=== PATIENT | female | born 1935 | race Caucasian/White ===

== ENCOUNTER → 2016-10-23 | Outpatient (CLI) | payer BC ==
[~2016-10-23] MED LIST: AMLO-110 PO; ASPI81TA28 PO; ATEN50TA8 PO; CYAN1SUB12 PO; EZET10TA41 PO; HYDR500C3 PO; HYZ/10015 PO; LSX20 PO; LSX40 PO; LUTE20CA PO; MECL1TAB40 PO; MULT-506 PO; NRV/5 PO; OMEG10007 PO; RALO1TAB2 PO; TNR25 PO; ULT50X PO; VYT/1040 PO
[2016-10-23 18:19] LABS: BASO % 1.5 %; BASO ABS # 0.12 K/uL (0-0.2); COMPLETE YES; EOS % 2.7 %; IG% 0.2 %; LYMPH % 23.4 %; LYMPH ABS # 1.88 K/uL (1.2-3.4); MEAN CELL VOLUME 93.9 fL (80-100); MEAN CORPUSCULAR HEMOGLOBIN 29.7 pg (25-34); MEAN CORPUSCULAR HGB CONC 31.6 g/dl (32-36); MEAN PLATELET VOLUME 10.2 fL (7.4-10.4); MONO % 8.2 %; PLATELET COUNT 435 K/uL (130-400); RED BLOOD COUNT 5.22 M/uL (4.2-5.4); WHITE BLOOD COUNT 8.02 K/uL (4.8-10.8)
[2016-10-23 18:31] LABS: BLOOD UREA NITROGEN 19 mg/dl (7-18); BUN/CREATININE RATIO 16.9 (10-20); CALCIUM 8.8 mg/dl (8.5-10.1); CARBON DIOXIDE 30 mmol/L (21-32); CHLORIDE 106 mmol/L (98-107); GLUCOSE 95 mg/dl (70-99); INR 1.1 (0.9-1.1); POTASSIUM 3.8 mmol/L (3.5-5.1); PROTHROMBIN TIME (PATIENT) 11.6 SECONDS (9.0-12.0); SODIUM 142 mmol/L (136-145)
== END | disposition home or self-care (01) ==
LOC: C.LABSPEC 17:59
PROVIDERS: ATTEND Internal Medicine
DX: Z01.812 Encounter for preprocedural laboratory examination (principal)

== ENCOUNTER → 2016-11-07 | Day surgery (SDC) | payer BC ==
[2016-11-03 08:29] VITALS: Ht 165.1 cm; Wt 78.2 kg
[~2016-11-07] VITALS: Ht 165.1 cm; Wt 78.2 kg
[~2016-11-07] MED LIST changes: +ACETAMINOPHEN 325 MG TAB PO PRN; +ACETAMINOPHEN IV 1,000 MG in EMPTY BAG 0 ML IV PRN; -ASPI81TA28 PO; +ATROPINE SULFATE 0.1 MG/ML 5ML SYR IV PRN; +BACITRACIN OP OINT 3.5 GM TUBE ONE; +BUPIVACAINE 0.5 % 5 MG/1 ML MPF 30ML VIAL ONE; +CEFAZOLIN 2000 MG/60 ML D5W IV SCH; +EpHEDrine SULFATE INJ 50 MG/ML AMP IV PRN; +FENTANYL CITRATE INJ 50 MCG/1 ML 2 ML VIAL IV PRN; +FENTANYL CITRATE INJ 50 MCG/1 ML 2 ML VIAL ONE; +GENTIAN VIOLET TOP SOLN DROP CHARGE ONE; -HYZ/10015 PO; +LACTATED RINGER'S 1000ML 1,000 ML IV SCH; +LIDOCAINE/EPINEPHRINE 1% INJ 50 ML VIAL ONE; -LSX40 PO; +METOCLOPRAMIDE HCL INJ 5 MG/ML 2 ML VIAL IV PRN; +MIDAZOLAM HCL 1 MG/ML 2ML VIAL ONE; -NRV/5 PO; +ONDANSETRON INJ 2 MG/ML 2 ML VIAL IV PRN; +OXYCODONE/ACETAMINOPHEN 5-325 TAB PO PRN; +POVIDONE-IODINE OP SOLN 30 ML BTL ONE; +PROPOFOL IV EMULSION 10 MG/ML 20 ML VIAL IV ONE; +SODIUM CHLORIDE 0.9% 1000ML 1,000 ML IV SCH; -TNR25 PO; -ULT50X PO; -VYT/1040 PO
--- NOTE | 2016-11-07 06:55 | History & Physical Bridge - [place] ---
H&P Re-Evaluation Bridge Note: I have examined the patient, reviewed the History & Physical and in the interval since the performance of the History & Physical I have noted the following changes of clinical significance: Feels stressed about procedure. Reassurance offered.
--- NOTE | 2016-11-07 09:16 | [facility] Post Operative Brief Note ---
Immediate Operative Summary Operative Date Nov 07, 2016. Pre-Operative Diagnosis Squamous Cell Carcinoma of Skin of Face, Left Arm and Right Chest Lesions Post-Operative Diagnosis same Procedure(s) Performed Right Nose And Right Cheek Squamous Cell Carcinomas Excision With Frozen Section, layered Closure right cheek, flap closure right nose Left Arm And Right Chest Lesions Excision with layered closure Surgeon Dr Marlen Nam Inside Sales Professional Surgeon(s) Karlene Ambrocio PA-C Estimated Blood Loss 5 Findings small amount residual SCC right cheek, completely excised no residual SCC right nose, but scar abutted deep margin, second deep margin specimen obtained and sent for permanent Specimens A) Right Cheek Squamous Cell Suture at 1200, Frozen section sent B)Right Nose [place] Cell Suture at 1200, Frozen section sent C)Right Chest Lesion D)Left Arm Lesion Suspect Squamous Cell In-Situ E)Right Nose ink surface=old deep margin, clean surface=new deep margin Anesthesia local with sedation Complication(s) None Disposition Recovery Room / PACU
[2016-11-07 09:22] VITALS: TEMP 36.6
--- NOTE | 2016-11-07 09:24 | Discharge Instructions ---
Discharge Instructions Date of Service Nov 07, 2016. Admission Reason for Admission: Squamous Cell Carcinoma Of Skin Of Face Discharge Discharge Diagnosis / Problem: squamous cell carcinoma of face Discharge Goals Goal(s): Decrease discomfort Activity Recommendations Activity Limitations: per Instructions/Follow-up section ACTIVITY RECOMMENDATIONS: __Normal activities _x_No bending, lifting or straining __No driving __Driving allowed when you are off pain medications _x_Walking permitted __You should have help at home for ___ days DRESSINGS: __No dressings required __Keep dressings dry/in place until first office visit _x_Remove dressings __from left arm on thursday_ and leave dressings off __Apply ice ___ days __Remove dressings and reapply garment _x_Apply antibiotic ointment (sent to your pharmacy) to NOSE ONLY 3-4 times/day for 10 days BATHING: __Keep dressings dry __Sponge bathing permitted _x_Showering permitted on Thursday after your remove dressings _x_No swimming, hot tubs or soaking in a tub MEDICATIONS: Resume previous medications unless instructed otherwise by your surgeon. _x_Do not use aspirin, Motrin, Advil or Ibuprofen as these may promote bleeding. Please use Tylenol. _x_Prescription(s) provided:pain medication was provided at your last office visit. antibiotic ointment was sent to your pharmacy today OTHER INSTRUCTIONS: __Record drain output 2-3 times per day SPECIAL CARE INSTRUCTIONS: * It is normal to have a mild fever after surgery. If your temperature is higher than 101.5 degrees F, please call the office at [phone]. * Constipation is a typical side effect of pain medication. An over-the- counter stool softener will help relieve this. * Leaking around surgical drains may occur and should not cause concern. Sometimes these drains become clogged. If this happens, remove the bulb and milk the clot out of the tube, then replace the bulb. * Drainage from wounds after liposuction is normal and should be expected. Garments will become soiled. You should protect furniture and bedding. This drainage should mostly subside within 2-3 days. Leave garments in place unless instructed to remove them. * If you have unusual drainage from a wound or are concerned you have an infection or have any questions or concerns, please call the office at [phone]. FOLLOW UP VISIT: If not already scheduled, please call the office, , when you return home after surgery to schedule an appointment to be seen in __3_ days. (Thursday) . Current Hospital Diet Patient's current hospital diet: Discharge Diet Recommended Diet: Regular Diet Procedures Procedures Performed: Right Nose And Right Cheek Squamous Cell Carcinomas Excision With Frozen Section, layered Closure right cheek, flap closure right nose Left Arm And Right Chest Lesions Excision with layered closure Pending Studies Studies pending at discharge: yes List of pending studies: pathology Medical Emergencies . Who to Call and When: Medical Emergencies: If at any time you feel your situation is an emergency, please call 911 immediately. . Non-Emergent Contact Non-Emergency issues call your: Primary Care Provider, Surgeon . "Provider Documentation" section prepared by Karlene Ambrocio. VTE Core Measure Inpt VTE Proph given/why not?: SCD's [place] Drug Monitoring Program Search Results: no issues identified
--- NOTE | 2016-11-07 09:50 | Anesthesia Progress Nt - [facility] ---
Anesthesia Post Op Note Date & Time Nov 07, 2016 at 09:49 Vital Signs Pain Intensity: 0 Vital Signs Past 12 Hours Date Time Temp Pulse Resp B/P Pulse Ox O2 Delivery O2 Flow Rate FiO2 11/07/16 09:22 36.6 79 12 148/76 93 Room Air 11/07/16 06:33 36.4 75 18 161/83 95 Room Air Notes Mental Status: alert / awake / arousable, participated in evaluation Pt Amnestic to Procedure: Yes Nausea / Vomiting: adequately controlled Pain: adequately controlled Airway Patency, RR, SpO2: stable & adequate BP & HR: stable & adequate Hydration State: stable & adequate Anesthetic Complications: no major complications apparent
[2016-11-07 09:57] VITALS: BP 161/89; PULSE 80; O2SAT 94
--- NOTE | 2016-11-10 11:00 | OPERATIVE REPORT ---
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 POSTOPERATIVE DIAGNOSES: Same. PROCEDURES: Excision of right nose squamous cell carcinoma with frozen section and bilobed flap closure, excision squamous cell carcinoma right cheek with frozen section and layered closure, excisional biopsy of lesions left arm and right chest with layered closure. SURGEON: Marlen Nam MD [employer]ARK PARALEGAL: Karlene Ambrocio PA-C ANESTHESIA: Local with sedation. COMPLICATIONS: None. FINDINGS: Small amount of residual squamous cell carcinoma right cheek, completely excised. Per frozen section report, no residual squamous cell carcinoma right nose, but with scar abutting deep margin. INDICATION FOR THE PROCEDURE: The patient is an 81-year-old female who was referred to me with a nonhealing skin ulceration of her right nose and right yazdanism. Biopsy of these lesions were performed and found to be squamous cell carcinoma. Given the locations, we discussed options of Mohs versus excision with frozen section. After discussion, she elected to proceed with excision with frozen section. At the time of her preoperative visit, she pointed out lesions on her left arm and right chest that she desired to have biopsied as well. Clinically, it did appear consistent with squamous cell carcinoma in situ. BRIEF DESCRIPTION OF THE PROCEDURE: Risks, benefits, and alternatives of the procedure were explained to the patient who agreed and signed consent. She was identified and marked in the preoperative holding area. She was brought to the operating room where she was placed on the table and positioned supine and placed under sedation without incident. Surgical sites were prepped and draped sterilely. A time-out procedure was performed. I began by excising the 2 lesions for frozen section. Each lesion was marked including prior biopsy scar and a margin of normal tissue surrounding the lesion. Maximal excision diameter on the right nose was 1.2 x 1.2 cm. The right cheek lesion was marked for maximal excision diameter of 1.5 x 1.5 cm. Each area was anesthetized using 1% lidocaine with epinephrine. A 15 blade scalpel was used to make the circular incisions around each lesion. Fresh needle and blade were used for each excision. Each lesion was marked with a suture at 12 o'clock and sent for frozen section. While awaiting the frozen section reports, I excised the lesions of the right cheek and left forearm. Maximal excision of the left forearm lesion was 2.5 x 2.5 cm and right chest lesion was 2 x 1.5 cm. Each of these lesions was also anesthetized with 1% lidocaine with epinephrine mixed with 0.25% Marcaine plain. They were marked in an elliptical fashion. A 15 blade scalpel made the elliptical incision and the lesion was removed with some underlying subcutaneous fat. These lesions were sent for permanent. Hemostasis was achieved with electrocautery. Wounds were reapproximated using 3-0 Vicryl interrupted dermal sutures and 3-0 Monocryl running subcuticular suture. Total wound closure length for the left forearm was 6 cm and total wound closure length for the right chest was 5 cm. Frozen section report showed there was some residual squamous cell carcinoma on the right cheek which was completely excised. Hemostasis was achieved with electrocautery. Wound edges were undermined to facilitate closure. A 5-0 Vicryl interrupted sutures were used to reapproximate the dermis and a running 5-0 Monocryl subcuticular suture was placed. Dermabond was applied. Total wound closure length was 3 cm. The right nose showed that there was no residual squamous cell carcinoma; however, the biopsy scar abutted the deep margin. Therefore, I elected to take a deep margin specimen which was then sent for permanent section. The base of the wound was extensively cauterized as well. Due to the location on the right nose along the nasal side wall near the right medial canthus, I elected to perform bilobed flap closure. Flap was designed and additional local anesthetic was injected. A 15 blade scalpel made the incisions. The flap was raised with the underlying subcutaneous fat at the level of the nasalis muscle. Hemostasis was achieved at the wound base using electrocautery. The flap as well as the wound edges along the nose was elevated and undermined. The flap was rotated into position and was inset using 5-0 Monocryl interrupted dermal sutures. Donor site was closed using 5-0 Monocryl sutures. Skin was closed using 6-0 Prolene interrupted skin sutures. Total flap area was less than 10 square cm. The procedure was tolerated well. Antibiotic ointment was applied to the nasal site. The patient was awakened and transferred to recovery in satisfactory condition. I attest to the content of the Intraoperative Record and any orders documented therein. Any exceptio ns are noted below.
== END | disposition home or self-care (01) ==
LOC: X.SURG 06:07
PROVIDERS: ATTEND Plastic Surgery
DX: C44.320 Squamous cell carcinoma of skin of unspecified parts of face (principal); C44.321 Squamous cell carcinoma of skin of nose; C44.519 Basal cell carcinoma of skin of other part of trunk; L57.0 Actinic keratosis; M19.90 Unspecified osteoarthritis, unspecified site; D75.9 Disease of blood and blood-forming organs, unspecified; E78.5 Hyperlipidemia, unspecified; I10 Essential (primary) hypertension; Z98.890 Other specified postprocedural states; Z82.49 Family history of ischemic heart disease and other diseases of the circulatory system

== ENCOUNTER → 2017-05-05 | Outpatient (CLI) | payer BC ==
[~2017-05-05] MED LIST changes: -ACETAMINOPHEN 325 MG TAB PO PRN; -ACETAMINOPHEN IV 1,000 MG in EMPTY BAG 0 ML IV PRN; -ATROPINE SULFATE 0.1 MG/ML 5ML SYR IV PRN; -BACITRACIN OP OINT 3.5 GM TUBE ONE; -BUPIVACAINE 0.5 % 5 MG/1 ML MPF 30ML VIAL ONE; -CEFAZOLIN 2000 MG/60 ML D5W IV SCH; -EpHEDrine SULFATE INJ 50 MG/ML AMP IV PRN; -FENTANYL CITRATE INJ 50 MCG/1 ML 2 ML VIAL IV PRN; -FENTANYL CITRATE INJ 50 MCG/1 ML 2 ML VIAL ONE; -GENTIAN VIOLET TOP SOLN DROP CHARGE ONE; -LACTATED RINGER'S 1000ML 1,000 ML IV SCH; -LIDOCAINE/EPINEPHRINE 1% INJ 50 ML VIAL ONE; -METOCLOPRAMIDE HCL INJ 5 MG/ML 2 ML VIAL IV PRN; -MIDAZOLAM HCL 1 MG/ML 2ML VIAL ONE; -OMEG10007 PO; -ONDANSETRON INJ 2 MG/ML 2 ML VIAL IV PRN; -OXYCODONE/ACETAMINOPHEN 5-325 TAB PO PRN; -POVIDONE-IODINE OP SOLN 30 ML BTL ONE; -PROPOFOL IV EMULSION 10 MG/ML 20 ML VIAL IV ONE; -SODIUM CHLORIDE 0.9% 1000ML 1,000 ML IV SCH
[2017-05-05 18:03] LABS: BASO % 2.1 %; BASO ABS # 0.15 K/uL (0-0.2); COMPLETE YES; EOS % 2.5 %; HEMATOCRIT 42.4 % (37-47); IG% 0.1 %; LYMPH % 23.2 %; LYMPH ABS # 1.66 K/uL (1.2-3.4); MEAN CELL VOLUME 91.8 fL (80-100); MEAN CORPUSCULAR HEMOGLOBIN 27.9 pg (25-34); MEAN CORPUSCULAR HGB CONC 30.4 g/dl (32-36); MEAN PLATELET VOLUME 9.5 fL (7.4-10.4); MONO % 7.8 %; NEUT % 64.3 %; PLATELET COUNT 468 K/uL (130-400); RED BLOOD COUNT 4.62 M/uL (4.2-5.4); WHITE BLOOD COUNT 7.16 K/uL (4.8-10.8)
[2017-05-05 18:48] LABS: ALT/SGPT 18 U/L (12-78); AST/SGOT 19 U/L (15-37); BLOOD UREA NITROGEN 14 mg/dl (7-18); BUN/CREATININE RATIO 17.7 (10-20); CALCIUM 8.2 mg/dl (8.5-10.1); CARBON DIOXIDE 26 mmol/L (21-32); CHLORIDE 108 mmol/L (98-107); CHOLESTEROL 160 mg/dl (0-200); CREATININE 0.81 mg/dl (0.60-1.20); GLUCOSE 83 mg/dl (70-99); POTASSIUM 4.2 mmol/L (3.5-5.1); SODIUM 141 mmol/L (136-145)
[2017-05-05 18:58] LABS: ALKALINE PHOSPHATASE 72 U/L (45-117); HDL CHOLESTEROL 40 mg/dl; TRIGLYCERIDES 133 mg/dl (0-150); VERY LOW DENSITY LIPOPROT CALC 27 mg/dl
== END | disposition home or self-care (01) ==
LOC: C.LABSPEC 17:29
PROVIDERS: ATTEND Internal Medicine
DX: I10 Essential (primary) hypertension (principal); E78.5 Hyperlipidemia, unspecified; D45 Polycythemia vera; E04.1 Nontoxic single thyroid nodule

== ENCOUNTER → 2017-05-11 | Outpatient (CLI) | payer BC | END | disposition home or self-care (01) | LOC: C.PATHSPEC 10:15 | PROVIDERS: ATTEND Plastic Surgery | DX: L57.0 Actinic keratosis (principal) ==

== ENCOUNTER → 2017-05-28 | Outpatient (CLI) | payer BC ==
[2017-05-28 18:01] LABS: BASO % 1.6 %; BASO ABS # 0.12 K/uL (0-0.2); COMPLETE YES; EOS % 2.7 %; HEMATOCRIT 43.9 % (37-47); IG% 0.3 %; LYMPH % 21.9 %; LYMPH ABS # 1.63 K/uL (1.2-3.4); MEAN CELL VOLUME 90.1 fL (80-100); MEAN CORPUSCULAR HEMOGLOBIN 28.1 pg (25-34); MEAN CORPUSCULAR HGB CONC 31.2 g/dl (32-36); MEAN PLATELET VOLUME 9.9 fL (7.4-10.4); MONO % 7.7 %; NEUT % 65.8 %; PLATELET COUNT 384 K/uL (130-400); RED BLOOD COUNT 4.87 M/uL (4.2-5.4); WHITE BLOOD COUNT 7.43 K/uL (4.8-10.8)
[2017-05-28 18:15] LABS: BLOOD UREA NITROGEN 23 mg/dl (7-18); BUN/CREATININE RATIO 21.5 (10-20); CALCIUM 8.6 mg/dl (8.5-10.1); CARBON DIOXIDE 30 mmol/L (21-32); CHLORIDE 104 mmol/L (98-107); CREATININE 1.05 mg/dl (0.60-1.20); GLUCOSE 101 mg/dl (70-99); POTASSIUM 4.7 mmol/L (3.5-5.1); SODIUM 139 mmol/L (136-145)
== END | disposition home or self-care (01) ==
LOC: C.LABSPEC 17:26
PROVIDERS: ATTEND Internal Medicine
DX: E78.5 Hyperlipidemia, unspecified (principal); D45 Polycythemia vera

== ENCOUNTER 2017-08-15 06:47 | Inpatient (IN) | payer BC, OTHER ==
[~2017-08-15] VITALS: Ht 170.2 cm; Wt 76.2 kg
[2017-08-15] MEDS ORDERED: OMEGCAP2 PO (07:12)
[2017-08-15] MEDS ORDERED: FURO-85 PO (07:20)
[2017-08-15 07:27] LABS: BASO % 1.8 %; BASO ABS # 0.12 K/uL (0-0.2); EOS % 2.4 %; EOS ABS # 0.16 K/uL (0-0.5); HEMATOCRIT 43.6 % (37-47); HEMOGLOBIN 13.4 g/dL (12.0-16.0); IG# 0.01 K/uL (0.00-0.02); LYMPH % 15.1 %; MEAN CELL VOLUME 90.8 fL (80-100); MEAN CORPUSCULAR HEMOGLOBIN 27.9 pg (25-34); MEAN CORPUSCULAR HGB CONC 30.7 g/dl (32-36); MEAN PLATELET VOLUME 10.4 fL (7.4-10.4); MONO % 7.1 %; MONO ABS # 0.47 K/uL (0.11-0.59); NEUT % 73.4 %; NEUT ABS # 4.86 K/uL (1.4-6.5); PLATELET COUNT 395 K/uL (130-400); RED CELL DISTRIBUTION WIDTH CV 17.2 % (11.5-14.5); RED CELL DISTRIBUTION WIDTH SD 56.4 fL (36.4-46.3); WHITE BLOOD COUNT 6.62 K/uL (4.8-10.8)
[2017-08-15] MEDS ORDERED: ASPIRIN 81 MG CHEW PO STA (07:30)
[2017-08-15 07:33] LABS: ALBUMIN 3.1 gm/dl (3.4-5.0); BLOOD UREA NITROGEN 20 mg/dl (7-18); CALCIUM 8.4 mg/dl (8.5-10.1); CARBON DIOXIDE 29 mmol/L (21-32); CREATININE 1.01 mg/dl (0.60-1.20); GLUCOSE 109 mg/dl (70-99); LIPASE 68 U/L (73-393); SODIUM 141 mmol/L (136-145)
[2017-08-15 07:39] LABS: ALKALINE PHOSPHATASE 77 U/L (45-117); ALT/SGPT 14 U/L (12-78); AST/SGOT 16 U/L (15-37); CKMB 0.8 ng/ml (0.5-3.6); TOTAL PROTEIN 6.9 gm/dl (6.4-8.2)
--- NOTE | 2017-08-15 07:48 | DIAGNOSTIC IMAGING REPORT ---
CHEST ONE VIEW PORTABLE CLINICAL HISTORY: CHEST PAIN dyspnea COMPARISON STUDY: 05/15/2016 FINDINGS: Small parenchymal infiltrate left base. Lungs otherwise appear clear. Mild stable cardiomegaly. IMPRESSION: Small parenchymal infiltrate left base. Mild stable cardiomegaly. The above report was generated using voice recognition software. It may contain grammatical, syntax or spelling errors. Electronically signed by: Fredi Dudley M.D. 08/15/2017 7:46 AM Dictated Date/Time: 08/15/2017 7:46 AM
[2017-08-15] MEDS ORDERED: OPTIRAY 320 IV PRN (09:00)
--- NOTE | 2017-08-15 09:34 | DIAGNOSTIC IMAGING REPORT ---
(CHEST FOR PE) ANGIO WITH CT DOSE: 245.65 mGy.cm HISTORY: Dyspnea chest pain TECHNIQUE: Multiaxial CT images of the chest were performed following the intravenous administration of contrast to evaluate the pulmonary arteries. Maximal intensity projection images were also obtained. A dose lowering technique was utilized adhering to the principles of ALARA. COMPARISON STUDY: 07/26/2014 FINDINGS: There is a normal caliber thoracic aorta with no evidence for dissection. There is no evidence for pulmonary embolus. No pleural effusions. No pneumothorax. The liver and spleen are unremarkable. No mediastinal or hilar lymphadenopathy. The central airways are patent. There is moderate peribronchial thickening. There is small left and to lesser extent right basilar parenchymal infiltrative changes. IMPRESSION: 1. No evidence for pulmonary embolus. 2. Left and to a lesser extent small right basilar parenchymal infiltrates. 3. Moderate peribronchial thickening. The above report was generated using voice recognition software. It may contain grammatical, syntax or spelling errors. Electronically signed by: Fredi Dudley M.D. 08/15/2017 9:32 AM Dictated Date/Time: 08/15/2017 9:30 AM
[2017-08-15] MEDS ORDERED: LEVAQUIN 750MG / 150ML D5W IV STA (10:58)
[2017-08-15] MEDS ORDERED: NITROGLYCERIN 0.4 MG SL PER TAB CHARGE SL PRN (11:45)
[2017-08-15] MEDS ORDERED: MECLIZINE HCL 12.5 MG TAB PO PRN (11:45)
[2017-08-15] MEDS ORDERED: ONDANSETRON INJ 2 MG/ML 2 ML VIAL IV PRN (11:45)
[2017-08-15] MEDS ORDERED: ACETAMINOPHEN 325 MG TAB PO PRN (11:45)
[2017-08-15] MEDS ORDERED: MAGNESIUM HYDROXIDE SUSP 30 ML UDC PO PRN (11:45)
--- NOTE | 2017-08-15 11:55 | History and Physical ---
History & Physical Date & Time of Service: Aug 15, 2017 at 11:47 Chief Complaint: Chest Pain Primary Care Physician: John Friedman M.D. History of Present Illness Source: patient 82 y/o F c/o chest pain. Pt states she was in her usual state of health yesterday, however she woke up this AM and had sudden onset of L sided chest pain with SOB. This pain stays mostly on the L side and occurs only when she is bending over. She does not have pain at rest or with stairs. She has had similar chest pain many years ago when she was dx with pleurisy. She has been eating well, although she has not eaten today due to coming to the ED. Pt denies fever, abd pain, n/v/c/d, LE pain. Pt always has mild LE swelling and it is at her usual today. Past Medical/Surgical History Medical Problems: (1) CELLILITIS RLL, LEG EDEMA Status: Resolved (2) CHF (congestive heart failure) Status: Chronic (3) GI BLEED, POLYCYTHEMIA VERA Status: Resolved (4) Hyperlipidemia Nec/Nos Status: Chronic (5) Hypertension Nos Status: Chronic (6) Peripheral vertigo Status: Resolved (7) Polycythemia vera Status: Chronic Family History Diabetes mellitus FH: CVA (cerebrovascular accident) FH: heart attack FH: heart disease FHx: cancer Hypertension CVA, PR Social History Smoking Status: Never Smoker (although her smoked in the home) Alcohol Use: none Drug Use: none Marital Status: Housing status: lives with family Occupational Status: retired Immunizations History of Influenza Vaccine: Yes Influenza Vaccine Date: Apr 18, 2016 History of Tetanus Vaccine?: Yes History of Pneumococcal: Yes History of Hepatitis B Vaccine: No Multi-Drug Resistant Organisms History of MDRO: No Allergies Coded Allergies: No Known Allergies (Verified , 08/15/17) Home Medications Scheduled Amlodipine (Norvasc), 5 MG PO DAILY Atenolol (Tenormin), 1.5 TABS PO DAILY Cyanocobalamin (Vitamin B-12), 2,500 MCG PO DAILY Ezetimibe/Simvastatin (Vytorin 10MG/40MG), 1 TAB PO DAILY Furosemide (Lasix), 1 TAB PO DAILY Hydroxyurea (Hydrea Cap), 500 MG PO DAILY Lutein (Lutein), 20 MG PO DAILY Multivitamin (Multivitamin), 1 TAB PO DAILY [place]-3 Fatty Acids (Fish Oil), 1 CAP PO DAILY Raloxifene HCl (Raloxifene Hydrochloride), 60 MG PO DAILY Scheduled PRN Meclizine HCl (Meclizine HCl), 12.5 MG PO TID PRN for Dizziness or Vertigo Review of Systems Pertinent positives and negatives reviewed in HPI--all others negative Physical Exam Vital Signs Date Time Temp Pulse Resp B/P (MAP) Pulse Ox O2 Delivery O2 Flow Rate FiO2 08/15/17 11:42 60 17 152/66 95 Room Air 08/15/17 09:59 64 18 158/72 95 Room Air 08/15/17 08:49 65 18 139/63 95 Room Air 08/15/17 07:42 75 18 147/75 95 Room Air 08/15/17 06:58 94 Room Air 08/15/17 06:58 36.8 71 20 169/82 94 Room Air 08/15/17 06:58 93 Room Air 08/15/17 06:58 94 Room Air 08/15/17 06:56 75 General Appearance: WD/WN, no apparent distress Head: normocephalic, atraumatic Eyes: normal inspection, EOMI, sclerae normal Respiratory/Chest: no respiratory distress, + crackles (L>R) Cardiovascular: regular rate, rhythm, normal peripheral pulses Abdomen/GI: non tender, soft Extremities/Musculoskelatal: no calf tenderness, + pedal edema (1+, nonpitting) Neurologic/Psych: alert, normal mood/affect, oriented x 3 Skin: normal color, warm/dry Diagnostics Laboratory Results Results Past 24 Hours Test 08/15/17 06:55 08/15/17 09:00 Range/Units White Blood Count 6.62 4.8-10.8 K/uL Red Blood Count 4.80 4.2-5.4 M/uL Hemoglobin 13.4 12.0-16.0 g/dL Hematocrit 43.6 37-47 % Mean Corpuscular Volume 90.8 80-100 fL Mean Corpuscular Hemoglobin 27.9 25-34 pg Mean Corpuscular Hemoglobin Concent 30.7 32-36 g/dl Platelet Count 395 130-400 K/uL Mean Platelet Volume 10.4 7.4-10.4 fL Neutrophils (%) (Auto) 73.4 % Lymphocytes (%) (Auto) 15.1 % Monocytes (%) (Auto) 7.1 % Eosinophils (%) (Auto) 2.4 % Basophils (%) (Auto) 1.8 % Neutrophils # (Auto) 4.86 1.4-6.5 K/uL Lymphocytes # (Auto) 1.00 1.2-3.4 K/uL Monocytes # (Auto) 0.47 0.11-0.59 K/uL Eosinophils # (Auto) 0.16 0-0.5 K/uL Basophils # (Auto) 0.12 0-0.2 K/uL RDW Standard Deviation 56.4 36.4-46.3 fL RDW Coefficient of Variation 17.2 11.5-14.5 % Immature Granulocyte % (Auto) 0.2 % Immature Granulocyte # (Auto) 0.01 0.00-0.02 K/uL Sodium Level 141 136-145 mmol/L Potassium Level 4.0 3.5-5.1 mmol/L Chloride Level 106 98-107 mmol/L Carbon Dioxide Level 29 21-32 mmol/L Anion Gap 6.0 3-11 mmol/L Blood Urea Nitrogen 20 7-18 mg/dl Creatinine 1.01 0.60-1.20 mg/dl Est Creatinine Clear Calc Drug Dose 45.2 ml/min Estimated GFR () 59.2 Estimated GFR (Non- 51.1 BUN/Creatinine Ratio 19.6 10-20 Random Glucose 109 70-99 mg/dl Calcium Level 8.4 8.5-10.1 mg/dl Total Bilirubin 0.6 0.2-1 mg/dl Direct Bilirubin 0.2 0-0.2 mg/dl Aspartate Amino Transf (AST/SGOT) 16 15-37 U/L Alanine Aminotransferase (ALT/SGPT) 14 12-78 U/L Alkaline Phosphatase 77 45-117 U/L Total Creatine Kinase 44 26-192 U/L Creatine Kinase MB 0.8 0.5-3.6 ng/ml Creatine Kinase MB Ratio 1.8 0-3.0 Troponin I < 0.015 < 0.015 0-0.045 ng/ml Total Protein 6.9 6.4-8.2 gm/dl Albumin 3.1 3.4-5.0 gm/dl Lipase 68 73-393 U/L Microbiology Results 08/15/17 Blood Culture, Received Pending 08/15/17 Blood Culture, Received Pending Diagnostic Radiology CXR: ? L sided PNA CTA: L sided PNA, small R sided PNA, neg for PE EKG LBBB, seen prior Impression Assessment and Plan 82 y/o F who was admitted on 08/15 with chest pain and SOB. Chest pain/SOB: Seems more likely related to PNA given hx of onset with bending over and not with exertion CXR, CTA noted for PNA EKG with LBBB which has been seen prior, trop neg with serials pending Levaquin started in the ED, will continue Afebrile, WBC WNL CHF: continue home meds HTN: continue home meds Hyperlipidemia: continue home meds Vertigo: no sx presently, continue PRN med Other: Full code Low sodium diet SCDs for DVT proph Level of Care Telemetry VTE Prophylaxis VTE Risk Assessment Done? Y/N: Yes Risk Level: Low
[2017-08-15 12:58] VITALS: O2SAT 95
[2017-08-15 13:16] VITALS: BP 171/82; PULSE 62; TEMP 36.9; Ht 170.2 cm; Wt 76.2 kg
[2017-08-15 14:54] VITALS: BP 162/85; PULSE 69; TEMP 37.1; O2SAT 95
[2017-08-15] MEDS: FUROSEMIDE 20 MG TAB PO SCH (16:09)
--- NOTE | 2017-08-15 16:22 | EMERGENCY ROOM VISIT NOTE ---
History Report prepared by Marc: Jennifer Bonilla Under the Supervision of: Dr. Nathan Luna M.D. First contact with patient: 07:12 Chief Complaint: CHEST PAIN Stated Complaint: CHEST PAIN Nursing Triage Summary: pt presents to room b09 via als from home. pt reports at approx 0500 she had an episode of chest pain that lasted approx 10 min and then resolved. pt denies any pain at this time. History of Present Illness The patient is a 82 year old female who presents to the Emergency Room with complaints of chest pain beginning at 0500 this morning. The patient reports that the pain lasted for 10 minutes and that during this time, she was unable to take a deep breath. She reports that the pain did not radiate to her arm or jaw. She also denies having abdominal pain, nausea, fevers, chills, cough, headaches, numbness, melena, hematochezia, and diaphoresis. The patient states that she does get short of breath with walking recently. Her family states that she sometimes has weakness in her legs. She reports having a runny nose, but states that this is chronic. The patient denies having any pain like this in the last week, or any time recently. The patient denies recent travel. She denies a history of cardiac problems, but states that there is a family history of strokes and heart attacks. She reports a history of hypertension, but denies a history of diabetes. Source of History: patient, family Onset: 0500 this morning Position: chest Timing: other (lasted 10 minutes) Associated Symptoms: + SOB (unable to take deep breath ), + weakness, No abdominal pain Review of Systems See HPI for pertinent positives and negatives. A total of ten systems were reviewed and were otherwise negative. Past Medical & Surgical Medical Problems: (1) CELLILITIS RLL, LEG EDEMA (2) CHF (congestive heart failure) (3) Dizziness (4) GI BLEED, POLYCYTHEMIA VERA (5) Hyperlipidemia Nec/Nos (6) Hypertension Nos (7) Peripheral vertigo (8) PNA (pneumonia) (9) Polycythemia vera (10) Vertigo Family History Diabetes mellitus FH: CVA (cerebrovascular accident) FH: heart attack FH: heart disease FHx: cancer Hypertension Social History Smoking Status: Never Smoker Alcohol Use: none Drug Use: none Marital Status: Housing Status: lives with family Occupation Status: retired Current/Historical Medications Scheduled Amlodipine (Norvasc), 5 MG PO DAILY Atenolol (Tenormin), 1.5 TABS PO DAILY Cyanocobalamin (Vitamin B-12), 2,500 MCG PO DAILY Ezetimibe/Simvastatin (Vytorin 10MG/40MG), 1 TAB PO DAILY Furosemide (Lasix), 1 TAB PO DAILY Hydroxyurea (Hydrea Cap), 500 MG PO DAILY Lutein (Lutein), 20 MG PO DAILY Multivitamin (Multivitamin), 1 TAB PO DAILY Scobey-3 Fatty Acids (Fish Oil), 1 CAP PO DAILY Raloxifene HCl (Raloxifene Hydrochloride), 60 MG PO DAILY Scheduled PRN Meclizine HCl (Meclizine HCl), 12.5 MG PO TID PRN for Dizziness or Vertigo Allergies Coded Allergies: No Known Allergies (Verified , 08/15/17) Physical Exam Vital Signs Date Time Temp Pulse Resp B/P (MAP) Pulse Ox O2 Delivery O2 Flow Rate FiO2 08/15/17 11:42 60 17 152/66 95 Room Air 08/15/17 09:59 64 18 158/72 95 Room Air 08/15/17 08:49 65 18 139/63 95 Room Air 08/15/17 07:42 75 18 147/75 95 Room Air 08/15/17 06:58 94 Room Air 08/15/17 06:58 36.8 71 20 169/82 94 Room Air 08/15/17 06:58 93 Room Air 08/15/17 06:58 94 Room Air 08/15/17 06:56 75 Physical Exam GENERAL: Awake, alert, tired-appearing, in no distress HENT: Normocephalic, atraumatic. Oropharynx unremarkable. EYES: Normal conjunctiva. Sclera non-icteric. NECK: Supple. No nuchal rigidity. FROM. No JVD. RESPIRATORY: Clear to auscultation. CARDIAC: Regular rate, normal rhythm. Extremities warm and well perfused. Pulses equal. ABDOMEN: Soft, non-distended. No tenderness to palpation. No rebound or guarding. No masses. RECTAL: Deferred. MUSCULOSKELETAL: Chest examination reveals no tenderness. The back is symmetrical on inspection without obvious abnormality. There is no CVA tenderness to palpation. No joint edema. LOWER EXTREMITIES: Calves are equal size bilaterally and non-tender. Trace lower extremity edema. No discoloration. NEURO: Normal sensorium. No sensory or motor deficits noted. SKIN: No rash or jaundice noted. Medical Decision & Procedures ER Provider Diagnostic Interpretation: Radiology results as stated below per my review and radiologist interpretation: CHEST ONE VIEW PORTABLE CLINICAL HISTORY: CHEST PAIN dyspnea COMPARISON STUDY: 05/15/2016 FINDINGS: Small parenchymal infiltrate left base. Lungs otherwise appear clear. Mild stable cardiomegaly. IMPRESSION: Small parenchymal infiltrate left base. Mild stable cardiomegaly. The above report was generated using voice recognition software. It may contain grammatical, syntax or spelling errors. Electronically signed by: Fredi Dudley M.D. 08/15/2017 7:46 AM Dictated Date/Time: 08/15/2017 7:46 AM (CHEST FOR PE) ANGIO WITH CT DOSE: 245.65 mGy.cm HISTORY: Dyspnea chest pain TECHNIQUE: Multiaxial CT images of the chest were performed following the intravenous administration of contrast to evaluate the pulmonary arteries. Maximal intensity projection images were also obtained. A dose lowering technique was utilized adhering to the principles of ALARA. COMPARISON STUDY: 07/26/2014 FINDINGS: There is a normal caliber thoracic aorta with no evidence for dissection. There is no evidence for pulmonary embolus. No pleural effusions. No pneumothorax. The liver and spleen are unremarkable. No mediastinal or hilar lymphadenopathy. The central airways are patent. There is moderate peribronchial thickening. There is small left and to lesser extent right basilar parenchymal infiltrative changes. IMPRESSION: 1. No evidence for pulmonary embolus. 2. Left and to a lesser extent small right basilar parenchymal infiltrates. 3. Moderate peribronchial thickening. The above report was generated using voice recognition software. It may contain grammatical, syntax or spelling errors. Electronically signed by: Fredi Dudley M.D. 08/15/2017 9:32 AM Dictated Date/Time: 08/15/2017 9:30 AM Laboratory Results 08/15/17 06:55 Red Blood Count 4.80, Mean Corpuscular Volume 90.8, Mean Corpuscular Hemoglobin 27.9, Mean Corpuscular Hemoglobin Concent 30.7, Mean Platelet Volume 10.4, Neutrophils (%) (Auto) 73.4, Lymphocytes (%) (Auto) 15.1, Monocytes (%) (Auto) 7.1, Eosinophils (%) (Auto) 2.4, Basophils (%) (Auto) 1.8, Neutrophils # (Auto) 4.86, Lymphocytes # (Auto) 1.00, Monocytes # (Auto) 0.47, Eosinophils # (Auto) 0.16, Basophils # (Auto) 0.12 08/15/17 06:55 Test 08/15/17 06:55 White Blood Count 6.62 K/uL (4.8-10.8) Red Blood Count 4.80 M/uL (4.2-5.4) Hemoglobin 13.4 g/dL (12.0-16.0) Hematocrit 43.6 % (37-47) Mean Corpuscular Volume 90.8 fL (80-100) Mean Corpuscular Hemoglobin 27.9 pg (25-34) Mean Corpuscular Hemoglobin Concent 30.7 g/dl (32-36) Platelet Count 395 K/uL (130-400) Mean Platelet Volume 10.4 fL (7.4-10.4) Neutrophils (%) (Auto) 73.4 % Lymphocytes (%) (Auto) 15.1 % Monocytes (%) (Auto) 7.1 % Eosinophils (%) (Auto) 2.4 % Basophils (%) (Auto) 1.8 % Neutrophils # (Auto) 4.86 K/uL (1.4-6.5) Lymphocytes # (Auto) 1.00 K/uL (1.2-3.4) Monocytes # (Auto) 0.47 K/uL (0.11-0.59) Eosinophils # (Auto) 0.16 K/uL (0-0.5) Basophils # (Auto) 0.12 K/uL (0-0.2) RDW Standard Deviation 56.4 fL (36.4-46.3) RDW Coefficient of Variation 17.2 % (11.5-14.5) Immature Granulocyte % (Auto) 0.2 % Immature Granulocyte # (Auto) 0.01 K/uL (0.00-0.02) Anion Gap 6.0 mmol/L (3-11) Est Creatinine Clear Calc Drug Dose 45.2 ml/min Estimated GFR () 59.2 Estimated GFR (Non- 51.1 BUN/Creatinine Ratio 19.6 (10-20) Calcium Level 8.4 mg/dl (8.5-10.1) Total Bilirubin 0.6 mg/dl (0.2-1) Direct Bilirubin 0.2 mg/dl (0-0.2) Aspartate Amino Transf (AST/SGOT) 16 U/L (15-37) Alanine Aminotransferase (ALT/SGPT) 14 U/L (12-78) Alkaline Phosphatase 77 U/L (45-117) Total Creatine Kinase 44 U/L (26-192) Creatine Kinase MB 0.8 ng/ml (0.5-3.6) Creatine Kinase MB Ratio 1.8 (0-3.0) Total Protein 6.9 gm/dl (6.4-8.2) Albumin 3.1 gm/dl (3.4-5.0) Lipase 68 U/L (73-393) Laboratory results reviewed by me Medications Administered Medications (Trade) Dose Ordered Sig/Loulou Route Start Time Stop Time Status Last Admin Dose Admin Aspirin (Aspirin Chew) 324 mg NOW STAT PO 08/15/17 07:30 08/15/17 07:31 DC 08/15/17 07:41 324 MG Levofloxacin (Levaquin / D5W) 750 mg NOW STAT IV 08/15/17 10:58 08/15/17 10:59 DC 08/15/17 11:43 750 MG ECG Indication: chest pain Rate (beats per minute): 71 Rhythm: normal sinus Findings: LBBB, no acute ischemic change, no ectopy Comparison ECG Date: when compared to July 26, 2014, the rate has increased by 12 ED Course 0725: The patient was evaluated in room B9. A complete history and physical exam was performed. 0730: Ordered Aspirin 324 mg PO. 1058: Ordered Levofloxacin 750 mg IV. 1100: I checked on the patient and updated her on her results. 1103: Discussed the patient's case with Dr. Raman. The patient will be evaluated for further treatment and disposition. 1115: Upon reexamination, the patient was resting comfortably. I discussed the test results and treatment plan with her. The patient will be evaluated for further management. Medical Decision Triage Nursing notes reviewed. The patient's presentation and history were concerning for chest pain. Etiologies such as cardiac ischemia, aortic dissection, pulmonary embolism, pneumonia, pneumothorax, musculoskeletal, infections, gastrointestinal, as well as others were entertained. The patient was evaluated. She was pain-free. ECG did not reveal any acute findings. Chest imaging was somewhat concerning for an infiltrate. With the type of pain that she experienced CT imaging was felt to be appropriate for pulmonary embolism or other pathology. The patient's blood work was unremarkable. Troponin was 0. The patient underwent CT imaging and this revealed an infiltrate in the left base as well as a small one in the right base. Cold-like symptoms recently. She was given a dose of IV Levaquin. She was given aspirin as well. A consult was placed to internal medicine for further evaluation and management. Medication Reconcilliation Current Medication List: was personally reviewed by me Blood Pressure Screening Patient's blood pressure: Elevated blood pressure will be monitored by hospitalist Consults Time Called: 1058 Consulting Physician: Dr. Felix Bear Returned Call: 1103 Discussed the patient's case. The patient will be evaluated for further treatment and disposition. Impression Primary Impression: Left sided chest pain Additional Impression: PNA (pneumonia) Scribe Attestation The scribe's documentation has been prepared under my direction and personally reviewed by me in its entirety. I confirm that the note above accurately reflects all work, treatment, procedures, and medical decision making performed by me. Departure Information Dispostion Being Evaluated By Hospitalist Referrals John Friedman M.D. (PCP) Patient Instructions [facility] Problem Qualifiers
[2017-08-15 19:24] VITALS: BP 154/71; PULSE 67; TEMP 36.8; O2SAT 92
[2017-08-15 23:36] VITALS: BP 156/76; PULSE 66; TEMP 36.7; O2SAT 92
[2017-08-16 04:10] VITALS: BP 166/70; PULSE 64; TEMP 36.9; O2SAT 92
[2017-08-16 05:55] LABS: HEMATOCRIT 41.9 % (37-47); MEAN CELL VOLUME 90.5 fL (80-100); MEAN CORPUSCULAR HEMOGLOBIN 28.1 pg (25-34); MEAN PLATELET VOLUME 9.3 fL (7.4-10.4); PLATELET COUNT 308 K/uL (130-400); RED CELL DISTRIBUTION WIDTH CV 17.5 % (11.5-14.5); RED CELL DISTRIBUTION WIDTH SD 57.3 fL (36.4-46.3); WHITE BLOOD COUNT 6.44 K/uL (4.8-10.8)
[2017-08-16 08:00] VITALS: BP 160/69; PULSE 64; TEMP 36.6; O2SAT 93
[2017-08-16] MEDS: FUROSEMIDE 20 MG TAB PO SCH (08:48)
[2017-08-16] MEDS ORDERED: FUROSEMIDE 20 MG TAB PO SCH (09:00)
[2017-08-16] MEDS ORDERED: OMEGA-3 (PURIFIED FISH OIL) 1 GM CAP PO SCH (09:00)
[2017-08-16] MEDS ORDERED: NON-FORMULARY MEDICATION (Lutein 20 MG) PO SCH (09:00)
[2017-08-16] MEDS ORDERED: RALOXIFENE 60 MG TAB PO SCH (09:00)
[2017-08-16] MEDS ORDERED: MULTIVITAMIN TAB PO SCH (09:00)
[2017-08-16] MEDS ORDERED: HYDROXYUREA 500 MG CAP PO SCH (09:00)
[2017-08-16] MEDS ORDERED: CYANOCOBALAMIN 2,500 MCG SUBL TAB PO SCH (09:00)
[2017-08-16] MEDS ORDERED: AMLODIPINE BESYLATE 5 MG TAB PO SCH (09:00)
[2017-08-16] MEDS ORDERED: EZETIMIBE/SIMVASTATIN 10/40 TAB PO SCH (09:00)
[2017-08-16] MEDS ORDERED: LEVO1TAB35 PO (11:11)
[2017-08-16] MEDS ORDERED: LEVOFLOXACIN 750 MG TAB PO ONE (11:15)
--- NOTE | 2017-08-16 11:21 | Discharge Instructions ---
Discharge Instructions Date of Service Aug 16, 2017. Admission Reason for Admission: PNA Discharge Discharge Diagnosis / Problem: pneumonia Discharge Goals Goal(s): Diagnostic testing, Therapeutic intervention Activity Recommendations Activity Limitations: resume your previous activity (see below) . Instructions / Follow-Up Instructions / Follow-Up pneumonia -this appears to have been the cause of your symptoms -fortunately getting looked at so quickly allowed you to start to get treated right away, so things should get better fairly easily -often the cough will get worse before it gets better - as your immune system and the antibiotics start to kill the bacteria, then your lungs are able to move the junk out more - usually creating a bigger, wetter cough -it is not normal, however, to have a fever as you're getting better - so if you did, or if things feel really bad, then obviously we'd want you to get seen right away -frequently after the chest discomfort has passed, the cough is better, and everything else feels normal, people will just feel fatigued - that can often take a month or so to resolve; so if you're feeling better on all counts except for still feeling tired, watch and wait, and give it time -we'll finish out treatment with levaquin (levofloxacin) -- fortunately it's an antibiotic that works just as well by mouth as it does by IV, and it's a potent enough antibiotic that a total of five days of treatment should be more than enough to get rid of the rest of this pneumonia. if it causes an upset stomach , take it with food. as we discussed, the odd, rare side effect it can cause is making people more prone to tendonitis or even tendon rupture - so take it easy for the next month or so to protect yourself from that. that is rare enough that it's highly unlikely to occur, but it's always better to be safe than have a new issue to deal with chest discomfort -it appears exceedingly likely that this relates to the pneumonia, but as we discussed, it's not impossible to have had the pneumonia creating strain on your heart. we're not seeing anything worrisome with your cardiac related testing now, but if you were to have any of those chest symptoms persist after the pneumonia has cleared, we'd want Dr Montes to investigate things further Current Hospital Diet Patient's current hospital diet: Low Sodium Diet (2gm Na) Discharge Diet Recommended Diet: Low Sodium Diet (2gm Na) Pending Studies Studies pending at discharge: no Medical Emergencies . Who to Call and When: Medical Emergencies: If at any time you feel your situation is an emergency, please call 911 immediately. . Non-Emergent Contact Non-Emergency issues call your: Primary Care Provider . . "Provider Documentation" section prepared by Luciano Resendiz. . VTE Core Measure Inpt VTE Proph given/why not?: Treatment not indicated
[2017-08-16] MEDS ORDERED: LEVOFLOXACIN / D5W 750 MG in PREMIXED IN D5W 150 ML IV SCH (12:00)
[2017-08-16 12:05] VITALS: BP 124/75; PULSE 68; TEMP 37.2; O2SAT 91
--- NOTE | 2017-08-16 16:33 | Discharge Summary ---
Discharge Summary Date of Service Aug 16, 2017. Discharge Summary Admission Date: Aug 15, 2017 at 11:45 Discharge Date: Aug 16, 2017 Discharge Disposition: Home Principal Diagnosis: communit acquired pneumonia Immunizations: Have You Had Influenza Vaccine: Yes Influenza Vaccine Date: Apr 18, 2016 History of Tetanus Vaccine?: Yes History of Pneumococcal: Yes History of Hepatitis B Vaccine: No Procedures: CXR showing faint bibasilar infiltrate Last 24 Hours Test 08/15/17 19:13 08/16/17 05:32 Troponin I < 0.015 ng/ml White Blood Count 6.44 K/uL Red Blood Count 4.63 M/uL Hemoglobin 13.0 g/dL Hematocrit 41.9 % Mean Corpuscular Volume 90.5 fL Mean Corpuscular Hemoglobin 28.1 pg Mean Corpuscular Hemoglobin Concent 31.0 g/dl RDW Standard Deviation 57.3 fL RDW Coefficient of Variation 17.5 % Platelet Count 308 K/uL Mean Platelet Volume 9.3 fL Medication Reconciliation New Medications: Levofloxacin (Levaquin) 750 Mg Tab 750 MG PO DAILY, #3 TAB take 08/17, 08/18, 08/19 Continued Medications: Amlodipine (Norvasc) 5 Mg Tab 5 MG PO DAILY Atenolol (Tenormin) 50 Mg Tab 1.5 TABS PO DAILY Cyanocobalamin (Vitamin B-12) 2,500 Mcg Sub 2500 MCG PO DAILY Ezetimibe/Simvastatin (Vytorin 10MG/40MG) Tab 1 TAB PO DAILY Furosemide (Lasix) 20 Mg Tab 1 TAB PO DAILY for 90 Days, #90 TAB 1 Refill Hydroxyurea (Hydrea Cap) 500 Mg Cap 500 MG PO DAILY Lutein (Lutein) 20 Mg Cap 20 MG PO DAILY Meclizine HCl (Meclizine HCl) 12.5 Mg Tab 12.5 MG PO TID PRN for Dizziness or Vertigo Multivitamin (Multivitamin) Tab 1 TAB PO DAILY, TAB Starlight-3 Fatty Acids (Fish Oil) 1 Cap Cap 1 CAP PO DAILY Raloxifene HCl (Raloxifene Hydrochloride) 60 Mg Tab 60 MG PO DAILY Discharge Exam Physical Exam: General Appearance: no apparent distress Eyes: EOMI ENT: hearing grossly normal Neck: trachea midline Respiratory/Chest: no respiratory distress, no accessory muscle use, + rales (faint bibasilar rales, no other adventitious sounds good effort) Cardiovascular: regular rate, rhythm 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 MO ruled out, and after discussion with pt and family, would defer on stress testing unless sx persist beyond pneumonia. improving - finish course of levaquin, f/u PCP this week chronic diastolic CHF: continue home meds, no evidence of decompensation HTN: continue home meds Hyperlipidemia: continue home meds Vertigo: no sx presently, continue PRN med Other: Full code Low sodium diet SCDs for DVT proph stable for home Total Time Spent: Greater than 30 minutes This includes examination of the patient, discharge planning, medication reconciliation, and communication with other providers. Discharge Instructions Please refer to the electronic Patient Visit Report (Discharge Instructions) for additional information. Additional Copies To John Friedman M.D.
== END 2017-08-16 12:30 | disposition home or self-care (01) | DRG 195 ==
LOC: EDBD 06:47 → C.EDB 06:48 → C.2T 11:45 → ENRESERV 12:20
PROVIDERS: ADMIT Family Medicine; ATTEND Family Medicine
DX: J18.9 Pneumonia, unspecified organism (principal); E78.5 Hyperlipidemia, unspecified; I10 Essential (primary) hypertension; Z79.899 Other long term (current) drug therapy

== ENCOUNTER → 2018-02-25 | Outpatient (CLI) | payer BC ==
[~2018-02-25] MED LIST changes: -AMLO-110 PO; +AMLO5TAB3 PO; +FURO-85 PO; -LSX20 PO; +OMEGCAP2 PO
[2018-02-25 14:27] LABS: BASO % 1.6 %; EOS % 2.2 %; EOS ABS # 0.14 K/uL (0-0.5); HEMATOCRIT 47.5 % (37-47); HEMOGLOBIN 14.7 g/dL (12.0-16.0); IG# 0.03 K/uL (0.00-0.02); LYMPH % 19.6 %; LYMPH ABS # 1.25 K/uL (1.2-3.4); MEAN CELL VOLUME 98.1 fL (80-100); MEAN CORPUSCULAR HEMOGLOBIN 30.4 pg (25-34); MEAN CORPUSCULAR HGB CONC 30.9 g/dl (32-36); MEAN PLATELET VOLUME 10.3 fL (7.4-10.4); MONO % 6.1 %; MONO ABS # 0.39 K/uL (0.11-0.59); NEUT ABS # 4.48 K/uL (1.4-6.5); PLATELET COUNT 409 K/uL (130-400); RED CELL DISTRIBUTION WIDTH CV 16.8 % (11.5-14.5); RED CELL DISTRIBUTION WIDTH SD 59.8 fL (36.4-46.3); WHITE BLOOD COUNT 6.39 K/uL (4.8-10.8)
[2018-02-25 14:39] LABS: ALBUMIN 3.6 gm/dl (3.4-5.0); ALKALINE PHOSPHATASE 79 U/L (45-117); ALT/SGPT 22 U/L (12-78); AST/SGOT 22 U/L (15-37); BLOOD UREA NITROGEN 22 mg/dl (7-18); CALCIUM 8.6 mg/dl (8.5-10.1); CARBON DIOXIDE 28 mmol/L (21-32); CHOLESTEROL 159 mg/dl (0-200); CREATININE 1.18 mg/dl (0.60-1.20); GLUCOSE 122 mg/dl (70-99); LDL CHOLESTEROL (DIRECT) 106 mg/dl; POTASSIUM 4.2 mmol/L (3.5-5.1); SODIUM 138 mmol/L (136-145); TOTAL PROTEIN 7.3 gm/dl (6.4-8.2)
== END | disposition home or self-care (01) ==
LOC: C.LABSPEC 13:24
PROVIDERS: ATTEND Internal Medicine
DX: I48.91 Unspecified atrial fibrillation (principal); I10 Essential (primary) hypertension; E78.5 Hyperlipidemia, unspecified

== ENCOUNTER 2019-07-25 05:38 | Observation (INO) ==
[2019-07-25] MEDS ORDERED: ASPIRIN CHEW 324 MG PO STA (05:49)
[2019-07-25 06:01] LABS: Basophils # (auto) 0.03 K/uL (0-0.2); Basophils % (auto) 0.6 %; Eosinophils # (auto) 0.09 K/uL (0-0.5); Eosinophils % (auto) 1.7 %; Hematocrit (blood only) 47.3 % (37-47); Immature Granulocytes # (auto) 0.02 K/uL (0.00-0.02); Immature Granulocytes % (auto) 0.4 %; Lymphocytes # (auto) 0.81 K/uL (1.2-3.4); Lymphocytes % (auto) 15.5 %; Mean Corpuscular Hemoglobin 32.9 pg (25-34); Mean Corpuscular Hgb Conc 31.7 g/dL (32-36); Mean Corpuscular Volume 103.7 fL (80-100); Mean Platelet Volume 9.8 fL (7.4-10.4); Monocytes # (auto) 0.28 K/uL (0.11-0.59); Monocytes % (auto) 5.4 %; Neutrophils # (auto) 3.99 K/uL (1.4-6.5); Neutrophils % (auto) 76.4 %; Platelet Count 273 K/uL (130-400); RDW Coefficient of Variation 19.4 % (11.5-14.5); RDW Standard Deviation 74.1 fL (36.4-46.3); Red Blood Count 4.56 M/uL (4.2-5.4); White Blood Count 5.22 K/uL (4.8-10.8)
[2019-07-25 06:16] LABS: Alanine Aminotransferase 13 U/L (12-78); Albumin Level 3.3 gm/dl (3.4-5.0); Aspartate Aminotransferase 13 U/L (15-37); BUN Creatinine Ratio 20.5 (10-20); Blood Urea Nitrogen 22 mg/dl (7-18); Calcium 8.7 mg/dl (8.5-10.1); Carbon Dioxide 29 mmol/L (21-32); Chloride 105 mmol/L (98-107); Est GFR (African American) 55.1; Est GFR (Non-African American) 47.5; Glucose 118 mg/dl (70-99); Lipase 52 U/L (73-393); Potassium 4.1 mmol/L (3.5-5.1); Sodium 140 mmol/L (136-145)
[2019-07-25 06:21] LABS: Albumin Globulin Ratio 0.9 (0.9-2); Alkaline Phosphatase 101 U/L (45-117); Bilirubin,Total 0.8 mg/dl (0.2-1); Globulin 3.8 gm/dl (2.5-4.0); Total Protein 7.1 gm/dl (6.4-8.2); Troponin I < 0.015 ng/ml (0-0.045)
--- NOTE | 2019-07-25 06:35 | Emergency Department Note ---
History of Present Illness General Chief complaint: Cardiac Assessment Stated complaint: HEAVY CHEST,DIZZINESS,BEATING FAST/ALMOST STOPPING Source: patient and family Mode of arrival: ambulatory Limitations: no limitations History of Present Illness Provider complaint: Chest pain, palpitations Onset (ago): hour(s) 2 Location: chest Radiation: non-radiation Severity: moderate Pain Consistency: + now resolved Quality: + aching Relieved By: + none Exacerbated By: + none Associated symptoms: + other (Palpitations) Treatments prior to arrival: aspirin This patient is an 84-year-old female who presents emergency department with complaints of chest pain that began approximately 2 and half hours prior to arrival. Patient states she had a sudden onset of a heavy sensation across the upper chest with palpitations and a "pounding." Patient states she was somewhat dizzy and had difficulty ambulating down the [place]. She denies any shortness of breath or syncopal episodes. Patient denies any edema in the bilateral lower extremities. She denies any recent illnesses. Patient did have 2 baby aspirin prior to arrival. Patient denies any discomfort at this time. Home Medications Home Medications Medication Instructions Recorded Confirmed Type amlodipine 5 mg tablet 5 mg PO QAM #90 tab 02/25/19 07/25/19 History apixaban 2.5 mg tablet 2.5 mg PO AMPM #60 tab 02/25/19 07/25/19 History atenolol 50 mg tablet 50 mg PO AMPM tab 02/25/19 07/25/19 History cyanocobalamin (vitamin B-12) 2,500 mcg SL QAM tab 02/25/19 07/25/19 History 2,500 mcg sublingual tablet lutein 20 mg capsule 20 mg PO DAILY cap 02/25/19 07/25/19 History omega-3 acid ethyl esters 1 gram 1 cap PO DAILY cap 02/25/19 07/25/19 History capsule raloxifene 60 mg tablet 60 mg PO QPM tab 02/25/19 07/25/19 History furosemide 20 mg tablet 10 mg PO AMPM tab 05/10/19 07/25/19 History meclizine 25 mg tablet 12.5 mg PO UD PRN tab 05/10/19 07/25/19 History Garlique 1 tab PO DAILY 07/25/19 07/25/19 History aspirin 81 mg PO QAM 07/25/19 07/25/19 History hydroxyurea 500 mg PO .MON & THURS NIGHT 07/25/19 07/25/19 History hydroxyurea 500 mg PO QAM 07/25/19 07/25/19 History multivitamin 1 tab PO DAILY 07/25/19 07/25/19 History Allergies Allergy/AdvReac Type Severity Reaction Status Date / Time No Known Drug Allergies Allergy Unknown Verified 07/25/19 06:57 Past Med/Surg History Medical History (Updated 07/25/19 @ 06:55 by Mariela Bautista MD) A-fib (Chronic) Hyperlipidemia (Chronic) Hypertension (Chronic) Osteopenia (Chronic) Polycythemia vera (Chronic) Sensorineural hearing loss (SNHL) Surgical History H/O eye surgery History of cholecystectomy Social History Preferred Language: Swedish Communication Ability: Effective Visual Impairment: Limited Hearing Ability: Hard of Hearing Beliefs That Will Affect Care: None marital status: Current Living Situation: Family Current Living Situation Comment: lives with dgtr who works during the day current occupational status: retired Feels Safe at Home: Yes Smoking Status: Never smoker Hx Alcohol Use: No Hx Substance Use: No Review of Systems See HPI for pertinent positives & negatives. and A total of 10 systems reviewed and were otherwise negative Physical Exam Vital Signs Vital Signs - 24 hr 07/25/19 05:43 07/25/19 05:46 07/25/19 05:53 Temperature 36.5 C Temperature Source Oral Pulse Rate 62 82 Pulse Rate from SpO2 Sensor Respiratory Rate 20 14 Respiratory Effort / Characteristics Non-Labored Spontaneous Respiratory Depth Normal Blood Pressure 188/76 H 168/72 H Blood Pressure Mean 113 96 Pulse Oximetry 97 98 Oxygen Delivery Method Room Air Room Air Sepsis Action Taken by Nursing No Action Required 07/25/19 06:00 07/25/19 06:30 Temperature Temperature Source Pulse Rate 59 L 59 L Pulse Rate from SpO2 Sensor 61 62 Respiratory Rate 15 16 Respiratory Effort / Characteristics Respiratory Depth Blood Pressure 147/63 H 132/71 Blood Pressure Mean 105 103 Pulse Oximetry 96 95 Oxygen Delivery Method Room Air Room Air Sepsis Action Taken by Nursing Vital signs reviewed. General: Well-appearing 84-year-old female, in no significant distress. HEENT: No scleral icterus, PERRLA, neck supple. Atraumatic. Cardiovascular: Regular rate and rhythm, no extra sounds. Pulmonary: Clear to auscultation bilaterally, normal work of breathing. Abdomen: Soft, nontender, nondistended, positive bowel sounds. Musculoskeletal: Atraumatic, no peripheral edema. Neurologic: Patient awake alert and oriented x 3 Skin: Warm, dry, no rash Course Course 0650: Patient was reevaluated and remained stable. Had no complaints of pain at this time. Observation was recommended for further cardiac evaluation. Patient agreed. Administered Medications Discontinued Medications Aspirin (Aspirin) 81 mg PO NOW STA Stop: 07/25/19 05:50 Last Admin: 07/25/19 06:06 Dose: 81 mg Documented by: [id number] Medical Decision Making Differential Diagnosis Differential diagnosis: Etiologies such as shingles, musculoskeletal pain, pericarditis, myocarditis, cardiac ischemia, pericardial tamponade, pneumonia, pneumothorax, pleural effusion, hemothorax, pleurisy, aortic pathology, pulmonary embolism, intra- abdominal process, as well as others were considered. Medical Records Attestation: I reviewed the patient's medical records. Home Medications Current Medication List: was personally reviewed by me Laboratory Data Attestation: I reviewed the patient's lab results. Result diagrams: 07/25/19 05:53 07/25/19 05:53 Lab Results 07/25/19 07/25/19 Range/Units 05:53 05:53 WBC 5.22 (4.8-10.8) K/uL RBC 4.56 (4.2-5.4) M/uL Hgb 15.0 (12.0-16.0) g/dL Hct 47.3 H (37-47) % MCV 103.7 H (80-100) fL MCH 32.9 (25-34) pg MCHC 31.7 L (32-36) g/dL RDW Std Deviation 74.1 H (36.4-46.3) fL RDW Coeff of Roberto 19.4 H (11.5-14.5) % Plt Count 273 (130-400) K/uL MPV 9.8 (7.4-10.4) fL Immature Gran % (Auto) 0.4 % Neut % (Auto) 76.4 % Lymph % (Auto) 15.5 % [place] % (Auto) 5.4 % Eos % (Auto) 1.7 % Baso % (Auto) 0.6 % Immature Gran # (Auto) 0.02 (0.00-0.02) K/uL Neut # (Auto) 3.99 (1.4-6.5) K/uL Lymph # (Auto) 0.81 L (1.2-3.4) K/uL [place] # (Auto) 0.28 (0.11-0.59) K/uL Eos # (Auto) 0.09 (0-0.5) K/uL Baso # (Auto) 0.03 (0-0.2) K/uL Sodium 140 (136-145) mmol/L Potassium 4.1 (3.5-5.1) mmol/L Chloride 105 (98-107) mmol/L Carbon Dioxide 29 (21-32) mmol/L Anion Gap 5.0 (3-11) BUN 22 H (7-18) mg/dl Creatinine 1.06 (0.6-1.2) mg/dl Est Cr Clr Drug Dosing 37.0 ml/min Est GFR ( Amer) 55.1 Est GFR (Non-Af Amer) 47.5 BUN/Creatinine Ratio 20.5 H (10-20) Glucose 118 H (70-99) mg/dl Calcium 8.7 (8.5-10.1) mg/dl Total Bilirubin 0.8 (0.2-1) mg/dl AST 13 L (15-37) U/L ALT 13 (12-78) U/L Alkaline Phosphatase 101 (45-117) U/L Troponin I < 0.015 (0-0.045) ng/ml Total Protein 7.1 (6.4-8.2) gm/dl Albumin 3.3 L (3.4-5.0) gm/dl Globulin 3.8 (2.5-4.0) gm/dl Albumin/Globulin Ratio 0.9 (0.9-2) Lipase 52 L (73-393) U/L Imaging Data Radiologist's Impression: XR chest 1V portable HISTORY: 84 years-old Female Chest Pain acute atypical chest pain COMPARISON: Chest radiograph and CTA chest 08/15/2017 TECHNIQUE: Portable AP view of the chest FINDINGS: The cardiac silhouette appears within normal limits. Opacity of the right paratracheal tissues redemonstrated correlating with thyroid goiter. Calcified plaque of the thoracic aortic arch. No pneumothorax, pleural effusion, focal airspace consolidation or overt pulmonary edema. Unchanged minimal left hemidiaphragmatic elevation with left basilar atelectasis/scarring. Degenerative changes of the shoulders and spine. IMPRESSION: 1. No acute process. 2. Thyroid goiter. ACT 112: Negative or not required by law. The above report was generated using voice recognition software. It may contain grammatical, syntax or spelling errors. Electronically signed by: Kelby Uribe M.D. 07/25/2019 6:36 AM Dictated: 07/25/19633 Transcribed: 07/25/19633 ECG Data Attestation: I personally reviewed and interpreted this ECG as follows: Indication: + chest pain and + palpitations Rate (beats per minute): 59 Rhythm: + sinus bradycardia ECG Intervals/blocks: + Left bundle branch block ECG Peck: + Left axis deviation ECG ST segments: + Normal ST segments ECG Findings: + PVCs Comparison ECG Date: from (08/15/17) Change: no significant change Blood Pressure Blood Pressure Findings: Elevated blood pressure Blood Pressure Disposition: further management by hospitalist MDM Narrative This patient was evaluated and appeared to be in no significant distress. IV access was obtained and laboratory work was drawn. The patient was placed on the teachers' assistant. She is found to be in normal sinus rhythm with a left bundle branch block which is unchanged from previous. She did receive 2 baby aspirin prior to arrival. Patient states her pain is improved/resolved at this time. Patient's laboratory work reveals negative troponin. Chest x-ray is negative for acute process. Case was discussed with the hospitalist, Dr. Sparks, for further cardiac evaluation. He will evaluate the patient for further management. Impression & Plan Chest pain, Heart palpitations, Dizziness Discharge Plan Visit Data Chief Complaint: Cardiac Assessment Stated Complaint: HEAVY CHEST,DIZZINESS,BEATING FAST/ALMOST STOPPING ED Provider: Mariela Bautista Discharge Problem: Chest pain, Heart palpitations, Dizziness Forms Stand Alone Forms: [facility] Prescriptions Prescriptions: No Action furosemide [Lasix] 20 mg tablet 10 mg PO AMPM RF: 0 Eliquis 2.5 mg tablet 2.5 mg PO AMPM Qty: 60 RF: 0 lutein 20 mg capsule 20 mg PO DAILY RF: 0 omega-3 acid ethyl esters 1 gram capsule 1 cap PO DAILY RF: 0 atenolol 50 mg tablet 50 mg PO AMPM RF: 0 raloxifene 60 mg tablet 60 mg PO QPM RF: 0 cyanocobalamin (vitamin B-12) 2,500 mcg tablet, sublingual 2,500 mcg SL QAM RF: 0 amlodipine 5 mg tablet 5 mg PO QAM Qty: 90 RF: 0 meclizine 25 mg tablet 12.5 mg PO UD PRN (Reason: dizziness) RF: 0 aspirin 81 mg Tablet,Delayed Release (Dr/Ec) 81 mg PO QAM RF: 0 hydroxyurea 500 mg capsule 500 mg PO QAM RF: 0 hydroxyurea 500 mg capsule 500 mg PO .MON & THURS NIGHT RF: 0 multivitamin Tablet 1 tab PO DAILY RF: 0 Garlique 1 tab PO DAILY RF: 0 Discharge Problem: Chest pain Qualifiers: Chest pain type: precordial pain Qualified Code(s): R07.2 - Precordial pain
--- NOTE | 2019-07-25 06:38 | XRay Report ---
XR chest 1V portable HISTORY: 84 years-old Female Chest Pain acute atypical chest pain COMPARISON: Chest radiograph and CTA chest 08/15/2017 TECHNIQUE: Portable AP view of the chest FINDINGS: The cardiac silhouette appears within normal limits. Opacity of the right paratracheal tissues redemo nstrated correlating with thyroid goiter. Calcified plaque of the thoracic aortic arch. No pneumothor ax, pleural effusion, focal airspace consolidation or overt pulmonary edema. Unchanged minimal left h emidiaphragmatic elevation with left basilar atelectasis/scarring. Degenerative changes of the should ers and spine. IMPRESSION: 1. No acute process. 2. Thyroid goiter. ACT 112: Negative or not required by law. The above report was generated using voice recognition software. It may contain grammatical, syntax o r spelling errors. Electronically signed by: Kelby Uribe M.D. 07/25/2019 6:36 AM
--- NOTE | 2019-07-25 08:23 | History & Physical Report ---
Date of Service July 25, 2019 Assessment & Plan (1) Chest pain: Rather convincing story for cardiac cause. Heart score of 5 (age, story, risk factors). Discussed with the patient and family, and they would prefer inpatient stress testing. - Second troponin/EKG to r/o NSTEMI - Stress test this afternoon (2) A-fib: This diagnosis is carried in the chart, but patient and daughters do not report history of afib. - Monitor on tele - Discuss with Dr. Alba if able today (3) CHF (congestive heart failure): Per daughters, she has been told she has CHF. Last echo I find is from 05/2016 which shows EF 50-55% with Grade I diastolic dysfunction and borderline LVH. Appears euvolemic on exam & no symptoms of CHF at present. - Continue Lasix at home dosing - Follow echo results (4) Polycythemia vera: Has monthly hemoglobin checks and phlebotomy PRN. - Continue home hydroxyurea - Continue apixaban which daughters report is to prevent clots (5) Hypertension: BP high-normal in the ED at 150/80. - Administer home meds which she has not taken this morning - Monitor (6) DVT prophylaxis: Apixaban as above History of Present Illness Primary Care Provider: John Alba MD 84yo F w/ hx of HTN, polycythemia vera, and CHF who presents with chest pressure. Chest pressure began about 2:30am - 3:00am when she woke up. She explicitly notes that it did not wake her up, and that she normally wakes up that early in the morning. She felt the chest pressure pretty much right away however. She reports the pressure as being across the chest without radiation to the shoulder or jaw. She reports dizziness and lightheadedness, along with some palpitations. She denies any shortness of breath, nausea or vomiting, headache, or focal weakness. She did not pass out. She attempted to go get her daughter, but had to sit back down on her bed. Eventually, she was able to get up and pound on the wall to wake up her daughter upstairs. Her daughter gave her an ASA 81mg tablet and then another around 5:30am. The patient reports that she took a nap later in the morning, and the chest pressure gradually faded away after that. She denies ever having a pain/pressure like t his in the past. She had a stress test about 5-6 years ago that was normal, but nothing since then. No history of IL or stents in the past. Allergies Allergy/AdvReac Type Severity Reaction Status Date / Time No Known Drug Allergies Allergy Unknown Verified 07/25/19 06:57 Home Medications Home Medications Medication Instructions Recorded Confirmed Type amlodipine 5 mg tablet 5 mg PO QAM #90 tab 02/25/19 07/25/19 History apixaban 2.5 mg tablet 2.5 mg PO AMPM #60 tab 02/25/19 07/25/19 History atenolol 50 mg tablet 50 mg PO AMPM tab 02/25/19 07/25/19 History cyanocobalamin (vitamin B-12) 2,500 mcg SL QAM tab 02/25/19 07/25/19 History 2,500 mcg sublingual tablet lutein 20 mg capsule 20 mg PO DAILY cap 02/25/19 07/25/19 History omega-3 acid ethyl esters 1 gram 1 cap PO DAILY cap 02/25/19 07/25/19 History capsule raloxifene 60 mg tablet 60 mg PO QPM tab 02/25/19 07/25/19 History furosemide 20 mg tablet 10 mg PO AMPM tab 05/10/19 07/25/19 History meclizine 25 mg tablet 12.5 mg PO UD PRN tab 05/10/19 07/25/19 History Garlique 1 tab PO DAILY 07/25/19 07/25/19 History aspirin 81 mg PO QAM 07/25/19 07/25/19 History hydroxyurea 500 mg PO .MON & THURS NIGHT 07/25/19 07/25/19 History hydroxyurea 500 mg PO QAM 07/25/19 07/25/19 History multivitamin 1 tab PO DAILY 07/25/19 07/25/19 History Past Med/Surg History Medical History (Updated 07/25/19 @ 08:26 by George Sparks MD) A-fib (Chronic) Hyperlipidemia (Chronic) Hypertension (Chronic) Osteopenia (Chronic) Polycythemia vera (Chronic) Sensorineural hearing loss (SNHL) Surgical History H/O eye surgery History of cholecystectomy Family History Mother Hypertension Father Myocardial infarction Social History Preferred Language: [place] Communication Ability: Effective Visual Impairment: Limited Hearing Ability: Hard of Hearing Beliefs That Will Affect Care: None marital status: Current Living Situation: Family Current Living Situation Comment: lives with dgtr who works during the day current occupational status: retired Feels Safe at Home: Yes Smoking Status: Never smoker Hx Alcohol Use: No Hx Substance Use: No Review of Systems Review of Systems: All systems reviewed & are unremarkable except as noted in HPI & below Physical Exam Constitutional: WD/WN, vitals as above Eyes: EOM intact bilaterally; no conjunctival abnormality ENMT: external ear and nose normal, oropharynx normal Neck: trachea midline, no thyromegaly normal visual inspection Respiratory: normal respiratory effort, lungs clear to auscultation no res piratory distress Cardiovascular: RRR, no murmur, no edema Heart Sounds: normal S1 and normal S2 Gastrointestinal (Abdomen): Inspection/Auscultation: abdomen normal to inspection; abdomen not distended Musculoskeletal: no cyanosis or clubbing, extremities motor strength 5/5 Skin: no rashes, warm and dry Neurologic: moves all extremities and awake Psychiatric: Orientation: alert, oriented to person and cooperative Results & Data Vital Signs (Past 12 Hours) Vital Signs Temp Pulse Pulse Resp BP BP Pulse Ox 07/25/19 07:29 59 L 19 147/79 H 95 07/25/19 06:30 59 L 16 132/71 95 07/25/19 06:00 59 L 15 147/63 H 96 07/25/19 05:53 98 07/25/19 05:46 82 14 168/72 H 07/25/19 05:43 36.5 C 62 20 188/76 H 97 Code Status & VTE Plan VTE Prophylaxis Plan VTE Prophylaxis will be ordered: Yes PG Care Time/CCT Total # of Minutes Spent Total Time Spent with Patient: Total time spent is greater than 50% in coordination of care (as documented) at patient's floor/unit and/or counseling patient: (1) Chest pain Chest pain type: precordial pain Qualified Code(s): R07.2 - Precordial pain
[2019-07-25] MEDS ORDERED: ACETAMINOPHEN 325 MG TAB PO PRN (09:31)
[2019-07-25] MEDS ORDERED: ATENOLOL 50 MG TABLET PO SCH (10:00)
[2019-07-25] MEDS ORDERED: HYDROXYUREA 500 MG CAP PO SCH ×2 (10:00→21:00)
[2019-07-25] MEDS ORDERED: CYANOCOBALAMIN (VITAMIN B-12) 2,500 MCG TAB.SUBL SL SCH (10:00)
[2019-07-25] MEDS ORDERED: AMLODIPINE BESYLATE 5 MG TAB PO SCH (10:00)
[2019-07-25] MEDS ORDERED: APIXABAN 2.5 MG TAB PO SCH (10:00)
[2019-07-25] MEDS ORDERED: DOBUTamine HCL 12.5 MG/ML 20 ML VIAL IV ONE (11:20)
[2019-07-25] MEDS ORDERED: ATROPINE SULFATE 0.1 MG/ML 10ML SYR IV ONE (11:20)
[2019-07-25] MEDS ORDERED: METOPROLOL TARTRATE 1 MG/ML VIAL IV ONE (11:20)
[2019-07-25] MEDS ORDERED: PERFLUTREN LIPID MICROSPHERE (DEFINITY) IV ONE (12:08)
[2019-07-25] MEDS: FUROSEMIDE 20 MG TAB PO SCH ×2 (12:16→16:56)
--- NOTE | 2019-07-25 17:34 | Discharge Summary ---
Date of Service July 25, 2019 Admission HPI Per Admitting Provider 84yo F w/ hx of HTN, polycythemia vera, and CHF who presents with chest pressure. Chest pressure began about 2:30am - 3:00am when she woke up. She explicitly notes that it did not wake her up, and that she normally wakes up that early in the morning. She felt the chest pressure pretty much right away however. She reports the pressure as being across the chest without radiation to the shoulder or jaw. She reports dizziness and lightheadedness, along with some palpitations. She denies any shortness of breath, nausea or vomiting, headache, or focal weakness. She did not pass out. She attempted to go get her daughter, but had to sit back down on her bed. Eventually, she was able to get up and pound on the wall to wake up her daughter upstairs. Her daughter gave her an ASA 81mg tablet and then another around 5:30am. The patient reports that she took a nap later in the morning, and the chest pressure gradually faded away after that. She denies ever having a pain/pressure like this in the past. She had a stress test about 5-6 years ago that was normal, but nothing since then. No history of [place] or stents in the past. Principal Diagnosis Non-cardiac chest pain -> Possibly atrial fibrillation Discharge Exam Constitutional WD/WN, vitals as above Eyes EOM intact bilaterally; no conjunctival abnormality ENMT external ear and nose normal, oropharynx normal Neck trachea midline, no thyromegaly normal visual inspection Respiratory normal respiratory effort, lungs clear to auscultation no respiratory distress Cardiovascular RRR, no murmur, no edema Heart Sounds: normal S1 and normal S2 Gastrointestinal (Abdomen) Inspection/Auscultation: abdomen normal to inspection; abdomen not distended Musculoskeletal no cyanosis or clubbing, extremities motor strength 5/5 Skin no rashes, warm and dry Neurologic moves all extremities and awake Psychiatric Orientation: alert, oriented to person and cooperative Discharge Data Allergies Allergy/AdvReac Type Severity Reaction Status Date / Time No Known Drug Allergies Allergy Unknown Verified 07/25/19 06:57 Hospital Course (1) Chest pain: Rather convincing story for cardiac cause. Heart score of 5 (age, story, risk factors). Discussed with the patient and family, and they would prefer inpatient stress testing. - Second troponin/EKG ruled out NSTEMI - Dobutamine stress echo on 07/25 reached target heart rate and showed no signs of ischemia. Told to follow up with her PCP regarding a possible security monitor or GI testing for her chest pain. (2) A-fib: Patient and daughters were unaware of her diagnosis; however, I did confirm paroxsymal afib with her PCP's office. - No signs of afib on tele - youth nutritional monitor with Dr. Alba if he feels this is needed. She already is being treated for it regardless with anticoagulation and a beta-rogerio. (3) CHF (congestive heart failure): Per daughters, she has been told she has CHF. Last echo I find is from 05/2016 which shows EF 50-55% with Grade I diastolic dysfunction and borderline LVH. Appears euvolemic on exam & no symptoms of CHF at present. - Continue Lasix at home dosing - Echo showed EF 60-65%, mild pulmonary hypertension. (4) Polycythemia vera: Has monthly hemoglobin checks and phlebotomy PRN. - Continue home hydroxyurea (5) Hypertension: BP high-normal in the ED at 150/80. - Administered home meds (6) DVT prophylaxis: Apixaban as above Total Time Total Time Spent Total Time Spent (In Minutes): 45 Discharge Plan Discharge Items Patient Disposition: Home - Self-Care Reason For Visit: CHEST PRESSURE Discharge Diagnosis: Chest pressure - Possible atrial fibrillation. Thought to be not related to heart ischemia. Activity: Resume your previous activity Non-emergency contact: Primary Care Provider Call non-emergency contact if: your symptoms worsen Follow-up/Referrals: John Alba MD [Primary Care Provider] - 08/01/19 1:30 pm (Please, follow up with Dr. Noemi Ramirez on ThursdayAugust 01 at 1:30 pm. *If you need to change this appointment, call the office at [phone].) Diet: Heart Healthy Addtl Attending Provider Instructions: Ms. Justice, You were admitted to the hospital for chest pressure. You had normal EKGs and lab testing called a troponin (a measure of heart damage). This means you DID NOT have a heart attack. We did a stress test that was normal as well which indicates you have a low likelihood of having a heart attack in the coming months and years. This episode could have been related to an episode of atrial fibrillation. Sometimes people's hearts can go in and out of atrial fibrillation on their own. You have a history of having been in atrial fibrillation at least once per Dr. Alba's office. Please see Dr. Alba next week to discuss whether or not to you need a security monitor. If the pain recurs, please check your heart rate and blood pressure with an automated blood pressure cuff at home. If you see any abnormal numbers (blood pressure over 180/100 or below 90/50 or a heart rate > 100 or < 60, please call your PCP's office or come to the Emergency Department). Take an extra baby aspirin and/or a Tums (to see if it is heart burn). If these do not quickly resolve the pain, please call your PCP's office or . Pending Studies at Discharge: No Stand-Alone Forms: [facility], Smoking Cessation Medications and DC Order Prescriptions: Continued furosemide [Lasix] 20 mg tablet 10 mg PO AMPM RF: 0 Eliquis 2.5 mg tablet 2.5 mg PO AMPM Qty: 60 RF: 0 lutein 20 mg capsule 20 mg PO DAILY RF: 0 omega-3 acid ethyl esters 1 gram capsule 1 cap PO DAILY RF: 0 atenolol 50 mg tablet 50 mg PO AMPM RF: 0 raloxifene 60 mg tablet 60 mg PO QPM RF: 0 cyanocobalamin (vitamin B-12) 2,500 mcg tablet, sublingual 2,500 mcg SL QAM RF: 0 amlodipine 5 mg tablet 5 mg PO QAM Qty: 90 RF: 0 meclizine 25 mg tablet 12.5 mg PO UD PRN (Reason: dizziness) RF: 0 aspirin 81 mg Tablet,Delayed Release (Dr/Ec) 81 mg PO QAM RF: 0 hydroxyurea 500 mg capsule 500 mg PO QAM RF: 0 hydroxyurea 500 mg capsule 500 mg PO .MON & THURS NIGHT RF: 0 multivitamin Tablet 1 tab PO DAILY RF: 0 Garlique 1 tab PO DAILY RF: 0 Discharge Orders: Discharge Order (Routine); Ordered 07/25/19 Ordered By: George Sparks Admission Data Admit Date/Time: 07/25/19 08:14 Attending Provider: George Sparks Admit Provider: George Sparks Primary Care Provider: John Alba
[2019-07-25] MEDS ORDERED: RALOXIFENE HCL 60 MG TAB PO SCH (21:00)
[2019-07-26] MEDS ORDERED: ASPIRIN 81 MG ECTAB PO SCH (09:00)
== END 2019-07-25 18:10 | disposition home or self-care (01) ==
LOC: ED 05:38 → 2N 05:38

== ENCOUNTER 2020-12-31 18:40 | Inpatient (IN) ==
--- NOTE | 2020-12-31 19:16 | Emergency Department Note ---
Impression & Plan Weakness, Acute hypotension, Acute UTI (urinary tract infection) ED Provider Note NAME: DARRELL THIBODEAUX AGE: 85 SEX: F : 1935 ARRIVES VIA: Walk-In INFORMANT: Patient, the patient's daughter ED PROVIDER(S): Armand Campos DO CHIEF COMPLAINT: Weakness HPI: The patient is an 85-year-old female who presented to the emergency department for an evaluation of generalized weakness. The patient's daughter does give most of the history. She states that her mother has been having problems with swelling in her legs right greater than left. She is also been noted to have other volume overload and her primary doctor started her on Zaroxolyn recently. The patient's been having problems with generalized weakness and decreased p.o. intake. The patient has had the symptoms starting yesterday. Apparently she was been compliant with all of her outpatient medication regimen. She has had no fever or cough. She denies having any difficulty breathing. She denies having any headache but does complain of some nausea. She denies having any abdominal pain. She does complain of frequency of urination but no dysuria. The patient denies having any hematuria. ROS: See above HPI for pertinent positives & negatives. A total of 10 systems reviewed and were otherwise negative. PAST MEDICAL HISTORY: See Below PAST SURGICAL HISTORY: See Below FAMILY HISTORY: See Below SOCIAL HISTORY: See Below HOME MEDICATIONS: See Below ALLERGIES: See Below VITALS: See Below PHYSICAL EXAMINATION: GENERAL: The patient is awake and alert. She is nonanxious appearing. EYES: The conjunctivae are clear. The pupils are unequal with the left being constricted and minimally reactive to light in the right being postsurgical and dilated. EARS, NOSE, MOUTH AND THROAT: The nose is without any evidence of any deformity. NECK: The neck is nontender and supple. RESPIRATORY: Diminished breath sounds are noted throughout. There were rales in the left lung field. CARDIOVASCULAR: Ectopy was noted to auscultation. No definite murmur was noted. GASTROINTESTINAL: The abdomen is soft. Abdomen is nontender. MUSCULOSKELETAL/EXTREMITIES: There is no evidence of gross deformity full range of motion is noted in the hips and shoulders. SKIN: Skin is warm and dry. There is pedal edema bilaterally right greater than left. There is some skin ulceration of the right lower extremity but no signs of cellulitis. NEUROLOGIC: Patient is awake alert and oriented x3. Strength is diminished but symmetric. Patient is able to keep each leg off the bed for greater than 5 seconds. MEDICAL DECISION MAKING: The patient is an 85-year-old female who presented to the emergency department for an evaluation of generalized weakness. The patient recently was started on Zaroxolyn by her primary care physician. The patient did notice urinary frequency but thought it was because she was placed on a water pill. She has been noticing increasing generalized weakness over the last couple days. She was found to have hypotension as well as signs of urinary tract infection. Given her cardiac history she was only treated with a small fluid bolus as well as IV antibiotics. She was given IV antibiotics in conjunction with the most recent urine culture. She was reevaluated multiple times. I discussed the patient's laboratory and radiographic studies with her. Ultimately given her hypotension I did discuss her case with the on-call [facility] hospitalist. They have agreed to evaluate the patient in the emergency department for further management and disposition. Triage Nursing notes reviewed. Prior medical records reviewed Vital Signs: reviewed and remarkable for hypotension. Differential diagnosis: Infection, dehydration, metabolic abnormality, hypo/hyperglycemia, electrolyte disturbance, anemia, hypoxia, cardiac sources, intracerebral event, toxicologic, neurologic, as well as other pathologies. ER treatment provided: See below Diagnostics interpreted by me: ECG: EKG was obtained in the emergency department. My interpretation is sinus rhythm at 72 bpm. PVCs were noted. Left bundle branch block pattern was noted. This was compared to a tracing from October 11, 2020. The ectopy is new otherwise no significant changes were noted. Cardiac Monitoring: An order was placed for continuous cardiac monitoring. The monitor shows a rate of 80 bpm with sinus rhythm. Laboratory studies: As stated above and show below. Imaging studies: See below Consultation(s): I discussed her case with the on-call [facility] hospitalist, Dr. Subramanian. He is agreed to evaluate the patient in the emergency department. Past Med/Surg History Medical History A-fib Actinic keratosis Arthritis Blood disease Cellulitis Chest pain Chest pain Chronic diastolic CHF (congestive heart failure) CKD (chronic kidney disease) stage 3, GFR 30-59 ml/min Dizziness Dyslipidemia GI bleed Heart palpitations History of basal cell carcinoma History of squamous cell carcinoma History of squamous cell carcinoma in situ of skin Hyperlipidemia Hypertension Hypertension Neoplasm of uncertain behavior of skin Osteopenia Peripheral vertigo Polycythemia vera (~08/2011) Polycythemia vera Sensorineural hearing loss (SNHL) of both ears Venous stasis ulcer Surgical History H/O eye surgery History of cholecystectomy Family History Mother Hypertension Father Myocardial infarction Social History Smoking Status: Never smoker Tobacco Type: Cigarettes Second Hand Exposure: No; Hx Alcohol Use: No Hx Substance Use: No Preferred Language: Turkmen Communication Ability: Effective Visual Impairment: Limited Hearing Ability: Hard of Hearing 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 Room Required: No Beliefs That Will Affect Care: None marital status: / Current Living Situation: Personal Care Facility Current Living Situation Comment: lives with dgtr who works during the day current occupational status: retired Feels Safe at Home: Yes Assistive Devices: Cane and Walker Allergies Allergies Allergy/AdvReac Type Severity Reaction Status Date / Time prednisone Allergy Mild Rash Verified 12/31/20 19:42 Home Meds Home Medications Medication Instructions Recorded Confirmed amlodipine 5 mg tablet 5 mg PO QAM #90 tab 02/25/19 12/31/20 atenolol 50 mg tablet 50 mg PO AMPM tab 02/25/19 12/31/20 lutein 20 mg capsule 20 mg PO DAILY cap 02/25/19 12/31/20 raloxifene 60 mg tablet 60 mg PO QPM tab 02/25/19 12/31/20 acetaminophen [Tylenol Arthritis 650 - 1,300 mg PO Q8H PRN 01/15/20 12/31/20 Pain] garlic 1,000 mg PO DAILY 01/15/20 12/31/20 Myrbetriq 25 mg PO DAILY 10/11/20 12/31/20 cyanocobalamin (vitamin B-12) 1,000 mcg PO DAILY 10/11/20 12/31/20 [Vitamin B-12] donepezil 5 mg PO DAILY 10/11/20 12/31/20 escitalopram oxalate 10 mg PO DAILY 10/11/20 12/31/20 furosemide 80 mg PO BID 10/11/20 12/31/20 hydroxyurea See Rx Instructions .ROUTE .COMPLEX 10/11/20 12/31/20 meclizine 12.5 mg PO TID PRN 10/11/20 12/31/20 metolazone [Zaroxolyn] 0 mg PO Q OTHER DAY 12/31/20 12/31/20 ondansetron HCl [Zofran] 4 mg PO Q6H PRN 12/31/20 12/31/20 Results & Data (ED) Vital Signs Vital Signs - 24 hr 12/31/20 18:42 12/31/20 19:05 12/31/20 19:10 Temperature 37.2 C Temperature Source Oral Pulse Rate 57 L 70 73 Pulse Rhythm Regular Pulse Strength Normal Respiratory Rate 20 18 17 Respiratory Effort / Characteristics Non-Labored Spontaneous Respiratory Depth Normal Respiratory Pattern Regular Blood Pressure 103/62 97/48 L 116/43 L Blood Pressure Mean 75 64 67 Blood Pressure Position Sitting Pulse Oximetry 92 94 94 Oxygen Delivery Method Room Air Room Air Room Air Fraction of Inspired Oxygen 94 Sepsis Recent Fever Within 48 Hours No Sepsis New/Unexplained Change in Mental Status No Sepsis Action Taken by Nursing No Action Required 12/31/20 19:33 12/31/20 20:51 12/31/20 21:00 Temperature Temperature Source Pulse Rate 77 68 Pulse Rhythm Pulse Strength Respiratory Rate 16 16 15 Respiratory Effort / Characteristics Non-Labored Spontaneous Respiratory Depth Respiratory Pattern Blood Pressure 90/55 L 101/60 Blood Pressure Mean 66 73 Blood Pressure Position Pulse Oximetry 94 91 94 Oxygen Delivery Method Room Air Fraction of Inspired Oxygen Sepsis Recent Fever Within 48 Hours Sepsis New/Unexplained Change in Mental Status Sepsis Action Taken by Retirement Medications Current Medication List: was personally reviewed by me Laboratory Data Attestation: I reviewed the patient's lab results. Result diagrams: 01/01/21 06:27 01/01/21 06:27 Lab Results 12/31/20 12/31/20 12/31/20 Range/Units 19:18 19:18 19:18 WBC 8.94 (4.8-10.8) K/uL RBC 3.67 L (4.2-5.4) M/uL Hgb 13.3 (12.0-16.0) g/dL Hct 40.3 (37-47) % MCV 109.8 H (80-100) fL MCH 36.2 H (25-34) pg MCHC 33.0 (32-36) g/dL RDW Std Deviation 68.7 H (36.4-46.3) fL RDW Coeff of Roberto 17.0 H (11.5-14.5) % Plt Count 262 (130-400) K/uL MPV 9.3 (7.4-10.4) fL Immature Gran % (Auto) 0.2 % Neut % (Auto) 92.4 % Lymph % (Auto) 2.1 % [place] % (Auto) 4.9 % Eos % (Auto) 0.2 % Baso % (Auto) 0.2 % Neut # (Auto) 8.25 H (1.4-6.5) K/uL Lymph # (Auto) 0.19 L (1.2-3.4) K/uL [place] # (Auto) 0.44 (0.11-0.59) K/uL Eos # (Auto) 0.02 (0-0.5) K/uL Baso # (Auto) 0.02 (0-0.2) K/uL Immature Gran # (Auto) 0.02 (0.00-0.02) K/uL PT (9.0-12.0) Seconds INR (0.9-1.1) APTT (21.0-31.0) Seconds PTT Ratio Sodium 132 L (136-145) mmol/L Potassium 3.3 L (3.5-5.1) mmol/L Chloride 94 L (98-107) mmol/L Carbon Dioxide 27 (21-32) mmol/L Anion Gap 11.0 (3-11) BUN 94 H (7-18) mg/dl Creatinine 1.71 H (0.6-1.2) mg/dl Est Cr Clr Drug Dosing 22.6 ml/min Est GFR ( Amer) 30.7 ml/min Est GFR (Non-Af Amer) 26.5 ml/min BUN/Creatinine Ratio 54.7 H (10-20) Glucose 152 H (70-99) mg/dl Lactate (0.4-2.0) mmol/L Calcium 7.5 L (8.5-10.1) mg/dl Magnesium 2.1 (1.8-2.4) mg/dl Total Bilirubin 1.3 H (0.2-1) mg/dl AST 13 L (15-37) U/L ALT 10 L (12-78) U/L Alkaline Phosphatase 92 (45-117) U/L Troponin I < 0.015 (0-0.045) ng/ml NT-Pro-B Natriuret Pep 2131 H (0-1800) pg/ml Total Protein 7.7 (6.4-8.2) gm/dl Albumin 3.5 (3.4-5.0) gm/dl Globulin 4.2 H (2.5-4.0) gm/dl Albumin/Globulin Ratio 0.8 L (0.9-2) Procalcitonin 0.18 (0-0.5) ng/ml Urine Color Urine Appearance (Clear) Urine pH (4.5-7.5) Ur Specific Penrose (1.000-1.030) Urine Protein (Negative) Urine Glucose (UA) (Negative) Urine Ketones (Negative) Urine Blood (Negative) Urine Nitrite (Negative) Urine Bilirubin (Negative) Urine Urobilinogen (Negative) Ur Leukocyte Esterase (Negative) Urine WBC (Auto) (0-5) /hpf Urine RBC (Auto) (0-4) /hpf U Hyaline Cast (Auto) (0-5) /lpf U Epithel Cells (Auto) (0-5) /lpf Urine Bacteria (Auto) (Negative) COVID-19 Eval Order SARS-CoV-2 (PCR) (Negative) 12/31/20 12/31/20 12/31/20 Range/Units 19:18 19:18 20:20 WBC (4.8-10.8) K/uL RBC (4.2-5.4) M/uL Hgb (12.0-16.0) g/dL Hct (37-47) % MCV (80-100) fL MCH (25-34) pg MCHC (32-36) g/dL RDW Std Deviation (36.4-46.3) fL RDW Coeff of Roberto (11.5-14.5) % Plt Count (130-400) K/uL MPV (7.4-10.4) fL Immature Gran % (Auto) % Neut % (Auto) % Lymph % (Auto) % [place] % (Auto) % Eos % (Auto) % Baso % (Auto) % Neut # (Auto) (1.4-6.5) K/uL Lymph # (Auto) (1.2-3.4) K/uL [place] # (Auto) (0.11-0.59) K/uL Eos # (Auto) (0-0.5) K/uL Baso # (Auto) (0-0.2) K/uL Immature Gran # (Auto) (0.00-0.02) K/uL PT 10.7 (9.0-12.0) Seconds INR 1.1 (0.9-1.1) APTT 25.2 (21.0-31.0) Seconds PTT Ratio 1.0 Sodium (136-145) mmol/L Potassium (3.5-5.1) mmol/L Chloride (98-107) mmol/L Carbon Dioxide (21-32) mmol/L Anion Gap (3-11) BUN (7-18) mg/dl Creatinine (0.6-1.2) mg/dl Est Cr Clr Drug Dosing ml/min Est GFR ( Amer) ml/min Est GFR (Non-Af Amer) ml/min BUN/Creatinine Ratio (10-20) Glucose (70-99) mg/dl Lactate 0.9 (0.4-2.0) mmol/L Calcium (8.5-10.1) mg/dl Magnesium (1.8-2.4) mg/dl Total Bilirubin (0.2-1) mg/dl AST (15-37) U/L ALT (12-78) U/L Alkaline Phosphatase (45-117) U/L Troponin I (0-0.045) ng/ml NT-Pro-B Natriuret Pep (0-1800) pg/ml Total Protein (6.4-8.2) gm/dl Albumin (3.4-5.0) gm/dl Globulin (2.5-4.0) gm/dl Albumin/Globulin Ratio (0.9-2) Procalcitonin (0-0.5) ng/ml Urine Color Yellow Urine Appearance Cloudy A (Clear) Urine pH 5.0 (4.5-7.5) Ur Specific Penrose 1.016 (1.000-1.030) Urine Protein Trace H (Negative) Urine Glucose (UA) Negative (Negative) Urine Ketones Negative (Negative) Urine Blood Trace H (Negative) Urine Nitrite Negative (Negative) Urine Bilirubin Negative (Negative) Urine Urobilinogen Negative (Negative) Ur Leukocyte Esterase 2+ H (Negative) Urine WBC (Auto) >30 H (0-5) /hpf Urine RBC (Auto) 0-4 (0-4) /hpf U Hyaline Cast (Auto) 1-5 (0-5) /lpf U Epithel Cells (Auto) >30 H (0-5) /lpf Urine Bacteria (Auto) 4+ H (Negative) COVID-19 Eval Order SARS-CoV-2 (PCR) (Negative) 12/31/20 12/31/20 Range/Units 21:15 21:15 WBC (4.8-10.8) K/uL RBC (4.2-5.4) M/uL Hgb (12.0-16.0) g/dL Hct (37-47) % MCV (80-100) fL MCH (25-34) pg MCHC (32-36) g/dL RDW Std Deviation (36.4-46.3) fL RDW Coeff of Roberto (11.5-14.5) % Plt Count (130-400) K/uL MPV (7.4-10.4) fL Immature Gran % (Auto) % Neut % (Auto) % Lymph % (Auto) % [place] % (Auto) % Eos % (Auto) % Baso % (Auto) % Neut # (Auto) (1.4-6.5) K/uL Lymph # (Auto) (1.2-3.4) K/uL [place] # (Auto) (0.11-0.59) K/uL Eos # (Auto) (0-0.5) K/uL Baso # (Auto) (0-0.2) K/uL Immature Gran # (Auto) (0.00-0.02) K/uL PT (9.0-12.0) Seconds INR (0.9-1.1) APTT (21.0-31.0) Seconds PTT Ratio Sodium (136-145) mmol/L Potassium (3.5-5.1) mmol/L Chloride (98-107) mmol/L Carbon Dioxide (21-32) mmol/L Anion Gap (3-11) BUN (7-18) mg/dl Creatinine (0.6-1.2) mg/dl Est Cr Clr Drug Dosing ml/min Est GFR ( Amer) ml/min Est GFR (Non-Af Amer) ml/min BUN/Creatinine Ratio (10-20) Glucose (70-99) mg/dl Lactate (0.4-2.0) mmol/L Calcium (8.5-10.1) mg/dl Magnesium (1.8-2.4) mg/dl Total Bilirubin (0.2-1) mg/dl AST (15-37) U/L ALT (12-78) U/L Alkaline Phosphatase (45-117) U/L Troponin I (0-0.045) ng/ml NT-Pro-B Natriuret Pep (0-1800) pg/ml Total Protein (6.4-8.2) gm/dl Albumin (3.4-5.0) gm/dl Globulin (2.5-4.0) gm/dl Albumin/Globulin Ratio (0.9-2) Procalcitonin (0-0.5) ng/ml Urine Color Urine Appearance (Clear) Urine pH (4.5-7.5) Ur Specific Penrose (1.000-1.030) Urine Protein (Negative) Urine Glucose (UA) (Negative) Urine Ketones (Negative) Urine Blood (Negative) Urine Nitrite (Negative) Urine Bilirubin (Negative) Urine Urobilinogen (Negative) Ur Leukocyte Esterase (Negative) Urine WBC (Auto) (0-5) /hpf Urine RBC (Auto) (0-4) /hpf U Hyaline Cast (Auto) (0-5) /lpf U Epithel Cells (Auto) (0-5) /lpf Urine Bacteria (Auto) (Negative) COVID-19 Eval Order Covid19 at [facility] SARS-CoV-2 (PCR) NEGATIVE (Negative) Administered Medications Amlodipine Besylate (Amlodipine Besylate 5 Mg Tab) 5 mg PO QAM [facility] Stop: 01/31/21 08:59 Last Admin: 01/01/21 07:52 Dose: 5 mg Documented by: [id number] Atenolol (Atenolol 50 Mg Tablet) 50 mg PO BID [facility] Stop: 01/30/21 23:44 Last Admin: 01/01/21 07:49 Dose: Not Given Documented by: [id number] Admin: 01/01/21 00:03 Dose: 50 mg Documented by: [id number] Cyanocobalamin (Cyanocobalamin 500 Mcg Tablet (Vitamin B-12)) 1,000 mcg PO DAILY [facility] Stop: 01/31/21 08:59 Last Admin: 01/01/21 07:53 Dose: 1,000 mcg Documented by: [id number] Donepezil HCl (Donepezil Hcl 5 Mg Tab) 5 mg PO DAILY [facility] Stop: 01/31/21 08:59 Last Admin: 01/01/21 07:52 Dose: 5 mg Documented by: [id number] Escitalopram Oxalate (Escitalopram Oxalate 10 Mg Tab) 10 mg PO DAILY [facility] Stop: 01/31/21 08:59 Last Admin: 01/01/21 07:52 Dose: 10 mg Documented by: [id number] Heparin Sodium (Porcine) (Heparin Sod 5,000 Unit/0.5 Ml Vial) 5,000 units SQ Q12 [facility] Stop: 01/31/21 08:59 Last Admin: 01/01/21 07:53 Dose: 5,000 units Documented by: [id number] Hydroxyurea (Hydroxyurea 500 Mg Cap) 1,000 mg PO MoTuWeTh [facility] Stop: 01/31/21 08:59 Last Admin: 01/01/21 07:53 Dose: 1,000 mg Documented by: [id number] Cosigned by: [id number] Piperacillin Sod/Tazobactam (Sod 3.375 gm/ Dextrose) 115 mls @ 28.75 mls/hr IV Q8H [facility]; Protocol Stop: 01/11/21 01:59 Last Infusion: 01/01/21 14:31 Dose: 0 mls/hr Documented by: [id number] Admin: 01/01/21 10:06 Dose: 28.8 mls/hr Documented by: [id number] Infusion: 01/01/21 05:30 Dose: 0 mls/hr Documented by: [id number] Admin: 01/01/21 01:27 Dose: 28.8 mls/hr Documented by: [id number] Sodium Chloride (Nss 1000ml) 1,000 mls @ 60 mls/hr IV .[id number] [facility] Stop: 01/30/21 23:17 Last Infusion: 01/01/21 08:24 Dose: 0 mls/hr Documented by: [id number] Admin: 12/31/20 23:41 Dose: 60 mls/hr Documented by: [id number] Mirabegron (Mirabegron Er 25 Mg Tab) 25 mg PO DAILY [facility] Stop: 01/31/21 08:59 Last Admin: 01/01/21 07:53 Dose: 25 mg Documented by: [id number] Discontinued Medications Ceftriaxone Sodium (Rocephin) 1,000 mg in 50 mls @ 100 mls/hr IV NOW STA Stop: 12/31/20 21:18 Last Infusion: 12/31/20 20:57 Dose: 0 mls/hr Documented by: [id number] Admin: 12/31/20 20:54 Dose: 100 mls/hr Documented by: [id number] Piperacillin Sod/Tazobactam Sod (Zosyn) 4.5 gm in 120 mls @ 240 mls/hr IV NOW ONE Stop: 12/31/20 21:25 Last Infusion: 12/31/20 21:51 Dose: 0 mls/hr Documented by: [id number] Admin: 12/31/20 20:59 Dose: 240 mls/hr Documented by: [id number] Sodium Chloride (Nss 1000ml) 500 mls @ 999 mls/hr IV .Q31M ONE Stop: 12/31/20 21:38 Last Infusion: 12/31/20 21:51 Dose: 0 mls/hr Documented by: [id number] Admin: 12/31/20 21:15 Dose: 999 mls/hr Documented by: [id number] Potassium Chloride (Potassium Chloride Crtab 20 Meq Tabcr) 20 meq PO NOW STA Stop: 12/31/20 23:42 Last Admin: 01/01/21 00:03 Dose: 20 meq Documented by: [id number] Imaging Data Attestation: I personally reviewed and interpreted this imaging study as follows: My Impression: 1 view chest x-ray was obtained in the emergency department. Prominent aortic knob was noted. Haziness on the right upper lobe was also noted. There is no free air no definite filtrate. This was compared to a chest x-ray from 07/25/2019. No significant changes were noted. Radiologist's Impression: Chest X-Ray 12/31/20 19:11 XR chest 1V portable CLINICAL HISTORY: SEPSIS COMPARISON STUDY: 07/25/2019 FINDINGS: No pneumothorax. No pleural effusion. Redemonstration of focal opacity or the mid aspect of the left base might represent scarring that was also seen during prior study. Diffuse reticular prominence of pulmonary interstitium is slightly improved since prior. Redemonstration of widening of the right pretracheal stripe which is stable si nce prior and might represent enlarged thyroid gland versus other etiology. Cardiomediastinal silhouette is within normal limits in size. No significant pulmonary vascular congestion.. Aorta is tortuous. Osseous structures: Diffusely demineralized. Degenerative changes of the spine. IMPRESSION: 1. No acute pulmonary process. 2. Stable opacities at the left base and widening of the right paratracheal stripe as detailed above. ACT 112: Negative or not required by law. The above report was generated using voice recognition software. It may contain grammatical, syntax or spelling errors. Electronically signed by: Inocencia Aly DO 01/01/2021 7:04 AM Discharge Plan Visit Data Chief Complaint: Weakness Stated Complaint: weakness, nausea, dizzy ED Provider: Armand Campos Discharge Problem: Weakness, Acute hypotension, Acute UTI (urinary tract infection) Patient Disposition: Admitted As Inpatient Condition: Good Discharge Instructions Interventions: ED Discharge Assessment Last Done: 12/31/20 22:56
[2020-12-31 19:30] LABS: Basophils # (auto) 0.02 K/uL (0-0.2); Basophils % (auto) 0.2 %; Eosinophils # (auto) 0.02 K/uL (0-0.5); Eosinophils % (auto) 0.2 %; Hematocrit (blood only) 40.3 % (37-47); Hemoglobin 13.3 g/dL (12.0-16.0); Immature Granulocytes # (auto) 0.02 K/uL (0.00-0.02); Immature Granulocytes % (auto) 0.2 %; Lymphocytes # (auto) 0.19 K/uL (1.2-3.4); Lymphocytes % (auto) 2.1 %; Mean Corpuscular Hemoglobin 36.2 pg (25-34); Mean Corpuscular Volume 109.8 fL (80-100); Mean Platelet Volume 9.3 fL (7.4-10.4); Monocytes # (auto) 0.44 K/uL (0.11-0.59); Monocytes % (auto) 4.9 %; Neutrophils # (auto) 8.25 K/uL (1.4-6.5); Neutrophils % (auto) 92.4 %; Platelet Count 262 K/uL (130-400); RDW Standard Deviation 68.7 fL (36.4-46.3); Red Blood Count 3.67 M/uL (4.2-5.4); White Blood Count 8.94 K/uL (4.8-10.8)
[2020-12-31 19:41] LABS: INR 1.1 (0.9-1.1); Partial Thromboplastin Time 25.2 Seconds (21.0-31.0); Prothrombin Time 10.7 Seconds (9.0-12.0)
[2020-12-31 19:48] LABS: Alanine Aminotransferase 10 U/L (12-78); Albumin Level 3.5 gm/dl (3.4-5.0); Aspartate Aminotransferase 13 U/L (15-37); BUN Creatinine Ratio 54.7 (10-20); Blood Urea Nitrogen 94 mg/dl (7-18); Calcium 7.5 mg/dl (8.5-10.1); Carbon Dioxide 27 mmol/L (21-32); Chloride 94 mmol/L (98-107); Creatinine Clr Calc Pharmacy 22.6 ml/min; Est GFR (African American) 30.7 ml/min; Est GFR (Non-African American) 26.5 ml/min; Glucose 152 mg/dl (70-99); Magnesium 2.1 mg/dl (1.8-2.4); Potassium 3.3 mmol/L (3.5-5.1); Sodium 132 mmol/L (136-145)
[2020-12-31 19:53] LABS: Albumin Globulin Ratio 0.8 (0.9-2); Alkaline Phosphatase 92 U/L (45-117); Bilirubin,Total 1.3 mg/dl (0.2-1); Globulin 4.2 gm/dl (2.5-4.0); NT Pro B Type Natriuretic Pept 2131 pg/ml (0-1800); Total Protein 7.7 gm/dl (6.4-8.2); Troponin I < 0.015 ng/ml (0-0.045)
--- NOTE | 2020-12-31 20:03 | CT Scan Report ---
CT head/brain wo con CLINICAL HISTORY: weakness COMPARISON STUDY: MRI study dated 01/20/2019, head CT dated 07/26/2014 TECHNIQUE: Axial CT of the brain is performed from the vertex to the skull base. IV contrast was not administered for this examination. A dose lowering technique was utilized adhering to the principles of ALARA. CT DOSE: 614.27 mGy.cm FINDINGS: No intra or extra-axial mass lesions are visualized. There is no CT evidence of acute cortical infarc tion. There is no evidence of midline shift. There is no acute hemorrhage. No calvarial fractures ar e visualized. There are patchy white matter hypodensities likely on a small vessel basis. There is no evidence of pathologic ventricular dilatation. A linear parafalcine hyperdensity is felt to represent calcification of the falx. There is no evidence of acute sinusitis IMPRESSION: No acute intracranial findings ACT 112: Negative or not required by law. Electronically signed by: Miguel Tarqi M.D. 12/31/2020 8:01 PM
[2020-12-31 20:36] LABS: Appearance Urine Cloudy (Clear); Bacteria Urine Automated 4+ (Negative); Bilirubin Urine Negative (Negative); Blood Urine Trace (Negative); Color Urine Yellow; Epithelial Cell Urine Auto >30 /lpf (0-5); Glucose Urine UA Negative (Negative); Ketones Urine Negative (Negative); Leukocyte Esterase Urine 2+ (Negative); Nitrite Urine Negative (Negative); Protein Urine Trace (Negative); RBC Urine Automated 0-4 /hpf (0-4); Specific Gravity Urine 1.016 (1.000-1.030); Urobilinogen Urine Negative (Negative); WBC Urine Automated >30 /hpf (0-5)
[2020-12-31] MEDS ORDERED: cefTRIAXone SODIUM 1,000 MG/50 ML BAG IV STA (20:49)
[2020-12-31] MEDS ORDERED: PIPERACILL/TAZOBAC CONSULT ACTIVE PRN ×2 (20:56→23:18)
[2020-12-31] MEDS ORDERED: PIPERACILLIN/TAZOBACTAM 4.5 GM/120 ML BAG IV ONE (20:56)
[2020-12-31] MEDS ORDERED: SODIUM CHLORIDE 0.9% 1000ML 500 ML IV ONE (21:08)
--- NOTE | 2020-12-31 22:01 | History & Physical Report ---
Date of Service December 31, 2020 Assessment & Plan (1) Weakness: Generalized weakness- Multifactorial: Secondary to decreased oral intake, dehydration and UTI Present on Admission?: Yes (2) Acute UTI (urinary tract infection): Acute urinary tract infection/hypotension/dehydration Follow urine culture and sensitivity Continue Zosyn IV begun by the ED Transiently low blood pressure responded to IV fluid bolus in ED Gentle rehydration with IV fluids Present on Admission?: Yes (3) Chronic diastolic CHF (congestive heart failure): A. fib/hypertension/chronic diastolic CHF- Hold amlodipine, furosemide, metolazone and atenolol for low blood pressure. Present on Admission?: Yes (4) CKD (chronic kidney disease) stage 3, GFR 30-59 ml/min: Creatinine 1.71 upon admission, with range 1.43-1.78 Repeat after IV fluid rehydration Present on Admission?: Yes (5) Polycythemia vera: Continue Hydrea Present on Admission?: Yes (6) A-fib: See above Present on Admission?: Yes (7) Hypertension: See above Present on Admission?: Yes (8) Acute hypotension: See above Present on Admission?: Yes History of Present Illness Chief Complaint: The patient presents to the emergency department from [facility] due to concerns of generalized weakness, decreased oral intake, and right worse than left leg swelling for which she had recently been started on Zaroxolyn by her outpatient PCP. Primary Care Provider: [facility] The patient is an 85-year-old female resident of [facility], with a past medical history including chronic diastolic CHF, CKD stage III, polycythemia vera, diverticulitis of intestine with perforation without abscess, SNHL, hypertension and atrial fibrillation. Present she presents with symptoms as noted above. Allergies Allergy/AdvReac Type Severity Reaction Status Date / Time prednisone Allergy Mild Rash Verified 12/31/20 19:42 Home Medications Medication Instructions Recorded Confirmed Type amlodipine 5 mg tablet 5 mg PO QAM #90 tab 02/25/19 12/31/20 History atenolol 50 mg tablet 50 mg PO AMPM tab 02/25/19 12/31/20 History lutein 20 mg capsule 20 mg PO DAILY cap 02/25/19 12/31/20 History raloxifene 60 mg tablet 60 mg PO QPM tab 02/25/19 12/31/20 History acetaminophen [Tylenol Arthritis 650 - 1,300 mg PO Q8H PRN 01/15/20 12/31/20 History Pain] garlic 1,000 mg PO DAILY 01/15/20 12/31/20 History Myrbetriq 25 mg PO DAILY 10/11/20 12/31/20 History cyanocobalamin (vitamin B-12) 1,000 mcg PO DAILY 10/11/20 12/31/20 History [Vitamin B-12] donepezil 5 mg PO DAILY 10/11/20 12/31/20 History escitalopram oxalate 10 mg PO DAILY 10/11/20 12/31/20 History furosemide 80 mg PO BID 10/11/20 12/31/20 History hydroxyurea See Rx Instructions .ROUTE .COMPLEX 10/11/20 12/31/20 History meclizine 12.5 mg PO TID PRN 10/11/20 12/31/20 History metolazone [Zaroxolyn] 0 mg PO Q OTHER DAY 12/31/20 12/31/20 History ondansetron HCl [Zofran] 4 mg PO Q6H PRN 12/31/20 12/31/20 History Past Med/Surg History Medical History A-fib Actinic keratosis Arthritis Blood disease Cellulitis Chest pain Chest pain Chronic diastolic CHF (congestive heart failure) CKD (chronic kidney disease) stage 3, GFR 30-59 ml/min Dizziness Dyslipidemia GI bleed Heart palpitations History of basal cell carcinoma History of squamous cell carcinoma History of squamous cell carcinoma in situ of skin Hyperlipidemia Hypertension Hypertension Neoplasm of uncertain behavior of skin Osteopenia Peripheral vertigo Polycythemia vera (~08/2011) Polycythemia vera Sensorineural hearing loss (SNHL) of both ears Venous stasis ulcer Surgical History H/O eye surgery History of cholecystectomy Family History Mother Hypertension Father Myocardial infarction Social History Smoking Status: Never smoker Tobacco Type: Cigarettes Second Hand Exposure: No; Hx Alcohol Use: No Hx Substance Use: No Preferred Language: Armenian Communication Ability: Effective Visual Impairment: Limited Hearing Ability: Hard of Hearing Is Project Manager Required: No Beliefs That Will Affect Care: None marital status: Current Living Situation: Personal Care Facility Current Living Situation Comment: lives with dgtr who works during the day current occupational status: retired Feels Safe at Home: Yes Assistive Devices: Cane and Walker Review of Systems Review of Systems: The patient denies chest pain, palpitations, shortness of breath, dyspnea on exertion, cough, sore throat, fevers, chills, sweats, nausea, vomiting, diarrhea , constipation, abdominal pain, pelvic pain, blood in urine or stool, dysuria, urinary frequency or urgency, lightheadedness, dizziness, headache, memory loss, loss of consciousness, rash, abnormal bruising or bleeding, imbalance, focal weakness, numbness or tingling in arms or legs, generalized arthralgias or myalgias, back or neck pain, or night sweats. The review of systems is otherwise negative other than for that already noted above, and at least 10 systems have been reviewed. Physical Exam Physical Exam: The patient is awake, alert and oriented 3, well developed and well nourished, normocephalic and atraumatic, lying in bed and in no acute distress. HEENT--PERRL, EOMI, mucous membranes and oropharynx dry. Neck--supple. No JVD. No bruits. Thyroid normal, trachea midline, no adenopathy. Heart--normal S1 and S2. No murmurs, rubs or gallops. Lungs--clear bilaterally, no respiratory distress, no accessory muscle use. Abdomen--normal bowel sounds and soft. Nontender. Nondistended Extremities--no cyanosis or clubbing. No edema. Dermatologic--normal skin turgor, normal color, no abnormal lymph nodes, no ra sh. Neurologic--cranial nerves II through XII grossly intact. Rheumatologic--normal range of motion. Psychiatric--normal affect. Results & Data Results & Data ([facility]) Vital Signs (Past 12 Hours) Vital Signs Temp Pulse Resp BP Pulse Ox 12/31/20 21:00 68 15 101/60 94 12/31/20 20:51 77 16 90/55 L 91 12/31/20 19:33 16 94 12/31/20 19:10 73 17 116/43 L 94 12/31/20 19:05 70 18 97/48 L 94 12/31/20 18:42 99.0 F 57 L 20 103/62 92 Laboratory Results Laboratory Results WBC 8.94 K/uL (4.8-10.8) 12/31/20 19:18 RBC 3.67 M/uL (4.2-5.4) L 12/31/20 19:18 Hgb 13.3 g/dL (12.0-16.0) 12/31/20 19:18 Hct 40.3 % (37-47) 12/31/20 19:18 MCV 109.8 fL (80-100) H 12/31/20 19:18 MCH 36.2 pg (25-34) H 12/31/20 19:18 MCHC 33.0 g/dL (32-36) 12/31/20 19:18 RDW Std Deviation 68.7 fL (36.4-46.3) H 12/31/20 19:18 RDW Coeff of Roberto 17.0 % (11.5-14.5) H 12/31/20 19:18 Plt Count 262 K/uL (130-400) 12/31/20 19:18 MPV 9.3 fL (7.4-10.4) 12/31/20 19:18 Immature Gran % (Auto) 0.2 % 12/31/20 19:18 Neut % (Auto) 92.4 % 12/31/20 19:18 Lymph % (Auto) 2.1 % 12/31/20 19:18 [place] % (Auto) 4.9 % 12/31/20 19:18 Eos % (Auto) 0.2 % 12/31/20 19:18 Baso % (Auto) 0.2 % 12/31/20 19:18 Neut # (Auto) 8.25 K/uL (1.4-6.5) H 12/31/20 19:18 Lymph # (Auto) 0.19 K/uL (1.2-3.4) L 12/31/20 19:18 [place] # (Auto) 0.44 K/uL (0.11-0.59) 12/31/20 19:18 Eos # (Auto) 0.02 K/uL (0-0.5) 12/31/20 19:18 Baso # (Auto) 0.02 K/uL (0-0.2) 12/31/20 19:18 Immature Gran # (Auto) 0.02 K/uL (0.00-0.02) 12/31/20 19:18 PT 10.7 Seconds (9.0-12.0) 12/31/20 19:18 INR 1.1 (0.9-1.1) 12/31/20 19:18 APTT 25.2 Seconds (21.0-31.0) 12/31/20 19:18 PTT Ratio 1.0 12/31/20 19:18 Sodium 132 mmol/L (136-145) L 12/31/20 19:18 Potassium 3.3 mmol/L (3.5-5.1) L 12/31/20 19:18 Chloride 94 mmol/L (98-107) L 12/31/20 19:18 Carbon Dioxide 27 mmol/L (21-32) 12/31/20 19:18 Anion Gap 11.0 (3-11) 12/31/20 19:18 BUN 94 mg/dl (7-18) H 12/31/20 19:18 Creatinine 1.71 mg/dl (0.6-1.2) H 12/31/20 19:18 Est Cr Clr Drug Dosing 22.6 ml/min 12/31/20 19:18 Est GFR ( Amer) 30.7 ml/min 12/31/20 19:18 Est GFR (Non-Af Amer) 26.5 ml/min 12/31/20 19:18 BUN/Creatinine Ratio 54.7 (10-20) H 12/31/20 19:18 Glucose 152 mg/dl (70-99) H 12/31/20 19:18 Lactate 0.9 mmol/L (0.4-2.0) 12/31/20 19:18 Calcium 7.5 mg/dl (8.5-10.1) L 12/31/20 19:18 Magnesium 2.1 mg/dl (1.8-2.4) 12/31/20 19:18 Total Bilirubin 1.3 mg/dl (0.2-1) H 12/31/20 19:18 AST 13 U/L (15-37) L 12/31/20 19:18 ALT 10 U/L (12-78) L 12/31/20 19:18 Alkaline Phosphatase 92 U/L (45-117) 12/31/20 19:18 Troponin I < 0.015 ng/ml (0-0.045) 12/31/20 19:18 NT-Pro-B Natriuret Pep 2131 pg/ml (0-1800) H 12/31/20 19:18 Total Protein 7.7 gm/dl (6.4-8.2) 12/31/20 19:18 Albumin 3.5 gm/dl (3.4-5.0) 12/31/20 19:18 Globulin 4.2 gm/dl (2.5-4.0) H 12/31/20 19:18 Albumin/Globulin Ratio 0.8 (0.9-2) L 12/31/20 19:18 Procalcitonin 0.18 ng/ml (0-0.5) 12/31/20 19:18 Urine Color Yellow 12/31/20 20:20 Urine Appearance Cloudy (Clear) A 12/31/20 20:20 Urine pH 5.0 (4.5-7.5) 12/31/20 20:20 Ur Specific [place] 1.016 (1.000-1.030) 12/31/20 20:20 Urine Protein Trace (Negative) H 12/31/20 20:20 Urine Glucose (UA) Negative (Negative) 12/31/20 20:20 Urine Ketones Negative (Negative) 12/31/20 20:20 Urine Blood Trace (Negative) H 12/31/20 20:20 Urine Nitrite Negative (Negative) 12/31/20 20:20 Urine Bilirubin Negative (Negative) 12/31/20 20:20 Urine Urobilinogen Negative (Negative) 12/31/20 20:20 Ur Leukocyte Esterase 2+ (Negative) H 12/31/20 20:20 Urine WBC (Auto) >30 /hpf (0-5) H 12/31/20 20:20 Urine RBC (Auto) 0-4 /hpf (0-4) 12/31/20 20:20 U Hyaline Cast (Auto) 1-5 /lpf (0-5) 12/31/20 20:20 U Epithel Cells (Auto) >30 /lpf (0-5) H 05/31/21 20:20 Urine Bacteria (Auto) 4+ (Negative) H 12/31/20 20:20 COVID-19 Eval Order Covid19 at [facility] 12/31/20 21:15 SARS-CoV-2 (PCR) NEGATIVE (Negative) 12/31/20 21:[address] 12/31/20 19:10 CT head/brain wo con CLINICAL HISTORY: weakness COMPARISON STUDY: MRI study dated 01/20/2019, head CT dated 07/26/2014 TECHNIQUE: Axial CT of the brain is performed from the vertex to the skull base. IV contrast was not administered for this examination. A dose lowering technique was utilized adhering to the principles of ALARA. CT DOSE: 614.27 mGy.cm FINDINGS: No intra or extra-axial mass lesions are visualized. There is no CT evidence of acute cortical infarction. There is no evidence of midline shift. There is no acute hemorrhage. No calvarial fractures are visualized. There are patchy white matter hypodensities likely on a small vessel basis. There is no evidence of pathologic ventricular dilatation. A linear parafalcine hyperdensity is felt to represent calcification of the falx. There is no evidence of acute sinusitis IMPRESSION: No acute intracranial findings ACT 112: Negative or not required by law. Electronically signed by: Miguel Tariq M.D. 12/31/2020 8:01 PM Code Status & VTE Plan Code Status Full code VTE Prophylaxis Plan VTE Prophylaxis will be ordered: Yes PG Care Time/CCT Total # of Minutes Spent Total Time Spent with Patient: Total time spent is greater than 50% in coordination of care (as documented) at patient's floor/unit and/or counseling patient: Coding Level of Care Code 56524 Initial Inpt Care Lvl 3 Diagnoses Weakness R53.1 Acute UTI (urinary tract infection) N39.0 Chronic diastolic CHF (congestive heart failure) I50.32 CKD (chronic kidney disease) stage 3, GFR 30-59 ml/min N18.30 Polycythemia vera D45 A-fib I48.91 Hypertension I10 Acute hypotension I95.9
[2020-12-31] MEDS ORDERED: ONDANSETRON INJ 2 MG/ML 2 ML VIAL IV PRN (23:18)
[2020-12-31] MEDS ORDERED: NON-FORMULARY MEDICATION (Acetaminophen [Tylenol Arthritis Pain] 650 mg Tablet Extended Re PO PRN (23:18)
[2020-12-31] MEDS ORDERED: MECLIZINE 12.5 MG TAB PO PRN (23:18)
[2020-12-31] MEDS ORDERED: SODIUM CHLORIDE 0.9% 1000ML 1,000 ML IV SCH (23:18)
[2020-12-31] MEDS ORDERED: POTASSIUM CHLORIDE CRTAB 20 MEQ TABCR PO STA (23:41)
[2021-01-01] MEDS: ATENOLOL 50 MG TABLET PO SCH ×3 (00:03→20:01)
[2021-01-01] MEDS: PIPERACILLIN/TAZOBACTAM 3.375 GM in DEXTROSE 5% 100 ML IV SCH ×3 (01:27→18:19)
[2021-01-01 06:47] LABS: Hematocrit (blood only) 37.9 % (37-47); Hemoglobin 12.4 g/dL (12.0-16.0); Mean Corpuscular Hemoglobin 35.4 pg (25-34); Mean Corpuscular Hgb Conc 32.7 g/dL (32-36); Mean Corpuscular Volume 108.3 fL (80-100); Mean Platelet Volume 9.6 fL (7.4-10.4); Platelet Count 204 K/uL (130-400); RDW Coefficient of Variation 17.4 % (11.5-14.5); White Blood Count 7.78 K/uL (4.8-10.8)
--- NOTE | 2021-01-01 07:05 | XRay Report ---
XR chest 1V portable CLINICAL HISTORY: SEPSIS COMPARISON STUDY: 07/25/2019 FINDINGS: No pneumothorax. No pleural effusion. Redemonstration of focal opacity or the mid aspect of the left base might represent scarring that was also seen during prior study. Diffuse reticular prominence of pulmonary interstitium is slightly imp roved since prior. Redemonstration of widening of the right pretracheal stripe which is stable since prior and might rep resent enlarged thyroid gland versus other etiology. Cardiomediastinal silhouette is within normal limits in size. No significant pulmonary vascular congestion.. Aorta is tortuous. Osseous structures: Diffusely demineralized. Degenerative changes of the spine. IMPRESSION: 1. No acute pulmonary process. 2. Stable opacities at the left base and widening of the right paratracheal stripe as detailed above . ACT 112: Negative or not required by law. The above report was generated using voice recognition software. It may contain grammatical, syntax o r spelling errors. Electronically signed by: Inocencia Aly DO 01/01/2021 7:04 AM
[2021-01-01 07:12] LABS: Basophils # (auto) 0.02 K/uL (0-0.2); Basophils % (auto) 0.3 %; Eosinophils # (auto) 0.02 K/uL (0-0.5); Eosinophils % (auto) 0.3 %; Immature Granulocytes # (auto) 0.03 K/uL (0.00-0.02); Immature Granulocytes % (auto) 0.4 %; Lymphocytes % (auto) 2.6 %; Monocytes # (auto) 0.41 K/uL (0.11-0.59); Monocytes % (auto) 5.3 %; Neutrophils % (auto) 91.1 %
[2021-01-01 07:22] LABS: BUN Creatinine Ratio 44.5 (10-20); Calcium 7.2 mg/dl (8.5-10.1); Creatinine Clr Calc Pharmacy 21.7 ml/min; Est GFR (African American) 29.2 ml/min; Est GFR (Non-African American) 25.2 ml/min; Magnesium 2.4 mg/dl (1.8-2.4); Potassium 3.5 mmol/L (3.5-5.1)
[2021-01-01 07:25] LABS: Albumin Globulin Ratio 0.8 (0.9-2); Bilirubin,Total 1.1 mg/dl (0.2-1); Globulin 3.7 gm/dl (2.5-4.0); Total Protein 6.7 gm/dl (6.4-8.2)
[2021-01-01] MEDS: ESCITALOPRAM OXALATE 10 MG TAB PO SCH (07:52)
[2021-01-01] MEDS: amLODIPine BESYLATE 5 MG TAB PO SCH (07:52)
[2021-01-01] MEDS: DONEPEZIL HCL 5 MG TAB PO SCH (07:52)
[2021-01-01] MEDS: HYDROXYUREA 500 MG CAP PO SCH (07:53)
[2021-01-01] MEDS: CYANOCOBALAMIN 500 MCG TABLET (VITAMIN B-12) PO SCH (07:53)
[2021-01-01] MEDS: HEPARIN SOD 5,000 UNIT/0.5 ML VIAL SQ SCH ×2 (07:53→20:01)
[2021-01-01] MEDS: MIRABEGRON ER 25 MG TAB PO SCH (07:53)
--- NOTE | 2021-01-01 11:09 | Electrocardiogram Report ---
Test Reason : Blood Pressure : / mmHG Vent. Rate : 072 BPM Atrial Rate : 072 BPM P-R Int : 214 ms QRS Dur : 148 ms QT Int : 486 ms P-R-T Axes : 052 -36 105 degrees QTc Int : 532 ms Sinus rhythm with sinus arrhythmia with 1st degree A-V block with occasional Premature ventricular co mplexes Left bundle branch block Abnormal ECG When compared with ECG of 11-OCT-2020 20:54, Premature ventricular complexes are now Present Confirmed by Marky Silva ([id number]) on 01/01/2021 11:09:15 AM Referred By: [facility] Confirmed By:Marky Silva
--- NOTE | 2021-01-01 13:37 | Medical Student Progress Note ---
Date of Service January 01, 2021 Assessment & Plan (1) Weakness: Ms. Justice is an 85-year-old female with a history of diastolic CHF, atrial fibrillation, hypertension, CKD III, and polycythemia vera who presented to the ED with generalized weakness and swelling of the right lower extremity. Generalized weakness likely secondary to dehydration in the setting of reduced PO intake and diuretic use as well as UTI. Present on Admission?: Yes (2) Acute UTI (urinary tract infection): - Continue Zosyn IV. - Follow urine culture and sensitivity and adjust antibiotics accordingly. - Encourage PO hydration. - PT/OT evaluation requested. Present on Admission?: Yes (3) Chronic diastolic CHF (congestive heart failure): - Atrial fibrillation, hypertension, chronic diastolic CHF with echo most recently in July 2019 showing normal EF. - Hold amlodipine, furosemide, metolazone, and atenolol in the setting of hypotension. Present on Admission?: Yes (4) CKD (chronic kidney disease) stage 3, GFR 30-59 ml/min: - Creatinine 1.71 upon admission, now 1.78. Baseline of 1.4, likely increased in the setting of dehydration. BUN/Cr ratio of 44.5 would indicate pre-renal azotemia as the etiology. - Continue to monitor for resolution. Present on Admission?: Yes (5) Acute hypotension: - Likely due to metolazone and decreased PO intake. - Received NS 60 mL/hour upon admission but discontinued as BP responded and to prevent fluid overload in the setting of CHF. - Encourage PO hydration. Present on Admission?: Yes (6) Polycythemia vera: - Continue hydroxyurea per home regimen. (7) A-fib: See above. Present on Admission?: Yes (8) Hypertension: See above. Dispo: Med/Surg - telemetry FEN: Heart Healthy VTE: Heparin Code: Full Code Present on Admission?: Yes Admission and Anticipated Discharge Date Admission Date: December 31, 2020 Supervising Attestation Medical Student Supervision Note: I was personally present during medical student patient encounter and in dependently interviewed and examined the patient and verified the hess history and physical, reviewed labs and image studies, discussed the case with Praveena Doty and agree with the findings and care plan. Weakness - secondary to hypovolemia with ?UTI - recent addition of metolazone. Holding diuretics gentle hydration continue IV Abx follow culture. To utilize MOJGAN morseing for venous stasis and limit increase in diuretics for it. PT/OT Subjective Ms. Justice is an 85-year-old female with a history of diastolic CHF, atrial fibrillation, hypertension, CKD III, and polycythemia vera who presented to the ED with generalized weakness and swelling of the right lower extremity. Speaking to the patient's daughter today it seems that she has been having these symptoms for over a week along with nausea, anorexia, lightheadedness on exertion, and bilateral shoulder pain (which has resolved). She had progressively worsening weakness and fatigue over the previous two days prior to admission which resulted in the patient sleeping for prolonged periods. Of note, the patient's daughter states that her PCP started her on metolazone recently for right lower extremity edema. She said she was supposed to take 10 doses over the course of 20 days but is unsure how many doses she had remaining. While conversation was somewhat limited by patient's mental status, she states that she is doing well today and does not have any pain. She is taking PO intake well and has been ambulating to the bathroom with assistance. She is voiding well but does not recall her last bowel movement. Review of Systems Review of Systems: All systems reviewed & are unremarkable except as noted in Subjective Physical Exam Physical Exam: Patient resting comfortably in bed on exam. No acute distress. Constitutional: WD/WN, vitals as above Respiratory: normal respiratory effort Auscultation: + crackles Cardiovascular: RRR, no murmur, no edema Musculoskeletal: Extremities: + lower leg abnormality Bilateral (2+ edema; tenderness to palpation) Skin: no rashes, warm and dry Psychiatric: Orientation: alert, oriented to person and oriented to place Motor Behavior: + tremor Results & Data ([facility]) Vital Signs (Past 12 Hours) Vital Signs Temp Pulse Pulse Resp BP Pulse Ox 01/01/21 11:39 36.6 C 59 L 14 105/54 L 94 01/01/21 07:48 98/58 L 01/01/21 07:47 36.6 C 82 18 100/62 90 01/01/21 07:19 67 01/01/21 04:13 80 105/61 01/01/21 02:28 72 Laboratory Results 01/01/21 01/01/21 12/31/20 06:27 06:27 21:15 WBC 7.78 RBC 3.50 L Hgb 12.4 Hct 37.9 MCV 108.3 H MCH 35.4 H MCHC 32.7 RDW Std Deviation 69.0 H RDW Coeff of Roberto 17.4 H Plt Count 204 MPV 9.6 Immature Gran % (Auto) 0.4 Neut % (Auto) 91.1 Lymph % (Auto) 2.6 [place] % (Auto) 5.3 Eos % (Auto) 0.3 Baso % (Auto) 0.3 Neut # (Auto) 7.10 H Lymph # (Auto) 0.20 L [place] # (Auto) 0.41 Eos # (Auto) 0.02 Baso # (Auto) 0.02 Immature Gran # (Auto) 0.03 H Hypersegmented Neuts 1+ PT INR APTT PTT Ratio Sodium 134 L Potassium 3.5 Chloride 100 Carbon Dioxide 27 Anion Gap 7.0 BUN 79 H Creatinine 1.78 H Est Cr Clr Drug Dosing 21.7 Est GFR ( Amer) 29.2 Est GFR (Non-Af Amer) 25.2 BUN/Creatinine Ratio 44.5 H Glucose 137 H Lactate Calcium 7.2 L Magnesium 2.4 Total Bilirubin 1.1 H AST 10 L ALT 9 L Alkaline Phosphatase 85 Troponin I NT-Pro-B Natriuret Pep Total Protein 6.7 Albumin 3.0 L Globulin 3.7 Albumin/Globulin Ratio 0.8 L Procalcitonin Urine Color Urine Appearance Urine pH Ur Specific [place] Urine Protein Urine Glucose (UA) Urine Ketones Urine Blood Urine Nitrite Urine Bilirubin Urine Urobilinogen Ur Leukocyte Esterase Urine WBC (Auto) Urine RBC (Auto) U Hyaline Cast (Auto) U Epithel Cells (Auto) Urine Bacteria (Auto) COVID-19 Eval Order SARS-CoV-2 (PCR) NEGATIVE 12/31/20 12/31/20 12/31/20 21:15 20:20 19:18 WBC RBC Hgb Hct MCV MCH MCHC RDW Std Deviation RDW Coeff of Roberto Plt Count MPV Immature Gran % (Auto) Neut % (Auto) Lymph % (Auto) [place] % (Auto) Eos % (Auto) Baso % (Auto) Neut # (Auto) Lymph # (Auto) [place] # (Auto) Eos # (Auto) Baso # (Auto) Immature Gran # (Auto) Hypersegmented Neuts PT INR APTT PTT Ratio Sodium Potassium Chloride Carbon Dioxide Anion Gap BUN Creatinine Est Cr Clr Drug Dosing Est GFR ( Amer) Est GFR (Non-Af Amer) BUN/Creatinine Ratio Glucose Lactate 0.9 Calcium Magnesium Total Bilirubin AST ALT Alkaline Phosphatase Troponin I NT-Pro-B Natriuret Pep Total Protein Albumin Globulin Albumin/Globulin Ratio Procalcitonin Urine Color Yellow Urine Appearance Cloudy A Urine pH 5.0 Ur Specific [place] 1.016 Urine Protein Trace H Urine Glucose (UA) Negative Urine Ketones Negative Urine Blood Trace H Urine Nitrite Negative Urine Bilirubin Negative Urine Urobilinogen Negative Ur Leukocyte Esterase 2+ H Urine WBC (Auto) >30 H Urine RBC (Auto) 0-4 U Hyaline Cast (Auto) 1-5 U Epithel Cells (Auto) >30 H Urine Bacteria (Auto) 4+ H COVID-19 Eval Order Covid19 at [facility] SARS-CoV-2 (PCR) 12/31/20 12/31/20 12/31/20 19:18 19:18 19:18 WBC 8.94 RBC 3.67 L Hgb 13.3 Hct 40.3 MCV 109.8 H MCH 36.2 H MCHC 33.0 RDW Std Deviation 68.7 H RDW Coeff of Roberto 17.0 H Plt Count 262 MPV 9.3 Immature Gran % (Auto) 0.2 Neut % (Auto) 92.4 Lymph % (Auto) 2.1 [place] % (Auto) 4.9 Eos % (Auto) 0.2 Baso % (Auto) 0.2 Neut # (Auto) 8.25 H Lymph # (Auto) 0.19 L [place] # (Auto) 0.44 Eos # (Auto) 0.02 Baso # (Auto) 0.02 Immature Gran # (Auto) 0.02 Hypersegmented Neuts PT 10.7 INR 1.1 APTT 25.2 PTT Ratio 1.0 Sodium Potassium Chloride Carbon Dioxide Anion Gap BUN Creatinine Est Cr Clr Drug Dosing Est GFR ( Amer) Est GFR (Non-Af Amer) BUN/Creatinine Ratio Glucose Lactate Calcium Magnesium Total Bilirubin AST ALT Alkaline Phosphatase Troponin I NT-Pro-B Natriuret Pep Total Protein Albumin Globulin Albumin/Globulin Ratio Procalcitonin 0.18 Urine Color Urine Appearance Urine pH Ur Specific [place] Urine Protein Urine Glucose (UA) Urine Ketones Urine Blood Urine Nitrite Urine Bilirubin Urine Urobilinogen Ur Leukocyte Esterase Urine WBC (Auto) Urine RBC (Auto) U Hyaline Cast (Auto) U Epithel Cells (Auto) Urine Bacteria (Auto) COVID-19 Eval Order SARS-CoV-2 (PCR) 12/31/20 19:18 WBC RBC Hgb Hct MCV MCH MCHC RDW Std Deviation RDW Coeff of Roberto Plt Count MPV Immature Gran % (Auto) Neut % (Auto) Lymph % (Auto) [place] % (Auto) Eos % (Auto) Baso % (Auto) Neut # (Auto) Lymph # (Auto) [place] # (Auto) Eos # (Auto) Baso # (Auto) Immature Gran # (Auto) Hypersegmented Neuts PT INR APTT PTT Ratio Sodium 132 L Potassium 3.3 L Chloride 94 L Carbon Dioxide 27 Anion Gap 11.0 BUN 94 H Creatinine 1.71 H Est Cr Clr Drug Dosing 22.6 Est GFR ( Amer) 30.7 Est GFR (Non-Af Amer) 26.5 BUN/Creatinine Ratio 54.7 H Glucose 152 H Lactate Calcium 7.5 L Magnesium 2.1 Total Bilirubin 1.3 H AST 13 L ALT 10 L Alkaline Phosphatase 92 Troponin I < 0.015 NT-Pro-B Natriuret Pep 2131 H Total Protein 7.7 Albumin 3.5 Globulin 4.2 H Albumin/Globulin Ratio 0.8 L Procalcitonin Urine Color Urine Appearance Urine pH Ur Specific [place] Urine Protein Urine Glucose (UA) Urine Ketones Urine Blood Urine Nitrite Urine Bilirubin Urine Urobilinogen Ur Leukocyte Esterase Urine WBC (Auto) Urine RBC (Auto) U Hyaline Cast (Auto) U Epithel Cells (Auto) Urine Bacteria (Auto) COVID-19 Eval Order SARS-CoV-2 (PCR) Diagnostic Findings CT Head: No acute intracranial findings. CXR: No acute pulmonary process. Stable opacities at the left base and widening of the right paratracheal stripe as detailed above. Medications Administered Current Inpatient Medications Acetaminophen (Acetaminophen 325 Mg Tab) 650 mg PO Q4H PRN PRN Reason: Pain or Fever Stop: 01/30/21 23:17 Amlodipine Besylate (Amlodipine Besylate 5 Mg Tab) 5 mg PO QAM [facility] Stop: 01/31/21 08:59 Last Admin: 01/01/21 07:52 Dose: 5 mg Documented by: Atenolol (Atenolol 50 Mg Tablet) 50 mg PO BID [facility] Stop: 01/30/21 23:44 Last Admin: 01/01/21 07:49 Dose: Not Given Documented by: Cyanocobalamin (Cyanocobalamin 500 Mcg Tablet (Vitamin B-12)) 1,000 mcg PO DAILY [facility] Stop: 01/31/21 08:59 Last Admin: 01/01/21 07:53 Dose: 1,000 mcg Documented by: Donepezil HCl (Donepezil Hcl 5 Mg Tab) 5 mg PO DAILY [facility] Stop: 01/31/21 08:59 Last Admin: 01/01/21 07:52 Dose: 5 mg Documented by: Escitalopram Oxalate (Escitalopram Oxalate 10 Mg Tab) 10 mg PO DAILY [facility] Stop: 01/31/21 08:59 Last Admin: 01/01/21 07:52 Dose: 10 mg Documented by: Heparin Sodium (Porcine) (Heparin Sod 5,000 Unit/0.5 Ml Vial) 5,000 units SQ Q12 [facility] Stop: 01/31/21 08:59 Last Admin: 01/01/21 07:53 Dose: 5,000 units Documented by: Hydroxyurea (Hydroxyurea 500 Mg Cap) 1,000 mg PO MoTuWeTh [facility] Stop: 01/31/21 08:59 Last Admin: 01/01/21 07:53 Dose: 1,000 mg Documented by: Hydroxyurea (Hydroxyurea 500 Mg Cap) 500 mg PO SuFrSa [facility] Stop: 02/03/21 08:59 Piperacillin Sod/Tazobactam (Sod 3.375 gm/ Dextrose) 115 mls @ 28.75 mls/hr IV Q8H [facility]; Protocol Stop: 01/11/21 01:59 Last Admin: 01/01/21 10:06 Dose: 28.8 mls/hr Documented by: Sodium Chloride (Nss 1000ml) 1,000 mls @ 60 mls/hr IV .[id number] [facility] Stop: 01/30/21 23:17 Last Infusion: 01/01/21 08:24 Dose: 0 mls/hr Documented by: Meclizine HCl (Meclizine 12.5 Mg Tab) 12.5 mg PO TID PRN PRN Reason: Dizziness Stop: 01/30/21 23:17 Mirabegron (Mirabegron Er 25 Mg Tab) 25 mg PO DAILY [facility] Stop: 01/31/21 08:59 Last Admin: 01/01/21 07:53 Dose: 25 mg Documented by: Miscellaneous Information (Piperacill/Tazobac Consult Active) 1 ea N/A UD PRN PRN Reason: Consult Stop: 01/30/21 23:17 Ondansetron HCl (Ondansetron Inj 2 Mg/Ml 2 Ml Vial) 4 mg IV Q6H PRN PRN Reason: Nausea Stop: 01/30/21 23:17 Raloxifene HCl (Raloxifene Hcl 60 Mg Tab) 60 mg PO QPM [facility] Stop: 01/31/21 20:59
[2021-01-01] MEDS: RALOXIFENE HCL 60 MG TAB PO SCH (20:01)
[2021-01-01] MEDS: ACETAMINOPHEN 325 MG TAB PO PRN (23:54)
[2021-01-02] MEDS: PIPERACILLIN/TAZOBACTAM 3.375 GM in DEXTROSE 5% 100 ML IV SCH ×2 (02:09→09:42)
[2021-01-02] MEDS: HEPARIN SOD 5,000 UNIT/0.5 ML VIAL SQ SCH ×2 (08:12→20:07)
[2021-01-02] MEDS: CYANOCOBALAMIN 500 MCG TABLET (VITAMIN B-12) PO SCH (08:12)
[2021-01-02] MEDS: HYDROXYUREA 500 MG CAP PO SCH (08:12)
[2021-01-02] MEDS: MIRABEGRON ER 25 MG TAB PO SCH (08:12)
[2021-01-02] MEDS: DONEPEZIL HCL 5 MG TAB PO SCH (08:13)
[2021-01-02] MEDS: ESCITALOPRAM OXALATE 10 MG TAB PO SCH (08:13)
[2021-01-02] MEDS: ATENOLOL 50 MG TABLET PO SCH ×2 (08:13→19:57)
[2021-01-02] MEDS: amLODIPine BESYLATE 5 MG TAB PO SCH (08:13)
[2021-01-02 08:45] LABS: Basophils # (auto) 0.02 K/uL (0-0.2); Basophils % (auto) 0.3 %; Eosinophils # (auto) 0.03 K/uL (0-0.5); Eosinophils % (auto) 0.5 %; Hematocrit (blood only) 39.5 % (37-47); Hemoglobin 12.9 g/dL (12.0-16.0); Immature Granulocytes # (auto) 0.01 K/uL (0.00-0.02); Immature Granulocytes % (auto) 0.2 %; Lymphocytes # (auto) 0.28 K/uL (1.2-3.4); Lymphocytes % (auto) 4.6 %; Mean Corpuscular Hemoglobin 36.5 pg (25-34); Mean Corpuscular Hgb Conc 32.7 g/dL (32-36); Mean Corpuscular Volume 111.9 fL (80-100); Mean Platelet Volume 10.1 fL (7.4-10.4); Monocytes # (auto) 0.18 K/uL (0.11-0.59); Monocytes % (auto) 2.9 %; Neutrophils % (auto) 91.5 %; Platelet Count 220 K/uL (130-400); RDW Coefficient of Variation 17.6 % (11.5-14.5); RDW Standard Deviation 71.7 fL (36.4-46.3); Red Blood Count 3.53 M/uL (4.2-5.4); White Blood Count 6.12 K/uL (4.8-10.8)
[2021-01-02 09:25] LABS: Macrocytosis Present
[2021-01-02 09:41] LABS: BUN Creatinine Ratio 44.8 (10-20); Est GFR (Non-African American) 28.5 ml/min; Magnesium 2.4 mg/dl (1.8-2.4); Potassium 3.2 mmol/L (3.5-5.1)
[2021-01-02 09:44] LABS: Albumin Globulin Ratio 0.8 (0.9-2); Bilirubin,Total 0.8 mg/dl (0.2-1); Globulin 3.9 gm/dl (2.5-4.0); Total Protein 6.9 gm/dl (6.4-8.2)
--- NOTE | 2021-01-02 09:57 | Medical Student Progress Note ---
Date of Service January 02, 2021 Assessment & Plan (1) Weakness: Ms. Justice is an 85-year-old female with a history of diastolic CHF, atrial fibrillation, hypertension, CKD III, and polycythemia vera who presented to the ED with generalized weakness and swelling of the right lower extremity. Generalized weakness likely secondary to dehydration in the setting of reduced PO intake and diuretic use as well as UTI. (2) Acute UTI (urinary tract infection): - Afebrile, no leukocytosis. - Urine culture revealed crain-sensitive Klebsiella. - Switch IV piperacillin-tazobactam to PO Keflex 500 mg BID. - Encourage PO hydration. (3) Chronic diastolic CHF (congestive heart failure): - Atrial fibrillation, hypertension, chronic diastolic CHF with echo most recently in July 2019 showing normal EF. - Hold amlodipine, furosemide, metolazone, and atenolol in the setting of hypotension. (4) CKD (chronic kidney disease) stage 3, GFR 30-59 ml/min: - Creatinine 1.71 upon admission, now 1.61. Baseline of 1.4, likely increased in the setting of dehydration. BUN/Cr ratio of 44.8 would indicate pre-renal azotemia as the etiology. - Continue to monitor for resolution. (5) Acute hypotension: - Likely due to addition of metolazone and decreased PO intake. - Received NS 60 mL/hour upon admission but discontinued as BP responded and to prevent fluid overload in the setting of CHF. - Encourage PO hydration. - continue to hold antihypertensives as above (6) Polycythemia vera: - Continue hydroxyurea per home regimen. (7) A-fib: See above. (8) Hypertension: See above. (9) Hypokalemia: - K+ 3.2 today. Will replete 40 mEq K+ PO. - Repeat BMP tomorrow AM Admission and Anticipated Discharge Date Admission Date: December 31, 2020 Dispo: Med/Surg - telemetry FEN: Heart Healthy VTE: Heparin Code: Full Code - To discuss with patient's son who is the POA about 'goals of care'. PT/OT consulted. Supervising Attestation I was present with the medical student throughout the service, interview, and the physical exam. I independently interviewed the patient and performed the physical exam. I reviewed the chart and verified the documentation and I agree with the assessment and plan of Praveena Doty MS4. Pepper Trimble DO [facility] Resident Medical Student Supervision Note: I independently interviewed and examined the patient and verified the hess history and physical, reviewed labs and image studies, discussed the case with the medical student Praveena Doty and the Resident physician Pepper Trimble and agree with the findings and care plan. Subjective Ms. Justice is an 85-year-old female with a history of diastolic CHF, atrial fibrillation, hypertension, CKD III, and polycythemia vera who presented to the ED with generalized weakness and swelling of the right lower extremity. Patient states that she is doing well today and does not have any pain. She is taking PO intake well and has been ambulating to the bathroom with assistance. She does not endorse any dysuria, increased urinary frequency, or suprapubic pain. She states she is voiding well and passing bowel movements. She does not endorse any lightheadedness or dizziness on standing. She does not have any headache, weakness, or fatigue. Review of Systems Review of Systems: All systems reviewed & are unremarkable except as noted in Subjective Physical Exam Physical Exam: Patient resting comfortably in bed on exam. No acute distress. Constitutional: WD/WN, vitals as above Respiratory: normal respiratory effort Auscultation: + crackles (R > L; mild bibasilar ) Cardiovascular: RRR, no murmur, no edema Musculoskeletal: Extremities: + lower leg abnormality Bilateral (tenderness to palpation) Skin: no rashes, warm and dry Psychiatric: Orientation: alert and cooperative Motor Behavior: + tremor Results & Data ([facility]) Vital Signs (Past 12 Hours) Vital Signs Temp Pulse Pulse Resp BP Pulse Ox 01/02/21 07:34 36.8 C 97 H 20 106/59 L 95 01/02/21 04:11 37.0 C 56 L 18 102/56 L 94 01/01/21 23:44 66 01/01/21 23:39 38.1 C H 72 18 100/58 L 94 Laboratory Results 01/02/21 01/02/21 08:09 08:09 WBC 6.12 RBC 3.53 L Hgb 12.9 Hct 39.5 MCV 111.9 H MCH 36.5 H MCHC 32.7 RDW Std Deviation 71.7 H RDW Coeff of Roberto 17.6 H Plt Count 220 MPV 10.1 Immature Gran % (Auto) 0.2 Neut % (Auto) 91.5 Lymph % (Auto) 4.6 [place] % (Auto) 2.9 Eos % (Auto) 0.5 Baso % (Auto) 0.3 Neut # (Auto) 5.60 Lymph # (Auto) 0.28 L [place] # (Auto) 0.18 Eos # (Auto) 0.03 Baso # (Auto) 0.02 Immature Gran # (Auto) 0.01 Hypersegmented Neuts 1+ Macrocytosis Present Sodium 135 L Potassium 3.2 L Chloride 98 Carbon Dioxide 29 Anion Gap 8.0 BUN 72 H Creatinine 1.61 H Est Cr Clr Drug Dosing 23.0 Est GFR ( Amer) 33.0 Est GFR (Non-Af Amer) 28.5 BUN/Creatinine Ratio 44.8 H Glucose 116 H Calcium 8.0 L Magnesium 2.4 Total Bilirubin 0.8 AST 13 L ALT 10 L Alkaline Phosphatase 82 Total Protein 6.9 Albumin 3.0 L Globulin 3.9 Albumin/Globulin Ratio 0.8 L Medications Administered Current Inpatient Medications Acetaminophen (Acetaminophen 325 Mg Tab) 650 mg PO Q4H PRN PRN Reason: Pain or Fever Stop: 01/30/21 23:17 Last Admin: 01/01/21 23:54 Dose: 650 mg Documented by: Amlodipine Besylate (Amlodipine Besylate 5 Mg Tab) 5 mg PO QAM [facility] Stop: 01/31/21 08:59 Last Admin: 01/02/21 08:13 Dose: 5 mg Documented by: Atenolol (Atenolol 50 Mg Tablet) 50 mg PO BID [facility] Stop: 01/30/21 23:44 Last Admin: 01/02/21 08:13 Dose: 50 mg Documented by: Cyanocobalamin (Cyanocobalamin 500 Mcg Tablet (Vitamin B-12)) 1,000 mcg PO DAILY [facility] Stop: 01/31/21 08:59 Last Admin: 01/02/21 08:12 Dose: 1,000 mcg Documented by: Donepezil HCl (Donepezil Hcl 5 Mg Tab) 5 mg PO DAILY [facility] Stop: 01/31/21 08:59 Last Admin: 01/02/21 08:13 Dose: 5 mg Documented by: Escitalopram Oxalate (Escitalopram Oxalate 10 Mg Tab) 10 mg PO DAILY [facility] Stop: 01/31/21 08:59 Last Admin: 01/02/21 08:13 Dose: 10 mg Documented by: Heparin Sodium (Porcine) (Heparin Sod 5,000 Unit/0.5 Ml Vial) 5,000 units SQ Q12 [facility] Stop: 01/31/21 08:59 Last Admin: 01/02/21 08:12 Dose: 5,000 units Documented by: Hydroxyurea (Hydroxyurea 500 Mg Cap) 1,000 mg PO MoTuWeTh [facility] Stop: 01/31/21 08:59 Last Admin: 01/02/21 08:12 Dose: 1,000 mg Documented by: Hydroxyurea (Hydroxyurea 500 Mg Cap) 500 mg PO SuFrSa [facility] Stop: 02/03/21 08:59 Piperacillin Sod/Tazobactam (Sod 3.375 gm/ Dextrose) 115 mls @ 28.75 mls/hr IV Q8H [facility]; Protocol Stop: 01/11/21 01:59 Last Admin: 01/02/21 09:42 Dose: 28.8 mls/hr Documented by: Sodium Chloride (Nss 1000ml) 1,000 mls @ 60 mls/hr IV .[id number] [facility] Stop: 01/30/21 23:17 Last Infusion: 01/01/21 08:24 Dose: 0 mls/hr Documented by: Meclizine HCl (Meclizine 12.5 Mg Tab) 12.5 mg PO TID PRN PRN Reason: Dizziness Stop: 01/30/21 23:17 Mirabegron (Mirabegron Er 25 Mg Tab) 25 mg PO DAILY [facility] Stop: 01/31/21 08:59 Last Admin: 01/02/21 08:12 Dose: 25 mg Documented by: Miscellaneous Information (Piperacill/Tazobac Consult Active) 1 ea N/A UD PRN PRN Reason: Consult Stop: 01/30/21 23:17 Ondansetron HCl (Ondansetron Inj 2 Mg/Ml 2 Ml Vial) 4 mg IV Q6H PRN PRN Reason: Nausea Stop: 01/30/21 23:17 Raloxifene HCl (Raloxifene Hcl 60 Mg Tab) 60 mg PO QPM [facility] Stop: 01/31/21 20:59 Last Admin: 01/01/21 20:01 Dose: 60 mg Documented by: Resident Activity Tracking Resident Involvement: Resident Care Provided Care Provided: Adult Hospital Medicine
[2021-01-02] MEDS ORDERED: POTASSIUM CHLORIDE CRTAB 20 MEQ TABCR PO STA (11:13)
[2021-01-02] MEDS: cephALEXin 500 MG CAP PO SCH (17:13)
[2021-01-02] MEDS: ACETAMINOPHEN 325 MG TAB PO PRN (20:06)
[2021-01-02] MEDS: RALOXIFENE HCL 60 MG TAB PO SCH (20:06)
[2021-01-03] MEDS: cephALEXin 500 MG CAP PO SCH (05:50)
[2021-01-03 06:10] LABS: Basophils # (auto) 0.02 K/uL (0-0.2); Basophils % (auto) 0.4 %; Eosinophils # (auto) 0.13 K/uL (0-0.5); Eosinophils % (auto) 2.7 %; Hematocrit (blood only) 35.4 % (37-47); Hemoglobin 11.7 g/dL (12.0-16.0); Immature Granulocytes # (auto) 0.03 K/uL (0.00-0.02); Immature Granulocytes % (auto) 0.6 %; Lymphocytes # (auto) 0.54 K/uL (1.2-3.4); Lymphocytes % (auto) 11.3 %; Mean Corpuscular Hemoglobin 36.1 pg (25-34); Mean Corpuscular Hgb Conc 33.1 g/dL (32-36); Mean Corpuscular Volume 109.3 fL (80-100); Mean Platelet Volume 9.6 fL (7.4-10.4); Monocytes # (auto) 0.32 K/uL (0.11-0.59); Monocytes % (auto) 6.7 %; Neutrophils # (auto) 3.73 K/uL (1.4-6.5); Neutrophils % (auto) 78.3 %; Platelet Count 183 K/uL (130-400); RDW Coefficient of Variation 17.3 % (11.5-14.5); RDW Standard Deviation 69.6 fL (36.4-46.3); Red Blood Count 3.24 M/uL (4.2-5.4); White Blood Count 4.77 K/uL (4.8-10.8)
[2021-01-03 06:40] LABS: Albumin Level 2.7 gm/dl (3.4-5.0); BUN Creatinine Ratio 49.1 (10-20); Calcium 7.9 mg/dl (8.5-10.1); Creatinine Clr Calc Pharmacy 28.8 ml/min; Est GFR (African American) 43.5 ml/min; Est GFR (Non-African American) 37.6 ml/min; Magnesium 2.3 mg/dl (1.8-2.4); Potassium 3.5 mmol/L (3.5-5.1)
[2021-01-03 06:43] LABS: Albumin Globulin Ratio 0.8 (0.9-2); Bilirubin,Total 0.6 mg/dl (0.2-1); Globulin 3.5 gm/dl (2.5-4.0); Total Protein 6.2 gm/dl (6.4-8.2)
[2021-01-03] MEDS: DONEPEZIL HCL 5 MG TAB PO SCH (08:03)
[2021-01-03] MEDS: ESCITALOPRAM OXALATE 10 MG TAB PO SCH (08:03)
[2021-01-03] MEDS: HYDROXYUREA 500 MG CAP PO SCH (08:03)
[2021-01-03] MEDS: MIRABEGRON ER 25 MG TAB PO SCH (08:03)
[2021-01-03] MEDS: CYANOCOBALAMIN 500 MCG TABLET (VITAMIN B-12) PO SCH (08:03)
[2021-01-03] MEDS: HEPARIN SOD 5,000 UNIT/0.5 ML VIAL SQ SCH (08:03)
--- NOTE | 2021-01-03 10:20 | Discharge Summary ---
Date of Service January 03, 2021 Admission HPI Per Admitting Provider The patient is an 85-year-old female resident of [facility], with a past medical history including chronic diastolic CHF, CKD stage III, polycythemia vera, diverticulitis of intestine with perforation without abscess, SNHL, hypertension and atrial fibrillation. Present she presents with symptoms as noted above. Admission Exam Per Admitting Provider The patient is awake, alert and oriented 3, well developed and well nourished, normocephalic and atraumatic, lying in bed and in no acute distress. HEENT--PERRL, EOMI, mucous membranes and oropharynx dry. Neck--supple. No JVD. No bruits. Thyroid normal, trachea midline, no adenopathy. Heart--normal S1 and S2. No murmurs, rubs or gallops. Lungs--clear bilaterally, no respiratory distress, no accessory muscle use. Abdomen--normal bowel sounds and soft. Nontender. Nondistended Extremities--no cyanosis or clubbing. No edema. Dermatologic--normal skin turgor, normal color, no abnormal lymph nodes, no rash. Neurologic--cranial nerves II through XII grossly intact. Rheumatologic--normal range of motion. Psychiatric--normal affect. Principal Diagnosis UTI Discharge Exam GENERAL: No acute distress. Well developed elderly female. Laying supine in bed. Vital signs reviewed as above. EYES: EOMI. Anicteric sclerae. HENT: Moist mucous membranes. RESPIRATORY: Clear to auscultation bilaterally. No wheezing, rales, or rhonchi. CARDIOVASCULAR: Regular rate and rhythm. No murmurs. ABDOMEN: Soft, non-tender and non-distended. Normal bowel sounds. EXTREMITIES: Trace edema to BLE. Mild tenderness to palpation to bilateral ankles. SKIN: Warm, dry. NEUROLOGIC: A/O x2 (person and place). No focal neurological deficits. PSYCHIATRIC: Cooperative. Appropriate mood and affect. Discharge Data Allergies Allergy/AdvReac Type Severity Reaction Status Date / Time prednisone Allergy Mild Rash Verified 12/31/20 19:42 Consultations 12/31/20 21:10 ED Decision to Admit Stat Ordered Studies 12/31/20 19:10 CT head/brain wo con Stat Hospital Course (1) Acute UTI (urinary tract infection): Ms. Justice is an 85-year-old female with a history of diastolic CHF, atrial fibrillation, hypertension, CKD III, and polycythemia vera who presented to the ED with generalized weakness and swelling of the right lower extremity. Generalized weakness likely secondary to dehydration in the setting of reduced PO intake and diuretic use as well as UTI. Generalized weakness - Sec to UTI and hypovolemia due to overdiuresis. Acute UTI (urinary tract infection): - Has remained afebrile without leukocytosis - Urine culture revealed crain-sensitive Klebsiella. - Switched IV piperacillin-tazobactam to PO Keflex 500 mg BID on 01/02 -- continue Keflex 50mg po BID for 2 more days (a total of 5 day abx treatment); last dose on 01/05. - Encourage PO hydration. Acute hypotension: - Likely due to addition of metolazone and decreased PO intake. - Received NS 60 mL/hour upon admission but discontinued as BP responded and to prevent fluid overload in the setting of HFpEF. - Continue to hold antihypertensives and diuretics on discharge since BP highest in 120s systolic; follow up with PCP as above Chronic diastolic CHF (congestive heart failure)/A fib/HTN - Atrial fibrillation, hypertension, chronic diastolic CHF with echo most recently in July 2019 showing normal EF 60-65%. - Hold amlodipine, furosemide, metolazone, and atenolol in the setting of hypotension. - Will follow up with PCP in outpatient setting as scheduled tomorrow, 01/04/21 at 4:00 pm. CKD (chronic kidney disease) stage 3, GFR 30-59 ml/min: - Creatinine 1.71 upon admission, now 1.61. Baseline of 1.4, likely increased in the setting of dehydration. BUN/Cr ratio of 44.8 would indicate pre-renal azotemia as the etiology. - Cr at baseline on day of discharge with Cr 1.28 Polycythemia vera: - Continue hydroxyurea per home regimen. Hypokalemia: resolved - K+ 3.2 on 01/02. Repleted with 40 mEq. Will replete 40 mEq K+ PO. - Repeat BMP on day of discharge wnl at 3.5 (2) Weakness: (3) Chronic diastolic CHF (congestive heart failure): (4) CKD (chronic kidney disease) stage 3, GFR 30-59 ml/min: (5) Acute hypotension: (6) Polycythemia vera: (7) A-fib: (8) Hypertension: (9) Hypokalemia: Total Time Total Time Spent Total Time Spent (In Minutes): See attending attestation Discharge Plan Discharge Items Patient Disposition: Personal Intermediate Reason For Visit: UTI, DEHYDRATION, HYPOTENSION Discharge Diagnosis: UTI Condition on Discharge: Good Activity: Resume your previous activity Non-emergency contact: Primary Care Provider Call non-emergency contact if: you have any medication questions Follow-up/Referrals: John Alba MD [Primary Care Provider] - [facility]04[facility]21 4[facility] - Diet: Heart Healthy Addtl Attending Provider Instructions: You were admitted to the hospital with weakness and dehydration. You were found to have an urinary tract infection. Please continue the antibiotic, Keflex 500mg by mouth twice a day for the next 2 days. Additionally, you had times of low blood pressure during hospitalization. We have stopped your blood pressure medications, amlodipine and atenolol, as well as your water pill, furosemide. You will need to follow up with your primary care doctor regarding these medications. IT IS VERY IMPORTANT THAT YOU FOLLOW UP WITH YOUR PRIMARY CARE DOCTOR SCHEDULED, TOMORROW, 01/04/21 at 4:00 pm. Pending Studies at Discharge: No Stand-Alone Forms: [employer] Smoking Cessation Skilled Items Patient informed of condition?: Yes DNR: No Discharge Level of Care: Other Communicable Disease: No Discharge Prognosis: Stable Lines: None Urinary Catheter: No Medications and DC Order Prescriptions: New cephalexin 500 mg Capsule 500 mg PO Q12H 2 Days Qty: 4 RF: 0 Continued lutein 20 mg capsule 20 mg PO DAILY RF: 0 raloxifene 60 mg tablet 60 mg PO QPM RF: 0 acetaminophen [Tylenol Arthritis Pain] 650 mg Tablet Extended Release 650 - 1,300 mg PO Q8H PRN (Reason: Pain) RF: 0 garlic 1,000 mg Capsule 1,000 mg PO DAILY RF: 0 ondansetron HCl [Zofran] 4 mg Tablet 4 mg PO Q6H PRN (Reason: Nausea) RF: 0 hydroxyurea 500 mg capsule See Rx Instructions .ROUTE .COMPLEX RF: 0 donepezil 5 mg tablet 5 mg PO DAILY RF: 0 cyanocobalamin (vitamin B-12) [Vitamin B-12] 1,000 mcg Tablet 1,000 mcg PO DAILY RF: 0 meclizine 12.5 mg tablet 12.5 mg PO TID PRN (Reason: Dizziness) RF: 0 escitalopram oxalate 10 mg tablet 10 mg PO DAILY RF: 0 Myrbetriq 25 mg tablet extended release 24 hr 25 mg PO DAILY RF: 0 Discontinued atenolol 50 mg tablet 50 mg PO AMPM RF: 0 amlodipine 5 mg tablet 5 mg PO QAM Qty: 90 RF: 0 metolazone [Zaroxolyn] 2.5 mg Tablet 0 mg PO Q OTHER DAY RF: 0 furosemide 80 mg tablet 80 mg PO BID RF: 0 Discharge Orders: Discharge Order (Routine); Ordered 01/03/21 Ordered By: Pepper Trimble Admission Data Admit Date/Time: 12/31/20 21:58 Attending Provider: Elodia Hurley Admit Provider: Emory Olivas Primary Care Provider: John Alba Other Providers: Emory Olivas Other Interventions: Discharge Summary Assessment (RN) Last Done: 01/03/21 14:12 Supervising Physician Co-Signing Physician Notes Resident Physician Supervision Note: I independently interviewed and examined the patient and verified the hess history and physical, reviewed labs and image studies and agree with resident Dr. Trimble findings and care plan. Resident Activity Tracking Resident Involvement: Resident Care Provided Care Provided: Adult Hospital Medicine
[2021-01-04] MEDS ORDERED: HYDROXYUREA 500 MG CAP PO SCH (09:00)
== END 2021-01-03 16:00 | disposition home or self-care (01) | DRG 690 ==
LOC: ED 18:40 → 2W 21:58 → SUATTDRO 21:58 → 2W 22:56

== ENCOUNTER 2021-01-26 18:08 | Inpatient (IN) ==
[2021-01-26] MEDS ORDERED: ACETAMINOPHEN 325 MG TAB PO STA (18:32)
[2021-01-26] MEDS ORDERED: IBUPROFEN 600 MG TAB PO STA (18:32)
[2021-01-26] MEDS ORDERED: CEFEPIME 2,000 MG/20 ML VIAL IV STA (18:34)
[2021-01-26] MEDS ORDERED: SODIUM CHLORIDE 0.9% 1000ML 1,000 ML IV SCH (18:45)
[2021-01-26 18:50] LABS: Basophils # (auto) 0.02 K/uL (0-0.2); Basophils % (auto) 0.3 %; Eosinophils # (auto) 0.01 K/uL (0-0.5); Eosinophils % (auto) 0.1 %; Hematocrit (blood only) 33.7 % (37-47); Immature Granulocytes # (auto) 0.03 K/uL (0.00-0.02); Immature Granulocytes % (auto) 0.4 %; Lymphocytes # (auto) 0.36 K/uL (1.2-3.4); Lymphocytes % (auto) 4.7 %; Mean Corpuscular Hemoglobin 37.4 pg (25-34); Mean Corpuscular Hgb Conc 32.6 g/dL (32-36); Mean Corpuscular Volume 114.6 fL (80-100); Mean Platelet Volume 9.5 fL (7.4-10.4); Monocytes # (auto) 0.51 K/uL (0.11-0.59); Monocytes % (auto) 6.7 %; Neutrophils % (auto) 87.8 %; Platelet Count 267 K/uL (130-400); RDW Coefficient of Variation 16.7 % (11.5-14.5); RDW Standard Deviation 68.9 fL (36.4-46.3); Red Blood Count 2.94 M/uL (4.2-5.4); White Blood Count 7.63 K/uL (4.8-10.8)
--- NOTE | 2021-01-26 18:50 | Emergency Department Note ---
Impression & Plan Confusion, Weakness, Acute UTI, Fever ED Provider Note NAME: DARRELL THIBODEAUX AGE: 86 SEX: F : 1935 ARRIVES VIA: Ambulance INFORMANT: [Patient][nursing, ems] ED PROVIDER(S): [Trevor Morelos MD] CHIEF COMPLAINT: Illness HISTORY OF PRESENT ILLNESS: The patient is an 86-year-old female presents to the ER with a fever and some confusion. Apparently, she was dizzy and not feeling well last night. Today she developed a temperature of 100.2 and then 103.2. She had some Tylenol at 1 point today. She has been slightly more confused. She is complained of ringing in her ears and some knee pain. The patient presents by EMS. The patient is a very poor historian. No further history obtainable. I am not sure if she is just demented at baseline or if the way she is mentating is a result of her higher temperature. REVIEW OF SYSTEMS: Unobtainable given her mentation. PMHx/PSHx: See Below SOCIAL HISTORY: See Below. PHYSICAL EXAM: GENERAL: Patient is in no acute distress. HEENT: No acute trauma, normocephalic atraumatic, mucous membranes moist, no nasal congestion, no scleral icterus. NECK: No stridor, no adenopathy, no meningismus, trachea is midline. LUNGS: Clear to auscultation bilaterally, no wheeze, no rhonchi, breath sounds equal. HEART: 2/6 systolic murmur, regular rate and rhythm. ABDOMEN: Soft, nontender, bowel sounds positive, no hernias, no peritonitis. EXTREMITIES: No cyanosis, mild bilateral pedal edema, full range of motion of all the joints without pain or difficulty, no signs for acute trauma. NEUROLOGIC: Awake and alert, poor historian, able to answer very direct questions, no acute motor or sensory deficits, no focal weakness. No speech slur. SKIN: No rash, no jaundice, no diaphoresis. DIFFERENTIAL DIAGNOSIS: Sepsis, UTI, pneumonia, metabolic abnormality, electrolyte abnormalities, cardiac sources, cellulitis, UTI, bacteremia, intracerebral event, toxicologic etiology, neurologic event, as well as other pathologies. EMERGENCY DEPARTMENT COURSE/PROCEDURES: ECG: Indication was possible sepsis. The ECG shows a normal sinus rhythm with a rate of 80. There is a left bundle branch block. There are some inverted T waves in the lateral leads. There is no ST elevation. No PVCs. The QTc is 502. Continuous Cardiac Monitoring: An order was placed for continuous cardiac monitoring. The monitor shows a rate of 82 with normal sinus rhythm. Critical Care Note: I have personally spent 54 minutes of critical care time in the direct management of this patient. This includes bedside care, inte rpretation of diagnostic studies, and testing, discussion with consultants, patient, and family members, and other required patient management activities. This 54 minutes is in excess of all separately billable procedures. MEDICAL DECISION MAKING: There is no leukocytosis. There is a mild anemia. There is a normal platelet count. No coagulopathy. There was some mild renal insufficiency with a creatinine of 1.39. No concerning electrolyte abnormality in need of emergent correction. Lactic acid level was not elevated making severe sepsis less likely. No concerning liver enzyme elevation. Urinalysis is consistent with infection. Lyme disease testing returned negative. Covid testing returned negative. Chest film did not show pneumonia or CHF. Brain CT showed no acute bleed or mass-effect. On exam, the patient seemed confused. She was febrile, she was not hypoxic. The patient received IV saline, 1 L. She was given IV cefepime as empiric antib iotic therapy. She received oral ibuprofen and oral Tylenol for her fever. The patient is currently resting comfortably. She appears to have a UTI as the cause for her fever and likely as the cause for her confusion/weakness. She does require a hospital stay. I did speak with the patient about her findings, I spoke with case management. The on-call hospitalist was consulted. Past Med/Surg History Medical History A-fib Actinic keratosis Arthritis Blood disease Cellulitis Chest pain Chest pain Chronic diastolic CHF (congestive heart failure) CKD (chronic kidney disease) stage 3, GFR 30-59 ml/min Dizziness Dyslipidemia GI bleed Heart palpitations History of basal cell carcinoma History of squamous cell carcinoma History of squamous cell carcinoma in situ of skin Hyperlipidemia Hypertension Hypertension Neoplasm of uncertain behavior of skin Osteopenia Peripheral vertigo Polycythemia vera (~08/2011) Polycythemia vera Sensorineural hearing loss (SNHL) of both ears Venous stasis ulcer Surgical History H/O eye surgery History of cholecystectomy Family History Mother Hypertension Father Myocardial infarction Social History Smoking Status: Never smoker Tobacco Type: Cigarettes Second Hand Exposure: No; Do You Dip or Chew Tobacco: No; Hx Alcohol Use: No Hx Substance Use: No Preferred Language: [place] Communication Ability: Effective Communication Ability Comment: IMPAIRED HEARING Visual Impairment: Limited Hearing Ability: Hard of Hearing Tight Rope Walker Required: No Beliefs That Will Affect Care: None marital status: / Current Living Situation: Personal Care Facility Current Living Situation Comment: [facility] current occupational status: retired Other Information That Helps Us Care for You: No Feels Safe at Home: Yes Safety Concerns: Feels Safe At This Time Assistive Devices: Denture - Upper, Glasses and Walker Allergies Allergies Allergy/AdvReac Type Severity Reaction Status Date / Time prednisone Allergy Mild Rash Verified 01/26/21 21:05 Home Meds Home Medications Medication Instructions Recorded Confirmed lutein 20 mg capsule 20 mg PO DAILY cap 02/25/19 01/26/21 raloxifene 60 mg tablet 60 mg PO QPM tab 02/25/19 01/26/21 acetaminophen [Tylenol Arthritis 650 - 1,300 mg PO Q8H PRN 01/15/20 01/26/21 Pain] garlic 1,000 mg PO DAILY 01/15/20 01/26/21 Myrbetriq 25 mg PO DAILY 10/11/20 01/26/21 cyanocobalamin (vitamin B-12) 1,000 mcg PO DAILY 10/11/20 01/26/21 [Vitamin B-12] donepezil 5 mg PO DAILY 10/11/20 01/26/21 escitalopram oxalate 10 mg PO DAILY 10/11/20 01/26/21 hydroxyurea See Rx Instructions .ROUTE .COMPLEX 10/11/20 01/26/21 meclizine 12.5 mg PO TID PRN 10/11/20 01/26/21 ondansetron HCl [Zofran] 4 mg PO Q6H PRN 12/31/20 01/26/21 atenolol 50 mg tablet 50 mg PO DAILY 01/17/21 01/26/21 furosemide 80 mg tablet 80 mg PO DAILY 01/17/21 01/26/21 ibuprofen 200 mg PO TID PRN 01/26/21 01/26/21 Results & Data (ED) Vital Signs Vital Signs - 24 hr 01/26/21 18:12 01/26/21 18:16 01/26/21 19:07 Temperature 39.6 C H Temperature Source Oral Pulse Rate 94 H 83 83 Pulse Rate [Left Finger] 83 Pulse Rate from SpO2 Sensor 80 Respiratory Rate 17 20 23 Respiratory Effort / Characteristics Blood Pressure 123/69 123/69 Blood Pressure [Right Arm] 123/69 Blood Pressure Mean 87 87 Blood Pressure Mean [Right Arm] 87 Blood Pressure Position Sitting Blood Pressure Position [Right Arm] Sitting Pulse Oximetry 94 93 Oxygen Delivery Method Room Air Sepsis Recent Fever Within 48 Hours Yes Sepsis New/Unexplained Change in Mental Status Yes Sepsis Action Taken by Nursing No Action Required 01/26/21 19:09 01/26/21 19:10 01/26/21 19:11 Temperature Temperature Source Pulse Rate 84 81 81 Pulse Rate [Left Finger] 84 Pulse Rate from SpO2 Sensor 76 81 Respiratory Rate 21 18 20 Respiratory Effort / Characteristics Non-Labored Blood Pressure 117/52 L Blood Pressure [Right Arm] Blood Pressure Mean 73 Blood Pressure Mean [Right Arm] Blood Pressure Position Blood Pressure Position [Right Arm] Pulse Oximetry 94 94 94 Oxygen Delivery Method Room Air Sepsis Recent Fever Within 48 Hours Sepsis New/Unexplained Change in Mental Status Sepsis Action Taken by Nursing 01/26/21 19:20 01/26/21 19:30 01/26/21 19:31 Temperature Temperature Source Pulse Rate 82 84 87 Pulse Rate [Left Finger] Pulse Rate from SpO2 Sensor 83 75 84 Respiratory Rate 25 H 24 22 Respiratory Effort / Characteristics Blood Pressure 118/46 L Blood Pressure [Right Arm] Blood Pressure Mean 70 Blood Pressure Mean [Right Arm] Blood Pressure Position Blood Pressure Position [Right Arm] Pulse Oximetry 93 93 94 Oxygen Delivery Method Sepsis Recent Fever Within 48 Hours Sepsis New/Unexplained Change in Mental Status Sepsis Action Taken by Nursing 01/26/21 19:38 01/26/21 19:40 01/26/21 19:54 Temperature Temperature Source Pulse Rate 81 86 Pulse Rate [Left Finger] 85 Pulse Rate from SpO2 Sensor 91 H 81 Respiratory Rate 21 15 17 Respiratory Effort / Characteristics Non-Labored Blood Pressure Blood Pressure [Right Arm] 118/46 L Blood Pressure Mean Blood Pressure Mean [Right Arm] 70 Blood Pressure Position Blood Pressure Position [Right Arm] Pulse Oximetry 94 93 93 Oxygen Delivery Method Room Air Sepsis Recent Fever Within 48 Hours Sepsis New/Unexplained Change in Mental Status Sepsis Action Taken by Nursing 01/26/21 20:00 01/26/21 20:01 01/26/21 20:10 Temperature Temperature Source Pulse Rate 83 82 79 Pulse Rate [Left Finger] Pulse Rate from SpO2 Sensor 81 82 80 Respiratory Rate 17 17 18 Respiratory Effort / Characteristics Blood Pressure 116/54 L Blood Pressure [Right Arm] Blood Pressure Mean 74 Blood Pressure Mean [Right Arm] Blood Pressure Position Blood Pressure Position [Right Arm] Pulse Oximetry 93 93 93 Oxygen Delivery Method Sepsis Recent Fever Within 48 Hours Sepsis New/Unexplained Change in Mental Status Sepsis Action Taken by Nursing 01/26/21 20:20 01/26/21 20:24 01/26/21 20:30 Temperature 37.9 C H Temperature Source Oral Pulse Rate 80 80 Pulse Rate [Left Finger] Pulse Rate from SpO2 Sensor 84 84 Respiratory Rate 17 22 Respiratory Effort / Characteristics Non-Labored Blood Pressure 107/60 Blood Pressure [Right Arm] Blood Pressure Mean 75 Blood Pressure Mean [Right Arm] Blood Pressure Position Blood Pressure Position [Right Arm] Pulse Oximetry 94 92 Oxygen Delivery Method Room Air Sepsis Recent Fever Within 48 Hours Sepsis New/Unexplained Change in Mental Status Sepsis Action Taken by Nursing 01/26/21 20:31 01/26/21 20:40 Temperature Temperature Source Pulse Rate 78 74 Pulse Rate [Left Finger] Pulse Rate from SpO2 Sensor 65 74 Respiratory Rate 17 16 Respiratory Effort / Characteristics Non-Labored Blood Pressure Blood Pressure [Right Arm] Blood Pressure Mean Blood Pressure Mean [Right Arm] Blood Pressure Position Blood Pressure Position [Right Arm] Pulse Oximetry 94 92 Oxygen Delivery Method Room Air Sepsis Recent Fever Within 48 Hours Sepsis New/Unexplained Change in Mental Status Sepsis Action Taken by Skilled Nursing Medications Current Medication List: was personally reviewed by me Laboratory Data Attestation: I reviewed the patient's lab results. Result diagrams: 01/26/21 18:22 01/26/21 18:22 Lab Results 01/26/21 01/26/21 01/26/21 Range/Units 18:22 18:22 18:22 WBC 7.63 (4.8-10.8) K/uL RBC 2.94 L (4.2-5.4) M/uL Hgb 11.0 L (12.0-16.0) g/dL Hct 33.7 L (37-47) % MCV 114.6 H (80-100) fL MCH 37.4 H (25-34) pg MCHC 32.6 (32-36) g/dL RDW Std Deviation 68.9 H (36.4-46.3) fL RDW Coeff of Roberto 16.7 H (11.5-14.5) % Plt Count 267 (130-400) K/uL MPV 9.5 (7.4-10.4) fL Immature Gran % (Auto) 0.4 % Neut % (Auto) 87.8 % Lymph % (Auto) 4.7 % [place] % (Auto) 6.7 % Eos % (Auto) 0.1 % Baso % (Auto) 0.3 % Neut # (Auto) 6.70 H (1.4-6.5) K/uL Lymph # (Auto) 0.36 L (1.2-3.4) K/uL [place] # (Auto) 0.51 (0.11-0.59) K/uL Eos # (Auto) 0.01 (0-0.5) K/uL Baso # (Auto) 0.02 (0-0.2) K/uL Immature Gran # (Auto) 0.03 H (0.00-0.02) K/uL Polychromasia 1+ Anisocytosis Present Macrocytosis Present PT 11.3 (9.0-12.0) Seconds INR 1.1 (0.9-1.1) APTT 23.8 (21.0-31.0) Seconds PTT Ratio 0.9 Sodium (136-145) mmol/L Potassium (3.5-5.1) mmol/L Chloride (98-107) mmol/L Carbon Dioxide (21-32) mmol/L Anion Gap (3-11) BUN (7-18) mg/dl Creatinine (0.6-1.2) mg/dl Est Cr Clr Drug Dosing ml/min Est GFR ( Amer) ml/min Est GFR (Non-Af Amer) ml/min BUN/Creatinine Ratio (10-20) Glucose (70-99) mg/dl Lactate (0.4-2.0) mmol/L Calcium (8.5-10.1) mg/dl Magnesium (1.8-2.4) mg/dl Total Bilirubin (0.2-1) mg/dl AST (15-37) U/L ALT (12-78) U/L Alkaline Phosphatase (45-117) U/L Total Protein (6.4-8.2) gm/dl Albumin (3.4-5.0) gm/dl Globulin (2.5-4.0) gm/dl Albumin/Globulin Ratio (0.9-2) Procalcitonin 0.24 (0-0.5) ng/ml Urine Color Urine Appearance (Clear) Urine pH (4.5-7.5) Ur Specific [place] (1.000-1.030) Urine Protein (Negative) Urine Glucose (UA) (Negative) Urine Ketones (Negative) Urine Blood (Negative) Urine Nitrite (Negative) Urine Bilirubin (Negative) Urine Urobilinogen (Negative) Ur Leukocyte Esterase (Negative) Urine WBC (Auto) (0-5) /hpf Urine RBC (Auto) (0-4) /hpf U Hyaline Cast (Auto) (0-5) /lpf U Epithel Cells (Auto) (0-5) /lpf Urine Bacteria (Auto) (Negative) Lyme Disease IgG Ab Negative (Negative) Lyme Disease IgM Ab Negative (Negative) COVID-19 Eval Order SARS-CoV-2 (PCR) (Negative) 01/26/21 01/26/21 01/26/21 Range/Units 18:22 18:22 18:53 WBC (4.8-10.8) K/uL RBC (4.2-5.4) M/uL Hgb (12.0-16.0) g/dL Hct (37-47) % MCV (80-100) fL MCH (25-34) pg MCHC (32-36) g/dL RDW Std Deviation (36.4-46.3) fL RDW Coeff of Roberto (11.5-14.5) % Plt Count (130-400) K/uL MPV (7.4-10.4) fL Immature Gran % (Auto) % Neut % (Auto) % Lymph % (Auto) % [place] % (Auto) % Eos % (Auto) % Baso % (Auto) % Neut # (Auto) (1.4-6.5) K/uL Lymph # (Auto) (1.2-3.4) K/uL [place] # (Auto) (0.11-0.59) K/uL Eos # (Auto) (0-0.5) K/uL Baso # (Auto) (0-0.2) K/uL Immature Gran # (Auto) (0.00-0.02) K/uL Polychromasia Anisocytosis Macrocytosis PT (9.0-12.0) Seconds INR (0.9-1.1) APTT (21.0-31.0) Seconds PTT Ratio Sodium 134 L (136-145) mmol/L Potassium 3.8 (3.5-5.1) mmol/L Chloride 102 (98-107) mmol/L Carbon Dioxide 24 (21-32) mmol/L Anion Gap 8.0 (3-11) BUN 39 H (7-18) mg/dl Creatinine 1.39 H (0.6-1.2) mg/dl Est Cr Clr Drug Dosing 27.9 ml/min Est GFR ( Amer) 39.1 ml/min Est GFR (Non-Af Amer) 33.8 ml/min BUN/Creatinine Ratio 27.8 H (10-20) Glucose 158 H (70-99) mg/dl Lactate 1.0 (0.4-2.0) mmol/L Calcium 7.8 L (8.5-10.1) mg/dl Magnesium 1.8 (1.8-2.4) mg/dl Total Bilirubin 1.2 H (0.2-1) mg/dl AST 10 L (15-37) U/L ALT 9 L (12-78) U/L Alkaline Phosphatase 92 (45-117) U/L Total Protein 6.7 (6.4-8.2) gm/dl Albumin 3.2 L (3.4-5.0) gm/dl Globulin 3.5 (2.5-4.0) gm/dl Albumin/Globulin Ratio 0.9 (0.9-2) Procalcitonin (0-0.5) ng/ml Urine Color Urine Appearance (Clear) Urine pH (4.5-7.5) Ur Specific [place] (1.000-1.030) Urine Protein (Negative) Urine Glucose (UA) (Negative) Urine Ketones (Negative) Urine Blood (Negative) Urine Nitrite (Negative) Urine Bilirubin (Negative) Urine Urobilinogen (Negative) Ur Leukocyte Esterase (Negative) Urine WBC (Auto) (0-5) /hpf Urine RBC (Auto) (0-4) /hpf U Hyaline Cast (Auto) (0-5) /lpf U Epithel Cells (Auto) (0-5) /lpf Urine Bacteria (Auto) (Negative) Lyme Disease IgG Ab (Negative) Lyme Disease IgM Ab (Negative) COVID-19 Eval Order Covid19 at [facility] SARS-CoV-2 (PCR) (Negative) 01/26/21 01/26/21 Range/Units 18:53 19:34 WBC (4.8-10.8) K/uL RBC (4.2-5.4) M/uL Hgb (12.0-16.0) g/dL Hct (37-47) % MCV (80-100) fL MCH (25-34) pg MCHC (32-36) g/dL RDW Std Deviation (36.4-46.3) fL RDW Coeff of Roberto (11.5-14.5) % Plt Count (130-400) K/uL MPV (7.4-10.4) fL Immature Gran % (Auto) % Neut % (Auto) % Lymph % (Auto) % [place] % (Auto) % Eos % (Auto) % Baso % (Auto) % Neut # (Auto) (1.4-6.5) K/uL Lymph # (Auto) (1.2-3.4) K/uL [place] # (Auto) (0.11-0.59) K/uL Eos # (Auto) (0-0.5) K/uL Baso # (Auto) (0-0.2) K/uL Immature Gran # (Auto) (0.00-0.02) K/uL Polychromasia Anisocytosis Macrocytosis PT (9.0-12.0) Seconds INR (0.9-1.1) APTT (21.0-31.0) Seconds PTT Ratio Sodium (136-145) mmol/L Potassium (3.5-5.1) mmol/L Chloride (98-107) mmol/L Carbon Dioxide (21-32) mmol/L Anion Gap (3-11) BUN (7-18) mg/dl Creatinine (0.6-1.2) mg/dl Est Cr Clr Drug Dosing ml/min Est GFR ( Amer) ml/min Est GFR (Non-Af Amer) ml/min BUN/Creatinine Ratio (10-20) Glucose (70-99) mg/dl Lactate (0.4-2.0) mmol/L Calcium (8.5-10.1) mg/dl Magnesium (1.8-2.4) mg/dl Total Bilirubin (0.2-1) mg/dl AST (15-37) U/L ALT (12-78) U/L Alkaline Phosphatase (45-117) U/L Total Protein (6.4-8.2) gm/dl Albumin (3.4-5.0) gm/dl Globulin (2.5-4.0) gm/dl Albumin/Globulin Ratio (0.9-2) Procalcitonin (0-0.5) ng/ml Urine Color Yellow Urine Appearance Cloudy A (Clear) Urine pH 5.0 (4.5-7.5) Ur Specific [place] 1.016 (1.000-1.030) Urine Protein 1+ H (Negative) Urine Glucose (UA) Negative (Negative) Urine Ketones Negative (Negative) Urine Blood Trace H (Negative) Urine Nitrite Negative (Negative) Urine Bilirubin Negative (Negative) Urine Urobilinogen Negative (Negative) Ur Leukocyte Esterase 2+ H (Negative) Urine WBC (Auto) >30 H (0-5) /hpf Urine RBC (Auto) 0-4 (0-4) /hpf U Hyaline Cast (Auto) 1-5 (0-5) /lpf U Epithel Cells (Auto) 0-5 (0-5) /lpf Urine Bacteria (Auto) 4+ H (Negative) Lyme Disease IgG Ab (Negative) Lyme Disease IgM Ab (Negative) COVID-19 Eval Order SARS-CoV-2 (PCR) NEGATIVE (Negative) Administered Medications Discontinued Medications Acetaminophen (Acetaminophen 325 Mg Tab) 650 mg PO NOW STA Stop: 01/26/21 18:33 Last Admin: 01/26/21 19:36 Dose: 650 mg Documented by: [id number] Sodium Chloride (Nss 1000ml) 1,000 mls @ 999 mls/hr IV .Q1H1M ZAC Stop: 01/26/21 19:45 Last Infusion: 01/26/21 20:39 Dose: 0 mls/hr Documented by: [id number] Admin: 01/26/21 19:36 Dose: 999 mls/hr Documented by: [id number] Cefepime HCl (Maxipime) 2,000 mg in 20 mls @ 5 mls/min IV NOW STA; Protocol Stop: 01/26/21 18:37 Last Admin: 01/26/21 19:36 Dose: 5 mls/min Documented by: [id number] Ibuprofen (Ibuprofen 600 Mg Tab) 600 mg PO NOW STA Stop: 01/26/21 18:33 Last Admin: 01/26/21 19:36 Dose: 600 mg Documented by: [id number] Imaging Data Radiologist's Impression: Head CT 01/26/21 18:32 CT head/brain wo con CLINICAL HISTORY: confusion COMPARISON STUDY: 12/31/2020 TECHNIQUE: Axial CT of the brain is performed from the vertex to the skull base. IV contrast was not administered for this examination. A dose lowering technique was utilized adhering to the principles of ALARA. CT DOSE: 537.48 mGy.cm FINDINGS: No intra or extra-axial mass lesions are visualized. There is no CT evidence of acute cortical infarction. There is no evidence of midline shift. There is no acute hemorrhage. No calvarial fractures are visualized. There are patchy white matter hypodensities likely on a small vessel basis. There is no evidence of pathologic ventricular dilatation. There is no evidence of acute sinusitis IMPRESSION: No acute intracranial findings ACT 112: Negative or not required by law. Electronically signed by: Miguel Tariq M.D. 01/26/2021 7:53 PM Chest X-Ray 01/26/21 18:33 XR chest 1V portable CLINICAL HISTORY: SEPSIS COMPARISON STUDY: 12/31/2020 FINDINGS: The heart is enlarged. There is aortic tortuosity/ectasia. There is mild prominence of central pulmonary arteries possibly secondary to pulmonary arterial hypertension. There is mild chronic reticular interstitial prominence.. There is no lobar consolidation. There are no pleural effusions. There is no pneumothorax.[Proximal right paratracheal stripe likely is secondary to a thyroid goiter with lateral displacement of the great vessels. IMPRESSION: No active disease in the chest. ACT 112: Negative or not required by law. Electronically signed by: Miguel Tariq M.D. 01/26/2021 6:50 PM Discharge Plan Visit Data Chief Complaint: Illness Stated Complaint: AMS, WEAKNESS, FEVER, EDEMA TO LOWER LEG & FOOT ED Provider: Trevor Morelos Discharge Problem: Confusion, Weakness, Acute UTI, Fever Patient Disposition: Admitted As Inpatient Condition: Fair Discharge Instructions Interventions: ED Discharge Assessment Last Done: 01/26/21 21:31 Discharge Problem: Fever Qualifiers: Fever type: unspecified Qualified Code(s): R50.9 - Fever, unspecified
--- NOTE | 2021-01-26 18:51 | XRay Report ---
XR chest 1V portable CLINICAL HISTORY: SEPSIS COMPARISON STUDY: 12/31/2020 FINDINGS: The heart is enlarged. There is aortic tortuosity/ectasia. There is mild prominence of cent ral pulmonary arteries possibly secondary to pulmonary arterial hypertension. There is mild chronic r eticular interstitial prominence.. There is no lobar consolidation. There are no pleural effusions. T here is no pneumothorax.[Proximal right paratracheal stripe likely is secondary to a thyroid goiter w ith lateral displacement of the great vessels. IMPRESSION: No active disease in the chest. ACT 112: Negative or not required by law. Electronically signed by: Miguel Tariq M.D. 01/26/2021 6:50 PM
[2021-01-26 18:58] LABS: Albumin Level 3.2 gm/dl (3.4-5.0); BUN Creatinine Ratio 27.8 (10-20); Calcium 7.8 mg/dl (8.5-10.1); Creatinine Clr Calc Pharmacy 27.9 ml/min; Est GFR (African American) 39.1 ml/min; Est GFR (Non-African American) 33.8 ml/min; Magnesium 1.8 mg/dl (1.8-2.4); Potassium 3.8 mmol/L (3.5-5.1)
[2021-01-26 18:59] LABS: INR 1.1 (0.9-1.1); Partial Thromboplastin Ratio 0.9; Partial Thromboplastin Time 23.8 Seconds (21.0-31.0); Prothrombin Time 11.3 Seconds (9.0-12.0)
[2021-01-26 19:00] LABS: Albumin Globulin Ratio 0.9 (0.9-2); Bilirubin,Total 1.2 mg/dl (0.2-1); Globulin 3.5 gm/dl (2.5-4.0); Total Protein 6.7 gm/dl (6.4-8.2)
[2021-01-26 19:14] LABS: Procalcitonin 0.24 ng/ml (0-0.5)
[2021-01-26 19:17] LABS: Anisocytosis Present; Macrocytosis Present; Polychromasia 1+
[2021-01-26 19:23] LABS: Lyme Ab IgG w/WB Rflx Negative (Negative); Lyme Ab IgM w/WB Rflx Negative (Negative)
[2021-01-26 19:49] LABS: Appearance Urine Cloudy (Clear); Bacteria Urine Automated 4+ (Negative); Bilirubin Urine Negative (Negative); Blood Urine Trace (Negative); Color Urine Yellow; Epithelial Cell Urine Auto 0-5 /lpf (0-5); Glucose Urine UA Negative (Negative); Ketones Urine Negative (Negative); Leukocyte Esterase Urine 2+ (Negative); Nitrite Urine Negative (Negative); Protein Urine 1+ (Negative); RBC Urine Automated 0-4 /hpf (0-4); Specific Gravity Urine 1.016 (1.000-1.030); Urobilinogen Urine Negative (Negative); WBC Urine Automated >30 /hpf (0-5)
--- NOTE | 2021-01-26 19:54 | CT Scan Report ---
CT head/brain wo con CLINICAL HISTORY: confusion COMPARISON STUDY: 12/31/2020 TECHNIQUE: Axial CT of the brain is performed from the vertex to the skull base. IV contrast was not administered for this examination. A dose lowering technique was utilized adhering to the principles of ALARA. CT DOSE: 537.48 mGy.cm FINDINGS: No intra or extra-axial mass lesions are visualized. There is no CT evidence of acute cortical infarc tion. There is no evidence of midline shift. There is no acute hemorrhage. No calvarial fractures ar e visualized. There are patchy white matter hypodensities likely on a small vessel basis. There is no evidence of pathologic ventricular dilatation. There is no evidence of acute sinusitis IMPRESSION: No acute intracranial findings ACT 112: Negative or not required by law. Electronically signed by: Miguel Tariq M.D. 01/26/2021 7:53 PM
[2021-01-26] MEDS ORDERED: POLYETHYLENE (MIRALAX) 17 GM PACK PO PRN (22:21)
[2021-01-26] MEDS ORDERED: ACETAMINOPHEN 325 MG TAB PO PRN (22:21)
[2021-01-26] MEDS ORDERED: ONDANSETRON INJ 2 MG/ML 2 ML VIAL IV PRN (22:21)
--- NOTE | 2021-01-26 22:34 | History & Physical Report ---
Date of Service January 26, 2021 Assessment & Plan (1) Fever: Mrs. Justice is an 86 yo woman who was brought to [facility] for evaluation of fever and change in mental status from her personal senior care. AMS - head CT normal - no anatomic cause of confusion. Electrolytes generally WNL. Glucose not widely deranged. Patient does not meet SIRS criteria, not septic. TSH and ammonia ordered. - of note, patient is on Aricept as outpatient, suggestive of some underlying cognitive issues. The 5mg dose is typically starting dose before ramping up to treatment dose of 10mg. Recommend the necessity of this medication and dose be addressed as outpatient. Fever - Tmax 37.9. etiology of fever: unknown, Infection vs. inflammatory. Although WBC is normal, UA was suspicious for infection; R LE concern for possible developing cellulitis - continue Levaquin (for coverage of gram negatives including Klebsiella, and MSSA + strep in the event of a developing cellulitis) - follow urine culture, blood cultures. Trend CBC - Recommend Tylenol prn for fever, avoid NSAIDs due to underlying CKD (2) CKD (chronic kidney disease) stage 3, GFR 30-59 ml/min: - Cr at 1.39, at baseline - renal dosing - avoid nephrotoxic meds - trend BMP (3) Anemia, macrocytic: - Hgb 11, MCV 114 - will check folate and B12 levels - B12 level was normal back in 01/2019 - patient is on a daily B12 supplement, but evidence of new deficiency could warrant high dose supplementation (4) Hypertension: - continue home dose atenolol + furosemide (5) A-fib: - paroxysmal - patient in NSR on arrival - rate control with atenolol - not on anticoagulation - CHADS2 VASC score of 5, placing her at high risk. HAS BLED score appears to be 1. Ratio favorable of initiating anticoagulation - consider upon discharge (6) Chronic diastolic CHF (congestive heart failure): - continue home dose furosemide (7) Osteopenia: - continue home dose roloxifene (8) Polycythemia vera: - continue home regimen of hydroxyurea DVT ppx: Heparin 5,000 units SQ q12 Dispo: Med/Surg Diet: Regular Code: Full - of note, review of paperwork from [facility] full code and no living will. Recommend patient meet with PCP as outpatient to address living will Admission and Anticipated Discharge Date Admission Date: January 26, 2021 History of Present Illness Primary Care Provider: John Alba MD Mrs. Justice is an 86 yo woman who was sent to the [facility] ED for evaluation of fever and confusion, which were noticed by her caregivers at [facility] earlier today. Of note, she was admitted to [facility] from 12/31/20 to 01/03/21 for generalized weakness, thought to be due to dehydration, direutic use and an acute UTI. Her urine culture from previous hospital stay grew crain-sensitive klebsiella. Review of urine culture from 09/2020 showing Citrobacter resistant to ceftriaxone. Patient denies any cough, dysuria, diarrhea, nausea/vomiting, abdominal pain. Sx: Lives in [facility]. Non-smoker. In the ED, she had a temperature of 37.9, her HR and BP were normal. Her WBC was normal at 7, procal not elevated. Her UA showed neg nitrates, 4+ bacteria, 2+ LE, > 30 WBCs. Urine culture and blood cultures were drawn. She was negative for lyme and COVID 19. Her hgb was low at 11.0; MCV elevated to 114. Platelets and coags were normal. Na mildly low at 134. Creatine 1.39, BUN at 39. EKG showed NSR with a LBBB (not new), no ST segment changes, QTc of 502ms. CXR showing no active disease. Head CT showing no acute changes. Venous doppler of R LE ordered to rule out PE. She was started on IV Cefepime and given 1 liter of NSS, Tylenol 650mg and Ibuprofen 600mg. Allergies Allergy/AdvReac Type Severity Reaction Status Date / Time prednisone Allergy Mild Rash Verified 01/26/21 21:05 Home Medications Medication Instructions Recorded Confirmed Type lutein 20 mg capsule 20 mg PO DAILY cap 02/25/19 01/26/21 History raloxifene 60 mg tablet 60 mg PO QPM tab 02/25/19 01/26/21 History acetaminophen [Tylenol Arthritis 650 - 1,300 mg PO Q8H PRN 01/15/20 01/26/21 History Pain] garlic 1,000 mg PO DAILY 01/15/20 01/26/21 History Myrbetriq 25 mg PO DAILY 10/11/20 01/26/21 History cyanocobalamin (vitamin B-12) 1,000 mcg PO DAILY 10/11/20 01/26/21 History [Vitamin B-12] donepezil 5 mg PO DAILY 10/11/20 01/26/21 History escitalopram oxalate 10 mg PO DAILY 10/11/20 01/26/21 History hydroxyurea See Rx Instructions .ROUTE .COMPLEX 10/11/20 01/26/21 History meclizine 12.5 mg PO TID PRN 10/11/20 01/26/21 History ondansetron HCl [Zofran] 4 mg PO Q6H PRN 12/31/20 01/26/21 History atenolol 50 mg tablet 50 mg PO DAILY 01/17/21 01/26/21 History furosemide 80 mg tablet 80 mg PO DAILY 01/17/21 01/26/21 History ibuprofen 200 mg PO TID PRN 01/26/21 01/26/21 History Past Med/Surg History Medical History A-fib Actinic keratosis Arthritis Blood disease Cellulitis Chest pain Chest pain Chronic diastolic CHF (congestive heart failure) CKD (chronic kidney disease) stage 3, GFR 30-59 ml/min Dizziness Dyslipidemia GI bleed Heart palpitations History of basal cell carcinoma History of squamous cell carcinoma History of squamous cell carcinoma in situ of skin Hyperlipidemia Hypertension Hypertension Neoplasm of uncertain behavior of skin Osteopenia Peripheral vertigo Polycythemia vera (~08/2011) Polycythemia vera Sensorineural hearing loss (SNHL) of both ears Venous stasis ulcer Surgical History H/O eye surgery History of cholecystectomy Family History Mother Hypertension Father Myocardial infarction Social History Smoking Status: Never smoker Tobacco Type: Cigarettes Second Hand Exposure: No; Do You Dip or Chew Tobacco: No; Hx Alcohol Use: No Hx Substance Use: No Preferred Language: British Communication Ability: Impaired Communication Ability Comment: IMPAIRED HEARING Visual Impairment: Limited Hearing Ability: Hard of Hearing Jaw Skinner Required: No Beliefs That Will Affect Care: None marital status: / Current Living Situation: Personal Care Facility Current Living Situation Comment: [facility] current occupational status: retired Other Information That Helps Us Care for You: No Feels Safe at Home: Yes Safety Concerns: Feels Safe At This Time Assistive Devices: Glasses Review of Systems Constitutional: + fever Genitourinary: no dysuria Physical Exam Constitutional: WD/WN, vitals as above + frail appearing and cooperative; no acute distress Eyes: + anicteric sclerae ENMT: external ear and nose normal, oropharynx normal Neck: normal visual inspection and trachea midline Respiratory: normal respiratory effort; no respiratory distress and no cough Auscultation: + crackles (fine, inspiratory at RLL); no wheezes Cardiovascular: Rate/Rhythm: regular rate and regular rhythm Heart Sounds: normal S1, normal S2 and + murmur (systolic ejection ) Extremities: + pedal edema (+1 on R, trace on left) Gastrointestinal (Abdomen): normal bowel sounds, soft, nontender, no hepatosplenomegaly Skin: Warm, dry. There is an area of developing erythema (not yet confluent) on R LE (by the ankle.) it is warm to the touch Neurologic: moves all extremities Psychiatric: A+Ox3, euthymic affect Results & Data Results & Data ([facility]) Vital Signs (Past 12 Hours) Vital Signs Temp Pulse Pulse Resp BP BP Pulse Ox 01/26/21 21:44 36.9 C 74 16 107/62 94 01/26/21 21:32 21 94 01/26/21 21:31 74 15 96 01/26/21 21:30 73 17 93/49 L 95 01/26/21 21:24 73 20 94 01/26/21 20:50 77 20 90 01/26/21 20:40 74 16 92 01/26/21 20:31 78 17 94 01/26/21 20:30 80 22 107/60 92 01/26/21 20:24 37.9 C H 01/26/21 20:20 80 17 94 01/26/21 20:10 79 18 93 01/26/21 20:01 82 17 93 01/26/21 20:00 83 17 116/54 L 93 01/26/21 19:54 86 17 93 01/26/21 19:40 81 15 93 01/26/21 19:38 85 21 118/46 L 94 01/26/21 19:31 87 22 94 01/26/21 19:30 84 24 118/46 L 93 01/26/21 19:20 82 25 H 93 01/26/21 19:11 81 20 94 01/26/21 19:10 81 18 117/52 L 94 01/26/21 19:09 84 84 21 94 01/26/21 19:07 83 23 93 01/26/21 18:16 39.6 C H 83 83 20 123/69 123/69 94 01/26/21 18:12 94 H 17 123/69 Supervising Physician Co-Signing Physician Notes Attending addendum: I have physically seen this patient, have supervised the medical residents activities, and agree with the H&P unless as otherwise noted. Assessment and Plan: Altered mental status/underlying dementia- Febrile illness likely secondary to UTI- Levaquin 500 mg IV daily Follow urine culture and sensitivities Follow blood cultures Follow serial CBC with differential CKD stage III- Creatinine at baseline, 1.39 upon admission Follow serial laboratories Hypertension/atrial fibrillation/HFpEF- Continue atenolol and furosemide Review record to see if anticoagulation has been discussed in the past. Suspect at risk due to falls Polycythemia vera- Continue hydroxyurea Remaining orders and notations as noted Resident Activity Tracking Resident Involvement: Resident Care Provided Care Provided: Adult Hospital Medicine
[2021-01-26] MEDS: SODIUM CHLORIDE 0.9% 1000ML 1,000 ML IV SCH (23:41)
[2021-01-26] MEDS: levoFLOXacin/D5W 250 MG/50 ML BAG IV SCH (23:41)
[2021-01-26] MEDS: APIXABAN 5 MG TABLET PO SCH (23:42)
[2021-01-26] MEDS: RALOXIFENE HCL 60 MG TAB PO SCH (23:56)
[2021-01-27 06:52] LABS: Hematocrit (blood only) 30.9 % (37-47); Hemoglobin 10.2 g/dL (12.0-16.0); Mean Corpuscular Hemoglobin 37.1 pg (25-34); Mean Corpuscular Volume 112.4 fL (80-100); Mean Platelet Volume 9.4 fL (7.4-10.4); Platelet Count 186 K/uL (130-400); RDW Coefficient of Variation 16.8 % (11.5-14.5); RDW Standard Deviation 68.9 fL (36.4-46.3); Red Blood Count 2.75 M/uL (4.2-5.4); White Blood Count 6.01 K/uL (4.8-10.8)
--- NOTE | 2021-01-27 07:07 | Ultrasound Report ---
US venous doppler LE RT CLINICAL HISTORY: Right leg redness and warmth. COMPARISON STUDY: 05/15/2016 FINDINGS: Grayscale, color-flow, Doppler spectral waveform analysis was performed. There is nonocclusive thrombus within the right common femoral vein and right profunda vein. There is nonocclusive thrombus within the superficial femoral vein. There is occlusive thrombus within the po pliteal vein. There is occlusive thrombus within one of 2 posterior tibial veins. There is occlusive thrombus within the peroneal veins. There is nonocclusive thrombus within one of 2 anterior tibial ve ins. IMPRESSION: 1. Extensive acute right lower extremity DVT. ACT 112: Negative or not required by law. Electronically signed by: Miguel Tariq M.D. 01/27/2021 7:05 AM
[2021-01-27 07:14] LABS: Basophils # (auto) 0.01 K/uL (0-0.2); Basophils % (auto) 0.2 %; Calcium 7.5 mg/dl (8.5-10.1); Creatinine Clr Calc Pharmacy 37.3 ml/min; Eosinophils # (auto) 0.01 K/uL (0-0.5); Eosinophils % (auto) 0.2 %; Est GFR (African American) 56.9 ml/min; Est GFR (Non-African American) 49.1 ml/min; Immature Granulocytes # (auto) 0.03 K/uL (0.00-0.02); Immature Granulocytes % (auto) 0.5 %; Lymphocytes % (auto) 6.7 %; Macrocytosis Present; Monocytes # (auto) 0.35 K/uL (0.11-0.59); Monocytes % (auto) 5.8 %; Neutrophils # (auto) 5.21 K/uL (1.4-6.5); Neutrophils % (auto) 86.6 %; Potassium 3.4 mmol/L (3.5-5.1)
[2021-01-27] MEDS: DONEPEZIL HCL 5 MG TAB PO SCH (08:41)
[2021-01-27] MEDS: APIXABAN 5 MG TABLET PO SCH ×2 (08:41→20:42)
[2021-01-27] MEDS: CYANOCOBALAMIN 500 MCG TABLET (VITAMIN B-12) PO SCH (08:42)
[2021-01-27] MEDS: FUROSEMIDE 80 MG TAB PO SCH (08:42)
[2021-01-27] MEDS: ESCITALOPRAM OXALATE 10 MG TAB PO SCH (08:42)
[2021-01-27] MEDS: ATENOLOL 50 MG TABLET PO SCH (08:43)
[2021-01-27] MEDS: MIRABEGRON ER 25 MG TAB PO SCH (08:43)
[2021-01-27] MEDS ORDERED: HEPARIN SOD 5,000 UNIT/0.5 ML VIAL SQ SCH (09:00)
[2021-01-27] MEDS ORDERED: HYDROXYUREA 500 MG CAP PO SCH (09:00)
--- NOTE | 2021-01-27 09:17 | Hospitalist Progress Note ---
Date of Service January 27, 2021 Assessment & Plan Admission and Anticipated Discharge Date Admission Date: January 26, 2021 86 yo F w/ pMHx. of HTN, A. fib, CHF, CKD, polycythemia vera who was brought to [facility] for evaluation of fever and change in mental status from her personal chcf, found to have DVT Fever, Tmax 37.9. Potentially secondary to DVT in the right lower extremity seen on Duplex US, although infection is alternative cause includes UTI Duplex with extensive right LE DVT - Eliquis started 10 mg BID for 7 days and 5 BID for 6 months although given given A-fib as below may consider continuing this - Recommend Tylenol prn for fever, avoid NSAIDs due to underlying CKD UTI UA with nitrates, 4+ bacteria, 2+ LE, > 30 WBC and no epithelial cells - continue Levaquin, narrow with sensitivities - follow blood cultures. Trend CBC - could consider abx. prophylaxis in the outpatient setting AMS - head CT normal - no anatomic cause of confusion. Electrolytes generally WNL. Glucose not widely deranged. Patient does not meet SIRS criteria, not septic. TSH and ammonia nl. - of note, patient is on Aricept as outpatient, suggestive of some underlying cognitive issues. The 5mg dose is typically starting dose before ramping up to treatment dose of 10mg. Recommend the necessity of this medication and dose be addressed as outpatient. CKD III: - Cr at 1.39 on admission; currently 1.02 - renal dosing - avoid nephrotoxic meds - trend BMP Anemia, macrocytic: - Hgb 11, MCV 114 - folate and B12 levels currently - pending - B12 level was normal back in 01/2019 - patient is on a daily B12 supplement, but evidence of new deficiency could warrant high dose supplementation Hypertension: - continue home dose atenolol + furosemide A-fib, paroxysmal - patient in NSR on arrival - rate control with atenolol - not on anticoagulation - CHADS2 VASC score of 5, placing her at high risk. HAS BLED score appears to be 1. Ratio favorable of initiating anticoagulation - consider upon discharge Discussed with family restarting Eliquis and they are on board Chronic diastolic CHF (congestive heart failure): - continue home dose furosemide Osteopenia: - continue home dose roloxifene Polycythemia vera: - continue home regimen of hydroxyurea DVT ppx: Eliquis Dispo: Med/Surg Diet: Regular Code: Full - of note, review of paperwork from [facility] states full code and no living will. Recommend patient meet with PCP as outpatient to address living will Supervising Physician Co-Signing Physician Notes I personally examined the patient and verified all hess points of history and exam, discussed case, and agree with decision making with Dr Wiseman. Feeling a bit of lower bladder pressure/pain. Otherwise no acute complaints. Vitals noted, in general she is awake and alert pleasant no distress. HEENT normocephalic atraumatic mucous membranes moist. Breathing unlabored no accessory muscle use good effort. Abdomen soft may be mild lower abdominal tenderness subjectively, no guarding rebound or rigidity. Extremities show mild asymmetric edema. FeverUTI versus from DVT versus from both. Treat both, follow. UTIfever, urinary symptoms, positive UAcontinue antibiotics pending final culture results. DVTanticoagulationapparently the family has expressed concerns about her being back on Eliquisto the best that I can recall/find on chart review her Eliquis was held at the time that she had an intra-abdominal perforation, but that was 3 months ago. Certainly with an acute DVT she warrants anticoagulation, Dr. Wiseman is trying to get in touch with the family to discern what the concern is, or if there are other confounding factors that we have not been made aware of. Otherwise as above, dispo with PT/OT, although I anticipate return to her personal chcf. Subjective Argelia Justice was doing well this morning. She was having some trouble remembering if she had had any falls in the past but was able to tell me that she was having pain in her right leg; she was unsure but thought that she had improvement in the leg pain since yesterday. She said that she had hit her leg on something one month ago. Daughter was her in the afternoon and brought up that she was concerned with her mother being on Eliquis as she felt that the medication was causing her to have worsening cognitive function. We talked about how this was difficult to quantify and determine the exact cause for her fluctuations in cognitive function and she was willing to try Eliquis again and if after her current delirium that started prior to Eliquis doesn't clear than we could consider other anticoagulants at that time. Review of Systems Review of Systems: Constitutional: admits fevers Cardiac: denies chest pain, palpitations GI: denies nausea, vomiting, constipation, diarrhea Pulm.: denies shortness of breath admits chronic cough with a small amount of sputum production : denies urinary frequency, urgency or dysuria Physical Exam Constitutional: well developed and well nourished; no acute distress Eyes: PERRL, conjunctivae normal, anicteric sclerae ENMT: external ear and nose normal, oropharynx normal Neck: normal visual inspection Respiratory: normal respiratory effort, lungs clear to auscultation Cardiovascular: regular rate and rhythm this morning Gastrointestinal (Abdomen): - bloating - soft, no guarding - bowel sounds present Skin: no rashes, warm and dry Neurologic: no focal motor deficits Psychiatric: Orientation: alert; + not oriented x 3 Results & Data Results & Data ([facility]) Vital Signs (Past 12 Hours) Vital Signs Temp Pulse Pulse Resp BP BP BP 01/27/21 07:24 37.2 C 67 16 120/66 01/26/21 22:29 36.9 C 74 16 107/62 01/26/21 22:00 01/26/21 21:44 36.9 C 74 16 107/62 01/26/21 21:32 21 01/26/21 21:31 74 15 01/26/21 21:30 73 17 93/49 L 01/26/21 21:24 73 20 Pulse Ox 01/27/21 07:24 92 01/26/21 22:29 94 01/26/21 22:00 95 01/26/21 21:44 94 01/26/21 21:32 94 01/26/21 21:31 96 01/26/21 21:30 95 01/26/21 21:24 94 CBC Results Results Complete Blood Count Results: RBC 2.75 M/uL (4.2-5.4) L 01/27/21 WBC 6.01 K/uL (4.8-10.8) 01/27/21 Hgb 10.2 g/dL (12.0-16.0) L 01/27/21 Hct 30.9 % (37-47) L 01/27/21 Plt Count 186 K/uL (130-400) 01/27/21 Chemistry (BMP) Results BMP Results: Sodium 136 mmol/L (136-145) 01/27/21 Potassium 3.4 mmol/L (3.5-5.1) L 01/27/21 Chloride 106 mmol/L (98-107) 01/27/21 BUN 35 mg/dl (7-18) H 01/27/21 Creatinine 1.02 mg/dl (0.6-1.2) 01/27/21 Glucose 132 mg/dl (70-99) H 01/27/21 Resident Activity Tracking Resident Involvement: Resident Care Provided Care Provided: Adult [facility] Medicine
[2021-01-27] MEDS: SODIUM CHLORIDE 0.9% 1000ML 1,000 ML IV SCH ×2 (09:45→20:41)
[2021-01-27 15:14] LABS: Folate (Folic Acid) 12.7 ng/ml (>5.38)
--- NOTE | 2021-01-27 15:57 | Billing Data ---
Date of Service January 27, 2021 Coding Level of Care Code 64871 Subseq Hosp Care Lvl 3
[2021-01-27] MEDS: RALOXIFENE HCL 60 MG TAB PO SCH (20:43)
--- NOTE | 2021-01-27 21:25 | Billing Data ---
Date of Service January 27, 2021 Coding Level of Care Code 13151 Initial Inpt Care Lvl 3
[2021-01-27] MEDS: levoFLOXacin/D5W 250 MG/50 ML BAG IV SCH (23:40)
[2021-01-28 07:51] LABS: Basophils # (auto) 0.03 K/uL (0-0.2); Basophils % (auto) 0.4 %; Eosinophils # (auto) 0.02 K/uL (0-0.5); Eosinophils % (auto) 0.3 %; Hematocrit (blood only) 32.2 % (37-47); Hemoglobin 10.3 g/dL (12.0-16.0); Immature Granulocytes # (auto) 0.03 K/uL (0.00-0.02); Immature Granulocytes % (auto) 0.4 %; Lymphocytes % (auto) 5.9 %; Mean Corpuscular Hemoglobin 36.7 pg (25-34); Mean Corpuscular Volume 114.6 fL (80-100); Monocytes # (auto) 0.59 K/uL (0.11-0.59); Monocytes % (auto) 8.8 %; Neutrophils # (auto) 5.67 K/uL (1.4-6.5); Neutrophils % (auto) 84.2 %; Platelet Count 272 K/uL (130-400); RDW Coefficient of Variation 16.5 % (11.5-14.5); Red Blood Count 2.81 M/uL (4.2-5.4); White Blood Count 6.74 K/uL (4.8-10.8)
[2021-01-28 08:17] LABS: Macrocytosis Present
[2021-01-28 08:22] LABS: Calcium 7.7 mg/dl (8.5-10.1); Creatinine Clr Calc Pharmacy 40.5 ml/min; Est GFR (African American) 62.8 ml/min; Est GFR (Non-African American) 54.2 ml/min; Potassium 3.1 mmol/L (3.5-5.1)
[2021-01-28] MEDS: ESCITALOPRAM OXALATE 10 MG TAB PO SCH (08:24)
[2021-01-28] MEDS: APIXABAN 5 MG TABLET PO SCH ×2 (08:24→20:49)
[2021-01-28] MEDS: ATENOLOL 50 MG TABLET PO SCH (08:24)
[2021-01-28] MEDS: CYANOCOBALAMIN 500 MCG TABLET (VITAMIN B-12) PO SCH (08:24)
[2021-01-28] MEDS: DONEPEZIL HCL 5 MG TAB PO SCH (08:24)
[2021-01-28] MEDS: AMOXICILLIN/CLAVULANATE 875 MG TAB PO SCH ×2 (08:24→19:07)
[2021-01-28] MEDS: HYDROXYUREA 500 MG CAP PO SCH (08:25)
[2021-01-28] MEDS: MIRABEGRON ER 25 MG TAB PO SCH (08:25)
[2021-01-28] MEDS: FUROSEMIDE 80 MG TAB PO SCH (08:25)
[2021-01-28] MEDS ORDERED: POTASSIUM CHLORIDE CRTAB 20 MEQ TABCR PO STA (08:41)
[2021-01-28] MEDS ORDERED: POLYETHYLENE (MIRALAX) 17 GM PACK PO STA (09:18)
--- NOTE | 2021-01-28 10:12 | Hospitalist Progress Note ---
Date of Service January 28, 2021 Assessment & Plan (1) Fever: Mrs. Justice is an 86 yo female w/ PMHx significant for HTN, atrial fibrilation, CHF, CKD and polycythemia vera who was brought to [facility] on 01/26 for evaluation of fever and change in mental status from her personal fdc. Was found to have DVT and UTI. Right lower extremity DVT LE duplex with extensive right LE DVT, in the context of a-fib not on anti- coagulation before hospitalization. - Eliquis started 10mg BID for 7 days, followed by 5mg BID for 6 months, although given given A-fib as below may consider continuing this indefinitely (decision per PCP) UTI UA with nitrates, 4+ bacteria, 2+ LE, > 30 WBC and no epithelial cells. Urine cx positive for crain-sensitive Klebsiella. - Levaquin started on 01/26 - will transition to Augmentin 875/125mg PO BID x7 days - trend CBC daily Fever, resolving Suspect 2/2 UTI vs DVT - afebrile for >24 hours on abx. - Tylenol PRN for fever, avoid NSAIDs due to underlying CKD AMS Head CT normal - no anatomic cause of confusion. Electrolytes generally WNL. Glucose not widely deranged. Patient does not meet SIRS criteria, not septic. TSH and ammonia normal. - of note, patient is on Aricept as outpatient, suggestive of some underlying cognitive issues. The 5mg dose is typically starting dose before increasing to treatment dose of 10mg. Recommend the necessity of this medication and dose be addressed as outpatient. Constipation No BM x4 days - started Miralax PRN. CKD III - Cr at 1.39 on admission; currently 1.02 - renal dosing - avoid nephrotoxic meds - trend BMP Macrocytic anemia Hgb 11, MCV 114. B12 and folate WNL. - patient is on a daily B12 supplement - continue Hypertension - continue home dose atenolol 50mg PO daily + furosemide 80mg PO daily A-fib, paroxysmal - patient in NSR on arrival - rate control with atenolol - CHADS2 VASC score of 5, placing her at high risk. HAS BLED score appears to be 1. Ratio favorable of initiating anticoagulation - Eliquis initiated as mentioned above Chronic diastolic CHF - continue home dose furosemide 80 mg PO daily Osteopenia - continue home dose roloxifene Polycythemia vera - continue home regimen of hydroxyurea DVT ppx: Eliquis Diet: Regular Code: Full - of note, review of paperwork from [facility] states full code and no living will. Recommend patient meet with PCP as outpatient to address living will Dispo: Med/Surg, pending PT/OT recs before planning discharge to [facility], but otherwise medically stable for discharge at this time (2) CKD (chronic kidney disease) stage 3, GFR 30-59 ml/min: (3) Anemia, macrocytic: (4) Hypertension: (5) A-fib: (6) Chronic diastolic CHF (congestive heart failure): (7) Osteopenia: (8) Polycythemia vera: Admission and Anticipated Discharge Date Admission Date: January 26, 2021 Supervising Physician Co-Signing Physician Notes Resident Physician Supervision Note: I independently interviewed and examined the patient and verified the hess history and physical, reviewed labs and image studies and agree with resident Dr. Luciano findings and care plan. Subjective Discontinued mIVFs overnight as patient was +2.4L during hospitalization and RICA had resolved. Patient denies right leg pain although it is still a little swollen. No BM over the last 3-4 days. Patient reports eating/drinking well. Review of Systems Review of Systems: Denies fever/chills, chest pain, palpitations, cough, SOB, N/V, abdominal pain, rash. Physical Exam Physical Exam: General: A&Ox3. NAD. Cooperative. HEENT: Atraumatic, normocephalic. Pulm: CTAB A&P. -wheezes, -rales, -rhonchi. Symmetrical chest rise. No increase work of breathing. No respiratory distress. Cardiac: RRR, -mrg. Radial pulses intact and symmetrical. Abdominal: soft, non-tender, non-distended, NA BS x 4 Extremities: right leg with trace non-pitting edema to steele although no erythema or discharge, mild calf tenderness to palpation on right and Callie's sign positive on right Results & Data Results & Data ([facility]) Vital Signs (Past 12 Hours) Vital Signs Temp Pulse Resp BP BP Pulse Ox 01/28/21 07:50 36.5 C 73 16 151/79 H 97 01/27/21 22:27 37.5 C 70 18 122/65 93 Resident Activity Tracking Resident Involvement: Resident Care Provided Care Provided: Adult [facility] Medicine
--- NOTE | 2021-01-28 13:55 | Electrocardiogram Report ---
Test Reason : Blood Pressure : / mmHG Vent. Rate : 080 BPM Atrial Rate : 080 BPM P-R Int : 220 ms QRS Dur : 140 ms QT Int : 436 ms P-R-T Axes : -22 -27 092 degrees QTc Int : 502 ms Normal sinus rhythm with 1st degree A-V block Left bundle branch block Abnormal ECG When compared with ECG of 31-DEC-2020 19:03, Premature ventricular complexes are no longer Present Confirmed by John Bazzi ([id number]) on 01/28/2021 1:54:53 PM Referred By: Kevin Purdy Confirmed By:John Bazzi
[2021-01-28] MEDS: cephALEXin 500 MG CAP PO SCH (20:49)
[2021-01-28] MEDS: RALOXIFENE HCL 60 MG TAB PO SCH (20:49)
[2021-01-29 07:17] LABS: Basophils # (auto) 0.04 K/uL (0-0.2); Basophils % (auto) 0.6 %; Eosinophils # (auto) 0.08 K/uL (0-0.5); Eosinophils % (auto) 1.1 %; Hematocrit (blood only) 34.6 % (37-47); Hemoglobin 11.1 g/dL (12.0-16.0); Immature Granulocytes # (auto) 0.03 K/uL (0.00-0.02); Immature Granulocytes % (auto) 0.4 %; Lymphocytes # (auto) 0.71 K/uL (1.2-3.4); Lymphocytes % (auto) 10.2 %; Mean Corpuscular Hemoglobin 36.9 pg (25-34); Mean Corpuscular Hgb Conc 32.1 g/dL (32-36); Mean Platelet Volume 10.1 fL (7.4-10.4); Monocytes # (auto) 0.41 K/uL (0.11-0.59); Monocytes % (auto) 5.9 %; Neutrophils # (auto) 5.69 K/uL (1.4-6.5); Neutrophils % (auto) 81.8 %; Platelet Count 358 K/uL (130-400); RDW Coefficient of Variation 16.3 % (11.5-14.5); Red Blood Count 3.01 M/uL (4.2-5.4); White Blood Count 6.96 K/uL (4.8-10.8)
[2021-01-29 07:50] LABS: BUN Creatinine Ratio 30.1 (10-20); Creatinine Clr Calc Pharmacy 36.8 ml/min; Est GFR (African American) 56.2 ml/min; Est GFR (Non-African American) 48.5 ml/min; Magnesium 1.9 mg/dl (1.8-2.4); Phosphorus 2.2 mg/dl (2.5-4.9); Potassium 3.9 mmol/L (3.5-5.1)
[2021-01-29 07:54] LABS: Macrocytosis Present
[2021-01-29] MEDS: CYANOCOBALAMIN 500 MCG TABLET (VITAMIN B-12) PO SCH (09:29)
[2021-01-29] MEDS: MIRABEGRON ER 25 MG TAB PO SCH (09:29)
[2021-01-29] MEDS: cephALEXin 500 MG CAP PO SCH (09:29)
[2021-01-29] MEDS: DONEPEZIL HCL 5 MG TAB PO SCH (09:29)
[2021-01-29] MEDS: APIXABAN 5 MG TABLET PO SCH (09:29)
[2021-01-29] MEDS: ATENOLOL 50 MG TABLET PO SCH (09:29)
[2021-01-29] MEDS: FUROSEMIDE 80 MG TAB PO SCH (09:30)
[2021-01-29] MEDS: ESCITALOPRAM OXALATE 10 MG TAB PO SCH (09:30)
[2021-01-29] MEDS: HYDROXYUREA 500 MG CAP PO SCH (09:30)
[2021-01-29 14:14] LABS: Appearance Urine Cloudy (Clear); Bacteria Urine Automated Negative (Negative); Bilirubin Urine Negative (Negative); Blood Urine Trace (Negative); Color Urine Yellow; Epithelial Cell Urine Auto 0-5 /lpf (0-5); Glucose Urine UA Negative (Negative); Ketones Urine Negative (Negative); Leukocyte Esterase Urine 3+ (Negative); Nitrite Urine Negative (Negative); Protein Urine Negative (Negative); RBC Urine Automated 0-4 /hpf (0-4); Specific Gravity Urine 1.012 (1.000-1.030); Urobilinogen Urine Negative (Negative); WBC Urine Automated >30 /hpf (0-5)
--- NOTE | 2021-01-29 14:40 | Discharge Summary ---
Date of Service January 29, 2021 Admission HPI Per Admitting Provider Mrs. Justice is an 86 yo woman who was sent to the [facility] ED for evaluation of fever and confusion, which were noticed by her caregivers at [facility] earlier today. Of note, she was admitted to [facility] from 12/31/20 to 01/03/21 for generalized weakness, thought to be due to dehydration, direutic use and an acute UTI. Her urine culture from previous hospital stay grew crain-sensitive klebsiella. Review of urine culture from 09/2020 showing Citrobacter resistant to ceftriaxone. Patient denies any cough, dysuria, diarrhea, nausea/vomiting, abdominal pain. Sx: Lives in [facility]. Non-smoker. In the ED, she had a temperature of 37.9, her HR and BP were normal. Her WBC was normal at 7, procal not elevated. Her UA showed neg nitrates, 4+ bacteria, 2+ L E, > 30 WBCs. Urine culture and blood cultures were drawn. She was negative for lyme and COVID 19. Her hgb was low at 11.0; MCV elevated to 114. Platelets and coags were normal. Na mildly low at 134. Creatine 1.39, BUN at 39. EKG showed NSR with a LBBB (not new), no ST segment changes, QTc of 502ms. CXR showing no active disease. Head CT showing no acute changes. Venous doppler of R LE ordered to rule out PE. She was started on IV Cefepime and given 1 liter of NSS, Tylenol 650mg and Ibuprofen 600mg. Admission Exam Per Admitting Provider Constitutional: WD/WN, vitals as above + frail appearing and cooperative; no acute distress Eyes: + anicteric sclerae ENMT: external ear and nose normal, oropharynx normal Neck: normal visual inspection and trachea midline Respiratory: normal respiratory effort; no respiratory distress and no cough Auscultation: + crackles (fine, inspiratory at RLL); no wheezes Cardiovascular: Rate/Rhythm: regular rate and regular rhythm Heart Sounds: normal S1, normal S2 and + murmur (systolic ejection ) Extremities: + pedal edema (+1 on R, trace on left) Gastrointestinal (Abdomen): normal bowel sounds, soft, nontender, no hepatosplenomegaly Skin: Warm, dry. There is an area of developing erythema (not yet confluent) on R LE (by the ankle.) it is warm to the touch Neurologic: moves all extremities Psychiatric: A+Ox3, euthymic affect Principal Diagnosis Right lower extremity DVT UTI Discharge Exam General: A&Ox3. NAD. Cooperative. HEENT: Atraumatic, normocephalic. Pulm: CTAB A&P. -wheezes, -rales, -rhonchi. Symmetrical chest rise. No increase work of breathing. No respiratory distress. Cardiac: RRR, -mrg. Radial pulses intact and symmetrical. Abdominal: soft, non-tender, non-distended, NA BS x 4 Extremities: right leg with trace non-pitting edema to steele although no erythema or discharge, mild calf tenderness to palpation on right Discharge Data Allergies Allergy/AdvReac Type Severity Reaction Status Date / Time prednisone Allergy Mild Rash Verified 01/26/21 21:05 Consultations 01/26/21 20:15 ED Decision to Admit Stat Ordered Studies 01/26/21 18:32 CT head/brain wo con Stat 01/26/21 20:41 US venous doppler LE RT Stat Hospital Course (1) Fever: Mrs. Justice is an 86 yo female w/ PMHx significant for HTN, atrial fibrilation, CHF, CKD and polycythemia vera who was admitted to [facility] from 01/26 - 01/29 for RLE DVT and UTI. Right lower extremity DVT LE duplex with extensive right LE DVT, in the context of a-fib not on anti-coagu lation before hospitalization. - Eliquis started 10mg BID for 7 days, followed by 5mg BID for 6 months, although given given A-fib as below may consider continuing this indefinitely (decision per PCP) - f/u with PCP in 1 week UTI UA with nitrates, 4+ bacteria, 2+ LE, > 30 WBC and no epithelial cells. Urine cx positive for crain-sensitive Klebsiella. - Levaquin started on 01/26; on 01/29 transitioned to Keflex 500mg PO BID x7 days (continue after discharge) A-fib, paroxysmal - patient in NSR on arrival - rate control with atenolol - CHADS2 VASC score of 5, placing her at high risk. HAS BLED score appears to be 1. Ratio favorable of initiating anticoagulation - Eliquis initiated as mentioned above Fever, resolved Suspect 2/2 UTI vs DVT - afebrile for >48 hours on abx. AMS, resolved Head CT normal - no anatomic cause of confusion. Electrolytes generally WNL. Glucose not widely deranged. Patient does not meet SIRS criteria, not septic. TSH and ammonia normal. - of note, patient is on Aricept as outpatient, suggestive of some underlying cognitive issues. The 5mg dose is typically starting dose before increasing to treatment dose of 10mg. Recommend the necessity of this medication and dose be addressed as outpatient. Constipation No BM x5 days - unresponsive to Miralax PRN. - recommend clean-out per PCP if continues to have no BM Macrocytic anemia Hgb 11, MCV 114. B12 and folate WNL. FOBT negative. - patient is on a daily B12 supplement - continue Hypertension - continue home dose atenolol 50mg PO daily + furosemide 80mg PO daily Chronic diastolic CHF - continue home dose furosemide 80 mg PO daily Osteopenia - continue home dose raloxifene Polycythemia vera - continue home regimen of hydroxyurea Total Time Total Time Spent Total Time Spent (In Minutes): 30 minutes Total Time Includes: Examination of the Patient, Discharge Planning and Medication Reconciliation Discharge Plan Discharge Items Patient Disposition: [facility] Reason For Visit: FEVER,CONFUSION Discharge Diagnosis: Right lower extremity DVT UTI Condition on Discharge: Fair Activity: Per Instructions section Non-emergency contact: Primary Care Provider Call non-emergency contact if: you have any medication questions, your pain is worsening and you have a fever Follow-up/Referrals: John Alba MD [Primary Care Provider] - 02/07/21 3:00 pm Diet: Regular Addtl Attending Provider Instructions: You were admitted to [facility] on 01/26/2021 for a blood clot in your right leg (DVT) as well as a urinary tract infection. You were started on a blood thinner called Eliquis for your blood clot. You were initially started on an IV antibiotic called Levaquin for your UTI, which was transitioned to an oral antibiotic called Keflex. You did well with these medications. You will be discharged in good, stable condition to your [facility] on 01/29/2021. 1. You should continue to take Apixaban. You will take 10mg (2 pills) twice per day for the next 4 days. Starting on 7/3 (Thursday), you will start taking 5mg (1 pill) twice per day. You should follow up with your PCP within 1 week - he will determine how long you need to be on the blood thinner for. 2. You should continue to take Keflex 500mg twice per day for the next 6 days, until 02/04 (Thursday). You should follow up with your PCP within 1 week, as stated above, to ensure that your urinary tract infection is resolved. You should take all of your other home medications as prescribed. You should start participating in physical therapy after discharge. We hope you continue to feel better. It was a pleasure to help provide your care while you were hospitalized. Pending Studies at Discharge: No Stand-Alone Forms: My [employer], Smoking Cessation Skilled Items Patient informed of condition?: Yes DNR: No Discharge Level of Care: Other Communicable Disease: No Discharge Prognosis: Stable Lines: None Urinary Catheter: No Medications and DC Order Prescriptions: New cephalexin 500 mg capsule 500 mg PO BID 6 Days Qty: 12 RF: 0 apixaban 5 mg tablet See Rx Instructions .ROUTE .COMPLEX Qty: 90 RF: 0 Continued atenolol 50 mg tablet 50 mg PO DAILY RF: 0 furosemide 80 mg tablet 80 mg PO DAILY RF: 0 lutein 20 mg capsule 20 mg PO DAILY RF: 0 raloxifene 60 mg tablet 60 mg PO QPM RF: 0 acetaminophen [Tylenol Arthritis Pain] 650 mg Tablet Extended Release 650 - 1,300 mg PO Q8H PRN (Reason: Pain) RF: 0 garlic 1,000 mg Capsule 1,000 mg PO DAILY RF: 0 ondansetron HCl [Zofran] 4 mg Tablet 4 mg PO Q6H PRN (Reason: Nausea) RF: 0 ibuprofen 100 mg Tablet 200 mg PO TID PRN (Reason: Pain) RF: 0 hydroxyurea 500 mg capsule See Rx Instructions .ROUTE .COMPLEX RF: 0 donepezil 5 mg tablet 5 mg PO DAILY RF: 0 cyanocobalamin (vitamin B-12) [Vitamin B-12] 1,000 mcg Tablet 1,000 mcg PO DAILY RF: 0 meclizine 12.5 mg tablet 12.5 mg PO TID PRN (Reason: Dizziness) RF: 0 escitalopram oxalate 10 mg tablet 10 mg PO DAILY RF: 0 Myrbetriq 25 mg tablet extended release 24 hr 25 mg PO DAILY RF: 0 Discharge Orders: Discharge Order (Routine); Ordered 01/29/21 Ordered By: Norm Riggins/Other Patient Handouts: DVT Dc Admission Data Admit Date/Time: 01/26/21 20:43 Attending Provider: Elodia Hurley Admit Provider: Melinda Cobb Primary Care Provider: John Alba Other Providers: Emory Olivas ; Luciano Resendiz Other Interventions: Discharge Summary Assessment (RN) Last Done: 01/29/21 15:36 Supervising Physician Co-Signing Physician Notes Resident Physician Supervision Note: I independently interviewed and examined the patient and verified the hess history and physical, reviewed labs and image studies and agree with resident Dr. Luciano findings and care plan. Resident Activity Tracking Resident Involvement: Resident Care Provided Care Provided: Adult Hospital Medicine
== END 2021-01-29 17:00 | disposition home or self-care (01) | DRG 300 ==
LOC: ED 18:08 → SUATTDRO 20:43 → 3W 20:43
DX: N18.30 Chronic kidney disease, stage 3 unspecified; M85.80 Other specified disorders of bone density and structure, unspecified site; R41.82 Altered mental status, unspecified; M19.90 Unspecified osteoarthritis, unspecified site; I82.441 Acute embolism and thrombosis of right tibial vein; I82.431 Acute embolism and thrombosis of right popliteal vein; I82.411 Acute embolism and thrombosis of right femoral vein; K59.00 Constipation, unspecified; Z88.8 Allergy status to other drugs, medicaments and biological substances; N39.0 Urinary tract infection, site not specified; B96.1 Klebsiella pneumoniae [K. pneumoniae] as the cause of diseases classified elsewhere; Z82.49 Family history of ischemic heart disease and other diseases of the circulatory system; I48.0 Paroxysmal atrial fibrillation; D45 Polycythemia vera; I87.2 Venous insufficiency (chronic) (peripheral); I13.0 Hypertensive heart and chronic kidney disease with heart failure and stage 1 through stage 4 chronic kidney disease, or unspecified chronic kidney disease; I44.7 Left bundle-branch block, unspecified; I82.451 Acute embolism and thrombosis of right peroneal vein; D53.9 Nutritional anemia, unspecified; Z79.899 Other long term (current) drug therapy; I50.32 Chronic diastolic (congestive) heart failure

== ENCOUNTER 2021-09-24 13:39 | Inpatient (IN) ==
[2021-09-24] MEDS ORDERED: HYDROmorphone INJ 0.5 MG/0.5 ML SYR IV PRN (14:17)
--- NOTE | 2021-09-24 14:22 | Emergency Department Note ---
Impression & Plan Acute pain of left hip, Accidental fall, SOB (shortness of breath), Hypoxia, Acute UTI (urinary tract infection) ED Provider Note INFORMANT: Patient ED PROVIDER(S): Nathan Luna MD CHIEF COMPLAINT: Fall and hip pain PLAN: Disposition: Admitted Condition: Good Outpatient prescription management: none Referral: None MEDICAL DECISION MAKING: Patient presented emergency room after a fall. She has a left hip fracture on x-ray. Chest x-ray also revealed she has a sizable right-sided pleural effusion. She has been having shortness of breath issues progressing over the last several weeks. This could explain why she was requiring supplemental oxygen. Chest CT was ordered. Patient was treated with IV Dilaudid and a Altman catheter was placed. Patient's blood work revealed no evidence of infection or significant anemia. Chemistry panel revealed some mild renal insufficiency and dehydration. LFTs and troponin were unremarkable. Urinalysis was concerning for infection. IV Rocephin was administered. Overall the patient is doing much better at this time. Further management in the hospital will be necessary. A consultation was made with Dr. Love of the hospitalist service. I also discussed the case with Dr. Antoine and his PA Mikey of the orthopedic service for consultation. Triage Nursing notes reviewed and agree them. Vital Signs: reviewed and remarkable for hypoxia Differential diagnosis: Fracture, dislocation, neurovascular compromise, compartment syndrome, soft tissue injury, Reactive airway disease, pneumonia, pneumothorax, COPD, CHF, infections, cardiac ischemia, pulmonary embolism, as well as other pathologies. Diagnostics interpreted by me: ECG: Twelve-lead ECG reveals a sinus rhythm with PACs at 68 bpm. There is a left bundle branch block. Lateral nonspecific T wave changes present. No ST elevation. Cardiac Monitoring: Cardiac monitoring ordered by me: The patient was placed on continuous cardiac monitoring and observed. It revealed a normal sinus rhythm at 72 beats per minute without ectopy or evidence of dysrhythmia. Imaging studies: X imaging of the left hip reveals a femoral neck fracture. Chest imaging reveals right-sided pleural effusion as above. No pneumothorax. I refer you to the EMR for further details. HPI: The patient is a 86 year old female who presents to the Emergency Room with complaints of left hip. This started this morning and is from an accidental fall. The patient was turning and fell to her left side. She did not strike her head. She had pain in the left hip and could not move. The patient also notes the following associated symptoms, shortness of breath and chest heaviness over the last 1 to 2 weeks. Patient has chronic lower extremity edema which is worse on the left per the daughter. The patient has been given no medication prehospital for relieving factors. Current pain is rated as 8 with movement/10. Pt denies LOC, headache, fevers, chills, diaphoresis, visual changes, neck pain, nausea, vomiting, abdominal pain, back pain, melena, hematochezia, urinary symptoms, numbness, weakness, lymphadenopathy, rash, or other complaints. ROS: See above HPI for pertinent positives & negatives. A total of 10 systems reviewed and were otherwise negative. PAST MEDICAL HISTORY:See Below , UTI, CHF, CKD PAST SURGICAL HISTORY:See Below, FAMILY HISTORY:See Below SOCIAL HISTORY:See Below, retired HOME MEDICATIONS:See Below ALLERGIES:See Below VITALS:See Below PHYSICAL EXAMINATION: GENERAL: Awake, alert, uncomfortable-appearing, in no distress HENT: Normocephalic, atraumatic. Oropharynx unremarkable. EYES: Normal conjunctiva. Sclera non-icteric. NECK: Inspection normal. Non-tender. Supple. No nuchal rigidity. FROM. No masses. RESPIRATORY: Scattered rales and diminished breath sounds in the right base. Mildly increased respiratory effort. CARDIAC: Normal rate. Normal rhythm. No murmurs. No rubs. Extremities warm and well perfused. Pulses equal. No JVD. GI: Soft, non-distended. No tenderness to palpation. No rebound or guarding. No masses. RECTAL: Deferred. MUSCULOSKELETAL: Both upper and right lower extremities are atraumatic. There is tenderness about the left hip with limited range of motion. Left lower extremity is shortened and externally rotated. No tenderness of the distal femur, knee, lower leg, foot or ankle. There is 3+ edema on the left and 2+ edema on the right. Patient's daughter states this is chronic. Chest examination reveals no tenderness. The back is symmetrical on inspection without obvious abnormality. There is no CVA tenderness to palpation. NEURO: Normal sensorium. No sensory or motor deficits noted. SKIN: No rash or jaundice noted. Nathan Luna MD Past Med/Surg History Medical History A-fib Actinic keratosis Arthritis Blood disease Cellulitis Chest pain Chest pain Chronic diastolic CHF (congestive heart failure) CKD (chronic kidney disease) stage 3, GFR 30-59 ml/min Confusion Dizziness Dyslipidemia Fever GI bleed Heart palpitations History of basal cell carcinoma History of squamous cell carcinoma History of squamous cell carcinoma in situ of skin Hyperlipidemia Hypertension Hypertension Neoplasm of uncertain behavior of skin Osteopenia Peripheral vertigo Polycythemia vera (~08/2011) Polycythemia vera Sensorineural hearing loss (SNHL) of both ears Venous stasis ulcer Surgical History H/O eye surgery History of cholecystectomy Family History Mother Hypertension Father Myocardial infarction Social History Smoking Status: Never smoker Tobacco Type: Cigarettes Second Hand Exposure: No; Hx Alcohol Use: No Hx Substance Use: No Preferred Language: Bermudian Communication Ability: Impaired Visual Impairment: Limited Hearing Ability: Hard of Hearing Wallpaper Remover Steam Required: No Beliefs That Will Affect Care: None marital status: / Current Living Situation: Personal Care Facility Current Living Situation Comment: [facility] current occupational status: retired Feels Safe at Home: Yes Assistive Devices: Walker Allergies Allergies Allergy/AdvReac Type Severity Reaction Status Date / Time prednisone Allergy Mild Rash Verified 09/24/21 16:09 Home Meds Home Medications Medication Instructions Recorded Confirmed lutein 20 mg capsule 20 mg PO DAILY cap 02/25/19 09/24/21 raloxifene 60 mg tablet 60 mg PO QPM tab 02/25/19 09/24/21 acetaminophen 650 mg 650 - 1,300 mg PO Q8H PRN 01/15/20 09/24/21 tablet,extended release (Tylenol Arthritis Pain) garlic 1,000 mg capsule 1,000 mg PO DAILY 01/15/20 09/24/21 cyanocobalamin (vitamin B-12) 1,000 mcg PO DAILY 10/11/20 09/24/21 1,000 mcg tablet (Vitamin B-12) donepezil 5 mg tablet 5 mg PO DAILY 10/11/20 09/24/21 escitalopram oxalate 10 mg tablet 10 mg PO DAILY 10/11/20 09/24/21 hydroxyurea 500 mg capsule See Rx Instructions .ROUTE .COMPLEX 10/11/20 09/24/21 meclizine 12.5 mg tablet 12.5 mg PO TID PRN 10/11/20 09/24/21 mirabegron 25 mg tablet,extended 25 mg PO DAILY 10/11/20 09/24/21 release 24 hr (Myrbetriq) atenolol 50 mg tablet 50 mg PO DAILY 01/17/21 09/24/21 furosemide 80 mg tablet 80 mg PO DAILY 01/17/21 09/24/21 apixaban 5 mg tablet 5 mg PO BID 02/10/21 09/24/21 Saccharomyces boulardii 1 cap PO DAILY 09/24/21 09/24/21 ibuprofen 200 mg tablet 200 mg PO Q8 PRN 09/24/21 09/24/21 methylcellulose (with sugar) oral 1 ea PO DAILY PRN 09/24/21 09/24/21 powder (Citrucel (sucrose)) nitrofurantoin macrocrystal 50 mg 50 mg PO DAILY 09/24/21 09/24/21 capsule ondansetron HCl 4 mg tablet 4 mg PO Q6 PRN 09/24/21 09/24/21 Results & Data (ED) Vital Signs Vital Signs - 24 hr 09/24/21 13:56 09/24/21 14:59 09/24/21 16:00 Temperature 36.5 C Temperature Source Oral Pulse Rate 80 Pulse Rate [Apical] 70 72 Pulse Rhythm Regular Pulse Rhythm [Apical] Regular Pulse Strength Normal Pulse Strength [Apical] Normal Respiratory Rate 16 16 21 Respiratory Effort / Characteristics Non-Labored Spontaneous Non-Labored Spontaneous Respiratory Depth Normal Normal Respiratory Pattern Regular Blood Pressure 171/74 H Blood Pressure [Left Arm] 148/75 H 129/72 Blood Pressure Mean 106 Blood Pressure Mean [Left Arm] 99 91 Blood Pressure Position Lying Blood Pressure Position [Left Arm] Sitting Pulse Oximetry 79 L 94 93 Oxygen Delivery Method Room Air Nasal Cannula Room Air Oxygen Flow Rate 0 4 Sepsis Recent Fever Within 48 Hours No Sepsis New/Unexplained Change in Mental Status N/A Sepsis Action Taken by Nursing No Action Required Laboratory Data Result diagrams: 09/24/21 14:24 09/24/21 14:24 Lab Results 09/24/21 09/24/21 09/24/21 Range/Units 14:24 14:24 14:24 WBC 7.66 (4.8-10.8) K/uL RBC 3.33 L (4.2-5.4) M/uL Hgb 12.4 (12.0-16.0) g/dL Hct 38.5 (37-47) % MCV 115.6 H (80-100) fL MCH 37.2 H (25-34) pg MCHC 32.2 (32-36) g/dL RDW Std Deviation 66.0 H (36.4-46.3) fL RDW Coeff of Roberto 15.6 H (11.5-14.5) % Plt Count 413 H (130-400) K/uL MPV 9.2 (7.4-10.4) fL Immature Gran % (Auto) 0.8 % Neut % (Auto) 89.3 % Lymph % (Auto) 3.5 % [place] % (Auto) 4.4 % Eos % (Auto) 1.6 % Baso % (Auto) 0.4 % Neut # (Auto) 6.84 H (1.4-6.5) K/uL Lymph # (Auto) 0.27 L (1.2-3.4) K/uL [place] # (Auto) 0.34 (0.11-0.59) K/uL Eos # (Auto) 0.12 (0-0.5) K/uL Baso # (Auto) 0.03 (0-0.2) K/uL Immature Gran # (Auto) 0.06 H (0.00-0.02) K/uL Macrocytosis Present PT 11.1 (9.0-12.0) Seconds INR 1.1 (0.9-1.1) APTT 29.4 (21.0-31.0) Seconds PTT Ratio 1.1 Sodium 134 L (136-145) mmol/L Potassium 4.0 (3.5-5.1) mmol/L Chloride 102 (98-107) mmol/L Carbon Dioxide 22 (21-32) mmol/L Anion Gap 10 (3-11) BUN 37 H (6-23) mg/dl Creatinine 1.53 H (0.6-1.2) mg/dl Est Cr Clr Drug Dosing 23.6 ml/min Est GFR ( Amer) 34.8 ml/min Est GFR (Non-Af Amer) 30.1 ml/min BUN/Creatinine Ratio 24.2 H (10-20) Glucose 141 H (70-99(Fasting)) mg/dl Calcium 6.1 L (8.5-10.1) mg/dl Ionized Calcium (1.12-1.32) mmol/L Total Bilirubin 0.7 (0.2-1.0) mg/dl AST 11 L (13-39) U/L ALT 6 L (7-52) U/L Alkaline Phosphatase 185 H (34-104) U/L Troponin I 0.03 (0-0.04) ng/ml B-Natriuretic Peptide (0-100) pg/ml Total Protein 6.3 (6.0-8.3) gm/dl Albumin 3.5 (3.4-5.0) gm/dl Globulin 2.8 (2.5-4.0) gm/dl Albumin/Globulin Ratio 1.3 (0.9-2) Urine Color Urine Appearance (Clear) Urine pH (4.5-7.5) Ur Specific [place] (1.000-1.030) Urine Protein (Negative) Urine Glucose (UA) (Negative) Urine Ketones (Negative) Urine Blood (Negative) Urine Nitrite (Negative) Urine Bilirubin (Negative) Urine Urobilinogen (Negative) Ur Leukocyte Esterase (Negative) Urine WBC (Auto) (0-5) /hpf Urine RBC (Auto) (0-4) /hpf U Hyaline Cast (Auto) (0-5) /lpf U Epithel Cells (Auto) (0-5) /lpf Urine Bacteria (Auto) (Negative) SARS-CoV-2, RNA, NAAT (NEGATIVE) 09/24/21 09/24/21 09/24/21 Range/Units 14:24 16:54 17:03 WBC (4.8-10.8) K/uL RBC (4.2-5.4) M/uL Hgb (12.0-16.0) g/dL Hct (37-47) % MCV (80-100) fL MCH (25-34) pg MCHC (32-36) g/dL RDW Std Deviation (36.4-46.3) fL RDW Coeff of Roberto (11.5-14.5) % Plt Count (130-400) K/uL MPV (7.4-10.4) fL Immature Gran % (Auto) % Neut % (Auto) % Lymph % (Auto) % [place] % (Auto) % Eos % (Auto) % Baso % (Auto) % Neut # (Auto) (1.4-6.5) K/uL Lymph # (Auto) (1.2-3.4) K/uL [place] # (Auto) (0.11-0.59) K/uL Eos # (Auto) (0-0.5) K/uL Baso # (Auto) (0-0.2) K/uL Immature Gran # (Auto) (0.00-0.02) K/uL Macrocytosis PT (9.0-12.0) Seconds INR (0.9-1.1) APTT (21.0-31.0) Seconds PTT Ratio Sodium (136-145) mmol/L Potassium (3.5-5.1) mmol/L Chloride (98-107) mmol/L Carbon Dioxide (21-32) mmol/L Anion Gap (3-11) BUN (6-23) mg/dl Creatinine (0.6-1.2) mg/dl Est Cr Clr Drug Dosing ml/min Est GFR ( Amer) ml/min Est GFR (Non-Af Amer) ml/min BUN/Creatinine Ratio (10-20) Glucose (70-99(Fasting)) mg/dl Calcium (8.5-10.1) mg/dl Ionized Calcium 0.84 L (1.12-1.32) mmol/L Total Bilirubin (0.2-1.0) mg/dl AST (13-39) U/L ALT (7-52) U/L Alkaline Phosphatase (34-104) U/L Troponin I (0-0.04) ng/ml B-Natriuretic Peptide 216 H (0-100) pg/ml Total Protein (6.0-8.3) gm/dl Albumin (3.4-5.0) gm/dl Globulin (2.5-4.0) gm/dl Albumin/Globulin Ratio (0.9-2) Urine Color Urine Appearance (Clear) Urine pH (4.5-7.5) Ur Specific [place] (1.000-1.030) Urine Protein (Negative) Urine Glucose (UA) (Negative) Urine Ketones (Negative) Urine Blood (Negative) Urine Nitrite (Negative) Urine Bilirubin (Negative) Urine Urobilinogen (Negative) Ur Leukocyte Esterase (Negative) Urine WBC (Auto) (0-5) /hpf Urine RBC (Auto) (0-4) /hpf U Hyaline Cast (Auto) (0-5) /lpf U Epithel Cells (Auto) (0-5) /lpf Urine Bacteria (Auto) (Negative) SARS-CoV-2, RNA, NAAT NEGATIVE (NEGATIVE) 09/24/21 Range/Units Unknown WBC (4.8-10.8) K/uL RBC (4.2-5.4) M/uL Hgb (12.0-16.0) g/dL Hct (37-47) % MCV (80-100) fL MCH (25-34) pg MCHC (32-36) g/dL RDW Std Deviation (36.4-46.3) fL RDW Coeff of Roberto (11.5-14.5) % Plt Count (130-400) K/uL MPV (7.4-10.4) fL Immature Gran % (Auto) % Neut % (Auto) % Lymph % (Auto) % [place] % (Auto) % Eos % (Auto) % Baso % (Auto) % Neut # (Auto) (1.4-6.5) K/uL Lymph # (Auto) (1.2-3.4) K/uL [place] # (Auto) (0.11-0.59) K/uL Eos # (Auto) (0-0.5) K/uL Baso # (Auto) (0-0.2) K/uL Immature Gran # (Auto) (0.00-0.02) K/uL Macrocytosis PT (9.0-12.0) Seconds INR (0.9-1.1) APTT (21.0-31.0) Seconds PTT Ratio Sodium (136-145) mmol/L Potassium (3.5-5.1) mmol/L Chloride (98-107) mmol/L Carbon Dioxide (21-32) mmol/L Anion Gap (3-11) BUN (6-23) mg/dl Creatinine (0.6-1.2) mg/dl Est Cr Clr Drug Dosing ml/min Est GFR ( Amer) ml/min Est GFR (Non-Af Amer) ml/min BUN/Creatinine Ratio (10-20) Glucose (70-99(Fasting)) mg/dl Calcium (8.5-10.1) mg/dl Ionized Calcium (1.12-1.32) mmol/L Total Bilirubin (0.2-1.0) mg/dl AST (13-39) U/L ALT (7-52) U/L Alkaline Phosphatase (34-104) U/L Troponin I (0-0.04) ng/ml B-Natriuretic Peptide (0-100) pg/ml Total Protein (6.0-8.3) gm/dl Albumin (3.4-5.0) gm/dl Globulin (2.5-4.0) gm/dl Albumin/Globulin Ratio (0.9-2) Urine Color Yellow Urine Appearance Cloudy A (Clear) Urine pH 5.0 (4.5-7.5) Ur Specific [place] 1.010 (1.000-1.030) Urine Protein Trace H (Negative) Urine Glucose (UA) Negative (Negative) Urine Ketones Negative (Negative) Urine Blood 2+ H (Negative) Urine Nitrite Positive A (Negative) Urine Bilirubin Negative (Negative) Urine Urobilinogen Negative (Negative) Ur Leukocyte Esterase 2+ H (Negative) Urine WBC (Auto) >30 H (0-5) /hpf Urine RBC (Auto) 0-4 (0-4) /hpf U Hyaline Cast (Auto) 1-5 (0-5) /lpf U Epithel Cells (Auto) 0-5 (0-5) /lpf Urine Bacteria (Auto) 3+ H (Negative) SARS-CoV-2, RNA, NAAT (NEGATIVE) Administered Medications Hydromorphone HCl (Hydromorphone Inj 0.5 Mg/0.5 Ml Syr) 0.25 mg IV Q20M PRN PRN Reason: Moderate Pain (Rating 3,4,5,6) Stop: 10/08/21 14:16 Last Admin: 09/24/21 15:56 Dose: 0.25 mg Documented by: [id number] Hydromorphone HCl (Hydromorphone Inj 0.5 Mg/0.5 Ml Syr) 0.5 mg IV Q20M PRN PRN Reason: Severe Pain (Rating 7,8,9,10) Stop: 10/08/21 14:16 Last Admin: 09/24/21 16:49 Dose: 0.5 mg Documented by: [id number] Admin: 09/24/21 14:37 Dose: 0.5 mg Documented by: [id number] Sodium Chloride (Nss 1000ml) 1,000 mls @ 50 mls/hr IV .Q20H ZAC Stop: 09/25/21 10:29 Last Admin: 09/24/21 14:58 Dose: 50 mls/hr Documented by: [id number] Discontinued Medications Ceftriaxone Sodium (Rocephin) 1,000 mg in 50 mls @ 100 mls/hr IV NOW STA Stop: 09/24/21 16:57 Last Admin: 09/24/21 16:50 Dose: 100 mls/hr Documented by: [id number] Imaging Data Radiologist's Impression: Chest X-Ray 09/24/21 14:17 XR chest 1V portable HISTORY: 86 years-old Female SOB, hip pain acute shortness of breath COMPARISON: Chest radiograph 02/10/2021 TECHNIQUE: Supine AP view of the chest FINDINGS: Cardiac silhouette is enlarged. Pulmonary vascular congestion with reticular interstitial coarsening. Large right pleural effusion with partial collapse of the right lung. No pneumothorax. Corticated ossification of the right axilla unchanged. Bones appear grossly intact. IMPRESSION: 1. Large right pleural effusion results in partial collapse of the right lung. 2. Cardiomegaly with vascular congestion and reticular interstitial opacities suggestive of pulmonary edema versus interstitial pneumonitis. ACT 112: Negative or not required by law. The above report was generated using voice recognition software. It may contain grammatical, syntax or spelling errors. Electronically signed by: Venancio Uribe M.D. 09/24/2021 3:26 PM Hip X-Ray 09/24/21 14:17 XR hip LT min 2V CLINICAL HISTORY: left hip pain, fall COMPARISON STUDY: None. FINDINGS: There is an acute subcapital left femoral neck fracture which demonstrates 1.3 cm of superior displacement. No dislocation. The patient has pelvic bones are intact. IMPRESSION: Mildly displaced acute subcapital left femoral neck fracture. ACT 112: Negative or not required by law. Electronically signed by: Nahum Barragan M.D. 09/24/2021 3:31 PM Discharge Plan Visit Data Chief Complaint: Hip Pain Stated Complaint: FALL HIP PAIN ED Provider: Nathan Luna Discharge Problem: Acute pain of left hip, Accidental fall, SOB (shortness of breath), Hypoxia, Acute UTI (urinary tract infection) Forms Stand Alone Forms: [facility] Prescriptions Prescriptions: No Action atenolol 50 mg tablet 50 mg PO DAILY RF: 0 furosemide 80 mg tablet 80 mg PO DAILY RF: 0 lutein 20 mg capsule 20 mg PO DAILY RF: 0 raloxifene 60 mg tablet 60 mg PO QPM RF: 0 acetaminophen [Tylenol Arthritis Pain] 650 mg Tablet Extended Release 650 - 1,300 mg PO Q8H PRN (Reason: pain/fever) RF: 0 garlic 1,000 mg Capsule 1,000 mg PO DAILY RF: 0 apixaban 5 mg tablet 5 mg PO BID RF: 0 nitrofurantoin macrocrystal 50 mg capsule 50 mg PO DAILY RF: 0 ondansetron HCl 4 mg tablet 4 mg PO Q6 PRN (Reason: Nausea) RF: 0 ibuprofen 200 mg Tablet 200 mg PO Q8 PRN (Reason: Pain) RF: 0 Citrucel (sucrose) Powder 1 ea PO DAILY PRN (Reason: Constipation) RF: 0 Saccharomyces boulardii 1 cap PO DAILY RF: 0 hydroxyurea 500 mg capsule See Rx Instructions .ROUTE .COMPLEX RF: 0 donepezil 5 mg tablet 5 mg PO DAILY RF: 0 cyanocobalamin (vitamin B-12) [Vitamin B-12] 1,000 mcg Tablet 1,000 mcg PO DAILY RF: 0 meclizine 12.5 mg tablet 12.5 mg PO TID PRN (Reason: Vertigo) RF: 0 escitalopram oxalate 10 mg tablet 10 mg PO DAILY RF: 0 Myrbetriq 25 mg tablet extended release 24 hr 25 mg PO DAILY RF: 0 Referrals Referrals: John Alba MD [Primary Care Provider] -
[2021-09-24] MEDS ORDERED: SODIUM CHLORIDE 0.9% 1000ML 1,000 ML IV SCH (14:30)
[2021-09-24] MEDS: HYDROmorphone INJ 0.5 MG/0.5 ML SYR IV PRN ×3 (14:37→18:49)
[2021-09-24 14:41] LABS: Basophils # (auto) 0.03 K/uL (0-0.2); Basophils % (auto) 0.4 %; Eosinophils # (auto) 0.12 K/uL (0-0.5); Eosinophils % (auto) 1.6 %; Hematocrit (blood only) 38.5 % (37-47); Hemoglobin 12.4 g/dL (12.0-16.0); Immature Granulocytes # (auto) 0.06 K/uL (0.00-0.02); Immature Granulocytes % (auto) 0.8 %; Lymphocytes # (auto) 0.27 K/uL (1.2-3.4); Lymphocytes % (auto) 3.5 %; Mean Corpuscular Hemoglobin 37.2 pg (25-34); Mean Corpuscular Hgb Conc 32.2 g/dL (32-36); Mean Corpuscular Volume 115.6 fL (80-100); Mean Platelet Volume 9.2 fL (7.4-10.4); Monocytes # (auto) 0.34 K/uL (0.11-0.59); Monocytes % (auto) 4.4 %; Neutrophils # (auto) 6.84 K/uL (1.4-6.5); Neutrophils % (auto) 89.3 %; Platelet Count 413 K/uL (130-400); RDW Coefficient of Variation 15.6 % (11.5-14.5); Red Blood Count 3.33 M/uL (4.2-5.4); White Blood Count 7.66 K/uL (4.8-10.8)
[2021-09-24 14:56] LABS: Macrocytosis Present
[2021-09-24 15:03] LABS: Troponin I 0.03 ng/ml (0-0.04)
[2021-09-24 15:04] LABS: INR 1.1 (0.9-1.1); Partial Thromboplastin Ratio 1.1; Partial Thromboplastin Time 29.4 Seconds (21.0-31.0); Prothrombin Time 11.1 Seconds (9.0-12.0)
[2021-09-24 15:05] LABS: Albumin Globulin Ratio 1.3 (0.9-2); Albumin Level 3.5 gm/dl (3.4-5.0); BUN Creatinine Ratio 24.2 (10-20); Bilirubin,Total 0.7 mg/dl (0.2-1.0); Calcium 6.1 mg/dl (8.5-10.1); Creatinine Clr Calc Pharmacy 23.6 ml/min; Est GFR (African American) 34.8 ml/min; Est GFR (Non-African American) 30.1 ml/min; Globulin 2.8 gm/dl (2.5-4.0); Total Protein 6.3 gm/dl (6.0-8.3)
--- NOTE | 2021-09-24 15:27 | XRay Report ---
XR chest 1V portable HISTORY: 86 years-old Female SOB, hip pain acute shortness of breath COMPARISON: Chest radiograph 02/10/2021 TECHNIQUE: Supine AP view of the chest FINDINGS: Cardiac silhouette is enlarged. Pulmonary vascular congestion with reticular interstitial coarsening. Large right pleural effusion with partial collapse of the right lung. No pneumothorax. Corticated os sification of the right axilla unchanged. Bones appear grossly intact. IMPRESSION: 1. Large right pleural effusion results in partial collapse of the right lung. 2. Cardiomegaly with vascular congestion and reticular interstitial opacities suggestive of pulmonary edema versus interstitial pneumonitis. ACT 112: Negative or not required by law. The above report was generated using voice recognition software. It may contain grammatical, syntax o r spelling errors. Electronically signed by: Venancio Uribe M.D. 09/24/2021 3:26 PM
--- NOTE | 2021-09-24 15:33 | XRay Report ---
XR hip LT min 2V CLINICAL HISTORY: left hip pain, fall COMPARISON STUDY: None. FINDINGS: There is an acute subcapital left femoral neck fracture which demonstrates 1.3 cm of superi or displacement. No dislocation. The patient has pelvic bones are intact. IMPRESSION: Mildly displaced acute subcapital left femoral neck fracture. ACT 112: Negative or not required by law. Electronically signed by: Nahum Barragan M.D. 09/24/2021 3:31 PM
[2021-09-24 16:08] LABS: Appearance Urine Cloudy (Clear); Bacteria Urine Automated 3+ (Negative); Bilirubin Urine Negative (Negative); Blood Urine 2+ (Negative); Color Urine Yellow; Epithelial Cell Urine Auto 0-5 /lpf (0-5); Glucose Urine UA Negative (Negative); Ketones Urine Negative (Negative); Leukocyte Esterase Urine 2+ (Negative); Nitrite Urine Positive (Negative); Protein Urine Trace (Negative); RBC Urine Automated 0-4 /hpf (0-4); Urobilinogen Urine Negative (Negative); WBC Urine Automated >30 /hpf (0-5)
[2021-09-24] MEDS ORDERED: cefTRIAXone SODIUM 1,000 MG/50 ML BAG IV STA (16:28)
--- NOTE | 2021-09-24 16:51 | History & Physical Report ---
Date of Service September 24, 2021 Assessment & Plan (1) Left displaced femoral neck fracture: Plan: Fall at [facility] -- unclear if she tripped vs legs gave out. Hx UTIs on nitrofurantoin for prophylaxis and was to be taken to PCP by daughter for concerns of UTI recently Imaging with L hip fracture Will check Vit D level -- Ca low at 6.1 on admission with normal albumin, low ionized Ca and will also give 1gm IV calcium gluconate Pain control IV/PO ANtiemetics PRN Orthopedics consulted Diet for now, NPO after midnight CXR with LARGE R sided effusion, no rib fx on imaging/chest tenderness --> Pulmonary consulted --> rec for CT WITH CONTRAST to eval hemothorax --> ordered. Also ordered ECHO given SOB /edema On eliquis so no need for venous dopplers for edema IVF NS @ 50cc/hr for RICA with Cr 1.5 with baseline closer to 1 recently Also with UTI on UA and given rocephin IV in ER --> continued. Monitor urine culture Hold lasix in AM/monitor Cr Possible OR tomorrow if medically optimized for such, may need thoracentesis Holding eliquis Trend H&H Q8H, CMP in AM (2) Acute UTI (urinary tract infection): Plan: UA indicative of such Rocephin in ER, continued Monitor urine cx Of note, on nitrofurantoin for chronic prophylaxis -- may have resistance (3) SOB (shortness of breath): Plan: supplemental o2 as needed LARGE R effusion CT w/ contrast per pulm, also on consult ?terria Eliquis held, trending H&H (4) Acute pain of left hip: Plan: improvement of pain control with dilaudid but will continue morphine 1mg IV for breakthrough, oxycodone for moderate. Continue tylenol (5) Accidental fall: Plan: suspect 2nd to UTI as above (6) Hypoxia: Plan: improved with supplemental O2 see #2 above (7) Weakness: Plan: 2nd to above tx as outlined (8) Chronic diastolic CHF (congestive heart failure): Plan: Most recent ECHO 07/25/19 NEGATIVE Dobutamine Stress ECHO -- with normal LV size and systolic function EF 60-65%. No wma, moderate asymmetric hypertrophy of basal anteroseptum. Mildly dilated RV and normal systolic function. Moderate LAD, Mild RAD, sclerotic aortic valve without significant stenosis. Mild pulmonary hypertension; estimated RVSP 40mmHg. On lasix 80mg daily, on hold for RICA IVF as above BMP in AM (9) CKD (chronic kidney disease) stage 3, GFR 30-59 ml/min: Plan: acute RICA in setting of CKD IVF as above Hold lasix in AM Tx of UTI as above Renally dose medications and avoid nephrotoxic agents when able (10) Polycythemia vera: Plan: Typically gets monthly labs to see if needs phlebotomy for such and is on hydroxyurea hgb not elevated -- see above Trend CBC (11) Anemia, macrocytic: Plan: hx polycythemia, no recent B12/folate levels and will check for completeness. (12) Sensorineural hearing loss (SNHL) of both ears: Plan: b/l hearing aides in place (13) Hypertension: Plan: continue home atenolol BP stable 129/72 holding lasix for above Monitor (14) A-fib: Plan: On eliquis, also with prior hx DVT RLE last summer. Rate controlled Holding eliquis for OR/possible hemothorax as above Monitor on telemetry Plan: DVT prophylaxis -- SCD/rosio hose for now, eliquis on hold for above PT/OT following surgical intervention CT as above, pulm on consult NPO after midnight History of Present Illness Chief Complaint: L Hip Pain, SOB, Hypoxia Primary Care Provider: John Alba MD 86yo female with PMHx significant for diastolic CHF, Afib, DVT (RLE January 2021), CKD, HTN, HLD, polycythemia vera, frequent UTIs, presented after accidental fall onto her LEFT hip and was unable to get up due to pain. Of note, patient also with increasing shortness of breath, chest heaviness and LE edema over the past 1-2 weeks and hypoxic on room air on admission, improved to 94% on 4L NC. Patient with daughter at bedside. Had been planning to take patient to Dr Noemi Ramirez today for concerns of UTI with some mild confusion over the past week. Was having lunch at [facility] and she notes she was pushing in her chair and note sure if she tripped or her legs gave out vs "stuck to the ground".Denies any LOC or hitting of her head. Frequent UTIs and on nitrofurantoin for prophylaxis. She also endorses some shortness of breath with ambulation, but no increased shortness of breath or chest heaviness laying flat in bed currently. Just medicated for pain with dilaudid. Pain currently ok but not moving very much. Chronic LE edema but states LLE always more swollen. Hx DVT to the RLE last January and has been on eliquis since that time. She does have some erythema to RLE, stemming from medial lesion removed in past month with reportedly clear margins for a "horn" by what PCP called it, likely AC. Gets monthly labs drawn for her polycythemia to see if she needs phlebotomy. Vaccinated against COVID-19, test for admission pending. No fever/chills reported recently/loss of taste/smell, no abdominal pain but occasional nausea, no vomiting. No changes to bowel habits/unexplained weight loss. Confirmed with patient and daughter she is a FULL CODE Will be admitted for hip fracture/pain control, consult with orthopedics and make NPO after midnight. Also discussed consultation for pulmonary medicine for effusion which may require thoracentesis but will obtain CTA of chest for further eval -- had not been taken down yet for CT ordered by ER provider. Review of labs on admission with normal WBC but noted L shift, UA appears infected and given dose of Rocephin. BMP with hyponatremia Na 134, elevated BUN 37 and Cr 1.53, calcium 6.1 (albumin normal 3.5) BNP 216 CXR with LARGE R pleural effusion with partial collapse of right lung. Cardiomegaly with vascular congestion and reticular interstitial opacities suggestive of pulmonary edema vs interstitial pneumonitis. HIP xray -- mildy displaced acute subcapital left femoral neck fracture. CT Chest pending for effusion noted on prior imaging Most recent ECHO 07/25/19 NEGATIVE Dobutamine Stress ECHO -- with normal LV size and systolic function EF 60-65%. No wma, moderate asymmetric hypertrophy of basal anteroseptum. Mildly dilated RV and normal systolic function. Moderate LAD, Mild RAD, sclerotic aortic valve without significant stenosis. Mild pulmonary hypertension; estimated RVSP 40mmHg. Allergies Allergy/AdvReac Type Severity Reaction Status Date / Time prednisone Allergy Mild Rash Verified 09/24/21 16:09 Home Medications Medication Instructions Recorded Confirmed Type lutein 20 mg capsule 20 mg PO DAILY cap 02/25/19 09/24/21 History raloxifene 60 mg tablet 60 mg PO QPM tab 02/25/19 09/24/21 History acetaminophen 650 mg 650 - 1,300 mg PO Q8H PRN 01/15/20 09/24/21 History tablet,extended release (Tylenol Arthritis Pain) garlic 1,000 mg capsule 1,000 mg PO DAILY 01/15/20 09/24/21 History cyanocobalamin (vitamin B-12) 1,000 mcg PO DAILY 10/11/20 09/24/21 History 1,000 mcg tablet (Vitamin B-12) donepezil 5 mg tablet 5 mg PO DAILY 10/11/20 09/24/21 History escitalopram oxalate 10 mg tablet 10 mg PO DAILY 10/11/20 09/24/21 History hydroxyurea 500 mg capsule See Rx Instructions .ROUTE .COMPLEX 10/11/20 09/24/21 History meclizine 12.5 mg tablet 12.5 mg PO TID PRN 10/11/20 09/24/21 History mirabegron 25 mg tablet,extended 25 mg PO DAILY 10/11/20 09/24/21 History release 24 hr (Myrbetriq) atenolol 50 mg tablet 50 mg PO DAILY 01/17/21 09/24/21 History furosemide 80 mg tablet 80 mg PO DAILY 01/17/21 09/24/21 History apixaban 5 mg tablet 5 mg PO BID 02/10/21 09/24/21 History Saccharomyces boulardii 1 cap PO DAILY 09/24/21 09/24/21 History ibuprofen 200 mg tablet 200 mg PO Q8 PRN 09/24/21 09/24/21 History methylcellulose (with sugar) oral 1 ea PO DAILY PRN 09/24/21 09/24/21 History powder (Citrucel (sucrose)) nitrofurantoin macrocrystal 50 mg 50 mg PO DAILY 09/24/21 09/24/21 History capsule ondansetron HCl 4 mg tablet 4 mg PO Q6 PRN 09/24/21 09/24/21 History Past Med/Surg History Medical History A-fib Actinic keratosis Arthritis Blood disease Cellulitis Chest pain Chest pain Chronic diastolic CHF (congestive heart failure) CKD (chronic kidney disease) stage 3, GFR 30-59 ml/min Confusion Dizziness Dyslipidemia Fever GI bleed Heart palpitations History of basal cell carcinoma History of squamous cell carcinoma History of squamous cell carcinoma in situ of skin Hyperlipidemia Hypertension Hypertension Neoplasm of uncertain behavior of skin Osteopenia Peripheral vertigo Polycythemia vera (~08/2011) Polycythemia vera Sensorineural hearing loss (SNHL) of both ears Venous stasis ulcer Surgical History H/O eye surgery History of cholecystectomy Family History Mother Hypertension Father Myocardial infarction Social History Smoking Status: Never smoker Tobacco Type: Cigarettes Second Hand Exposure: No; Hx Alcohol Use: No Hx Substance Use: No Preferred Language: Chinese Communication Ability: Effective Visual Impairment: Limited Hearing Ability: Hard of Hearing Steel 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 Required: No Beliefs That Will Affect Care: None marital status: / Current Living Situation: Personal Care Facility Current Living Situation Comment: [facility] current occupational status: retired Feels Safe at Home: Yes Assistive Devices: Walker Review of Systems Review of Systems: All systems reviewed & are unremarkable except as noted in HPI & below Physical Exam Physical Exam: General: WD/WN female laying in hospital bed, not moving much, no acute distress at rest Eyes: Anicteric, pupils equal and reactive, bilateral hearing aides in place ENT: slightly dry mm, trachea midline without deviation Chest: chest wall non-tender to palpation Resp: diminished R lung field posteriorly, associated crackles, no wheezing, not tachypneic, on 3L NC with SpO2 93% CV: irregularly irregular (rate 70bpm), no m/r/g, 1+ b/l LE edema, calves non- tender and pulses palpable, slight erythema to medial aspect of L ankle. L>R LE edema GI: +BS, soft , non-tender MSK: LLE shortened and externally rotated, pain with movement but NVI, slight hematoma to lateral aspect femur , tender Psych: alert to person/place, not time (per daughter ongoing for couple of days/weeks), pleasant and cooperative Neuro: no focal deficits, CN intact bilaterally grossly Results & Data Results & Data ([facility]) Vital Signs (Past 12 Hours) Vital Signs Temp Pulse Pulse Resp BP BP Pulse Ox 09/24/21 14:59 70 16 148/75 H 94 09/24/21 13:56 36.5 C 80 16 171/74 H 79 L Laboratory Results 09/24/21 09/24/21 09/24/21 Range/Units Unknown 17:03 17:03 WBC (4.8-10.8) K/uL RBC (4.2-5.4) M/uL Hgb (12.0-16.0) g/dL Hct (37-47) % MCV (80-100) fL MCH (25-34) pg MCHC (32-36) g/dL RDW Std Deviation (36.4-46.3) fL RDW Coeff of Roberto (11.5-14.5) % Plt Count (130-400) K/uL MPV (7.4-10.4) fL Immature Gran % (Auto) % Neut % (Auto) % Lymph % (Auto) % [place] % (Auto) % Eos % (Auto) % Baso % (Auto) % Neut # (Auto) (1.4-6.5) K/uL Lymph # (Auto) (1.2-3.4) K/uL [place] # (Auto) (0.11-0.59) K/uL Eos # (Auto) (0-0.5) K/uL Baso # (Auto) (0-0.2) K/uL Immature Gran # (Auto) (0.00-0.02) K/uL Macrocytosis PT (9.0-12.0) Seconds INR (0.9-1.1) APTT (21.0-31.0) Seconds PTT Ratio Sodium (136-145) mmol/L Potassium (3.5-5.1) mmol/L Chloride (98-107) mmol/L Carbon Dioxide (21-32) mmol/L Anion Gap (3-11) BUN (6-23) mg/dl Creatinine (0.6-1.2) mg/dl Est Cr Clr Drug Dosing ml/min Est GFR ( Amer) ml/min Est GFR (Non-Af Amer) ml/min BUN/Creatinine Ratio (10-20) Glucose (70-99(Fasting)) mg/dl Calcium (8.5-10.1) mg/dl Ionized Calcium 0.84 L (1.12-1.32) mmol/L Magnesium Total Bilirubin (0.2-1.0) mg/dl AST (13-39) U/L ALT (7-52) U/L Alkaline Phosphatase (34-104) U/L Troponin I (0-0.04) ng/ml B-Natriuretic Peptide (0-100) pg/ml Total Protein (6.0-8.3) gm/dl Albumin (3.4-5.0) gm/dl Globulin (2.5-4.0) gm/dl Albumin/Globulin Ratio (0.9-2) Vitamin B12 797 (211-911) pg/ml 25-OH Vitamin D Total Pending Folate 7.68 (>5.38) ng/ml Urine Color Yellow Urine Appearance Cloudy A (Clear) Urine pH 5.0 (4.5-7.5) Ur Specific Erie 1.010 (1.000-1.030) Urine Protein Trace H (Negative) Urine Glucose (UA) Negative (Negative) Urine Ketones Negative (Negative) Urine Blood 2+ H (Negative) Urine Nitrite Positive A (Negative) Urine Bilirubin Negative (Negative) Urine Urobilinogen Negative (Negative) Ur Leukocyte Esterase 2+ H (Negative) Urine WBC (Auto) >30 H (0-5) /hpf Urine RBC (Auto) 0-4 (0-4) /hpf U Hyaline Cast (Auto) 1-5 (0-5) /lpf U Epithel Cells (Auto) 0-5 (0-5) /lpf Urine Bacteria (Auto) 3+ H (Negative) SARS-CoV-2, RNA, NAAT (NEGATIVE) 09/24/21 09/24/21 09/24/21 Range/Units 16:54 14:24 14:24 WBC (4.8-10.8) K/uL RBC (4.2-5.4) M/uL Hgb (12.0-16.0) g/dL Hct (37-47) % MCV (80-100) fL MCH (25-34) pg MCHC (32-36) g/dL RDW Std Deviation (36.4-46.3) fL RDW Coeff of Roberto (11.5-14.5) % Plt Count (130-400) K/uL MPV (7.4-10.4) fL Immature Gran % (Auto) % Neut % (Auto) % Lymph % (Auto) % [place] % (Auto) % Eos % (Auto) % Baso % (Auto) % Neut # (Auto) (1.4-6.5) K/uL Lymph # (Auto) (1.2-3.4) K/uL [place] # (Auto) (0.11-0.59) K/uL Eos # (Auto) (0-0.5) K/uL Baso # (Auto) (0-0.2) K/uL Immature Gran # (Auto) (0.00-0.02) K/uL Macrocytosis PT (9.0-12.0) Seconds INR (0.9-1.1) APTT (21.0-31.0) Seconds PTT Ratio Sodium (136-145) mmol/L Potassium (3.5-5.1) mmol/L Chloride (98-107) mmol/L Carbon Dioxide (21-32) mmol/L Anion Gap (3-11) BUN (6-23) mg/dl Creatinine (0.6-1.2) mg/dl Est Cr Clr Drug Dosing ml/min Est GFR ( Amer) ml/min Est GFR (Non-Af Amer) ml/min BUN/Creatinine Ratio (10-20) Glucose (70-99(Fasting)) mg/dl Calcium (8.5-10.1) mg/dl Ionized Calcium (1.12-1.32) mmol/L Magnesium Pending Total Bilirubin (0.2-1.0) mg/dl AST (13-39) U/L ALT (7-52) U/L Alkaline Phosphatase (34-104) U/L Troponin I (0-0.04) ng/ml B-Natriuretic Peptide 216 H (0-100) pg/ml Total Protein (6.0-8.3) gm/dl Albumin (3.4-5.0) gm/dl Globulin (2.5-4.0) gm/dl Albumin/Globulin Ratio (0.9-2) Vitamin B12 (211-911) pg/ml 25-OH Vitamin D Total Folate (>5.38) ng/ml Urine Color Urine Appearance (Clear) Urine pH (4.5-7.5) Ur Specific [place] (1.000-1.030) Urine Protein (Negative) Urine Glucose (UA) (Negative) Urine Ketones (Negative) Urine Blood (Negative) Urine Nitrite (Negative) Urine Bilirubin (Negative) Urine Urobilinogen (Negative) Ur Leukocyte Esterase (Negative) Urine WBC (Auto) (0-5) /hpf Urine RBC (Auto) (0-4) /hpf U Hyaline Cast (Auto) (0-5) /lpf U Epithel Cells (Auto) (0-5) /lpf Urine Bacteria (Auto) (Negative) SARS-CoV-2, RNA, NAAT NEGATIVE (NEGATIVE) 09/24/21 09/24/21 09/24/21 Range/Units 14:24 14:24 14:24 WBC 7.66 (4.8-10.8) K/uL RBC 3.33 L (4.2-5.4) M/uL Hgb 12.4 (12.0-16.0) g/dL Hct 38.5 (37-47) % MCV 115.6 H (80-100) fL MCH 37.2 H (25-34) pg MCHC 32.2 (32-36) g/dL RDW Std Deviation 66.0 H (36.4-46.3) fL RDW Coeff of Roberto 15.6 H (11.5-14.5) % Plt Count 413 H (130-400) K/uL MPV 9.2 (7.4-10.4) fL Immature Gran % (Auto) 0.8 % Neut % (Auto) 89.3 % Lymph % (Auto) 3.5 % [place] % (Auto) 4.4 % Eos % (Auto) 1.6 % Baso % (Auto) 0.4 % Neut # (Auto) 6.84 H (1.4-6.5) K/uL Lymph # (Auto) 0.27 L (1.2-3.4) K/uL [place] # (Auto) 0.34 (0.11-0.59) K/uL Eos # (Auto) 0.12 (0-0.5) K/uL Baso # (Auto) 0.03 (0-0.2) K/uL Immature Gran # (Auto) 0.06 H (0.00-0.02) K/uL Macrocytosis Present PT 11.1 (9.0-12.0) Seconds INR 1.1 (0.9-1.1) APTT 29.4 (21.0-31.0) Seconds PTT Ratio 1.1 Sodium 134 L (136-145) mmol/L Potassium 4.0 (3.5-5.1) mmol/L Chloride 102 (98-107) mmol/L Carbon Dioxide 22 (21-32) mmol/L Anion Gap 10 (3-11) BUN 37 H (6-23) mg/dl Creatinine 1.53 H (0.6-1.2) mg/dl Est Cr Clr Drug Dosing 23.6 ml/min Est GFR ( Amer) 34.8 ml/min Est GFR (Non-Af Amer) 30.1 ml/min BUN/Creatinine Ratio 24.2 H (10-20) Glucose 141 H (70-99(Fasting)) mg/dl Calcium 6.1 L (8.5-10.1) mg/dl Ionized Calcium (1.12-1.32) mmol/L Magnesium Total Bilirubin 0.7 (0.2-1.0) mg/dl AST 11 L (13-39) U/L ALT 6 L (7-52) U/L Alkaline Phosphatase 185 H (34-104) U/L Troponin I 0.03 (0-0.04) ng/ml B-Natriuretic Peptide (0-100) pg/ml Total Protein 6.3 (6.0-8.3) gm/dl Albumin 3.5 (3.4-5.0) gm/dl Globulin 2.8 (2.5-4.0) gm/dl Albumin/Globulin Ratio 1.3 (0.9-2) Vitamin B12 (211-911) pg/ml 25-OH Vitamin D Total Folate (>5.38) ng/ml Urine Color Urine Appearance (Clear) Urine pH (4.5-7.5) Ur Specific [place] (1.000-1.030) Urine Protein (Negative) Urine Glucose (UA) (Negative) Urine Ketones (Negative) Urine Blood (Negative) Urine Nitrite (Negative) Urine Bilirubin (Negative) Urine Urobilinogen (Negative) Ur Leukocyte Esterase (Negative) Urine WBC (Auto) (0-5) /hpf Urine RBC (Auto) (0-4) /hpf U Hyaline Cast (Auto) (0-5) /lpf U Epithel Cells (Auto) (0-5) /lpf Urine Bacteria (Auto) (Negative) SARS-CoV-2, RNA, NAAT (NEGATIVE) Diagnostic Findings Chest X-Ray 09/24/21 14:17 XR chest 1V portable HISTORY: 86 years-old Female SOB, hip pain acute shortness of breath COMPARISON: Chest radiograph 02/10/2021 TECHNIQUE: Supine AP view of the chest FINDINGS: Cardiac silhouette is enlarged. Pulmonary vascular congestion with reticular interstitial coarsening. Large right pleural effusion with partial collapse of the right lung. No pneumothorax. Corticated ossification of the right axilla unchanged. Bones appear grossly intact. IMPRESSION: 1. Large right pleural effusion results in partial collapse of the right lung. 2. Cardiomegaly with vascular congestion and reticular interstitial opacities suggestive of pulmonary edema versus interstitial pneumonitis. ACT 112: Negative or not required by law. The above report was generated using voice recognition software. It may contain grammatical, syntax or spelling errors. Electronically signed by: Venancio Uribe M.D. 09/24/2021 3:26 PM Hip X-Ray 09/24/21 14:17 XR hip LT min 2V CLINICAL HISTORY: left hip pain, fall COMPARISON STUDY: None. FINDINGS: There is an acute subcapital left femoral neck fracture which demonstrates 1.3 cm of superior displacement. No dislocation. The patient has pelvic bones are intact. IMPRESSION: Mildly displaced acute subcapital left femoral neck fracture. ACT 112: Negative or not required by law. Electronically signed by: Nahum Barragan M.D. 09/24/2021 3:31 PM Supervising Physician Co-Signing Physician Notes Patient seen and examined at bedside. Obtained a history and physical examination. discussed pplan of care with APC Lai and patient, and daughter. CT scan of chest with contrast showed plueral effusions and osteoblastic skeletal lesions. Daughter was updated. Surgery will be postponed as goal is to improve airway function by doing a thoracocenthesis tomorrow with plan to do surgery on 09/26. PG Care Time/CCT Total # of Minutes Spent Total Time Spent with Patient: Total time spent is greater than 50% in coordination of care (as documented) at patient's floor/unit and/or counseling patient: Coding Level of Care Code 72730 Initial Inpt Care Lvl 3 Diagnoses Left displaced femoral neck fracture S72.002A Acute UTI (urinary tract infection) N39.0 Acute pain of left hip M25.552 Accidental fall W19.XXXA SOB (shortness of breath) R06.02 Hypoxia R09.02 Weakness R53.1 Anemia, macrocytic D53.9 Chronic diastolic CHF (congestive heart failure) I50.32 CKD (chronic kidney disease) stage 3, GFR 30-59 ml/min N18.30 Polycythemia vera D45 Sensorineural hearing loss (SNHL) of both ears H90.3 Hypertension I10 A-fib I48.91
--- NOTE | 2021-09-24 17:02 | Orthopedic Consultation ---
Date of Service September 24, 2021 Assessment & Plan (1) Left displaced femoral neck fracture: She is being admitted to the hospitalist service. She has multiple comorbidities including pleural effusions and UTI. Her daughter is with her now. They were educated on this type of fracture and treatment for it. Her daughter is going to discuss things with other family members. We would recommend left hip hemiarthroplasty once medically optimized. History of Present Illness Reason for Consultation: . Requesting Physician: . . 86 year old patient who we were consulted on regarding a left hip fracture. She lives at [facility] living [facility]. She was getting up from her lunch today and fell, injuring her left hip. She denies any hip pain prior to the fall. No other orthopedic complaints. Allergies Allergy/AdvReac Type Severity Reaction Status Date / Time prednisone Allergy Mild Rash Verified 09/24/21 16:09 Home Medications Medication Instructions Recorded Confirmed Type lutein 20 mg capsule 20 mg PO DAILY cap 02/25/19 09/24/21 History raloxifene 60 mg tablet 60 mg PO QPM tab 02/25/19 09/24/21 History acetaminophen 650 mg 650 - 1,300 mg PO Q8H PRN 01/15/20 09/24/21 History tablet,extended release (Tylenol Arthritis Pain) garlic 1,000 mg capsule 1,000 mg PO DAILY 01/15/20 09/24/21 History cyanocobalamin (vitamin B-12) 1,000 mcg PO DAILY 10/11/20 09/24/21 History 1,000 mcg tablet (Vitamin B-12) donepezil 5 mg tablet 5 mg PO DAILY 10/11/20 09/24/21 History escitalopram oxalate 10 mg tablet 10 mg PO DAILY 10/11/20 09/24/21 History hydroxyurea 500 mg capsule See Rx Instructions .ROUTE .COMPLEX 10/11/20 09/24/21 History meclizine 12.5 mg tablet 12.5 mg PO TID PRN 10/11/20 09/24/21 History mirabegron 25 mg tablet,extended 25 mg PO DAILY 10/11/20 09/24/21 History release 24 hr (Myrbetriq) atenolol 50 mg tablet 50 mg PO DAILY 01/17/21 09/24/21 History furosemide 80 mg tablet 80 mg PO DAILY 01/17/21 09/24/21 History apixaban 5 mg tablet 5 mg PO BID 02/10/21 09/24/21 History Saccharomyces boulardii 1 cap PO DAILY 09/24/21 09/24/21 History ibuprofen 200 mg tablet 200 mg PO Q8 PRN 09/24/21 09/24/21 History methylcellulose (with sugar) oral 1 ea PO DAILY PRN 09/24/21 09/24/21 History powder (Citrucel (sucrose)) nitrofurantoin macrocrystal 50 mg 50 mg PO DAILY 09/24/21 09/24/21 History capsule ondansetron HCl 4 mg tablet 4 mg PO Q6 PRN 09/24/21 09/24/21 History Past Med/Surg History Medical History A-fib Actinic keratosis Arthritis Blood disease Cellulitis Chest pain Chest pain Chronic diastolic CHF (congestive heart failure) CKD (chronic kidney disease) stage 3, GFR 30-59 ml/min Confusion Dizziness Dyslipidemia Fever GI bleed Heart palpitations History of basal cell carcinoma History of squamous cell carcinoma History of squamous cell carcinoma in situ of skin Hyperlipidemia Hypertension Hypertension Neoplasm of uncertain behavior of skin Osteopenia Peripheral vertigo Polycythemia vera (~08/2011) Polycythemia vera Sensorineural hearing loss (SNHL) of both ears Venous stasis ulcer Surgical History H/O eye surgery History of cholecystectomy Family History Mother Hypertension Father Myocardial infarction Social History Smoking Status: Never smoker Tobacco Type: Cigarettes Second Hand Exposure: No; Hx Alcohol Use: No Hx Substance Use: No Preferred Language: Uzbek Communication Ability: Impaired Visual Impairment: Limited Hearing Ability: Hard of Hearing Title I Teacher Required: No Beliefs That Will Affect Care: None marital status: / Current Living Situation: Personal Care Facility Current Living Situation Comment: [facility] current occupational status: retired Feels Safe at Home: Yes Assistive Devices: Walker Review of Systems All systems reviewed & are unremarkable except as noted in HPI & below. Physical Exam . alert, NAD. No pain with range of motion of her upper extremities. No pain with motion of the right leg. Left leg: shortened and externally rotated. Some edema of her lower extremities. Able to DF/PF appropriately. NVI. Results & Data Results & Data Laboratory Results . Diagnostic Findings .xrays of the hip show a displaced left femoral neck fracture PG Care Time/CCT Total # of Minutes Spent Total Time Spent with Patient: Total time spent is greater than 50% in coordination of care (as documented) at patient's floor/unit and/or counseling patient: Supervising Physician Co-Signing Physician Notes Went to see the patient in the ED, but she had ruled out for an additional CT scan. Her daughter, Janay, was in the ED for discussion. I reviewed the physician grants assistant note, and I agree with it in its entirety. I was able to discuss with Janay who is her primary caregiver. Her POA is her son Wallace who lives in [place]. I attempted to contact by phone tonight however I had to leave a message. Janay discussed that she was in agreement with surgery with the next best step in treating her hip fracture. I discussed the surgery would be a bipolar hemiarthroplasty to treat the femoral neck fracture that is displaced. Hospice is involved in her care. We did discuss that these are typically performed for pain relief even if patients do not expect to return to ambulation. Janay explained that she is fairly functional and uses a cane for short distances and a walker for more long unpredictable distances. She does leave [facility] every weekend to visit. We did discuss risks and benefits surgery in detail. The risks include but not limited to infection, neurovascular injury, implant loosening, leg length discrepancy, need for repeat or revision surgeries, hip instability requiring further treatment, wound healing complications, blood clots, pain syndromes, and complications related to anesthesia. The chart was reviewed. Appreciate the hospitalist input and optimization for surgery. She will be tentatively scheduled for tomorrow, pending clearance. Please make n.p.o. at midnight. Surgical consent will be confirmed with her power of patent prosecution attorney tomorrow. Coding Level of Care Code 75443 Inpt Consult Level 4 Diagnoses Left displaced femoral neck fracture S72.002A
--- NOTE | 2021-09-24 17:12 | Electrocardiogram Report ---
Test Reason : Blood Pressure : / mmHG Vent. Rate : 068 BPM Atrial Rate : 068 BPM P-R Int : 156 ms QRS Dur : 146 ms QT Int : 512 ms P-R-T Axes : 032 -11 101 degrees QTc Int : 544 ms Poor data quality, interpretation may be adversely affected Sinus rhythm with Premature atrial complexes Left bundle branch block Abnormal ECG When compared with ECG of 10-FEB-2021 19:23, Premature atrial complexes are now Present Nonspecific T wave abnormality, worse in Lateral leads Confirmed by Rahat Tran ([id number]) on 09/24/2021 5:11:58 PM Referred By: ED Confirmed By:Sav Tran
[2021-09-24] MEDS ORDERED: CALCIUM GLUCONATE 1,000 MG/60 ML BAG IV STA (17:40)
[2021-09-24 17:59] LABS: Folate (Folic Acid) 7.68 ng/ml (>5.38)
[2021-09-24] MEDS ORDERED: OPTIRAY 320 100ml IV ONE (18:02)
[2021-09-24 18:03] LABS: Vitamin D, 25 Hydrox 11.5 ng/ml (30-100)
--- NOTE | 2021-09-24 18:46 | CT Scan Report ---
CT SCAN OF THE CHEST WITH IV CONTRAST CLINICAL HISTORY: Pleural effusion. COMPARISON STUDY: Chest x-ray dated 09/24/2021. Chest CT dated 08/15/2017. TECHNIQUE: Following the IV administration of 94 cc of Optiray 320, CT scan of the thorax was perform ed from the thoracic inlet to the upper abdomen. Images are reviewed in the axial, sagittal, and soheila nal planes. IV contrast was administered without complication. A dose lowering technique was utilize d adhering to the principles of ALARA. The Examination is compromised by motion artifact, as well as by streak artifact from the right arm which could not be elevated above the chest. CT DOSE: 493.28 mGy.cm FINDINGS: Thyroid: The thyroid gland is enlarged and heterogeneous, and infiltrated by numerous nodules. The la rgest is in the right lobe and measures 4.5 cm. This is similar to previous. Thoracic aorta: There is atherosclerotic calcification of the thoracic aorta, which is normal in olamide moreno and demonstrates 4-vessel variant arch anatomy. No dissection is seen. Pulmonary vasculature: The main pulmonary arteries are dilated indicating pulmonary artery hypertensi on. There are no filling defects identified in the central pulmonary vessels to indicate pulmonary em bolus. Age indeterminant segmental pulmonary embolus is seen within a branch of the left lower lobe p ulmonary artery on image #181. Note that this examination was not protocoled to assess for pulmonary emboli Heart: The heart is enlarged and without pericardial effusion. Lungs and pleural spaces: Evaluation of the lung parenchyma is compromised by motion artifact. There is a large and at least partially loculated right pleural effusion with extensive consolidation throu ghout the right lung. There is a small pleural effusion on the left with left basilar atelectasis. In tralobular septal thickening is noted throughout the left lung. The trachea and central airways appea r clear. There is soft tissue thickening along the right hemidiaphragm seen on axial image #20 and 73 . This is suspicious for pleural-based metastatic disease. Mediastinum: There is no mediastinal lymphadenopathy. Lenore: Clear. Axillae: There is no axillary lymphadenopathy. Upper abdomen: The spleen is enlarged and heterogeneous. The liver is also markedly heterogeneous in attenuation. The kidneys are atrophic. A large left renal cyst is partially visualized and measures a t least 7 cm. Bilateral hydronephrosis is partially visualized. Skeletal structures: The skeletal structures are heterogeneously osteopenic. There is evidence of mul tifocal osteoblastic metastatic disease throughout the visualized bony structures. There are healed l eft-sided rib fractures. IMPRESSION: 1. Severely streak and motion compromised examination. 2. 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 Correlate with the patient's oncological history. 3. Cardiomegaly with evidence of pulmonary artery hypertension and congestive failure. 4. There is a moderate to large and partially loculated right pleural effusion with consolidation thr oughout the right lung. This could represent atelectasis and/or pneumonia and clinical correlation wi ll be required. 5. There is a small pleural effusion at the left lung base. 6. Abnormal soft tissue thickening along the right hemidiaphragm is suspicious for pleural-based meta static disease. 7. A segmental pulmonary embolus is seen within a branch of the left lower lobe pulmonary artery. Thi s is age indeterminant and may be chronic. 8. Bilateral hydronephrosis is partially visualized. 9. Thyroid goiter. 10. Splenomegaly. 11. Additional findings as above. ACT 112: Negative or not required by law. Electronically signed by: Trevor Babin M.D. 09/24/2021 6:44 PM
[2021-09-24] MEDS ORDERED: ONDANSETRON INJ 2 MG/ML 2 ML VIAL IV PRN (20:33)
[2021-09-24] MEDS ORDERED: MAGNESIUM HYDROXIDE SUSP 30 ML UDC PO PRN (20:33)
[2021-09-24] MEDS ORDERED: POLYETHYLENE (MIRALAX) 17 GM PACK PO PRN (20:33)
[2021-09-24] MEDS ORDERED: ALUMINUM/MAGNESIUM SUSP 30 ML UDC PO PRN (20:33)
[2021-09-24] MEDS ORDERED: ERGOCALCIFEROL 50,000 UNITS 1250 MCG CAP PO SCH (20:33)
[2021-09-24] MEDS ORDERED: MECLIZINE 12.5 MG TAB PO PRN (20:33)
[2021-09-24 21:17] LABS: Hematocrit (blood only) 38.8 % (37-47); Hemoglobin 12.3 g/dL (12.0-16.0); Mean Corpuscular Hemoglobin 36.9 pg (25-34); Mean Corpuscular Hgb Conc 31.7 g/dL (32-36); Mean Corpuscular Volume 116.5 fL (80-100); Mean Platelet Volume 9.2 fL (7.4-10.4); Platelet Count 423 K/uL (130-400); RDW Coefficient of Variation 15.8 % (11.5-14.5); RDW Standard Deviation 67.4 fL (36.4-46.3); Red Blood Count 3.33 M/uL (4.2-5.4); White Blood Count 10.95 K/uL (4.8-10.8)
[2021-09-24] MEDS: RALOXIFENE HCL 60 MG TAB PO SCH (22:54)
[2021-09-25] MEDS: ACETAMINOPHEN 325 MG TAB PO PRN (05:51)
[2021-09-25 06:58] LABS: Hematocrit (blood only) 39.3 % (37-47); Hemoglobin 12.4 g/dL (12.0-16.0); Mean Corpuscular Hemoglobin 36.4 pg (25-34); Mean Corpuscular Hgb Conc 31.6 g/dL (32-36); Mean Corpuscular Volume 115.2 fL (80-100); Mean Platelet Volume 9.4 fL (7.4-10.4); Platelet Count 402 K/uL (130-400); RDW Coefficient of Variation 15.7 % (11.5-14.5); RDW Standard Deviation 65.3 fL (36.4-46.3); Red Blood Count 3.41 M/uL (4.2-5.4); White Blood Count 9.14 K/uL (4.8-10.8)
--- NOTE | 2021-09-25 07:12 | Anesthesiology Consultation ---
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 Surgery Operation Date: 09/25/21 09:50 Proposed Procedures p Left Hip Hemiarthroplasty - Camron Antoine MD Height/Weight Height: 5 ft 4 in Weight: 70.3 kg Allergies Allergy/AdvReac Type Severity Reaction Status Date / Time prednisone Allergy Mild Rash Verified 09/24/21 16:09 Medications Home Medications Medication Instructions Recorded Confirmed Last Taken lutein 20 mg capsule 20 mg PO DAILY cap 02/25/19 09/24/21 02/10/21 raloxifene 60 mg tablet 60 mg PO QPM tab 02/25/19 09/24/21 02/10/21 acetaminophen 650 mg 650 - 1,300 mg PO Q8H PRN 01/15/20 09/24/21 Unknown tablet,extended release (Tylenol Arthritis Pain) garlic 1,000 mg capsule 1,000 mg PO DAILY 01/15/20 09/24/21 02/10/21 cyanocobalamin (vitamin B-12) 1,000 mcg PO DAILY 10/11/20 09/24/21 02/10/21 1,000 mcg tablet (Vitamin B-12) donepezil 5 mg tablet 5 mg PO DAILY 10/11/20 09/24/21 02/10/21 escitalopram oxalate 10 mg tablet 10 mg PO DAILY 10/11/20 09/24/21 02/10/21 hydroxyurea 500 mg capsule See Rx Instructions .ROUTE .COMPLEX 10/11/20 09/24/21 02/10/21 meclizine 12.5 mg tablet 12.5 mg PO TID PRN 10/11/20 09/24/21 Unknown mirabegron 25 mg tablet,extended 25 mg PO DAILY 10/11/20 09/24/21 02/10/21 release 24 hr (Myrbetriq) atenolol 50 mg tablet 50 mg PO DAILY 01/17/21 09/24/21 02/10/21 furosemide 80 mg tablet 80 mg PO DAILY 01/17/21 09/24/21 02/10/21 apixaban 5 mg tablet 5 mg PO BID 02/10/21 09/24/21 02/10/21 Saccharomyces boulardii 1 cap PO DAILY 09/24/21 09/24/21 Unknown ibuprofen 200 mg tablet 200 mg PO Q8 PRN 09/24/21 09/24/21 Unknown methylcellulose (with sugar) oral 1 ea PO DAILY PRN 09/24/21 09/24/21 Unknown powder (Citrucel (sucrose)) nitrofurantoin macrocrystal 50 mg 50 mg PO DAILY 09/24/21 09/24/21 Unknown capsule ondansetron HCl 4 mg tablet 4 mg PO Q6 PRN 09/24/21 09/24/21 Unknown Active Medications Generic Name Dose Route Start Last Admin Trade Name Elmerq PRN Reason Stop Dose Admin Acetaminophen 650 mg 09/24/21 20:33 09/25/21 05:51 Acetaminophen 325 Mg Tab PO 10/24/21 20:32 650 mg Q4H PRN Administration Pain or Fever Sodium Chloride 1,000 mls @ 50 mls/hr 09/24/21 14:30 09/24/21 14:58 Nss 1000ml IV 09/25/21 10:29 50 mls/hr .Q20H ZAC Administration Raloxifene HCl 60 mg 09/24/21 21:00 09/24/21 22:54 Raloxifene Hcl 60 Mg Tab PO 10/24/21 20:59 Not Given QPM ZAC Past Medical History Medical History A-fib Actinic keratosis Arthritis Blood disease Cellulitis Chest pain Chest pain Chronic diastolic CHF (congestive heart failure) CKD (chronic kidney disease) stage 3, GFR 30-59 ml/min Confusion Dizziness Dyslipidemia Fever GI bleed Heart palpitations History of basal cell carcinoma History of squamous cell carcinoma History of squamous cell carcinoma in situ of skin Hyperlipidemia Hypertension Hypertension Neoplasm of uncertain behavior of skin Osteopenia Peripheral vertigo Polycythemia vera (~08/2011) Polycythemia vera Sensorineural hearing loss (SNHL) of both ears Venous stasis ulcer Past Family History Family History Mother Hypertension Father Myocardial infarction Past Surgical History Surgical History H/O eye surgery History of cholecystectomy Social History Smoking Status: Never smoker Hx Alcohol Use: No Hx Substance Use: No Physical Exam Vital Signs Last Vital Signs Temp 98.2 F 09/25/21 04:05 Pulse 80 09/25/21 04:05 Resp 20 09/25/21 04:05 BP 158/80 H 09/25/21 04:05 Pulse Ox 91 09/25/21 04:05 Testing Laboratory Results 09/25/21 06:20 PT 11.1 Seconds (9.0-12.0) 09/24/21 14:24 INR 1.1 (0.9-1.1) 09/24/21 14:24 APTT 29.4 Seconds (21.0-31.0) 09/24/21 14:24 Urine Color Yellow 09/24/21 Unknown Urine Appearance Cloudy (Clear) A 09/24/21 Unknown Urine pH 5.0 (4.5-7.5) 09/24/21 Unknown Ur Specific Hubbell 1.010 (1.000-1.030) 09/24/21 Unknown Urine Protein Trace (Negative) H 09/24/21 Unknown Urine Glucose (UA) Negative (Negative) 09/24/21 Unknown Urine Ketones Negative (Negative) 09/24/21 Unknown Urine Nitrite Positive (Negative) A 09/24/21 Unknown Ur Leukocyte Esterase 2+ (Negative) H 09/24/21 Unknown Urine WBC (Auto) >30 /hpf (0-5) H 09/24/21 Unknown Urine RBC (Auto) 0-4 /hpf (0-4) 09/24/21 Unknown U Hyaline Cast (Auto) 1-5 /lpf (0-5) 09/24/21 Unknown U Epithel Cells (Auto) 0-5 /lpf (0-5) 09/24/21 Unknown Urine Bacteria (Auto) 3+ (Negative) H 09/24/21 Unknown Laboratory Tests 09/24/21 16:54 SARS-CoV-2, RNA, NAAT NEGATIVE Electrocardiogram Date: 09/24/21 Poor data quality, interpretation may be adversely affected Sinus rhythm with Premature atrial complexes, rate 68 bpm Left bundle branch block Abnormal ECG When compared with ECG of 10-FEB-2021 19:23, Premature atrial complexes are now Present Nonspecific T wave abnormality, worse in Lateral leads Confirmed by Rahat Tran ([id number]) on 09/24/2021 5:11:58 PM Chest X-Ray Date: 09/24/21 IMPRESSION: 1. Large right pleural effusion results in partial collapse of the right lung. 2. Cardiomegaly with vascular congestion and reticular interstitial opacities suggestive of pulmonary edema versus interstitial pneumonitis.
[2021-09-25 07:19] LABS: Basophils # (auto) 0.03 K/uL (0-0.2); Basophils % (auto) 0.3 %; Eosinophils # (auto) 0.11 K/uL (0-0.5); Eosinophils % (auto) 1.2 %; Immature Granulocytes # (auto) 0.04 K/uL (0.00-0.02); Immature Granulocytes % (auto) 0.4 %; Lymphocytes # (auto) 0.26 K/uL (1.2-3.4); Lymphocytes % (auto) 2.8 %; Macrocytosis Present; Monocytes # (auto) 0.46 K/uL (0.11-0.59); Neutrophils # (auto) 8.24 K/uL (1.4-6.5); Neutrophils % (auto) 90.3 %
[2021-09-25 07:33] LABS: Albumin Globulin Ratio 1.3 (0.9-2); Albumin Level 3.3 gm/dl (3.4-5.0); BUN Creatinine Ratio 28.6 (10-20); Bilirubin,Total 0.6 mg/dl (0.2-1.0); Calcium 6.4 mg/dl (8.5-10.1); Creatinine Clr Calc Pharmacy 33.4 ml/min; Est GFR (African American) 50.8 ml/min; Est GFR (Non-African American) 43.8 ml/min; Globulin 2.6 gm/dl (2.5-4.0); Magnesium 1.9 mg/dl (1.7-2.4); Potassium 4.4 mmol/L (3.5-5.1); Total Protein 5.9 gm/dl (6.0-8.3)
[2021-09-25] MEDS: ATENOLOL 50 MG TABLET PO SCH (08:04)
[2021-09-25] MEDS: CYANOCOBALAMIN (B-12) 500 MCG TABLET PO SCH (08:04)
[2021-09-25] MEDS: MIRABEGRON ER 25 MG TAB PO SCH (08:04)
--- NOTE | 2021-09-25 08:16 | Pulmonary Consultation ---
Date of Consultation September 25, 2021 Assessment & Plan (1) Pleural effusion: (2) Acute respiratory failure with hypoxia: CT chest 09/24/2021 personally reviewed: Large loculated right-sided pleural effusion Partial atelectasis of the upper lobe, atelectasis of the right middle and right lower lobe Interlobular thickening of the left upper lobe Significant mediastinal lymphadenopathy --Large right-sided pleural effusion In a patient s/p fall hemothorax is a possibility but low in differential given the evidence of metastatic disease picture Given the history of polycythemia vera, possibility of mesothelioma Plan for thoracentesis today --History of A. 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 Christian Please note the above document was generated using voice recognition software. It may contain grammatical, syntax or spelling errors.Any formal questions or concerns about the content, text or information contained within the body of this dictation should be directly addressed to the provider for clarification. History of Present Illness Attending Physician: Dejon Christian History of Present Illness 86-year-old female was admitted to the hospital s/p fall and found to have left hip fracture Past medical history: A. 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 [employer] Allergies Allergy/AdvReac Type Severity Reaction Status Date / Time prednisone Allergy Mild Rash Verified 09/24/21 16:09 Home Medications Medication Instructions Recorded Confirmed Type lutein 20 mg capsule 20 mg PO DAILY cap 02/25/19 09/24/21 History raloxifene 60 mg tablet 60 mg PO QPM tab 02/25/19 09/24/21 History acetaminophen 650 mg 650 - 1,300 mg PO Q8H PRN 01/15/20 09/24/21 History tablet,extended release (Tylenol Arthritis Pain) garlic 1,000 mg capsule 1,000 mg PO DAILY 01/15/20 09/24/21 History cyanocobalamin (vitamin B-12) 1,000 mcg PO DAILY 10/11/20 09/24/21 History 1,000 mcg tablet (Vitamin B-12) donepezil 5 mg tablet 5 mg PO DAILY 10/11/20 09/24/21 History escitalopram oxalate 10 mg tablet 10 mg PO DAILY 10/11/20 09/24/21 History hydroxyurea 500 mg capsule See Rx Instructions .ROUTE .COMPLEX 10/11/20 09/24/21 History meclizine 12.5 mg tablet 12.5 mg PO TID PRN 10/11/20 09/24/21 History mirabegron 25 mg tablet,extended 25 mg PO DAILY 10/11/20 09/24/21 History release 24 hr (Myrbetriq) atenolol 50 mg tablet 50 mg PO DAILY 01/17/21 09/24/21 History furosemide 80 mg tablet 80 mg PO DAILY 01/17/21 09/24/21 History apixaban 5 mg tablet 5 mg PO BID 02/10/21 09/24/21 History Saccharomyces boulardii 1 cap PO DAILY 09/24/21 09/24/21 History ibuprofen 200 mg tablet 200 mg PO Q8 PRN 09/24/21 09/24/21 History methylcellulose (with sugar) oral 1 ea PO DAILY PRN 09/24/21 09/24/21 History powder (Citrucel (sucrose)) nitrofurantoin macrocrystal 50 mg 50 mg PO DAILY 09/24/21 09/24/21 History capsule ondansetron HCl 4 mg tablet 4 mg PO Q6 PRN 09/24/21 09/24/21 History Patient History Medical History A-fib Actinic keratosis Arthritis Blood disease Cellulitis Chest pain Chest pain Chronic diastolic CHF (congestive heart failure) CKD (chronic kidney disease) stage 3, GFR 30-59 ml/min Confusion Dizziness Dyslipidemia Fever GI bleed Heart palpitations History of basal cell carcinoma History of squamous cell carcinoma History of squamous cell carcinoma in situ of skin Hyperlipidemia Hypertension Hypertension Neoplasm of uncertain behavior of skin Osteopenia Peripheral vertigo Polycythemia vera (~08/2011) Polycythemia vera Sensorineural hearing loss (SNHL) of both ears Venous stasis ulcer Surgical History H/O eye surgery History of cholecystectomy Family History Mother Hypertension Father Myocardial infarction Social History Smoking Status: Never smoker Tobacco Type: Cigarettes Second Hand Exposure: No; Hx Alcohol Use: No Hx Substance Use: No Preferred Language: Latvian Communication Ability: Effective Visual Impairment: Limited Hearing Ability: Hard of Hearing Label Stamper Required: No Beliefs That Will Affect Care: None marital status: / Current Living Situation: Personal Care Facility Current Living Situation Comment: [facility] current occupational status: retired Feels Safe at Home: Yes Assistive Devices: Walker Review of Systems Review of Systems: All systems reviewed & are unremarkable except as noted in HPI & below Physical Exam Physical Exam: Constitutional: No acute distress HEENT: EOMI, PERRLA Respiratory system: Decreased air entry on the right side, positive crackles, no wheeze, no rhonchi CVS: S1-S2 positive, no murmurs or gallops Abdomen: Soft, nontender, nondistended, positive bowel sounds x4 Extremities: +2 pulses bilaterally radialis/ dorsalis pedis, no cyanosis, +1 edema left lower extremity, shortened left lower extremity Neuro: Awake alert oriented to self Psych: Normal mood and affect G/U: Positive [place] Results & Data Results & Data ([facility]) Vital Signs (Past 12 Hours) Vital Signs Temp Pulse Pulse Resp BP BP Pulse Ox 09/25/21 08:03 36.4 C L 80 20 148/80 H 93 09/25/21 04:05 36.8 C 80 20 158/80 H 91 09/25/21 00:22 92 H 09/24/21 22:20 36.7 C 95 H 22 184/93 H 93 09/24/21 22:00 Pulse Ox 09/25/21 08:03 09/25/21 04:05 09/25/21 00:22 09/24/21 22:20 09/24/21 22:00 92 Laboratory Results 09/25/21 06:20 09/25/21 06:20 PG Care Time/CCT Total # of Minutes Spent Total Time Spent with Patient: Total time spent is greater than 50% in coordination of care (as documented) at patient's floor/unit and/or counseling patient: [place] [address] Initial Inpt Care Lvl 3 Patient Type New Diagnoses Pleural effusion J90 Acute respiratory failure with hypoxia J96.01
--- NOTE | 2021-09-25 10:16 | XCELERA ---
[id number]
--- NOTE | 2021-09-25 12:02 | Procedure Note ---
Procedure Note Date of Service September 25, 2021 Note INDICATION: Large right pleural effusion PROCEDURE: Right thoracentesis DATE: 09/25/2021 TIME: 11 AM PROVIDER: Trevor Greenwood PA-C CONSENT: Was obtained prior to the procedure by Trevor Greenwood PA-C as delegated by Dr. Merino and placed on the chart PROCEDURE SUMMARY: Bedside ultra sound was performed to identify an appropriate puncture site. Images were saved to the [employer] system. A time out was performed. The patient was prepped and draped in a sterile manner using chlorhexidine scrub after the appropriate level was confirmed by ultrasound. 1% lidocaine was used to numb the region. A finder needle was then used under negative pressure to locate fluid and instill lidocaine into the pleural space. A small incision was made with a #10 scalpel. A needle with overlying catheter was advanced using negative pressure on the syringe until a pleural flash was obtained. The thoracentesis catheter was then threaded without difficulty and without any bleeding. The patient had 1800mL of cloudy teagan fluid removed. The incision site was then covered with two Band-Aids with no evidence of bleeding. No immediate complications were noted during the procedure. Dr. Merino and Madeline Hoyt PA-C were contacted after the procedure with results. A post-procedure chest x-ray was completed and reviewed at bedside by this provider and no pneumothorax was identified. The patient tolerated the procedure well with no shortness of breath, no hypotension, no increase in heart rate, and no other acute symptoms. Coding CPT Codes Pulmonary/Thoracic - Pulmonary and Thoracic: 01422 Thoracentesis w imaging ([id number]) Pulmonary/Thoracic - Pulmonary and Thoracic: 93190 US, Chest, real time with imaging documentation ([id number]) [facility] [place] (Charges) Pulmonary/Thoracic Procedure 1: Pulmonary and Thoracic: 93183 Thoracentesis w imaging Procedure 2: Pulmonary and Thoracic: 83740 US, Chest, real time with imaging documentation
--- NOTE | 2021-09-25 12:11 | XRay Report ---
SINGLE VIEW CHEST CLINICAL HISTORY: Status post thoracentesis. FINDINGS: An AP, portable, upright chest radiograph is compared to chest x-ray and chest CT dated 09/04. A right paratracheal density corresponds to thyroid goiter. The heart is enlarged noting athe rosclerotic calcification of the thoracic aorta. There is pulmonary vascular congestion. There is a s mall residual right pleural effusion with foci of patchy consolidation throughout the right lung. A s mall pleural effusion is also seen on the left. No pneumothorax is identified. The skeletal structure s are heterogeneously osteopenic. The bony thorax is grossly intact. IMPRESSION: 1. Cardiomegaly with pulmonary vascular congestion. 2. There is a small residual right pleural effusion with patchy foci of consolidation throughout the right lung. The pleural effusion has significantly decreased in size from yesterday and no pneumothor ax is seen post procedure. 3. There is also a small pleural effusion on the left. ACT 112: Negative or not required by law. Electronically signed by: Trevor Babin M.D. 09/25/2021 12:10 PM
[2021-09-25 12:52] LABS: Total Protein Pleural Fluid 3.7 gm/dl
[2021-09-25 13:39] LABS: Appearance Pleural Fluid CLOUDY; Color Pleural Fluid YELLOW; RBC Pleural Fluid (A) < 3000 /uL; Source Pleural Fluid RIGHT LUNG; WBC Pleural Fluid (A) 4614 /uL
--- NOTE | 2021-09-25 13:57 | Orthopedic Progress Note ---
Date of Service September 25, 2021 Assessment & Plan (1) Left displaced femoral neck fracture: No changes to the orthopedic plan of care. Please contact us when she is cleared for surgery. We will continue to follow. She is tentatively scheduled for tomorrow for Dr. Manzano or Nhan, pending clearance. Subjective She reports noticeable pain to the hip but tolerable compared to the thoracocentesis site. No family at the bedside today. Review of Systems All systems reviewed & are unremarkable except as noted in HPI & below. Physical Exam General: She is sleepy but arousable. Answers questions logically. She is on high flow oxygen from the recent procedure. Left lower extremity: There is no overlying skin compromise about the hip. She is irritable with logroll. She can perform knee extension, active dorsiflexion/plantarflexion, and and wiggle her toes. She is neurovascular intact. There is mild edema in that extremity as described before. Constitutional WD/WN, vitals as above no acute distress and not intoxicated appearing Respiratory normal respiratory effort; no labored breathing Cardiovascular Extremities: normal capillary refill Results & Data Results & Data Laboratory Results . Diagnostic Findings . PG Care Time/CCT Total # of Minutes Spent Total Time Spent with Patient: Total time spent is greater than 50% in coordination of care (as documented) at patient's floor/unit and/or counseling patient: Coding Level of Care Code 24720 Subseq Hosp Care Lvl 2 Diagnoses Left displaced femoral neck fracture S72.002A
[2021-09-25] MEDS: cefTRIAXone SODIUM 1,000 MG in DEXTROSE 5% 50 ML IV SCH (15:40)
[2021-09-25] MEDS: oxyCODONE HCL IR 5 MG TAB (IMMEDIATE RELEASE) PO PRN (17:15)
[2021-09-25] MEDS: RALOXIFENE HCL 60 MG TAB PO SCH (19:47)
--- NOTE | 2021-09-25 20:36 | Hospitalist Progress Note ---
Date of Service September 25, 2021 Assessment & Plan (1) Left displaced femoral neck fracture: Plan: Fall at [facility] -- unclear if she tripped vs legs gave out. Hx UTIs on nitrofurantoin for prophylaxis and was to be taken to PCP by daughter for concerns of UTI recently Imaging with L hip fracture Will check Vit D level -- Ca low at 6.1 on admission with normal albumin, low ionized Ca and will also give 1gm IV calcium gluconate Pain control IV/PO ANtiemetics PRN Orthopedics consulted Diet for now, NPO after midnight CXR with LARGE R sided effusion, no rib fx on imaging/chest tenderness --> Pulmonary consulted --> rec for CT WITH CONTRAST to eval hemothorax --> ordered. Also ordered ECHO given SOB /edema On eliquis so no need for venous dopplers for edema S/P thoracocenthesis Plan is for surgery repair of left displaced femoral neck fracture Holding eliquis Trend H&H Q8H (2) Pleural effusion: Plan: Osteoblastic skeletal lesions noted on CT scan. Likely malignant effusion. Awaiting pathology report on effusion. (3) Acute UTI (urinary tract infection): Plan: UA indicative of such Rocephin in ER, continued Monitor urine cx Of note, on nitrofurantoin for chronic prophylaxis -- may have resistance (4) SOB (shortness of breath): Plan: supplemental o2 as needed LARGE R effusion CT w/ contrast per pulm, also on consult ?ronen Sanchez held, trending H&H (5) Acute pain of left hip: Plan: improvement of pain control with dilaudid but will continue morphine 1mg IV for breakthrough, oxycodone for moderate. Continue tylenol (6) Accidental fall: Plan: suspect 2nd to UTI as above (7) Hypoxia: Plan: improved with supplemental O2 see #2 above (8) Weakness: Plan: 2nd to above tx as outlined (9) Chronic diastolic CHF (congestive heart failure): Plan: Most recent ECHO 07/25/19 NEGATIVE Dobutamine Stress ECHO -- with normal LV size and systolic function EF 60-65%. No wma, moderate asymmetric hypertrophy of basal anteroseptum. Mildly dilated RV and normal systolic function. Moderate LAD, Mild RAD, sclerotic aortic valve without significant stenosis. Mild pulmonary hypertension; estimated RVSP 40mmHg. On lasix 80mg daily, on hold for RICA IVF as above BMP in AM (10) CKD (chronic kidney disease) stage 3, GFR 30-59 ml/min: Plan: acute RICA in setting of CKD IVF as above Hold lasix in AM Tx of UTI as above Renally dose medications and avoid nephrotoxic agents when able (11) Polycythemia vera: Plan: Typically gets monthly labs to see if needs phlebotomy for such and is on hydroxyurea hgb not elevated -- see above Trend CBC (12) Anemia, macrocytic: Plan: hx polycythemia, no recent B12/folate levels and will check for completeness. (13) Sensorineural hearing loss (SNHL) of both ears: Plan: b/l hearing aides in place (14) Hypertension: Plan: continue home atenolol BP stable holding lasix for above Monitor (15) A-fib: Plan: On eliquis, also with prior hx DVT RLE last summer. Rate controlled Holding eliquis for OR/possible hemothorax as above Monitor on telemetry Plan: DVT prophylaxis -- SCD/rosio hose for now, eliquis on hold for above PT/OT following surgical intervention CT as above, pulm on consult NPO after midnight Admission and Anticipated Discharge Date Admission Date: September 24, 2021 Subjective 86 yo female reports no new symptoms. Breathing better after thoracocenthesis. Has some mild pain after procedure. Patient also complaining of left hip pain. Daughter is updated at bedside. Review of Systems Review of Systems: All systems reviewed & are unremarkable except as noted in HPI & below Physical Exam Physical Exam: General: WD/WN female laying in hospital bed, not moving much, no acute distress at rest Eyes: Anicteric, pupils equal and reactive, bilateral hearing aides in place ENT: slightly dry mm, trachea midline without deviation Chest: chest wall non-tender to palpation Resp: diminished R lung field posteriorly, associated crackles, no wheezing, not tachypneic, on 3L NC with SpO2 93% CV: irregularly irregular (rate 70bpm), no m/r/g, 1+ b/l LE edema, calves non- tender and pulses palpable, slight erythema to medial aspect of L ankle. L>R LE edema GI: +BS, soft , non-tender MSK: LLE shortened and externally rotated, pain with movement but NVI, slight hematoma to lateral aspect femur , tender Psych: alert to person/place, not time (per daughter ongoing for couple of days/weeks), pleasant and cooperative Neuro: no focal deficits, CN intact bilaterally grossly Results & Data Results & Data ([facility]) Vital Signs (Past 12 Hours) Vital Signs Temp Pulse Pulse Resp BP Pulse Ox 09/25/21 19:16 36.8 C 65 18 117/61 95 09/25/21 16:12 36.4 C L 63 18 115/61 95 09/25/21 15:43 61 09/25/21 13:34 65 24 110/65 96 09/25/21 11:47 36.3 C L 65 20 114/68 97 PG Care Time/CCT Total # of Minutes Spent Total Time Spent with Patient: Total time spent is greater than 50% in coordination of care (as documented) at patient's floor/unit and/or counseling patient: Coding Level of Care Code 88261 Subseq Hosp Care Lvl 3 Diagnoses Left displaced femoral neck fracture S72.002A Acute UTI (urinary tract infection) N39.0 SOB (shortness of breath) R06.02 Acute pain of left hip M25.552 Accidental fall W19.XXXA Hypoxia R09.02 Weakness R53.1 Chronic diastolic CHF (congestive heart failure) I50.32 CKD (chronic kidney disease) stage 3, GFR 30-59 ml/min N18.30 Polycythemia vera D45 Anemia, macrocytic D53.9 Sensorineural hearing loss (SNHL) of both ears H90.3 Hypertension I10 A-fib I48.91 Pleural effusion J90 Time Spent (min) 35
[2021-09-26] MEDS ORDERED: MoRPHine SULFATE 2 MG/ML CARP IV STA (01:58)
[2021-09-26] MEDS: MoRPHine SULFATE 2 MG/ML CARP IV PRN (05:30)
[2021-09-26] MEDS ORDERED: BUPIVACAINE 0.5 % 5 MG/1 ML PF 10ML VIAL ONE (06:40)
[2021-09-26 08:50] LABS: Basophils # (auto) 0.06 K/uL (0-0.2); Basophils % (auto) 0.6 %; Eosinophils # (auto) 0.16 K/uL (0-0.5); Eosinophils % (auto) 1.6 %; Hematocrit (blood only) 38.5 % (37-47); Hemoglobin 12.4 g/dL (12.0-16.0); Immature Granulocytes # (auto) 0.04 K/uL (0.00-0.02); Immature Granulocytes % (auto) 0.4 %; Lymphocytes # (auto) 0.42 K/uL (1.2-3.4); Lymphocytes % (auto) 4.3 %; Mean Corpuscular Hemoglobin 37.3 pg (25-34); Mean Corpuscular Hgb Conc 32.2 g/dL (32-36); Mean Platelet Volume 9.3 fL (7.4-10.4); Monocytes # (auto) 0.54 K/uL (0.11-0.59); Monocytes % (auto) 5.5 %; Neutrophils # (auto) 8.53 K/uL (1.4-6.5); Neutrophils % (auto) 87.6 %; Platelet Count 424 K/uL (130-400); RDW Coefficient of Variation 15.6 % (11.5-14.5); RDW Standard Deviation 65.2 fL (36.4-46.3); Red Blood Count 3.32 M/uL (4.2-5.4); White Blood Count 9.75 K/uL (4.8-10.8)
[2021-09-26 09:13] LABS: RBC Morphology Unremarkable
[2021-09-26 09:14] LABS: BUN Creatinine Ratio 27.8 (10-20); Calcium 6.8 mg/dl (8.5-10.1); Creatinine Clr Calc Pharmacy 34.3 ml/min; Est GFR (African American) 53.1 ml/min; Est GFR (Non-African American) 45.8 ml/min; Potassium 4.2 mmol/L (3.5-5.1)
--- NOTE | 2021-09-26 09:22 | Pulmonology Progress Note ---
Date of Service September 26, 2021 Assessment & Plan (1) Pleural effusion: (2) Acute respiratory failure with hypoxia: Plan: CT chest 09/24/2021 personally reviewed: Large loculated right-sided pleural effusion Partial atelectasis of the upper lobe, atelectasis of the right middle and right lower lobe Interlobular thickening of the left upper lobe Significant mediastinal lymphadenopathy --Large right-sided pleural effusion In a patient s/p fall hemothorax is a possibility but low in differential given the evidence of metastatic disease picture Given the history of polycythemia vera, possibility of mesothelioma s/p thoracentesis 09/25/21, exudative as per lights criteria looking at LDH Pleural fluid: LDH 1726, total protein 3.7, pH 7.16, glucose 79 --History of A. 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 Recommend 6-8 ml/kg of tidal volume No further recommendation from pulmonary perspective. We will sign off, please call directly with any questions Please note the above document was generated using voice recognition software. It may contain grammatical, syntax or spelling errors.Any formal questions or concerns about the content, text or information contained within the body of this dictation should be directly addressed to the provider for clarification. Admission and Anticipated Discharge Date Admission Date: September 24, 2021 Subjective Seen and examined at bedside. No acute distress Patient was a bit restless. This is most likely an underlying dementia She did answer all the questions appropriately Denies any chest pain, she stated that shortness of breath is significantly improved after removal of the fluid from the right side of her chest Does complain of some chest tightness Denies any headache, no nausea or vomiting Nurse was at bedside at time of examination. Review of Systems Review of Systems: All systems reviewed & are unremarkable except as noted in Subjective Physical Exam Physical Exam: Constitutional: No acute distress HEENT: EOMI, PERRLA Respiratory system: Decreased air entry b/l, positive crackles bilaterally, no wheeze, no rhonchi CVS: S1-S2 positive, no murmurs or gallops Abdomen: Soft, nontender, nondistended, positive bowel sounds x4 Extremities: +2 pulses bilaterally radialis/ dorsalis pedis, no cyanosis, +1 edema left lower extremity, shortened left lower extremity Neuro: Awake alert oriented to self Psych: Normal mood and affect G/U: Positive [place] Results & Data Results & Data ([facility]) Vital Signs (Past 12 Hours) Vital Signs Temp Pulse Pulse Resp BP BP Pulse Ox 09/26/21 07:00 36.8 C 86 18 142/63 H 95 09/26/21 03:56 36.6 C 81 16 136/69 94 09/26/21 00:24 36.2 C L 75 16 113/69 92 09/26/21 00:06 84 09/25/21 22:00 Pulse Ox 09/26/21 07:00 09/26/21 03:56 09/26/21 00:24 09/26/21 00:06 09/25/21 22:00 95 Laboratory Results 09/26/21 08:31 09/26/21 08:31 PG Care Time/CCT Total # of Minutes Spent Total Time Spent with Patient: Total time spent is greater than 50% in coordination of care (as documented) at patient's floor/unit and/or counseling patient: [place] [address] Subseq Hosp Care Lvl 2 Patient Type Established Diagnoses Pleural effusion J90 Acute respiratory failure with hypoxia J96.01
[2021-09-26] MEDS: ATENOLOL 50 MG TABLET PO SCH (09:51)
[2021-09-26] MEDS: MIRABEGRON ER 25 MG TAB PO SCH (09:52)
[2021-09-26] MEDS: CYANOCOBALAMIN (B-12) 500 MCG TABLET PO SCH (09:52)
--- NOTE | 2021-09-26 11:00 | CT Scan Report ---
HEAD CT NONCONTRAST CT DOSE: 912.23 mGycm HISTORY: hx fall with fracture and head injury, pupil asymmetry TECHNIQUE: Multiaxial CT images of the head were performed without the use of intravenous contrast. A utomated exposure control was utilized for this study. A dose lowering technique was utilized adheri ng to the principles of ALARA. Comparison: Head CT 01/26/2021. Findings: The paranasal sinuses and mastoid air cells are clear. The calvarium and skull base are int act. There is no mass, hematoma, midline shift, acute infarct. White matter hypodensity is nonspecifi c but suggestive of microvascular ischemic change. The ventricles and sulci demonstrate mild age-rela rosio involutional changes. Impression: No acute intracranial abnormality. Atrophy and microvascular ischemic changes. ACT 112: Negative or not required by law. Electronically signed by: Nahum Barragan M.D. 09/26/2021 10:59 AM
--- NOTE | 2021-09-26 11:42 | Electrocardiogram Report ---
Test Reason : Blood Pressure : / mmHG Vent. Rate : 063 BPM Atrial Rate : 063 BPM P-R Int : 192 ms QRS Dur : 142 ms QT Int : 526 ms P-R-T Axes : 043 -32 095 degrees QTc Int : 538 ms Normal sinus rhythm Left axis deviation Left bundle branch block Abnormal ECG When compared with ECG of 25-SEP-2020 13:42, (unconfirmed) Premature atrial complexes are no longer Present Confirmed by Rahat Tran ([id number]) on 09/26/2021 11:42:26 AM Referred By: Kevin Zamarripa [place] Confirmed By:Sav Tran
[2021-09-26] MEDS ORDERED: fentaNYL citrate 100 MCG/2 ML VIAL ONE (11:44)
[2021-09-26] MEDS ORDERED: BUPIVACAINE 0.25% 30 ML VIAL ONE (11:49)
--- NOTE | 2021-09-26 12:35 | History & Physical Bridge Note ---
Date of Service September 26, 2021 History & Physical Bridge Note I have examined the patient, reviewed the History & Physical and in the interval since the performance of the History & Physical I have noted the following changes of clinical significance: no changes noted
[2021-09-26] MEDS ORDERED: EPINEPHrine INJ 1 MG/ML AMP ONE (12:37)
[2021-09-26] MEDS ORDERED: BUPIVACAINE 0.5 % 5 MG/1 ML MPF 30ML VIAL ONE (12:37)
[2021-09-26] MEDS ORDERED: ceFAZolin 330 MG/ML 1 GM VIAL ONE (13:10)
[2021-09-26] MEDS ORDERED: PROPOFOL IV EMULSION 10 MG/ML 20 ML VIAL IV ONE (13:15)
[2021-09-26] MEDS ORDERED: LIDOCAINE 2% 2 ML VIAL/AMP(20MG/ML) INFIL ONE (13:15)
[2021-09-26] MEDS ORDERED: ROCURONIUM BROMIDE 10 MG/ML 5 ML VIAL IV ONE (13:15)
[2021-09-26] MEDS ORDERED: ONDANSETRON INJ 2 MG/ML 2 ML VIAL ONE (13:16)
[2021-09-26] MEDS ORDERED: ePHEDrine sulfate 50 MG/ML SYR ONE (13:16)
[2021-09-26] MEDS ORDERED: PHENYLEPHRINE HCL 10 MG/ML VIAL ONE (13:16)
--- NOTE | 2021-09-26 13:16 | Procedure Note ---
Procedure Note Date of Service September 26, 2021 Note Radial arterial line placed in preop in preparation for left hip surgery with Dr. Justin. Right wrist prepped with chlorhexidine and draped with sterile towels. Site infiltrated with 2 cc of 1% lidocaine. 20 G angiocath placed unde r sterile technique utilizing sterile gloves, surgical hats and masks. Catheter threaded using seldinger technique with return of pulsatile, bright red blood. Site covered with occlusive dressing and taped in place. Waveform consistent with correct arterial placement. After placement, fingers of procedural hand had normal perfusion. Patient tolerated procedure well without complications. Cathleen Verdugo MD, PhD Anesthesiologist Coding
[2021-09-26] MEDS ORDERED: ONDANSETRON INJ 2 MG/ML 2 ML VIAL IV PRN (13:20)
[2021-09-26] MEDS ORDERED: ePHEDrine sulfate 50 MG/ML AMP IV PRN (13:20)
[2021-09-26] MEDS ORDERED: ATROPINE SULFATE 0.1 MG/ML 10ML SYR IV PRN (13:20)
[2021-09-26] MEDS ORDERED: fentaNYL citrate 100 MCG/2 ML VIAL IV PRN (13:20)
[2021-09-26] MEDS ORDERED: ceFAZolin 1000MG 1,000 MG/7.5 ML SYR IV ONE (13:56)
[2021-09-26] MEDS ORDERED: NEOSTIGMINE METHYLSULFATE 1 MG/ML 10ML VIAL ONE (14:08)
[2021-09-26] MEDS ORDERED: GLYCOPYRROLATE 0.2 MG/ML VIAL ONE (14:08)
[2021-09-26] MEDS ORDERED: ESMOLOL HCL INJ 10 MG/ML 10ML VIAL IV ONE (14:18)
--- NOTE | 2021-09-26 14:27 | Post Operative Brief Note ---
PG Immediate Post Op with CF Date of Surgery September 26, 2021 Pre & Post Diagnosis Operation Date: 09/25/21 09:50 <No data on this case meets the specified criteria> Operation Date: 09/26/21 12:30 Pre-Op Diagnosis: Left displaced femoral neck/hip Fracture Post-Op Diagnosis: Left displaced femoral neck/hip Fracture I identified the patient and participated in the time-out.: Yes Procedure Operation Date: 09/25/21 09:50 <No data on this case meets the specified criteria> Operation Date: 09/26/21 12:30 Actual Procedures p Left Hip Hemiarthroplasty(Left) - Francisco Justin MD Surgeon Francisco Justin MD Barkeeper Mikey Pacheco PA-C Estimated Blood Loss 100 Findings Consistent with Post-Op Diagnosis Specimens Specimen Description: A. Left Femoral Head Drains Lang Catheter (Patient came to OR with lang catheter already in place) Anesthesia Type General Complications none
--- NOTE | 2021-09-26 15:23 | Anesthesiology Progress Note ---
Date of Service September 26, 2021 Anesthesia Post Procedure Vital Signs Vital Signs: Temp Pulse Pulse Resp BP BP Pulse Ox 09/26/21 15:05 36.4 C L 85 16 153/83 H 93 09/26/21 14:55 85 20 136/78 93 09/26/21 14:45 84 18 139/72 94 09/26/21 14:35 85 15 126/67 94 09/26/21 14:26 36.5 C 111 H 17 147/83 H 93 09/26/21 11:58 36.6 C 71 16 132/67 93 09/26/21 08:00 74 09/26/21 07:00 36.8 C 86 18 142/63 H 95 09/26/21 03:56 36.6 C 81 16 136/69 94 09/26/21 00:24 36.2 C L 75 16 113/69 92 09/26/21 00:06 84 09/25/21 22:00 09/25/21 19:16 36.8 C 65 18 117/61 95 09/25/21 16:12 36.4 C L 63 18 115/61 95 09/25/21 15:43 61 Pulse Ox 09/26/21 15:05 09/26/21 14:55 09/26/21 14:45 09/26/21 14:35 09/26/21 14:26 09/26/21 11:58 09/26/21 08:00 09/26/21 07:00 09/26/21 03:56 09/26/21 00:24 09/26/21 00:06 09/25/21 22:00 95 09/25/21 19:16 09/25/21 16:12 09/25/21 15:43 Pain Intensity Left Hip: Pain Intensity: 10 Transfer of Care Handoff Completed per policy Notes Mental Status: alert / awake / arousable and participated in evaluation Patient Amnestic to Procedure: Yes Nausea / Vomiting: adequately controlled Pain: adequately controlled Airway Patency, RR, SpO2: stable & adequate BP & HR: stable & adequate Hydration State: stable & adequate Anesthetic Complications: no major complications apparent
--- NOTE | 2021-09-26 15:24 | XRay Report ---
LEFT ANKLE 3 VIEWS CLINICAL HISTORY: Fall with left ankle injury. FINDINGS: 3 views of the left ankle are obtained. No prior studies are available for comparison at th e time of dictation. The skeletal structures are osteopenic. No acute fracture is identified. The ank le mortise is intact. No joint effusion is identified. Soft tissue edema is present around the ankle. IMPRESSION: Soft tissue swelling with no fracture identified. Electronically signed by: Trevor Babin M.D. 09/26/2021 3:23 PM
[2021-09-26] MEDS: SODIUM CHLORIDE 0.9% 1000ML 1,000 ML IV SCH (16:05)
--- NOTE | 2021-09-26 16:06 | XRay Report ---
AP PELVIS, CROSSTABLE LATERAL LEFT HIP History: Left hip hemiarthroplasty. Degenerative arthritis. Postop. FINDINGS: The patient is status post a left hip hemiarthroplasty. The hardware is intact. No fracture or dislocation. Skin minda are in place. IMPRESSION: Left hip hemiarthroplasty. No evidence for hardware complication. ACT 112: Negative or not required by law. Electronically signed by: Nahum Barragan M.D. 09/26/2021 4:04 PM
[2021-09-26] MEDS: cefTRIAXone SODIUM 1,000 MG in DEXTROSE 5% 50 ML IV SCH (16:08)
--- NOTE | 2021-09-26 16:53 | Hospitalist Progress Note ---
Date of Service September 26, 2021 Assessment & Plan (1) Left displaced femoral neck fracture: Plan: Left displaced femoral neck fracture Patient with a fall [facility] Calcium low on admission, given IV calcium on admission Orthopedics consulted, surgical intervention delayed due to pleural effusion/oxygen requirements CXR: Large right-sided effusion, pulmonary consulted, CT obtained, status post thoracentesis Following thoracentesis patient's breathing was stable, okay to proceed with surgery Anticipate left hip hemiarthroplasty today Eliquis temporarily held Trend H&H (2) Pleural effusion: Plan: -Osteoblastic skeletal lesions noted on CT scan. 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 -Awaiting pathology report on effusion. (3) Acute UTI (urinary tract infection): Plan: -UA infected appearing On empiric Rocephin, continue UC pending Patient on chronic Macrobid for prophylaxis, may have resistance or this may be with reduced efficacy due to being GFR dependent (4) SOB (shortness of breath): Plan: Large right-sided pleural effusion on CXR and CT Pulm consulted, spost thoracentesis 09/25/2021. Exudative effusion, cytology pending Cytology pending (5) Acute pain of left hip: Plan: improvement of pain control with dilaudid but will continue morphine 1mg IV for breakthrough, oxycodone for moderate. Continue tylenol (6) Accidental fall: Plan: suspect 2nd to UTI as above (7) Hypoxia: Plan: improved with supplemental O2 see #2 above (8) Weakness: Plan: 2nd to above tx as outlined (9) Chronic diastolic CHF (congestive heart failure): Plan: Most recent ECHO 07/25/19 NEGATIVE Dobutamine Stress ECHO -- with normal LV size and systolic function EF 60-65%. No wma, moderate asymmetric hypertrophy of basal anteroseptum. Mildly dilated RV and normal systolic function. Moderate LAD, Mild RAD, sclerotic aortic valve without significant stenosis. Mild pulmonary hypertension; estimated RVSP 40mmHg. On lasix 80mg daily, on hold for RICA IVF as above BMP in AM (10) CKD (chronic kidney disease) stage 3, GFR 30-59 ml/min: Plan: Acute RICA on CKD on admission, creatinine normalized to 1.0824 Patient mildly hypotensive following surgical intervention of her hip, Lasix held today, resume tomorrow if doing well BMP daily Renally dose medications Continue UTI treatment (11) Polycythemia vera: Plan: Typically gets monthly labs to see if needs phlebotomy for such and is on hydroxyurea hgb not elevated -- see above Trend CBC (12) Anemia, macrocytic: Plan: hx polycythemia, no recent B12/folate levels and will check for completeness. (13) Sensorineural hearing loss (SNHL) of both ears: Plan: b/l hearing aides in place (14) Hypertension: Plan: continue home atenolol BP stable holding lasix for above Monitor (15) A-fib: Plan: On eliquis, also with prior hx DVT RLE last summer. Rate controlled Holding eliquis perioperatively Monitor on telemetry (16) Anisocoria: Plan: DVT prophylaxis -- SCD/rosio hose for now, eliquis on hold for above PT/OT following surgical intervention Resume diet postop Admission and Anticipated Discharge Date Admission Date: September 24, 2021 Subjective Seen at the bedside in the morning. Feels her breathing is greatly improved from previous, feels at her normal baseline to her today. Denies fever, chills, sweats, difficulty breathing, shortness of breath, chest pain, chest pressure, nausea at time of assessment. Endorses some chest tightness which improves with movement in bed and positionally. Does have some leftAnkle pain worsened with m oving. Prominently tender on medial malleolus, reportedly was crying out when touched on the ankle per nursing staff. Patient denies pain other than this and in her hip at this time. Review of Systems Review of Systems: All systems reviewed & are unremarkable except as noted in Subjective Physical Exam Physical Exam: General: A&Ox3. NAD. Cooperative. HEENT: Atraumatic, normocephalic. Right pupil dilated, slightly irregular, and poorly responsive to light. Acuity intact, but diminished compared to the left. Left pupil comparatively contracted, appropriately responsive to light with acuity intact. Pulm: Bibasilar crackles, otherwise CTAB A&P. -wheezes, -rales, -rhonchi. Symmetrical chest rise. No increase in work of breathing. No respiratory distress. Cardiac: RRR, -mrg. Radial pulses intact and symmetrical. Abdominal: Nontender, nondistended, soft. BS present. Extremities: Left medial malleolus very tender to palpation, pain worsened with ankle dorsiflexion and plantar flexion. PT pulse intact bilaterally. Skin warm and dry. Right lower extremity intact. Sensation to soft touch intact bilaterally. Results & Data Results & Data ([facility]) Vital Signs (Past 12 Hours) Vital Signs Temp Pulse Pulse Resp BP BP Pulse Ox 09/26/21 15:45 36.8 C 86 14 131/70 90 09/26/21 15:25 86 20 160/81 H 93 09/26/21 15:15 87 17 157/79 H 93 09/26/21 15:05 36.4 C L 85 16 153/83 H 93 09/26/21 14:55 85 20 136/78 93 09/26/21 14:45 84 18 139/72 94 09/26/21 14:35 85 15 126/67 94 09/26/21 14:26 36.5 C 111 H 17 147/83 H 93 09/26/21 11:58 36.6 C 71 16 132/67 93 09/26/21 08:00 74 09/26/21 07:00 36.8 C 86 18 142/63 H 95 PG Care Time/CCT Total # of Minutes Spent Total Time Spent with Patient: Total time spent is greater than 50% in coordination of care (as documented) at patient's floor/unit and/or counseling patient: Coding Level of Care Code 89370 Subseq Hosp Care Lvl 2 Diagnoses Left displaced femoral neck fracture S72.002A Pleural effusion J90 Acute UTI (urinary tract infection) N39.0 SOB (shortness of breath) R06.02 Acute pain of left hip M25.552 Accidental fall W19.XXXA Hypoxia R09.02 Weakness R53.1 Chronic diastolic CHF (congestive heart failure) I50.32 CKD (chronic kidney disease) stage 3, GFR 30-59 ml/min N18.30 Polycythemia vera D45 Anemia, macrocytic D53.9 Sensorineural hearing loss (SNHL) of both ears H90.3 Hypertension I10 A-fib I48.91 Anisocoria H57.02
--- NOTE | 2021-09-26 17:32 | Post Operative Brief Note ---
PG Immediate Post Op with CF Date of Surgery September 26, 2021 Pre & Post Diagnosis Operation Date: 09/25/21 09:50 <No data on this case meets the specified criteria> Operation Date: 09/26/21 12:30 Pre-Op Diagnosis: Left displaced femoral neck/hip Fracture Post-Op Diagnosis: Left displaced femoral neck/hip Fracture I identified the patient and participated in the time-out.: Yes Procedure Operation Date: 09/25/21 09:50 <No data on this case meets the specified criteria> Operation Date: 09/26/21 12:30 Actual Procedures p Left Hip cemented bipolar hemiarthroplasty(Left) - Francisco Justin MD Surgeon Francisco Justin MD Insurance Solicitor Mikey Pacheco PA-C Estimated Blood Loss 100 Findings Consistent with Post-Op Diagnosis Fluids 300 cc Specimens Specimen Description: A. Left Femoral Head Drains Lang Catheter (Patient came to OR with lang catheter already in place) Anesthesia Type General Complications none Disposition Accompanied Patient To Recovery: No
--- NOTE | 2021-09-26 17:36 | Operative Report ---
PG Post Operative Report Pre & Post Diagnosis Operation Date: 09/25/21 09:50 <No data on this case meets the specified criteria> Operation Date: 09/26/21 12:30 Pre-Op Diagnosis: Left displaced femoral neck/hip Fracture Post-Op Diagnosis: Left displaced femoral neck/hip Fracture I identified the patient and participated in the time-out.: Yes Procedure Operation Date: 09/25/21 09:50 <No data on this case meets the specified criteria> Operation Date: 09/26/21 12:30 Actual Procedures p Left Hip cemented bipolar hemiarthroplasty(Left) - Francisco Justin MD Surgeon Francisco Justin MD Military Personnel Specialist Mikey Pacheco PA-C Estimated Blood Loss 100 Findings Consistent with Post-Op Diagnosis Fluids 300 cc Specimens Left femoral head sent for pathology Drains none Anesthesia Type General Complications none Disposition Accompanied Patient To Recovery: No Indications Patient is an 86-year-old female sustained a fall 2 days ago. She lost her balance fell and injured her left hip. Acute onset of hip pain. She is back to emergency room x-rays were displaced femoral neck fracture. Patient was medically optimized and indicated for surgical management. She has multiple medical comorbidities and relatively high risk Description of Procedure Operative implants consist of: 1 Imani LD/fracture size 12 hip fracture femoral stem. 2. +3.5/20 mm metal articular ball with a 46 mm bipolar shell and liner. 3. Distal cement centralizer. 4. Small cement restrictor. The patient was taken the operating, identified, and placed on the operating table supine position protectors were properly padded. IV antibiotics were 5 by anesthesia team. Patient is also getting long-term cephalosporin antibiotics for urinary tract infection. A general anesthetic was implemented. Patient was then placed on the OR table in the right lateral decubitus position. A roll was placed. Stulberg hip positioner was used for positioning. Left hip and leg were then prepped and draped in usual sterile fashion. A posterior lateral approach left hip was then performed to a curvilinear incision centered over the greater trochanter. Sharp dissection got through subcutaneous tissue down to level the IT band gluteal fascia the IT band gluteal fascia incised longitudinally in line with skin incision. The underlying greater trochanter bursa was excised. The port piriformis and external rotators were tagged and taken off the posterior aspect hip joint capsule. Great care was taken throughout the procedure protect the sciatic nerve at all times. Posterior capsulotomy was then performed leaving a flap for later repair. It was internally rotated. Femoral neck osteotomy cut was made at the base of the fracture site. The proximal femur was retracted anteriorly. The femoral head was removed and sized. Sized to a size 46. We trialed this and that fit appropriately. Attention drawn the femur. The proximal femur was entered with a cookie-cutter followed by canal finder and lateralizing reamer. Then broached beginning with size 8 and progressing to 12. We got to the 13 but I was as high as I could get and therefore we elect to place a 12 stem. We trialed the hip and the +3.5 articular ball provided appropriate leg lengths, full stability and appropriate offset and soft tissue tension. We elect to place these implants. Nupathe all trial implants were removed. A distal cement restrictor was placed. A double batch Palacos G cement was mixed and injected in the canal. A size 12 femoral stem was then placed. Once the cement hardened a +3.5 metal articular ball with a a bipolar shell and liner were placed and the hip was located. Once again found to be stable. The posterior capsule was then repaired with #2 Tycron suture. The external rotators repaired to the posterior aspect hip abductors with #2 Tycron suture. The IT band gluteal fascia then closed in 1 PDS suture running fashion the subcutaneous tissue then closed 2 layers the deep layer #1 Vicryl suture and subcutaneous tissues with 2 Dexon suture in a buried interrupted fashion the skin was closed skin minda. Leg was then cleaned and dried a sterile dressing was Xeroform, 4 fours, sterile ABD pad, foam tape was applied. Patient then brought out of general anesthesia and transferred to the recovery in stable condition. Patient tolerated procedure well no complications. Mikey Pacheco, my physician nursing assistants teacher, was present for the entire procedure. His assistance was essential and required for appropriate patient positioning, prepping and draping, surgical exposure, performing the technical details of the operation, placement the implants, closure of the wound, and placement of the sterile bandage. I attest to the content of the Intraoperative Record and any orders documented therein. Any exceptions are noted below.
[2021-09-26] MEDS: RALOXIFENE HCL 60 MG TAB PO SCH (21:00)
[2021-09-27] MEDS: SODIUM CHLORIDE 0.9% 1000ML 1,000 ML IV SCH (04:23)
[2021-09-27 07:19] LABS: Basophils # (auto) 0.03 K/uL (0-0.2); Basophils % (auto) 0.4 %; Eosinophils # (auto) 0.16 K/uL (0-0.5); Eosinophils % (auto) 2.2 %; Hematocrit (blood only) 32.7 % (37-47); Hemoglobin 10.3 g/dL (12.0-16.0); Immature Granulocytes # (auto) 0.03 K/uL (0.00-0.02); Immature Granulocytes % (auto) 0.4 %; Lymphocytes # (auto) 0.39 K/uL (1.2-3.4); Lymphocytes % (auto) 5.4 %; Mean Corpuscular Hemoglobin 36.8 pg (25-34); Mean Corpuscular Hgb Conc 31.5 g/dL (32-36); Mean Corpuscular Volume 116.8 fL (80-100); Mean Platelet Volume 9.1 fL (7.4-10.4); Monocytes # (auto) 0.33 K/uL (0.11-0.59); Monocytes % (auto) 4.6 %; Neutrophils # (auto) 6.29 K/uL (1.4-6.5); Platelet Count 310 K/uL (130-400); RDW Coefficient of Variation 15.6 % (11.5-14.5); RDW Standard Deviation 65.7 fL (36.4-46.3); White Blood Count 7.23 K/uL (4.8-10.8)
[2021-09-27 07:41] LABS: BUN Creatinine Ratio 28.1 (10-20); Calcium 6.7 mg/dl (8.5-10.1); Creatinine Clr Calc Pharmacy 33.6 ml/min; Est GFR (African American) 49.7 ml/min; Est GFR (Non-African American) 42.9 ml/min; Potassium 4.6 mmol/L (3.5-5.1)
--- NOTE | 2021-09-27 07:46 | Progress Notes ---
DATE OF NOTE: 09/27/2021 SUBJECTIVE: An 86-year-old white female postoperative day 1 from a left cemented bipolar hip arthrop lasty. She is doing pretty well this morning. Denies any significant pain. No chest pain or shortn ess of breath. OBJECTIVE: VITAL SIGNS: Temperature is 36.3. Vital signs are stable. GENERAL: Shows a frail, elderly female. She is sitting up in bed and looks pretty comfortable this morning. EXTREMITIES: Examination of the left hip reveals the leg lengths to be equal. Dressing is clean, dr y and intact. Thigh is soft and supple. She can dorsiflex and plantarflex her foot appropriately. LABORATORY DATA: Labs are pending. ASSESSMENT: An 86-year-old white female with multiple medical comorbidities, now postoperative day 1 from a left cemented bipolar hip arthroplasty for fracture. Orthopedically, she is doing well. Molina n is controlled. Her hip is located. She is neurologically intact. PLAN: 1. DVT prophylaxis includes thigh-high TEDs, SCDs, and will put her back on a prophylactic dose of E liquis. 2. PT/OT. She can weight bear as tolerated. She needs to obey hip precautions. 3. Pain control, doing okay with current pain regimen. I would stick to Tylenol as much as possible . Avoid narcotics to avoid confusion issues. 4. Medical management as per the medicine service. 5. Disposition: She is orthopedically okay for discharge any time medically stable. I would recomm end she just stay on prophylactic dose of anticoagulation for 2 days and then a full dose after that. I need to see her back in 2-3 weeks out from surgery date. Any orthopedic questions can be directe d to me at [phone]. Job ID: [id number]
[2021-09-27 07:58] LABS: Macrocytosis Present
[2021-09-27] MEDS: CYANOCOBALAMIN (B-12) 500 MCG TABLET PO SCH (08:24)
[2021-09-27] MEDS: MIRABEGRON ER 25 MG TAB PO SCH (08:24)
[2021-09-27] MEDS: ATENOLOL 50 MG TABLET PO SCH (08:24)
[2021-09-27] MEDS: DONEPEZIL HCL 5 MG TAB PO SCH (10:29)
[2021-09-27] MEDS: ESCITALOPRAM OXALATE 10 MG TAB PO SCH (10:29)
[2021-09-27] MEDS: APIXABAN 2.5 MG TAB PO SCH ×2 (15:17→22:48)
[2021-09-27] MEDS: oxyCODONE HCL IR 5 MG TAB (IMMEDIATE RELEASE) PO PRN (15:35)
[2021-09-27] MEDS: cefTRIAXone SODIUM 1,000 MG in DEXTROSE 5% 50 ML IV SCH (16:32)
--- NOTE | 2021-09-27 16:35 | Hospitalist Progress Note ---
Date of Service September 27, 2021 Assessment & Plan (1) Left displaced femoral neck fracture: Plan: Left displaced femoral neck fracture Patient with a fall [facility] Calcium low on admission, given IV calcium on admission Orthopedics consulted, surgical intervention initially delayed due to pleural effusion/oxygen requirements CXR: Large right-sided effusion, pulmonary consulted, CT obtained, status post thoracentesis Following thoracentesis patient's breathing was stable, okay to proceed with surgery - s/p L Hip cemented bipolar hemoarthroplasty 09/26 Continue prophylactic Eliquis x2 days and resume full dose Eliquis. Continue teds, SCDs. PT/OT and weightbearing as tolerated. Patient deferred PT today due to aching Vitamin D extremely low, continue ergocalciferol 50,000 units p.o.Weekly - continue calcium supplementation (2) Pleural effusion: Plan: -Osteoblastic skeletal lesions noted on CT scan. 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 -Awaiting pathology report on effusion. (3) Acute UTI (urinary tract infection): Plan: -UA infected appearing On Rocephin, continue 5-day course until 09/30 UC positive for E. coli Rocephin sensitive Patient on chronic Macrobid for prophylaxis, E. coli is Macrobid resistant (4) SOB (shortness of breath): Plan: Large right-sided pleural effusion on CXR and CT Pulm consulted, s/post thoracentesis 09/25/2021. Exudative effusion Cytology pending Home Lasix resumed as noted (5) Acute pain of left hip: Plan: Tylenol 60 mg every 4 hours as needed Oxycodone 5 mg p.o. every 6 hours as needed for breakthrough pain (6) Accidental fall: Plan: suspect 2nd to UTI as above (7) Hypoxia: Plan: improved with supplemental O2 see #2 above (8) Weakness: Plan: 2nd to above tx as outlined (9) Chronic diastolic CHF (congestive heart failure): Plan: Most recent ECHO 07/25/19 NEGATIVE Dobutamine Stress ECHO -- with normal LV size and systolic function EF 60-65%. No wma, moderate asymmetric hypertrophy of basal anteroseptum. Mildly dilated RV and normal systolic function. Moderate LAD, Mild RAD, sclerotic aortic valve without significant stenosis. Mild pulmonary hypertension; estimated RVSP 40mmHg. On lasix 80mg daily, initially held for RICA Creatinine at baseline Resume home Lasix (10) CKD (chronic kidney disease) stage 3, GFR 30-59 ml/min: Plan: Acute RICA on CKD on admission, creatinine normalized to 1.0824 Patient mildly hypotensive following surgical intervention of her hip, Lasix held postop, resumed BMP daily Renally dose medications Continue UTI treatment (11) Polycythemia vera: Plan: Typically gets monthly labs to see if needs phlebotomy for such and is on hydroxyurea hgb not elevated -- see above Trend CBC (12) Anemia, macrocytic: Plan: hx polycythemia, no recent B12/folate levels and will check for completeness. (13) Sensorineural hearing loss (SNHL) of both ears: Plan: b/l hearing aides in place (14) Hypertension: Plan: continue home atenolol BP stable holding lasix for above Monitor (15) A-fib: Plan: On eliquis, also with prior hx DVT RLE last summer. Rate controlled Eliquis dose reduced x2 days then resume full dose Monitor on telemetry (16) Anisocoria: Plan: DVT prophylaxis -- SCD/rosio hose for now, eliquis on hold for above PT/OT following surgical intervention. Anticipate placement needs Admission and Anticipated Discharge Date Admission Date: September 24, 2021 Subjective Seen at the bedside. Intermittently confused per nursing staff, on morning assessment is oriented to name, place in no acute distress. Reports that she attempted to work with PT, but did not as her leg was very achy and did not feel that she could do it today. Denies chest pain, chest pressure, shortness of breath, difficulty breathing at bedside. Physical Exam Physical Exam: General: A&Ox3. NAD. Cooperative. HEENT: Atraumatic, normocephalic. Right pupil continues to be dilated compared to left with decreased acuity. Left pupil responsive to light. Pulm: Bibasilar crackles, otherwise CTAB A&P. -wheezes, -rales, -rhonchi. Sy mmetrical chest rise. No increase in work of breathing. No respiratory distress. Cardiac: RRR, -mrg. Radial pulses intact and symmetrical. Abdominal: Nontender, nondistended, soft. BS present. Extremities: Left ankle unchanged. Left hip surgical dressing intact, C/D/I. Sensation is soft touch intact in feet and ankles bilaterally. Patient continues to have some discomfort with plantar flexion and dorsiflexion of the left ankle, resisted hip flexion in bed pain limited on left, intact on right. DP pulse intact bilaterally. Skin warm and dry. Right lower extremity intact. Sensation to soft touch intact bilaterally. Results & Data Results & Data ([facility]) Vital Signs (Past 12 Hours) Vital Signs Temp Pulse Pulse Resp BP BP Pulse Ox 09/27/21 15:02 70 09/27/21 11:16 36.9 C 69 18 114/70 91 09/27/21 10:16 67 09/27/21 07:28 36.5 C 69 16 111/70 93 09/27/21 04:42 36.3 C L 67 18 108/53 L 95 PG Care Time/CCT Total # of Minutes Spent Total Time Spent with Patient: Total time spent is greater than 50% in coordination of care (as documented) at patient's floor/unit and/or counseling patient: Coding Level of Care Code 45142 Subseq Hosp Care Lvl 2 Diagnoses Left displaced femoral neck fracture S72.002A Pleural effusion J90 Acute UTI (urinary tract infection) N39.0 SOB (shortness of breath) R06.02 Acute pain of left hip M25.552 Accidental fall W19.XXXA Hypoxia R09.02 Weakness R53.1 Chronic diastolic CHF (congestive heart failure) I50.32 CKD (chronic kidney disease) stage 3, GFR 30-59 ml/min N18.30 Polycythemia vera D45 Anemia, macrocytic D53.9 Sensorineural hearing loss (SNHL) of both ears H90.3 Hypertension I10 A-fib I48.91 Anisocoria H57.02
[2021-09-27] MEDS ORDERED: LORazepam 2 MG/1 ML VIAL IV STA (20:59)
[2021-09-27] MEDS ORDERED: LORazepam 2 MG/1 ML VIAL ONE (21:10)
[2021-09-27] MEDS: CALCIUM CARBONATE 1250MG TAB PO SCH (22:47)
[2021-09-27] MEDS: RALOXIFENE HCL 60 MG TAB PO SCH (22:47)
[2021-09-27] MEDS: MoRPHine SULFATE 2 MG/ML CARP IV PRN (23:34)
[2021-09-28] MEDS: MoRPHine SULFATE 2 MG/ML CARP IV PRN ×2 (05:43→19:15)
[2021-09-28 06:12] LABS: Hematocrit (blood only) 34.6 % (37-47); Hemoglobin 11.1 g/dL (12.0-16.0); Mean Corpuscular Hemoglobin 37.1 pg (25-34); Mean Corpuscular Hgb Conc 32.1 g/dL (32-36); Mean Corpuscular Volume 115.7 fL (80-100); Mean Platelet Volume 9.5 fL (7.4-10.4); Platelet Count 470 K/uL (130-400); RDW Coefficient of Variation 15.6 % (11.5-14.5); RDW Standard Deviation 66.1 fL (36.4-46.3); Red Blood Count 2.99 M/uL (4.2-5.4); White Blood Count 11.31 K/uL (4.8-10.8)
[2021-09-28 06:43] LABS: Basophils # (auto) 0.02 K/uL (0-0.2); Basophils % (auto) 0.2 %; Eosinophils # (auto) 0.03 K/uL (0-0.5); Eosinophils % (auto) 0.3 %; Immature Granulocytes # (auto) 0.06 K/uL (0.00-0.02); Immature Granulocytes % (auto) 0.5 %; Lymphocytes % (auto) 3.5 %; Monocytes # (auto) 1.13 K/uL (0.11-0.59); Neutrophils # (auto) 9.67 K/uL (1.4-6.5); Neutrophils % (auto) 85.5 %
[2021-09-28 06:44] LABS: BUN Creatinine Ratio 21.8 (10-20); Creatinine Clr Calc Pharmacy 21.5 ml/min; Est GFR (African American) 29.8 ml/min; Est GFR (Non-African American) 25.7 ml/min
[2021-09-28] MEDS ORDERED: SODIUM CHLORIDE 0.9% 1000ML 250 ML IV ONE (07:16)
[2021-09-28] MEDS: CALCIUM CARBONATE 1250MG TAB PO SCH ×2 (09:34→20:37)
[2021-09-28] MEDS: APIXABAN 2.5 MG TAB PO SCH ×2 (09:34→20:37)
[2021-09-28] MEDS: CYANOCOBALAMIN (B-12) 500 MCG TABLET PO SCH (09:35)
[2021-09-28] MEDS: ESCITALOPRAM OXALATE 10 MG TAB PO SCH (09:35)
[2021-09-28] MEDS: ATENOLOL 50 MG TABLET PO SCH (09:35)
[2021-09-28] MEDS: DONEPEZIL HCL 5 MG TAB PO SCH (09:35)
[2021-09-28] MEDS: MIRABEGRON ER 25 MG TAB PO SCH (09:35)
--- NOTE | 2021-09-28 10:38 | Progress Notes ---
DATE OF SERVICE: 09/28/2021. SUBJECTIVE: An 86-year-old female postop day 2 from a left cemented bipolar hip arthroplasty. As sh e is lying in bed, looks reasonably comfortable. Kind of moans with any type of attempted motion. OBJECTIVE: VITAL SIGNS: Temperature is 36.2. Vital signs are stable. PHYSICAL EXAMINATION: GENERAL: Shows an elderly, frail female. She is lying in bed. It looks like she is resting comfort ably, but with any type of motion, she just kind of moans. EXTREMITIES: She does dorsiflex and plantarflex her foot appropriately. Her hip is located. She is neurologically intact. LABORATORY DATA: Hemoglobin 11.1. Hematocrit 34.6. Electrolytes are stable. Creatinine is a bit e levated at 1.74. ASSESSMENT: An 86-year-old female postoperative day 2 from a left cemented bipolar hip arthroplasty. Orthopedically, she seems stable. Hip is located. She is neurologically intact. Pain seems to be reasonably well controlled. PLAN: 1. DVT prophylaxis includes thigh-high TEDs, SCDs, and she is back on her Eliquis. She should be on a prophylactic dose today and then tomorrow, can go back to a therapeutic dose. 2. PT, OT, weightbear as tolerated. Left total hip protocol. She does need to obey hip precautions . She can fully weightbear as tolerated. 3. Pain control, seems to be doing okay with current pain regimen. I would limit narcotics and try and stick to Tylenol. 4. Elevated creatinine. Medicine will help manage this. Likely due to volume depleted status. Her hemoglobin is up a little bit as well suggestive of possibly some dehydration. 5. Disposition: She is orthopedically okay for discharge any time medically stable. I need to see her back two to three weeks out from surgery date. Any orthopedic questions can be directed to me at [phone]. Job ID: [id number]
[2021-09-28] MEDS: FUROSEMIDE 80 MG TAB PO SCH (11:06)
--- NOTE | 2021-09-28 11:39 | XRay Report ---
XR chest 1V portable CLINICAL HISTORY: Hypoxia. COMPARISON STUDY: Chest CT September 24, 2021. Chest radiograph September 25, 2021. FINDINGS: Innumerable skeletal lesions are better depicted on chest CT. Moderate right pleural effusi on has increased in size since chest radiograph of September 25, 2021 but remains decreased in size fr om earlier chest CT of September 24, 2021 following thoracentesis. A right midlung opacity has increas ed. Cardiomegaly is noted. Interstitial thickening persists. Trace left pleural effusion is present. IMPRESSION: 1. Moderate right pleural effusion, increased since chest radiograph of September 25, 2021. 2. Right midlung opacity which may reflect pleural fluid or airspace opacity. 3. Cardiomegaly with interstitial pulmonary edema. ACT 112: Negative or not required by law. Electronically signed by: Reynaldo George M.D. 09/28/2021 11:37 AM
--- NOTE | 2021-09-28 16:01 | Hospitalist Progress Note ---
Date of Service September 28, 2021 Assessment & Plan (1) Left displaced femoral neck fracture: Plan: Goals of Care: Family meeting held with exception on visitation to help clarify goals of care. Patient is somnolent, but does arouse and expresses understanding that she has cancer. Discussed that her fluid analysis has come back positive for metastatic adenocarcinoma most likely of gynecologic or renal origin, further send out testing is pending. Patient and her family report that they would be interested in information regarding hospice and have had a good experience with other family using hospice in the past, and do not feel that she would tolerate aggressive treatment including chemotherapy. However they would like to meet with oncology for additional discussion and prognostication, and make further decisions based this. They understand that her cancer is metastatic, with bony lesions and likely has a poor prognosis. Argelia does fall back asleep during exam, but awakens intermittently although defers answers to most questions to her family. Patient and her family confirm that she would not want CPR or intubation at this point in time, but would be okay with ACLS medications/shock if indicated. Left displaced femoral neck fracture Patient with a fall [facility] Calcium low on admission, given IV calcium on admission Orthopedics consulted, surgical intervention initially delayed due to pleural effusion/oxygen requirements CXR: Large right-sided effusion, pulmonary consulted, CT obtained, status post thoracentesis Following thoracentesis patient's breathing was stable, okay to proceed with surgery - s/p L Hip cemented bipolar hemoarthroplasty 09/26 Continue prophylactic Eliquis x2 days and resume full dose Eliquis. Continue teds, SCDs. PT/OT and weightbearing as tolerated. 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 Whether she would benefit from repeat fluoroscopy versus Pleurx. Discussed with family, would like to talk to oncology and follow for now Patient with poor nutrition and appetite suppression. Hypoalbuminemia likely contributing to third spacing, and with high healing challenge in the setting of hip fracture. Encourage meals, boost, some p.o. this morning but poor (3) Pleural effusion: Plan: -Osteoblastic skeletal lesions noted on CT scan. 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 -Pathology report on effusion indicates metastatic adenocarcinoma as above Repeat chest x-ray with pulmonary edema and likely recurrent effusion, some pulmonary edema although with RICA and elevated BUN/creatinine ratio and hypoalbuminemia this morning indicating intravascularly depleted (4) Acute UTI (urinary tract infection): Plan: -UA infected appearing On Rocephin, continue 5-day course until 09/30 UC positive for E. coli Rocephin sensitive Patient on chronic Macrobid for prophylaxis, E. coli is Macrobid resistant (5) SOB (shortness of breath): Plan: Large right-sided pleural effusion on CXR and CT Pulm consulted, s/post thoracentesis 09/25/2021. Exudative effusion See above Lasix temporarily held for RICA, repeat BMP pending, CXR likely with recurrent effusion (6) Acute pain of left hip: Plan: Tylenol 60 mg every 4 hours as needed Oxycodone 5 mg p.o. every 6 hours as needed for breakthrough pain (7) Accidental fall: Plan: suspect 2nd to UTI as above (8) Hypoxia: Plan: improved with supplemental O2 see #2 above (9) Weakness: Plan: 2nd to above tx as outlined (10) Chronic diastolic CHF (congestive heart failure): Plan: Most recent ECHO 07/25/19 NEGATIVE Dobutamine Stress ECHO -- with normal LV size and systolic function EF 60-65%. No wma, moderate asymmetric hypertrophy of basal anteroseptum. Mildly dilated RV and normal systolic function. Moderate LAD, Mild RAD, sclerotic aortic valve without significant stenosis. Mild pulmonary hypertension; estimated RVSP 40mmHg. On lasix 80mg daily, initially held for RICA Creatinine elevated as noted above, temporarily held x1 (11) CKD (chronic kidney disease) stage 3, GFR 30-59 ml/min: Plan: Acute RICA on CKD on admission, creatinine normalized to 1.03/26 Patient mildly hypotensive following surgical intervention of her hip, Lasix held postop, resumed, and again held as above BMP daily Renally dose medications Continue UTI treatment (12) Polycythemia vera: Plan: Typically gets monthly labs to see if needs phlebotomy for such and is on hydroxyurea hgb not elevated -- see above Trend CBC (13) Anemia, macrocytic: Plan: hx polycythemia, no recent B12/folate levels and will check for completeness. (14) Sensorineural hearing loss (SNHL) of both ears: Plan: b/l hearing aides in place (15) Hypertension: Plan: continue home atenolol BP stable holding lasix for above Monitor (16) A-fib: Plan: On eliquis, also with prior hx DVT RLE last summer. Rate controlled Eliquis dose reduced x2 days then resume full dose Monitor on telemetry (17) Anisocoria: Plan: DVT prophylaxis -- SCD/rosio hose for now, eliquis as above PT/OT following surgical intervention. Anticipate placement needs Admission and Anticipated Discharge Date Admission Date: September 24, 2021 Subjective Patient seen in the morning, and again with family at bedside. Family meeting held with exception on visitation to help clarify goals of care. Patient is somnolent, but does arouse and expresses understanding that she has cancer. Discussed that her fluid analysis has come back positive for metastatic adenocarcinoma most likely of gynecologic or renal origin, further send out testing is pending. Patient and her family report that they would be interested in information regarding hospice and have had a good experience with other family using hospice in the past, and do not feel that she would tolerate a ggressive treatment including chemotherapy. However they would like to meet with oncology for additional discussion and prognostication, and make further decisions based this. They understand that her cancer is metastatic, with bony lesions and likely has a poor prognosis. Argelia does fall back asleep during exam, but awakens intermittently although defers answers to most questions to her family. Patient and her family confirm that she would not want CPR or intubation at this point in time, but would be okay with ACLS medications/shock if indicated. Review of Systems Review of Systems: Endorses somnolence, denies chest pain, chest pressure, shortness of breath, difficulty breathing. Does endorse some pain in her hip at her surgical site, otherwise denies pain. Reports did have some back pain earlier which improved with repositioning. Physical Exam Physical Exam: General: A&Ox3. NAD. Cooperative. HEENT: Atraumatic, normocephalic. Right pupil continues to be dilated compared to left with decreased acuity. Left pupil responsive to light. Pulm: Bibasilar crackles, diminished breath sounds on right lower lobe. Symmetrical chest rise. No increase in work of breathing. No respiratory distress. Cardiac: RRR, -mrg. Radial pulses intact and symmetrical. Abdominal: Nontender, nondistended, soft. BS present. Extremities: Left ankle unchanged. Left hip surgical dressing intact, C/D/I. Sensation is soft touch intact in feet and ankles bilaterally. Results & Data Results & Data ([facility]) Vital Signs (Past 12 Hours) Vital Signs Temp Pulse Pulse Resp BP BP Pulse Ox 09/28/21 15:19 36.5 C 60 18 100/66 96 09/28/21 14:57 57 L 09/28/21 11:23 36.8 C 66 18 103/65 94 09/28/21 10:30 72 09/28/21 09:43 36.6 C 68 18 103/69 94 PG Care Time/CCT Total # of Minutes Spent Total Time Spent with Patient: Total time spent is greater than 50% in coordination of care (as documented) at patient's floor/unit and/or counseling patient: Coding Level of Care Code 78151 Subseq Hosp Care Lvl 3 Diagnoses Left displaced femoral neck fracture S72.002A Pleural effusion J90 Acute UTI (urinary tract infection) N39.0 SOB (shortness of breath) R06.02 Acute pain of left hip M25.552 Accidental fall W19.XXXA Hypoxia R09.02 Weakness R53.1 Chronic diastolic CHF (congestive heart failure) I50.32 CKD (chronic kidney disease) stage 3, GFR 30-59 ml/min N18.30 Polycythemia vera D45 Anemia, macrocytic D53.9 Sensorineural hearing loss (SNHL) of both ears H90.3 Hypertension I10 A-fib I48.91 Anisocoria H57.02 Metastatic adenocarcinoma C79.9
[2021-09-28] MEDS: cefTRIAXone SODIUM 1,000 MG in DEXTROSE 5% 50 ML IV SCH (16:48)
[2021-09-28] MEDS: POLYETHYLENE (MIRALAX) 17 GM PACK PO SCH (17:44)
[2021-09-28] MEDS: ACETAMINOPHEN 325 MG TAB PO PRN (18:04)
[2021-09-28] MEDS: RALOXIFENE HCL 60 MG TAB PO SCH (20:37)
[2021-09-29] MEDS: POLYETHYLENE (MIRALAX) 17 GM PACK PO SCH ×2 (01:09→07:58)
[2021-09-29] MEDS: MoRPHine SULFATE 2 MG/ML CARP IV PRN (01:55)
[2021-09-29 06:01] LABS: Basophils # (auto) 0.03 K/uL (0-0.2); Basophils % (auto) 0.3 %; Eosinophils # (auto) 0.31 K/uL (0-0.5); Eosinophils % (auto) 2.8 %; Hematocrit (blood only) 32.8 % (37-47); Hemoglobin 10.4 g/dL (12.0-16.0); Immature Granulocytes # (auto) 0.05 K/uL (0.00-0.02); Immature Granulocytes % (auto) 0.5 %; Lymphocytes # (auto) 0.35 K/uL (1.2-3.4); Lymphocytes % (auto) 3.2 %; Mean Corpuscular Hgb Conc 31.7 g/dL (32-36); Mean Corpuscular Volume 116.7 fL (80-100); Mean Platelet Volume 9.6 fL (7.4-10.4); Monocytes # (auto) 0.88 K/uL (0.11-0.59); Monocytes % (auto) 7.9 %; Neutrophils # (auto) 9.47 K/uL (1.4-6.5); Neutrophils % (auto) 85.3 %; Platelet Count 399 K/uL (130-400); RDW Coefficient of Variation 15.6 % (11.5-14.5); Red Blood Count 2.81 M/uL (4.2-5.4); White Blood Count 11.09 K/uL (4.8-10.8)
[2021-09-29 06:29] LABS: BUN Creatinine Ratio 23.2 (10-20); Creatinine Clr Calc Pharmacy 18.9 ml/min; Est GFR (African American) 25.5 ml/min; Potassium 4.8 mmol/L (3.5-5.1)
[2021-09-29 07:25] LABS: Macrocytosis Present; Polychromasia 1+
[2021-09-29] MEDS: ESCITALOPRAM OXALATE 10 MG TAB PO SCH ×2 (07:59→08:39)
[2021-09-29] MEDS: CYANOCOBALAMIN (B-12) 500 MCG TABLET PO SCH (08:38)
[2021-09-29] MEDS: CALCIUM CARBONATE 1250MG TAB PO SCH ×2 (08:38→21:31)
[2021-09-29] MEDS: APIXABAN 2.5 MG TAB PO SCH ×2 (08:38→21:31)
[2021-09-29] MEDS: ATENOLOL 50 MG TABLET PO SCH (08:38)
[2021-09-29] MEDS: DONEPEZIL HCL 5 MG TAB PO SCH (08:38)
[2021-09-29] MEDS: FUROSEMIDE 80 MG TAB PO SCH (08:39)
[2021-09-29] MEDS: ERGOCALCIFEROL 50,000 UNITS 1250 MCG CAP PO SCH (08:39)
[2021-09-29] MEDS: MIRABEGRON ER 25 MG TAB PO SCH (08:39)
--- NOTE | 2021-09-29 09:11 | Progress Notes ---
DATE OF SERVICE: 09/29/2021. SUBJECTIVE: An 86-year-old female now postop day 3 from a left cemented bipolar hip arthroplasty for fracture. Seems to be doing a little bit better today. A little bit more awake. She denies any sig nificant pain. OBJECTIVE: VITAL SIGNS: Temperature 36.4. Vital signs are stable. PHYSICAL EXAMINATION: GENERAL: Shows a pleasant, elderly female. She is sitting up in bed. Looks a bit short of breath. EXTREMITIES: Examination of the left hip and leg reveals the dressing to be clean, dry and intact. Leg is well aligned. Thigh is soft and supple. She is neurologically intact. LABORATORY DATA: Hemoglobin 10.4. Hematocrit 32.8. Electrolytes are stable, although her creatinin e continues to be elevated. ASSESSMENT: An 86-year-old female now postoperative day 3 from a left cemented bipolar hip arthropla sty for fracture. She has got known underlying metastatic adenocarcinoma. Seems to be doing a littl e bit better medically today. Her pain is controlled. PLAN: 1. DVT prophylaxis includes thigh-high TEDs, SCDs, and she is back on Eliquis. Whether to keep her on this with these pleural issues is up to the medicine service. 2. PT/OT. She can weight bear as tolerated in the left lower extremity. She does need to obey hip precautions. 3. Medical management as per the medicine service. They have had family discussions about further m edical care, which is obviously appropriate. 4. Disposition: She is orthopedically okay for discharge any time medically stable. Certainly, dis position may depend on family's decisions on supportive versus more aggressive cancer care. I need t o see her back in 2 to 3 weeks out from surgery date. Any orthopedic questions can be directed to me at [phone]. Job ID: [id number]
[2021-09-29] MEDS ORDERED: SODIUM CHLORIDE 0.9% 1000ML 1,000 ML IV SCH (09:30)
--- NOTE | 2021-09-29 13:33 | Hospitalist Progress Note ---
Date of Service September 29, 2021 Assessment & Plan (1) Left displaced femoral neck fracture: Plan: Patient with a fall at [facility] Orthopedics consulted, surgical intervention initially delayed due to pleural effusion/oxygen requirements CXR: Large right-sided effusion, pulmonary consulted, CT obtained, status post thoracentesis Following thoracentesis patient's breathing was stable, okay to proceed with surgery - s/p L Hip cemented bipolar hemiarthroplasty 09/26 DVT prophylaxis-Continue prophylactic Eliquis x2 days and resume full dose Eliquis (however, now with RICA, 2.5mg is still appropriate dose). Continue teds, SCDs. PT/OT and weightbearing as tolerated. 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 Patient with likely recurrent effusion,? Whether she would benefit from repeat fluoroscopy versus Pleurx. Discussed with family, would like to talk to oncology and follow for now Patient with poor nutrition and appetite suppression. Hypoalbuminemia likely contributing to third spacing, and with high healing challenge in the setting of hip fracture. Await Oncology consult tomorrow-discussed with Dr. Tristan (3) Pleural effusion: Plan: -Osteoblastic skeletal lesions noted on CT scan. -pathology/cytology consistent w/ malignant effusion. 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 coli Rocephin sensitive Patient on chronic Macrobid for prophylaxis, E. coli is Macrobid resistant (6) SOB (shortness of breath): Plan: Large right-sided pleural effusion on CXR and CT Pulm consulted, s/post thoracentesis 09/25/2021. -Malignant effusion now improved, remains on 3LNC (7) Accidental fall: Plan: suspect 2nd to UTI as above (8) Hypoxia: Plan: improved with supplemental O2 continue O2 prn to keep POx>90% secondary to pleural effusion (9) Weakness: Plan: 2nd to above tx as outlined (10) Chronic diastolic CHF (congestive heart failure): Plan: Most recent ECHO 07/25/19 NEGATIVE Dobutamine Stress ECHO -- with normal LV size and systolic function EF 60-65%. No wma, moderate asymmetric hypertrophy of basal anteroseptum. Mildly dilated RV and normal systolic function. Moderate LAD, Mild RAD, sclerotic aortic valve without significant stenosis. Mild pulmonary hypertension; estim ated RVSP 40mmHg. On lasix 80mg daily, now held for RICA (11) CKD (chronic kidney disease) stage 3, GFR 30-59 ml/min: Plan: with RICA as above -Avoid nephrotoxins -renally dose meds when appropriate -follow BMP (12) Polycythemia vera: Plan: Typically gets monthly labs to see if needs phlebotomy for such and is on hydroxyurea hgb not elevated -- see above continue to hold hydroxyurea Trend CBC (13) Anemia, macrocytic: Plan: hx polycythemia -B12/folate levels here are normal (14) Sensorineural hearing loss (SNHL) of both ears: Plan: b/l hearing aides in place (15) Hypertension: Plan: continue home atenolol BP stable holding lasix for above Monitor (16) A-fib: Plan: On eliquis, also with prior hx DVT RLE last summer. Tele where with sinus arrhythmia Eliquis dose reduced x2 days then resume full dose 2 days post-op once renal function normalizes can move off tele (17) Anisocoria: Plan: noted Plan: DVT prophylaxis -- SCD/rosio garg, eliquis as above PT/OT following surgical intervention. Anticipate placement needs Admission and Anticipated Discharge Date Admission Date: September 24, 2021 Subjective Pt very [place] and I placed her hearing aids in her ears. After that, we reviewed her case and I shared with her about her results on chest imaging and metastatic cancer. She does not recall being told all of this but says she has been very tired. She had some coughing with eating today and seen by SPeech who thinks it's an issue with her esophagus, recommends pureed diet. Pt reports no pain in hip. No CP or SOB, no nausea but has low appetite Review of Systems Review of Systems: All systems reviewed & are unremarkable except as noted in HPI & below Physical Exam Constitutional: WD/WN, vitals as above Eyes: + anicteric sclerae Neck: trachea midline, no thyromegaly Respiratory: normal respiratory effort; no cough Auscultation: + diminished lung sounds (at right base); no crackles, no rhonchi and no wheezes Cardiovascular: RRR, no murmur, no edema Chest (Breasts): Chest: normal inspection of chest Gastrointestinal (Abdomen): normal bowel sounds, soft, nontender, no hepatosplenomegaly Musculoskeletal: Extremities: + extremities abnormal to inspection (dressing over left hip c/d/i), no cyanosis and no clubbing Skin: no rashes, warm and dry Neurologic: moves all extremities and awake; no focal motor deficits Psychiatric: A+Ox3, euthymic affect Lymphatic: no lymphedema Results & Data Results & Data ([facility]) Vital Signs (Past 12 Hours) Vital Signs Temp Pulse Pulse Resp BP Pulse Ox 09/29/21 07:35 36.4 C 63 17 110/74 93 09/29/21 07:29 60 09/29/21 06:19 86 09/29/21 03:00 36.7 C 60 18 92/53 L 95 Laboratory Results 09/29/21 09/29/21 Range/Units 05:30 05:30 WBC 11.09 H (4.8-10.8) K/uL RBC 2.81 L (4.2-5.4) M/uL Hgb 10.4 L (12.0-16.0) g/dL Hct 32.8 L (37-47) % MCV 116.7 H (80-100) fL MCH 37.0 H (25-34) pg MCHC 31.7 L (32-36) g/dL RDW Std Deviation 66.0 H (36.4-46.3) fL RDW Coeff of Roberto 15.6 H (11.5-14.5) % Plt Count 399 (130-400) K/uL MPV 9.6 (7.4-10.4) fL Immature Gran % (Auto) 0.5 % Neut % (Auto) 85.3 % Lymph % (Auto) 3.2 % Isabella % (Auto) 7.9 % Eos % (Auto) 2.8 % Baso % (Auto) 0.3 % Neut # (Auto) 9.47 H (1.4-6.5) K/uL Lymph # (Auto) 0.35 L (1.2-3.4) K/uL Isabella # (Auto) 0.88 H (0.11-0.59) K/uL Eos # (Auto) 0.31 (0-0.5) K/uL Baso # (Auto) 0.03 (0-0.2) K/uL Immature Gran # (Auto) 0.05 H (0.00-0.02) K/uL Polychromasia 1+ Macrocytosis Present Sodium 137 (136-145) mmol/L Potassium 4.8 (3.5-5.1) mmol/L Chloride 107 (98-107) mmol/L Carbon Dioxide 22 (21-32) mmol/L Anion Gap 8 (3-11) BUN 46 H (6-23) mg/dl Creatinine 1.98 H (0.6-1.2) mg/dl Est Cr Clr Drug Dosing 18.9 ml/min Est GFR ( Amer) 25.5 ml/min Est GFR (Non-Af Amer) 22.0 ml/min BUN/Creatinine Ratio 23.2 H (10-20) Glucose 107 H (70-99(Fasting)) mg/dl Calcium 7.0 L (8.5-10.1) mg/dl PG Care Time/CCT Total # of Minutes Spent Total Time Spent with Patient: Total time spent is greater than 50% in coordination of care (as documented) at patient's floor/unit and/or counseling patient: Coding Level of Care Code 45415 Subseq Hosp Care Lvl 2 Diagnoses Left displaced femoral neck fracture S72.002A Metastatic adenocarcinoma C79.9 Pleural effusion J90 Acute UTI (urinary tract infection) N39.0 SOB (shortness of breath) R06.02 Accidental fall W19.XXXA Hypoxia R09.02 Weakness R53.1 Chronic diastolic CHF (congestive heart failure) I50.32 CKD (chronic kidney disease) stage 3, GFR 30-59 ml/min N18.30 Polycythemia vera D45 Anemia, macrocytic D53.9 Sensorineural hearing loss (SNHL) of both ears H90.3 Hypertension I10 A-fib I48.91 Anisocoria H57.02 RICA (acute kidney injury) N17.9
[2021-09-29] MEDS: ACETAMINOPHEN 500 MG TAB PO PRN (15:27)
[2021-09-29] MEDS: cefTRIAXone SODIUM 1,000 MG in DEXTROSE 5% 50 ML IV SCH (15:28)
[2021-09-29] MEDS: RALOXIFENE HCL 60 MG TAB PO SCH (21:32)
[2021-09-30 06:09] LABS: Basophils # (auto) 0.04 K/uL (0-0.2); Basophils % (auto) 0.4 %; Eosinophils # (auto) 0.38 K/uL (0-0.5); Eosinophils % (auto) 3.5 %; Hematocrit (blood only) 34.8 % (37-47); Immature Granulocytes # (auto) 0.05 K/uL (0.00-0.02); Immature Granulocytes % (auto) 0.5 %; Lymphocytes # (auto) 0.35 K/uL (1.2-3.4); Lymphocytes % (auto) 3.2 %; Mean Corpuscular Hemoglobin 36.9 pg (25-34); Mean Corpuscular Hgb Conc 31.6 g/dL (32-36); Mean Corpuscular Volume 116.8 fL (80-100); Mean Platelet Volume 9.6 fL (7.4-10.4); Monocytes % (auto) 7.4 %; Neutrophils # (auto) 9.22 K/uL (1.4-6.5); Platelet Count 508 K/uL (130-400); RDW Coefficient of Variation 15.5 % (11.5-14.5); RDW Standard Deviation 66.4 fL (36.4-46.3); Red Blood Count 2.98 M/uL (4.2-5.4); White Blood Count 10.84 K/uL (4.8-10.8)
[2021-09-30 06:48] LABS: Macrocytosis Present; Polychromasia 1+
[2021-09-30 06:55] LABS: BUN Creatinine Ratio 27.2 (10-20); Calcium 6.8 mg/dl (8.5-10.1); Creatinine Clr Calc Pharmacy 23.1 ml/min; Est GFR (African American) 32.5 ml/min; Est GFR (Non-African American) 28.1 ml/min; Potassium 4.6 mmol/L (3.5-5.1)
[2021-09-30] MEDS: APIXABAN 2.5 MG TAB PO SCH ×2 (08:08→21:32)
[2021-09-30] MEDS: CYANOCOBALAMIN (B-12) 500 MCG TABLET PO SCH (08:08)
[2021-09-30] MEDS: ESCITALOPRAM OXALATE 10 MG TAB PO SCH (08:08)
[2021-09-30] MEDS: SACCHAROMYCES BOULARDII 250 MG CAP PO SCH (08:08)
[2021-09-30] MEDS: MIRABEGRON ER 25 MG TAB PO SCH (08:08)
[2021-09-30] MEDS: CALCIUM CARBONATE 1250MG TAB PO SCH ×2 (08:08→21:32)
[2021-09-30] MEDS: ATENOLOL 50 MG TABLET PO SCH (08:08)
[2021-09-30] MEDS: DONEPEZIL HCL 5 MG TAB PO SCH (08:08)
[2021-09-30] MEDS ORDERED: STAT IV STA (08:31)
[2021-09-30] MEDS ORDERED: CALCIUM GLUCONATE 10% 1,000 MG in DEXTROSE 5% 50 ML IV ONE (08:40)
[2021-09-30] MEDS ORDERED: NORMOSOL-R 500 ML IV SCH (08:45)
--- NOTE | 2021-09-30 16:58 | Progress Notes ---
DATE OF SERVICE: 09/30/2021. SUBJECTIVE: An 86-year-old female with multiple medical comorbidities, now postop day 4 from the lef t cemented hip arthroplasty for fracture. She looks to be doing a little bit better today. She once again denies any pain. She looks like she is breathing easier. OBJECTIVE: VITAL SIGNS: Temperature 36.7. Vital signs are stable. PHYSICAL EXAMINATION: GENERAL: Shows a pleasant, elderly female. She is lying in bed, looks reasonably comfortable. She does respond to simple commands. Still appears quite confused. EXTREMITIES: Examination of the left hip reveals the dressing to be clean, dry and intact. Leg alba ths are equal. Thigh is soft and supple. She is neurologically intact. LABORATORY DATA: Hemoglobin 11.0, hematocrit 34.8, white cell count 10.84. Electrolytes are fairly stable. Creatinine is actually improved some today; creatinine is 1.62. ASSESSMENT: An 86-year-old white female with multiple medical comorbidities postoperative day 4 from left cemented bipolar hip arthroplasty for fracture. Orthopedically, she is doing okay. She seems to be breathing a bit better today and seems a bit more comfortable. Does not seem to be in much ramez n. PLAN: 1. DVT prophylaxis includes thigh-high TEDs, SCDs and back on her Eliquis. She is currently on 2.5 twice a day. 2. PT/OT. She can weight bear as tolerated in the left hip. Needs to obey hip precautions. 3. Medical management as per the medicine service. 4. Disposition: She is orthopedically okay for discharge any time medically stable. Any orthopedic questions can be directed to me at [phone]. I do need to see her back somewhere between 2 and 3 weeks out from surgery date. Job ID: [id number]
[2021-09-30] MEDS: ACETAMINOPHEN 500 MG TAB PO PRN (17:04)
--- NOTE | 2021-09-30 17:58 | Hospitalist Progress Note ---
Date of Service September 30, 2021 Assessment & Plan (1) Left displaced femoral neck fracture: Plan: Patient with a fall at [facility] Orthopedics consulted, surgical intervention initially delayed due to pleural effusion/oxygen requirements CXR: Large right-sided effusion, pulmonary consulted, CT obtained, status post thoracentesis Following thoracentesis patient's breathing was stable, okay to proceed with surgery - s/p L Hip cemented bipolar hemiarthroplasty 09/26 DVT prophylaxis-Continue prophylactic Eliquis x2 days and resume full dose Eliquis (however, now with RICA, 2.5mg is still appropriate dose). Continue teds, SCDs. PT/OT and weightbearing as tolerated. 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 -pathology/cytology consistent w/ malignant effusion. 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 coli Rocephin sensitive Patient on chronic Macrobid for prophylaxis, E. coli is Macrobid resistant -Has Altman catheter in place-maintain for now CT abdomen/pelvis in 2020 shows moderate to severe bilateral hydroureteronephrosis without any clear obstruction-unclear significance but acute kidney injury resolving (6) SOB (shortness of breath): Plan: Large right-sided pleural effusion on CXR and CT Pulm consulted, s/post thoracentesis 09/25/2021. -Malignant effusion now improved, remains on 3LNC (7) Accidental fall: Plan: suspect 2nd to UTI as above (8) Hypoxia: Plan: improved with supplemental O2 continue O2 prn to keep POx>90% secondary to pleural effusion (9) Weakness: Plan: 2nd to above tx as outlined (10) Chronic diastolic CHF (congestive heart failure): Plan: Most recent ECHO 07/25/19 NEGATIVE Dobutamine Stress ECHO -- with normal LV size and systolic function EF 60-65%. No wma, moderate asymmetric hypertrophy of basal anteroseptum. Mildly dilated RV and normal systolic function. Moderate LAD, Mild RAD, sclerotic aortic valve without significant stenosis. Mild pulmonary hypertension; estimated RVSP 40mmHg. On lasix 80mg daily, now held for RICA (11) CKD (chronic kidney disease) stage 3, GFR 30-59 ml/min: Plan: with RICA as above -Avoid nephrotoxins -renally dose meds when appropriate -follow BMP (12) Polycythemia vera: Plan: Typically gets monthly labs to see if needs phlebotomy for such and is on hydroxyurea hgb not elevated -- see above continue to hold hydroxyurea Trend CBC (13) Anemia, macrocytic: Plan: hx polycythemia and is on hydroxyurea -B12/folate levels here are normal (14) Sensorineural hearing loss (SNHL) of both ears: Plan: b/l hearing aides in place (15) Hypertension: Plan: continue home atenolol BP stable holding lasix for above Monitor (16) A-fib: Plan: On eliquis, also with prior hx DVT RLE last summer. Tele here with sinus arrhythmia-telemetry since discontinued Eliquis dose reduced x2 days then resume full dose 2 days post-op once renal function normalizes (17) Anisocoria: Plan: noted Plan: DVT prophylaxis -- SCD/rosio garg, eliquis as above Disposition-need case management to reach out to personal usp tomorrow to see if she can return there at this level of function on hospice or if she needs to go to rehab first prior to returning there Admission and Anticipated Discharge Date Admission Date: September 24, 2021 Subjective Patient denies any pain today. She denies shortness of breath. She does not remember quite all of our conversation from yesterday about her cancer, but explained it again to her today. She is in agreement with going on hospice and focusing on comfort rather than trying treatment. I discussed her case with oncology who thinks this is likely an ovarian cancer. I also discussed her care with her daughter at the bedside as well as her son on the phone and all are in agreement to try to get her in with hospice, but need to see if her personal usp will take her back directly on hospice or if she will need to go to rehab first. Review of Systems Review of Systems: All systems reviewed & are unremarkable except as noted in HPI & below Physical Exam Constitutional: WD/WN, vitals as above Eyes: + anicteric sclerae Neck: trachea midline, no thyromegaly Respiratory: normal respiratory effort; no cough Auscultation: + diminished lung sounds (at right base); no crackles, no rhonchi and no wheezes Cardiovascular: RRR, no murmur, no edema Chest (Breasts): Chest: normal inspection of chest Gastrointestinal (Abdomen): normal bowel sounds, soft, nontender, no hepatosplenomegaly Musculoskeletal: Extremities: no cyanosis and no clubbing Skin: no rashes, warm and dry Neurologic: moves all extremities and awake; no focal motor deficits Psychiatric: A+Ox3, euthymic affect Lymphatic: no lymphedema Results & Data Results & Data ([facility]) Vital Signs (Past 12 Hours) Vital Signs Temp Pulse Resp BP BP Pulse Ox 09/30/21 16:08 36.7 C 64 18 108/57 L 92 09/30/21 12:36 36.9 C 61 18 107/62 95 09/30/21 07:49 36.4 C L 70 17 120/67 95 Laboratory Results 09/30/21 09/30/21 Range/Units 05:28 05:28 WBC 10.84 H (4.8-10.8) K/uL RBC 2.98 L (4.2-5.4) M/uL Hgb 11.0 L (12.0-16.0) g/dL Hct 34.8 L (37-47) % MCV 116.8 H (80-100) fL MCH 36.9 H (25-34) pg MCHC 31.6 L (32-36) g/dL RDW Std Deviation 66.4 H (36.4-46.3) fL RDW Coeff of Roberto 15.5 H (11.5-14.5) % Plt Count 508 H (130-400) K/uL MPV 9.6 (7.4-10.4) fL Immature Gran % (Auto) 0.5 % Neut % (Auto) 85.0 % Lymph % (Auto) 3.2 % Churchill % (Auto) 7.4 % Eos % (Auto) 3.5 % Baso % (Auto) 0.4 % Neut # (Auto) 9.22 H (1.4-6.5) K/uL Lymph # (Auto) 0.35 L (1.2-3.4) K/uL Churchill # (Auto) 0.80 H (0.11-0.59) K/uL Eos # (Auto) 0.38 (0-0.5) K/uL Baso # (Auto) 0.04 (0-0.2) K/uL Immature Gran # (Auto) 0.05 H (0.00-0.02) K/uL Polychromasia 1+ Macrocytosis Present Sodium 137 (136-145) mmol/L Potassium 4.6 (3.5-5.1) mmol/L Chloride 106 (98-107) mmol/L Carbon Dioxide 22 (21-32) mmol/L Anion Gap 9 (3-11) BUN 44 H (6-23) mg/dl Creatinine 1.62 H D (0.6-1.2) mg/dl Est Cr Clr Drug Dosing 23.1 ml/min Est GFR ( Amer) 32.5 ml/min Est GFR (Non-Af Amer) 28.1 ml/min BUN/Creatinine Ratio 27.2 H (10-20) Glucose 108 H (70-99(Fasting)) mg/dl Calcium 6.8 L (8.5-10.1) mg/dl PG Care Time/CCT Total # of Minutes Spent Total Time Spent with Patient: Total time spent is greater than 50% in coordination of care (as documented) at patient's floor/unit and/or counseling patient: Coding Level of Care Code 42996 Subseq Hosp Care Lvl 2 Diagnoses Left displaced femoral neck fracture S72.002A Metastatic adenocarcinoma C79.9 Pleural effusion J90 RICA (acute kidney injury) N17.9 Acute UTI (urinary tract infection) N39.0 SOB (shortness of breath) R06.02 Accidental fall W19.XXXA Hypoxia R09.02 Weakness R53.1 Chronic diastolic CHF (congestive heart failure) I50.32 CKD (chronic kidney disease) stage 3, GFR 30-59 ml/min N18.30 Polycythemia vera D45 Anemia, macrocytic D53.9 Sensorineural hearing loss (SNHL) of both ears H90.3 Hypertension I10 A-fib I48.91 Anisocoria H57.02
[2021-09-30] MEDS: RALOXIFENE HCL 60 MG TAB PO SCH (21:31)
[2021-09-30] MEDS: POLYETHYLENE (MIRALAX) 17 GM PACK PO SCH (21:32)
--- NOTE | 2021-09-30 23:52 | Consultation Report ---
DATE OF SERVICE: 09/30/2021. REASON FOR CONSULTATION: Recently diagnosed metastatic adenocarcinoma. HISTORY OF PRESENT ILLNESS: Ms. Justice is an 86-year-old female who was admitted at [facility] on 09/24/2021 after a fall with imaging revealing left femoral neck fracture for which she subsequently underwent left hip hemiarthroplasty on 09/26/2021. Incidentally, chest x-ray obtained during admission had revealed large right pleural effusion resulting in partial collapse of the right lung as well as cardiomegaly with vascular congestion and reticular interstitial opacities suggestive of pulmonary edema versus interstitial pneumonitis. Thoracentesis performed on 09/25/2021 resulted in drainage of 1.8 liters of fluid with cytology revealing metastatic adenocarcinoma of MANAGER ADVANCED origin or renal cell carcinoma. On 09/26/2021, she underwent CT chest. On 09/24/2021, CT chest revealed extensive/diffuse multifocal osteoblastic metastatic disease, moderate to large and partially loculated right pleural effusion with consolidation throughout the right lung, small pleural effusion in the left lung, abnormal soft tissue thickening along the right hemidiaphragm, suspicious for pleural based metastatic disease, and segmental PE in the left lower lobe pulmonary artery, which may be chronic. Pathology from left hemiarthroplasty revealed metastatic adenocarcinoma as well per discussion with pathology. During my evaluation of the patient today, she appeared very lethargic and was only able to answer some of my questions. She denies headaches, dizziness, blurry vision, chest pain, shortness of breath, or any other complaints. Per my discussion with the patient's daughter, she has had abdominal pain, which she complained of several months ago. PAST MEDICAL HISTORY: 1. Chronic diastolic heart failure. 2. CKD stage III. 3. Hypertension. 4. Hyperlipidemia. 5. Polycythemia vera. PAST SURGICAL HISTORY: History of cholecystectomy. MEDICATIONS PRIOR TO ADMISSION: Raloxifene 60 mg p.o. daily, Tylenol 650 p.o. p.r.n., vitamin B12 1000 mcg p.o. daily, donepezil 5 mg p.o. daily, escitalopram 10 mg p.o. daily, hydroxyurea 500 mg p.o. p.r.n. as needed, Lasix 80 mg p.o. daily, atenolol 50 mg p.o. daily, meclizine 12.5 mg p.o. t.i.d. p.r.n. ALLERGIES: PREDNISONE. SOCIAL HISTORY: Denies smoking, alcohol and illicit drug use. Currently lives at [facility]. FAMILY HISTORY: No significant family history of malignancy. REVIEW OF SYSTEMS: GENERAL: No weight loss, fever, chills or night sweats. HEENT: No recent vision changes. CHEST: Denies cough or shortness of breath. HEART: Denies chest pain, palpitations, or leg swelling. ABDOMEN: Endorses abdominal pain. Denies nausea, vomiting. GENITOURINARY: Denies any urinary symptoms. MUSCULOSKELETAL: Endorses back pain. PHYSICAL EXAMINATION: GENERAL: Very fragile/chronically ill, elderly female. VITAL SIGNS: Blood pressure 108/57, heart rate of 64, respiratory rate 18, temperature 36.7, oxygen saturation 92% on 3 liters nasal cannula. LABORATORY DATA: Significant for mild leukocytosis with white count of 10.84, hemoglobin 11, hematocrit 34.8, MCV 116.8, platelet count 508,000. Chemistry significant for BUN of 44 and creatinine of 1.62. IMAGING STUDIES: CT chest on 09/24/2021, impression: 1. Extensive/diffuse multifocal osteoblastic metastatic disease. 2. [id number] and partially loculated right pleural effusion with consolidation throughout the right lung. 3. Small pleural effusion at the left lung base. 4. Abnormal small soft tissue thickening along the right hemidiaphragm suspicious for pleural based metastatic disease. 5. Segmental pulmonary embolus is seen within the branch of the left lower lobe pulmonary artery. This is age indeterminate and may be chronic. 6. Bilateral hydronephrosis, partially visualized. 7. Splenomegaly. IMPRESSION: 1. Metastatic adenocarcinoma, likely of MANAGER ADVANCED primary. 2. History of polycythemia with splenomegaly, currently on hydroxyurea. 3. Malignant pleural effusion. 4. Pleural based metastatic disease. 5. Pathologic fracture secondary to she has metastatic disease, status post left hemiarthroplasty. Elderly female who presented following a fall with pathologic fracture and is status post left hemiarthroplasty. Discussed my thoughts with the patient's daughter and son today over the phone. I explained to them that given her advanced age and current performance status, I would not recommend systemic therapy as risk of treatment outweighs its benefit. Would, however, recommend family strongly considers transitioning to supportive care/hospice given potential toxicity of treatment and aggressiveness of disease. The patient's family seemed on board with switching to supportive care/hospice and are currently considering whether they would like a CT abdomen to evaluate for extent of disease/primary, which would help with prognosis as well as might be information for her daughters regarding likely MANAGER ADVANCED primary. PLAN: 1. Recommend family strongly consider supportive care/hospice. 2. Await family decision regarding hospice and regarding whether they would want CT abdomen and pelvis. Thank you for this consult. Oncology will continue following the patient while in the hospital. Please feel free to call if you have any further questions. Job ID: [id number] HIRO
[2021-10-01] MEDS: ACETAMINOPHEN 500 MG TAB PO PRN ×2 (03:03→15:06)
[2021-10-01 06:15] LABS: Basophils # (auto) 0.07 K/uL (0-0.2); Basophils % (auto) 0.7 %; Eosinophils # (auto) 0.27 K/uL (0-0.5); Eosinophils % (auto) 2.9 %; Hematocrit (blood only) 33.9 % (37-47); Hemoglobin 10.5 g/dL (12.0-16.0); Immature Granulocytes # (auto) 0.06 K/uL (0.00-0.02); Immature Granulocytes % (auto) 0.6 %; Lymphocytes # (auto) 0.26 K/uL (1.2-3.4); Lymphocytes % (auto) 2.8 %; Mean Corpuscular Hemoglobin 36.1 pg (25-34); Mean Corpuscular Volume 116.5 fL (80-100); Mean Platelet Volume 9.7 fL (7.4-10.4); Monocytes # (auto) 0.74 K/uL (0.11-0.59); Monocytes % (auto) 7.9 %; Neutrophils # (auto) 8.01 K/uL (1.4-6.5); Neutrophils % (auto) 85.1 %; Platelet Count 443 K/uL (130-400); RDW Coefficient of Variation 15.4 % (11.5-14.5); RDW Standard Deviation 64.7 fL (36.4-46.3); Red Blood Count 2.91 M/uL (4.2-5.4); White Blood Count 9.41 K/uL (4.8-10.8)
[2021-10-01 06:44] LABS: BUN Creatinine Ratio 32.5 (10-20); Creatinine Clr Calc Pharmacy 31.5 ml/min; Est GFR (African American) 46.7 ml/min; Est GFR (Non-African American) 40.3 ml/min; Potassium 4.8 mmol/L (3.5-5.1)
[2021-10-01] MEDS: CALCIUM CARBONATE 1250MG TAB PO SCH ×3 (08:14→19:43)
[2021-10-01] MEDS: APIXABAN 2.5 MG TAB PO SCH ×2 (08:14→08:36)
[2021-10-01] MEDS: SACCHAROMYCES BOULARDII 250 MG CAP PO SCH ×2 (08:14→08:37)
[2021-10-01] MEDS: DONEPEZIL HCL 5 MG TAB PO SCH ×2 (08:14→08:36)
[2021-10-01] MEDS: ESCITALOPRAM OXALATE 10 MG TAB PO SCH ×2 (08:14→08:37)
[2021-10-01] MEDS: DOCUSATE SODIUM/SENNA 50/8.6MG TAB PO SCH ×2 (08:14→08:36)
[2021-10-01] MEDS: CYANOCOBALAMIN (B-12) 500 MCG TABLET PO SCH ×2 (08:14→08:36)
[2021-10-01] MEDS: MIRABEGRON ER 25 MG TAB PO SCH ×2 (08:14→08:37)
[2021-10-01] MEDS: POLYETHYLENE (MIRALAX) 17 GM PACK PO SCH ×2 (08:16→19:43)
[2021-10-01] MEDS: ATENOLOL 50 MG TABLET PO SCH (08:36)
--- NOTE | 2021-10-01 17:37 | Hospitalist Progress Note ---
Date of Service October 01, 2021 Assessment & Plan (1) Left displaced femoral neck fracture: Plan: Patient with a fall at [facility] Orthopedics consulted, surgical intervention initially delayed due to pleural effusion/oxygen requirements CXR: Large right-sided effusion, pulmonary consulted, CT obtained, status post thoracentesis Following thoracentesis patient's breathing was stable, okay to proceed with surgery - s/p L Hip cemented bipolar hemiarthroplasty 09/26 DVT prophylaxis-Continue Eliquis and can now increase to 5mg dose, continue teds, SCDs. PT/OT and weightbearing as tolerated. 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 -pathology/cytology consistent w/ malignant effusion. 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 coli Rocephin sensitive Patient on chronic Macrobid for prophylaxis, E. coli is Macrobid resistant -Has Altman catheter in place-maintain for now CT abdomen/pelvis in 2020 shows moderate to severe bilateral hydroureteronephrosis without any clear obstruction-unclear significance but acute kidney injury resolving (6) SOB (shortness of breath): Plan: Large right-sided pleural effusion on CXR and CT Pulm consulted, s/post thoracentesis 09/25/2021. -Malignant effusion now improved, remains on 3LNC (7) Accidental fall: Plan: suspect 2nd to UTI as above (8) Hypoxia: Plan: improved with supplemental O2 continue O2 prn to keep POx>90% secondary to pleural effusion (9) Weakness: Plan: 2nd to above tx as outlined (10) Chronic diastolic CHF (congestive heart failure): Plan: Most recent ECHO 07/25/19 NEGATIVE Dobutamine Stress ECHO -- with normal LV size and systolic function EF 60-65%. No wma, moderate asymmetric hypertrophy of basal anteroseptum. Mildly dilated RV and normal systolic function. Moderate LAD, Mild RAD, sclerotic aortic valve without significant stenosis. Mild pulmonary hypertension; estimated RVSP 40mmHg. On lasix 80mg daily, now held for RICA (11) CKD (chronic kidney disease) stage 3, GFR 30-59 ml/min: Plan: with RICA as above -Avoid nephrotoxins -renally dose meds when appropriate -follow BMP (12) Polycythemia vera: Plan: Typically gets monthly labs to see if needs phlebotomy for such and is on hydroxyurea hgb not elevated -- see above continue to hold hydroxyurea indefinitely (13) Anemia, macrocytic: Plan: hx polycythemia and is on hydroxyurea -B12/folate levels here are normal (14) Sensorineural hearing loss (SNHL) of both ears: Plan: b/l hearing aides in place (15) Hypertension: Plan: continue home atenolol BP stable holding lasix for above Monitor (16) A-fib: Plan: On eliquis, also with prior hx DVT RLE last summer. Tele here with sinus arrhythmia-telemetry since discontinued Eliquis dose reduced x2 days then resume full dose 2 days post-op once renal function normalizes -today will increase to 5mg dose (17) Anisocoria: Plan: noted (18) Constipation: Plan: no BM since admission added Miralax, senna/docusate on 09/30 to no avail -add on dulcolax SC Plan: DVT prophylaxis -- SCD/rosio garg, eliquis as above Disposition-her [facility] will accept her back there tomorrow on Hospice Admission and Anticipated Discharge Date Admission Date: September 24, 2021 Subjective Pt does not like the pureed and is barely eating. Refused pills this AM as per RN as she says they get stuck in her chest. DIscussed with pt and daughter that in order to assess her esophagus, she would require anesthesia and EGD and they both declined this eval especially in light of going home with hospice tomorrow. She is also requesting coffee. I will change her diet to minced and moist. Otherwise no pain. Happy to hear she is going home tomorrow Still no BM Review of Systems Review of Systems: All systems reviewed & are unremarkable except as noted in HPI & below Physical Exam Constitutional: WD/WN, vitals as above Eyes: + anicteric sclerae Neck: trachea midline, no thyromegaly Respiratory: normal respiratory effort; no cough Auscultation: + diminished lung sounds (at right base); no crackles, no rhonchi and no wheezes Cardiovascular: RRR, no murmur, no edema Chest (Breasts): Chest: normal inspection of chest Gastrointestinal (Abdomen): normal bowel sounds, soft, nontender, no hepatosplenomegaly Musculoskeletal: Extremities: no cyanosis and no clubbing Skin: no rashes, warm and dry Neurologic: moves all extremities and awake; no focal motor deficits Psychiatric: A+Ox3, euthymic affect Lymphatic: no lymphedema Results & Data Results & Data ([facility]) Vital Signs (Past 12 Hours) Vital Signs Temp Pulse Pulse Resp BP BP Pulse Ox 10/01/21 16:00 36.2 C L 71 18 101/64 97 10/01/21 07:32 36.5 C 64 18 121/71 96 PG Care Time/CCT Total # of Minutes Spent Total Time Spent with Patient: Total time spent is greater than 50% in coordination of care (as documented) at patient's floor/unit and/or counseling patient: Coding Level of Care Code 46027 Subseq Hosp Care Lvl 2 Diagnoses Left displaced femoral neck fracture S72.002A Metastatic adenocarcinoma C79.9 Pleural effusion J90 RICA (acute kidney injury) N17.9 Acute UTI (urinary tract infection) N39.0 SOB (shortness of breath) R06.02 Accidental fall W19.XXXA Hypoxia R09.02 Weakness R53.1 Chronic diastolic CHF (congestive heart failure) I50.32 CKD (chronic kidney disease) stage 3, GFR 30-59 ml/min N18.30 Polycythemia vera D45 Anemia, macrocytic D53.9 Sensorineural hearing loss (SNHL) of both ears H90.3 Hypertension I10 A-fib I48.91 Anisocoria H57.02 Constipation K59.00
[2021-10-01] MEDS ORDERED: bisacodyL 10 MG SUPP PR STA (17:40)
--- NOTE | 2021-10-01 17:48 | Progress Notes ---
DATE OF SERVICE: 10/01/2021. SUBJECTIVE: An 86-year-old female now 5 days out from a left cemented bipolar hip arthroplasty for f racture. Orthopedically, she is doing well. Denies any pain. She has got multiple other comorbidit ies and looking towards hospice care. OBJECTIVE: VITAL SIGNS: Temperature 36.5. Vital signs are stable. GENERAL: Frail, elderly female. She is sitting up in bed. She denies any significant pain. She lo oks reasonably comfortable. Breathing reasonably well. EXTREMITIES: Examination of the left hip reveals the dressing to be clean, dry and intact. Leg alba ths were equal. She can dorsiflex and plantarflex her foot appropriately. LABORATORY DATA: Hemoglobin 10.5. Hematocrit 33.9. Electrolytes are fairly stable. Creatinine is improved back down to 1.20. ASSESSMENT: An 86-year-old female now postop day 5 from a left cemented bipolar hip arthroplasty for fracture. Orthopedically, she is doing pretty well. Multiple other medical comorbidities, and I be lieve looking towards hospice care, which is appropriate. PLAN: 1. DVT prophylaxis includes thigh-high TEDs, SCDs, and appropriate Eliquis dose based on her kidney function and weight. 2. PT/OT. She can weight bear as tolerated. Does need to obey hip precautions. 3. Pain control, doing okay with current pain regimen. Does not seem to be in apparent pain. 4. Medical management as per the medicine service. 5. Disposition: She is orthopedically okay for discharge any time medically stable. Any orthopedic questions can be directed to me at [phone]. Job ID: [id number]
[2021-10-01] MEDS: RALOXIFENE HCL 60 MG TAB PO SCH (19:43)
[2021-10-01] MEDS: APIXABAN 5 MG TABLET PO SCH (19:43)
[2021-10-02] MEDS: ACETAMINOPHEN 500 MG TAB PO PRN ×2 (03:06→15:59)
[2021-10-02] MEDS: POLYETHYLENE (MIRALAX) 17 GM PACK PO SCH ×2 (08:09→21:02)
[2021-10-02] MEDS: APIXABAN 5 MG TABLET PO SCH ×2 (08:09→20:54)
[2021-10-02] MEDS: DOCUSATE SODIUM/SENNA 50/8.6MG TAB PO SCH (08:09)
[2021-10-02] MEDS: CYANOCOBALAMIN (B-12) 500 MCG TABLET PO SCH (08:10)
[2021-10-02] MEDS: CALCIUM CARBONATE 1250MG TAB PO SCH ×2 (08:10→20:55)
[2021-10-02] MEDS: ATENOLOL 50 MG TABLET PO SCH (08:10)
[2021-10-02] MEDS: MIRABEGRON ER 25 MG TAB PO SCH (08:10)
[2021-10-02] MEDS: SACCHAROMYCES BOULARDII 250 MG CAP PO SCH (08:10)
[2021-10-02] MEDS: ESCITALOPRAM OXALATE 10 MG TAB PO SCH (10:29)
[2021-10-02] MEDS: DONEPEZIL HCL 5 MG TAB PO SCH (10:29)
--- NOTE | 2021-10-02 11:42 | Hospitalist Progress Note ---
Date of Service October 02, 2021 Assessment & Plan (1) Left displaced femoral neck fracture: Plan: Patient with a fall at [facility] Orthopedics consulted, surgical intervention initially delayed due to pleural effusion/oxygen requirements CXR: Large right-sided effusion, pulmonary consulted, CT obtained, status post thoracentesis Following thoracentesis patient's breathing was stable, okay to proceed with surgery - s/p L Hip cemented bipolar hemiarthroplasty 09/26 DVT prophylaxis-Continue Eliquis 5mg bid dose, continue teds, SCDs. PT/OT and weightbearing as tolerated. Vitamin D extremely low, continue ergocalciferol 50,000 units p.o.Weekly - continue calcium supplementation here but can dc upon discharge on hospice to minimize meds -bone bx pending from surgery given metastatic disease (2) Metastatic adenocarcinoma: Plan: Metastatic adenocarcinoma on thoracentesis fluid analysis, likely RESERVATIONS SPECIALIST or renal origin Additional send out staining pending -Discussed with oncology-she thinks that this is most likely ovarian cancer and recommends hospice rather than treatment CTA/P of the pelvis with contrast deferred in the setting of RICA, and no further work-up needed as patient and family have decided to pursue hospice Patient seems comfortable and is on 2 to 3 L nasal cannula Consider Pleurx catheter if has recurrent effusion that is symptomatic Would not treat with diuretics as this caused her to have acute kidney injury (3) Pleural effusion: Plan: -Osteoblastic skeletal lesions noted on CT scan. -pathology/cytology consistent w/ malignant effusion. 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 coli Rocephin sensitive Patient on chronic Macrobid for prophylaxis, E. coli is Macrobid resistant -Has Altman catheter in place-maintain for now for comfort CT abdomen/pelvis in 2020 shows moderate to severe bilateral hydroureteronephrosis without any clear obstruction-unclear significance but acute kidney injury resolving can continue Macrobid 50mg po daily on discharge on hospice for UTI prevention (6) SOB (shortness of breath): Plan: Large right-sided pleural effusion on CXR and CT Pulm consulted, s/post thoracentesis 09/25/2021. -Malignant effusion now improved, remains on 3LNC she tends to pull her O2 off and this makes her feel worse (7) Accidental fall: Plan: suspect 2nd to UTI as above (8) Hypoxia: Plan: improved with supplemental O2 continue O2 prn to keep POx>90% secondary to pleural effusion (9) Weakness: Plan: 2nd to above tx as outlined (10) Chronic diastolic CHF (congestive heart failure): Plan: Most recent ECHO 07/25/19 NEGATIVE Dobutamine Stress ECHO -- with normal LV size and systolic function EF 60-65%. No wma, moderate asymmetric hypertrophy of basal anteroseptum. Mildly dilated RV and normal systolic function. Moderate LAD, Mild RAD, sclerotic aortic valve without significant stenosis. Mild pulmonary hypertension; estimated RVSP 40mmHg. On lasix 80mg daily, now stopped for RICA (11) CKD (chronic kidney disease) stage 3, GFR 30-59 ml/min: Plan: with RICA as above -Avoid nephrotoxins -renally dose meds when appropriate no labs on hospice (12) Polycythemia vera: Plan: Typically gets monthly labs to see if needs phlebotomy for such and is on hydroxyurea hgb not elevated -- see above continue to hold hydroxyurea indefinitely/discontinue on hospice (13) Anemia, macrocytic: Plan: hx polycythemia and is on hydroxyurea -B12/folate levels here are normal (14) Sensorineural hearing loss (SNHL) of both ears: Plan: b/l hearing aides in place (15) Hypertension: Plan: continue home atenolol BP stable holding lasix for above Monitor (16) A-fib: Plan: On eliquis, also with prior hx DVT RLE last summer. Tele here with sinus arrhythmia-telemetry since discontinued Eliquis dose reduced x2 days then resume full dose 2 days post-op once renal function normalizes -have since increased to 5mg dose (17) Anisocoria: Plan: noted (18) Constipation: Plan: no BM since admission and then finally did on 10/01 after bisacodyl [facility] continue Miralax, senna/docusate Plan: DVT prophylaxis -- SCD/abril fairchild as above Disposition-her [facility] will accept her back there tomorrow on Hospice-discharge cancelled on 10/02 as planned due to an ongoing inspection at the [facility] Admission and Anticipated Discharge Date Admission Date: September 24, 2021 Subjective not feeling well today but doesn't know why, just feels tired and says she is not getting good sleep. Denies any pain, denies CP, SOB. Her nasal cannula was down under her chin and she appeared a little galindo in color. I replaced her O2 and she looked a bit better after a few minutes. Had a BM last night, no abd pains. SHe was supposed to be discharged to [facility] with hospice today but apparently they still weren't ready for her due to an ongoing inspection and could not accept admissions. Will be going with [facility]. Review of Systems Review of Systems: All systems reviewed & are unremarkable except as noted in HPI & below Physical Exam Constitutional: WD/WN, vitals as above Eyes: + anicteric sclerae Neck: trachea midline, no thyromegaly Respiratory: normal respiratory effort; no cough Auscultation: + diminished lung sounds (at right base); no crackles, no rhonchi and no wheezes Cardiovascular: RRR, no murmur, no edema Chest (Breasts): Chest: normal inspection of chest Gastrointestinal (Abdomen): normal bowel sounds, soft, nontender, no hepatosplenomegaly Musculoskeletal: Extremities: no cyanosis and no clubbing Skin: no rashes, warm and dry Neurologic: moves all extremities and awake; no focal motor deficits Psychiatric: A+Ox3, euthymic affect Lymphatic: no lymphedema Results & Data Results & Data ([facility]) Vital Signs (Past 12 Hours) Vital Signs Temp Pulse Pulse Resp BP BP Pulse Ox 10/02/21 07:57 36.3 C L 74 18 117/55 L 97 10/01/21 23:40 36.4 C L 65 18 109/59 L 92 PG Care Time/CCT Total # of Minutes Spent Total Time Spent with Patient: Total time spent is greater than 50% in coordination of care (as documented) at patient's floor/unit and/or counseling patient: Coding Level of Care Code 34896 Subseq Hosp Care Lvl 1 Diagnoses Left displaced femoral neck fracture S72.002A Metastatic adenocarcinoma C79.9 Pleural effusion J90 RICA (acute kidney injury) N17.9 Acute UTI (urinary tract infection) N39.0 SOB (shortness of breath) R06.02 Accidental fall W19.XXXA Hypoxia R09.02 Weakness R53.1 Chronic diastolic CHF (congestive heart failure) I50.32 CKD (chronic kidney disease) stage 3, GFR 30-59 ml/min N18.30 Polycythemia vera D45 Anemia, macrocytic D53.9 Sensorineural hearing loss (SNHL) of both ears H90.3 Hypertension I10 A-fib I48.91 Anisocoria H57.02 Constipation K59.00
--- NOTE | 2021-10-02 15:20 | Progress Notes ---
DATE OF SERVICE: 10/02/2021. SUBJECTIVE: An 86-year-old female with multiple medical comorbidities, now 6 days out from a left ce mented bipolar hip arthroplasty for fracture. She seems to be doing better today. She is much more awake, alert, and oriented and appropriate and asking to go home. Denies any significant hip pain. OBJECTIVE: VITAL SIGNS: Temperature 36.3. Vital signs are stable. GENERAL: Shows a pleasant, elderly female. She seems awake, alert and appropriate today. She is si tting up in bed and looks comfortable. EXTREMITIES: Examination of the left hip reveals leg lengths to be equal. Her incision and dressing are clean, dry, and intact. Thigh is soft and supple. She is neurologically intact. ASSESSMENT: An 86-year-old female with multiple medical comorbidities, now 6 days out from a left ce mented bipolar hip arthroplasty for fracture. Orthopedically, she is doing well. She seems to be im proving medically as well. She does have multiple medical issues. PLAN: 1. DVT prophylaxis includes thigh-high TEDs, SCDs and back on Eliquis for further evaluation. ____. Dosage should be just adjusted as needed based on age and renal function. 2. PT/OT. She can weight bear as tolerated. Does need to obey hip precautions. 3. Pain control, seems to be under good control currently. 4. Disposition: She is orthopedically okay for discharge any time medically stable. I need to see her back two to three weeks out from her surgery date. Any orthopedic questions can be directed to jacey lujan at [phone]. Job ID: [id number]
[2021-10-02] MEDS ORDERED: ONDANSETRON 4 MG OD TAB PO PRN (18:01)
--- NOTE | 2021-10-02 18:30 | XRay Report ---
SINGLE VIEW CHEST CLINICAL HISTORY: Dyspnea. FINDINGS: An AP, portable, upright chest radiograph is compared to study dated 09/28/[address] dated 09/24/2021. A right paratracheal density corresponds to thyroid goiter. The heart is enlarged n oting atherosclerotic calcification of the thoracic aorta. There is pulmonary vascular congestion. Th ere is a moderate right pleural effusion with associated consolidation. This appears to be at least p artially loculated. A small pleural effusion is also seen on the left. No pneumothorax is identified. The skeletal structures are heterogeneously osteopenic. The bony thorax is grossly intact. IMPRESSION: 1. Cardiomegaly with pulmonary vascular congestion. 2. Moderate right pleural effusion with associated consolidation. This has increased in size as vinny red to 09/28/2021. 3. A small pleural effusion is again seen on the left. ACT 112: Negative or not required by law. Electronically signed by: Trevor Babin M.D. 10/02/2021 6:29 PM
[2021-10-02] MEDS: RALOXIFENE HCL 60 MG TAB PO SCH (20:55)
[2021-10-03] MEDS: ATENOLOL 50 MG TABLET PO SCH (08:11)
[2021-10-03] MEDS: ESCITALOPRAM OXALATE 10 MG TAB PO SCH (08:11)
[2021-10-03] MEDS: SACCHAROMYCES BOULARDII 250 MG CAP PO SCH (08:12)
[2021-10-03] MEDS: CALCIUM CARBONATE 1250MG TAB PO SCH ×2 (08:12→21:11)
[2021-10-03] MEDS: MIRABEGRON ER 25 MG TAB PO SCH (08:12)
[2021-10-03] MEDS: APIXABAN 5 MG TABLET PO SCH ×2 (08:12→21:11)
[2021-10-03] MEDS: DOCUSATE SODIUM/SENNA 50/8.6MG TAB PO SCH (08:12)
[2021-10-03] MEDS: DONEPEZIL HCL 5 MG TAB PO SCH (08:12)
[2021-10-03] MEDS: CYANOCOBALAMIN (B-12) 500 MCG TABLET PO SCH (08:12)
[2021-10-03] MEDS: POLYETHYLENE (MIRALAX) 17 GM PACK PO SCH ×3 (08:12→21:11)
--- NOTE | 2021-10-03 09:49 | Gastrointestinal Consultation ---
Date of Consultation October 03, 2021 Assessment & Plan (1) Metastatic adenocarcinoma: (2) Dysphagia: I had a long discussion with the patient regarding the low risk on endoscopy and the potential benefits of the procedure including diagnosing and treating any potential esophageal stricture or infection. She has capacity and states "I don't want that done. I am afraid". She also verbalized that she "is done with all of that stuff". Despite POA consent, due to her capacity to verbalize her wishes, will not perform EGD today. Can consider CHIEF OPERATOR HYDROFORMER evaluation and recommend supportive care per primary team. Thank you for allowing us to participate in the care of this patient. If you have any questions or concerns, please do not hesitate to contact us. Supervising Physician Co-Signing Physician Notes I personally evaluated the patient and agree with the findings as documented by VICKI Cisneros Exam: Constitutional: WD/WN, vitals as above General: EOM intact bilaterally Neck: normal visual inspection Respiratory: normal respiratory effort, lungs clear to auscultation Cardiovascular: RRR, no murmur, no edema Gastrointestinal: abdomennormal to inspection, nondistended, soft, nontender, no hepatosplenomegaly Musculoskeletal: no cyanosis, head normal to inspection Skin: no rashes, warm and dry Neurologic: moves all extremities Psychiatric: A and O x3, euthymic affect History of Present Illness Reason for Consultation: Dysphagia Requesting Physician: Dr. Love Attending Physician: Kashif Darling MD History of Present Illness Patient is a 86 year-old female admitted status post fall requiring left hemiarthroplasty noted incidentally to have a malignant pleural effusion. She was evaluated by Dr. 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 GI has been consulted as the patient is having dysphagia which she states is to mostly solids but occasionally liquids as well. She has a productive cough and occasional odynophagia. +Nausea and intermittent abdominal pain but no vomiting. She has poor dentition. CT chest without any discreet mass. Dr. Love has discussed possibility of EGD to determine if any improvement can be made to the dysphagia prior to discharge home on hospice. She denies any chest pain, mild SOB, no palpitations. Allergies Allergy/AdvReac Type Severity Reaction Status Date / Time prednisone Allergy Mild Rash Verified 09/24/21 16:09 Home Medications Medication Instructions Recorded Confirmed Type lutein 20 mg capsule 20 mg PO DAILY cap 02/25/19 09/24/21 History raloxifene 60 mg tablet 60 mg PO QPM tab 02/25/19 09/24/21 History acetaminophen 650 mg 650 - 1,300 mg PO Q8H PRN 01/15/20 09/24/21 History tablet,extended release (Tylenol Arthritis Pain) garlic 1,000 mg capsule 1,000 mg PO DAILY 01/15/20 09/24/21 History cyanocobalamin (vitamin B-12) 1,000 mcg PO DAILY 10/11/20 09/24/21 History 1,000 mcg tablet (Vitamin B-12) donepezil 5 mg tablet 5 mg PO DAILY 10/11/20 09/24/21 History escitalopram oxalate 10 mg tablet 10 mg PO DAILY 10/11/20 09/24/21 History hydroxyurea 500 mg capsule See Rx Instructions .ROUTE .COMPLEX 10/11/20 09/24/21 History meclizine 12.5 mg tablet 12.5 mg PO TID PRN 10/11/20 09/24/21 History mirabegron 25 mg tablet,extended 25 mg PO DAILY 10/11/20 09/24/21 History release 24 hr (Myrbetriq) atenolol 50 mg tablet 50 mg PO DAILY 01/17/21 09/24/21 History furosemide 80 mg tablet 80 mg PO DAILY 01/17/21 09/24/21 History apixaban 5 mg tablet 5 mg PO BID 02/10/21 09/24/21 History Saccharomyces boulardii 1 cap PO DAILY 09/24/21 09/24/21 History ibuprofen 200 mg tablet 200 mg PO Q8 PRN 09/24/21 09/24/21 History methylcellulose (with sugar) oral 1 ea PO DAILY PRN 09/24/21 09/24/21 History powder (Citrucel (sucrose)) nitrofurantoin macrocrystal 50 mg 50 mg PO DAILY 09/24/21 09/24/21 History capsule ondansetron HCl 4 mg tablet 4 mg PO Q6 PRN 09/24/21 09/24/21 History ergocalciferol (vitamin D2) 1,250 50,000 unit PO Bhakta@0900 #4 cap 10/02/21 Rx mcg (50,000 unit) capsule polyethylene glycol 3350 17 gram 17 g PO BID #60 ea 10/02/21 Rx oral powder packet (Miralax) sennosides 8.6 mg-docusate sodium 2 tab PO QAM #60 tab 10/02/21 Rx 50 mg tablet (Senokot-S) Patient History Medical History A-fib Actinic keratosis Arthritis Blood disease Cellulitis Chest pain Chest pain Chronic diastolic CHF (congestive heart failure) CKD (chronic kidney disease) stage 3, GFR 30-59 ml/min Confusion Dizziness Dyslipidemia Fever GI bleed Heart palpitations History of basal cell carcinoma History of squamous cell carcinoma History of squamous cell carcinoma in situ of skin Hyperlipidemia Hypertension Hypertension Neoplasm of uncertain behavior of skin Osteopenia Peripheral vertigo Polycythemia vera (~08/2011) Polycythemia vera Sensorineural hearing loss (SNHL) of both ears Venous stasis ulcer Surgical History H/O eye surgery History of cholecystectomy Family History Mother Hypertension Father Myocardial infarction Social History Smoking Status: Never smoker Tobacco Type: Cigarettes Second Hand Exposure: No; Hx Alcohol Use: No Hx Substance Use: No Preferred Language: Swedish Communication Ability: Effective Visual Impairment: Limited Hearing Ability: Hard of Hearing Dipper Fish Required: No Beliefs That Will Affect Care: None marital status: / Current Living Situation: Personal Care Facility Current Living Situation Comment: [facility] current occupational status: retired Feels Safe at Home: Yes Assistive Devices: Oxygen - Continuous Review of Systems Constitutional: + weakness Respiratory: as per Subjective / HPI Cardiovascular: as per Subjective / HPI Gastrointestinal: as per Subjective / HPI Physical Exam Constitutional: + thin; no acute distress Neck: normal visual inspection Respiratory: normal respiratory effort and + cough Auscultation: lungs clear to auscultation bilaterally Cardiovascular: Rate/Rhythm: regular rate and regular rhythm Gastrointestinal (Abdomen): Inspection/Auscultation: abdomen normal to inspection and normal bowel sounds Percussion/Palpation: abdomen soft; abdomen nontender Musculoskeletal: Extremities: extremities normal to inspection Skin: warm and dry Psychiatric: A+Ox3, euthymic affect Results & Data ([facility]) Vital Signs (Past 12 Hours) Vital Signs Temp Pulse Resp BP Pulse Ox 10/03/21 07:05 36.2 C L 75 18 149/78 H 96 PG Care Time/CCT Total # of Minutes Spent Total Time Spent with Patient: Total time spent is greater than 50% in coordination of care (as documented) at patient's floor/unit and/or counseling patient: Coding Level of Care Code 58087 Initial Inpt Care Lvl 3 Diagnoses Metastatic adenocarcinoma C79.9 Dysphagia R13.10
[2021-10-03] MEDS ORDERED: SODIUM CHLORIDE 0.9% 1000ML 250 ML IV ONE (18:00)
[2021-10-03] MEDS ORDERED: SODIUM CHLORIDE 0.9% 1000ML 1,000 ML IV SCH (18:15)
[2021-10-03] MEDS ORDERED: FAMOTIDINE 20 MG in SYRINGE 3 ML IV ONE (18:15)
--- NOTE | 2021-10-03 18:32 | Hospitalist Progress Note ---
Date of Service October 03, 2021 Assessment & Plan (1) Left displaced femoral neck fracture: Plan: Physician: Patient this morning declined EGD on evaluation by GI, on reassessment in afternoon patient expressed that she was nervous and scared but her and her daughter at bedside would both like to pursue this. Discussed with GI, unfortunately is not able to be done tomorrow or over the weekend and would be Thursday at the earliest. They can set this up as an outpatient. Anticipate transfer to [facility] on hospice tomorrow, and will continue to set up EGD for Thursday. Patient agreeable with this plan. Patient with a fall at [facility] Orthopedics consulted, surgical intervention initially delayed due to pleural effusion/oxygen requirements CXR: Large right-sided effusion, pulmonary consulted, CT obtained, status post thoracentesis Following thoracentesis patient's breathing was stable, okay to proceed with surgery - s/p L Hip cemented bipolar hemiarthroplasty 09/26 DVT prophylaxis-Continue Eliquis 5mg bid dose, continue teds, SCDs. PT/OT and weightbearing as tolerated. Vitamin D extremely low, continue ergocalciferol 50,000 units p.o.Weekly - continue calcium supplementation here but can dc upon discharge on hospice to minimize meds -bone bx pending from surgery given metastatic disease (2) Metastatic adenocarcinoma: Plan: Metastatic adenocarcinoma on thoracentesis fluid analysis, likely [employer] or renal origin Additional send out staining pending -Discussed with oncology-she thinks that this is most likely ovarian cancer and recommends hospice rather than treatment CTA/P of the pelvis with contrast deferred in the setting of RICA, and no further work-up needed as patient and family have decided to pursue hospice Patient seems comfortable and is on 2 to 3 L nasal cannula Consider Pleurx catheter if has recurrent effusion that is symptomatic Would not treat with diuretics as this caused her to have acute kidney injury (3) Pleural effusion: Plan: -Osteoblastic skeletal lesions noted on CT scan. -pathology/cytology consistent w/ malignant effusion. 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 coli Rocephin sensitive Patient on chronic Macrobid for prophylaxis, E. coli is Macrobid resistant -Has Altman catheter in place. Patient reports this is uncomfortable for her and would like it removed, removed with repeat UA drawn. CT abdomen/pelvis in 2020 shows moderate to severe bilateral hydroureteronephrosis without any clear obstruction-unclear significance but acute kidney injury resolving can continue Macrobid 50mg po daily on discharge on hospice for UTI prevention (6) SOB (shortness of breath): Plan: Large right-sided pleural effusion on CXR and CT Pulm consulted, s/post thoracentesis 09/25/2021. -Malignant effusion now improved, remains on 3LNC she tends to pull her O2 off and this makes her feel worse (7) Accidental fall: Plan: suspect 2nd to UTI as above (8) Hypoxia: Plan: improved with supplemental O2 continue O2 prn to keep POx>90% secondary to pleural effusion (9) Weakness: Plan: 2nd to above tx as outlined (10) Chronic diastolic CHF (congestive heart failure): Plan: Most recent ECHO 07/25/19 NEGATIVE Dobutamine Stress ECHO -- with normal LV size and systolic function EF 60-65%. No wma, moderate asymmetric hypertrophy of basal anteroseptum. Mildly dilated RV and normal systolic function. Moderate LAD, Mild RAD, sclerotic aortic valve without significant stenosis. Mild pulmonary hypertension; estimated RVSP 40mmHg. On lasix 80mg daily, now stopped for RICA (11) CKD (chronic kidney disease) stage 3, GFR 30-59 ml/min: Plan: with RICA as above -Avoid nephrotoxins -renally dose meds when appropriate no labs on hospice (12) Polycythemia vera: Plan: Typically gets monthly labs to see if needs phlebotomy for such and is on hydroxyurea hgb not elevated -- see above continue to hold hydroxyurea indefinitely/discontinue on hospice (13) Anemia, macrocytic: Plan: hx polycythemia and is on hydroxyurea -B12/folate levels here are normal (14) Sensorineural hearing loss (SNHL) of both ears: Plan: b/l hearing aides in place (15) Hypertension: Plan: continue home atenolol BP stable holding lasix for above Monitor (16) A-fib: Plan: On eliquis, also with prior hx DVT RLE last summer. Tele here with sinus arrhythmia-telemetry since discontinued Eliquis dose reduced x2 days then resume full dose 2 days post-op once renal function normalizes -have since increased to 5mg dose (17) Anisocoria: Plan: noted (18) Constipation: Plan: no BM since admission and then finally did on 10/01 after bisacodyl MA continue Miralax, senna/docusate Plan: DVT prophylaxis -- SCD/rosio britany, eliquis as above Disposition-[facility]. Due to logistics with EGD rescheduling in follow-up today patient was not able to be transferred, anticipate transfer back tomorrow Admission and Anticipated Discharge Date Admission Date: September 24, 2021 Subjective Seen the bedside this morning and again in the afternoon with her daughter present. This morning Argelia had gotten nervous and did not want the EGD, throughout the afternoon she is continued to have dysphagia and at bedside assessment with her daughter reports that she does actually want this done as she is uncomfortable getting. Review of Systems Review of Systems: All systems reviewed & are unremarkable except as noted in Subjective Physical Exam Physical Exam: General: Chronically ill, frail appearing. HEENT: Atraumatic, normocephalic. Visual acuity and hearing intact Pulm: Diminished-wheezes, -rales, -rhonchi. Symmetrical chest rise. No increase in work of breathing. No respiratory distress. Cardiac: RRR, -mrg. Radial pulses intact and symmetrical. Abdominal: Nontender, nondistended, soft. BS present. : Altman in place Extremities: Warm, dry Results & Data Results & Data ([facility]) Vital Signs (Past 12 Hours) Vital Signs Temp Pulse Resp BP Pulse Ox 10/03/21 15:40 36.3 C L 78 18 93/55 L 96 10/03/21 11:03 36.5 C 72 18 114/70 97 10/03/21 07:05 36.2 C L 75 18 149/78 H 96 PG Care Time/CCT Total # of Minutes Spent Total Time Spent with Patient: Total time spent is greater than 50% in coordination of care (as documented) at patient's floor/unit and/or counseling patient: Coding Level of Care Code 35712 Subseq Hosp Care Lvl 2 Diagnoses Left displaced femoral neck fracture S72.002A Metastatic adenocarcinoma C79.9 Pleural effusion J90 RICA (acute kidney injury) N17.9 Acute UTI (urinary tract infection) N39.0 SOB (shortness of breath) R06.02 Accidental fall W19.XXXA Hypoxia R09.02 Weakness R53.1 Chronic diastolic CHF (congestive heart failure) I50.32 CKD (chronic kidney disease) stage 3, GFR 30-59 ml/min N18.30 Polycythemia vera D45 Anemia, macrocytic D53.9 Sensorineural hearing loss (SNHL) of both ears H90.3 Hypertension I10 A-fib I48.91 Anisocoria H57.02 Constipation K59.00
[2021-10-03] MEDS: RALOXIFENE HCL 60 MG TAB PO SCH (21:11)
[2021-10-04] MEDS: SACCHAROMYCES BOULARDII 250 MG CAP PO SCH (08:13)
[2021-10-04] MEDS: DOCUSATE SODIUM/SENNA 50/8.6MG TAB PO SCH (08:13)
[2021-10-04] MEDS: DONEPEZIL HCL 5 MG TAB PO SCH (08:14)
[2021-10-04] MEDS: MIRABEGRON ER 25 MG TAB PO SCH (08:14)
[2021-10-04] MEDS: ESCITALOPRAM OXALATE 10 MG TAB PO SCH (08:14)
[2021-10-04] MEDS: POLYETHYLENE (MIRALAX) 17 GM PACK PO SCH ×2 (08:14→20:36)
[2021-10-04] MEDS: ATENOLOL 50 MG TABLET PO SCH (08:14)
[2021-10-04] MEDS: CYANOCOBALAMIN (B-12) 500 MCG TABLET PO SCH (08:14)
[2021-10-04] MEDS: CALCIUM CARBONATE 1250MG TAB PO SCH ×2 (08:14→20:36)
[2021-10-04] MEDS: APIXABAN 5 MG TABLET PO SCH ×2 (08:14→20:35)
--- NOTE | 2021-10-04 13:52 | Progress Notes ---
DATE OF SERVICE: 10/04/2021. SUBJECTIVE: An 86-year-old female, now 8 days out from a left cemented bipolar hip arthroplasty for fracture. She seems to be doing okay. She denies any significant pain. OBJECTIVE; VITAL SIGNS: Temperature 36.3. Vital signs are stable. GENERAL: Shows a pleasant, elderly female. She was sitting in her bedside commode. She looks quite comfortable. She is much more awake, alert and appropriate today, but still somewhat confused. EXTREMITIES: Examination of the left hip reveals the dressing to be clean, dry and intact. Thigh is soft and supple. Leg lengths are equal. Hip is located. She is neurologically intact. ASSESSMENT: An 86-year-old white female, now 8 days out from a left cemented bipolar hip arthroplast y for fracture, doing reasonably well orthopedically. PLAN: 1. DVT prophylaxis includes thigh-high TEDs, SCDs and back on her normal anticoagulation. 2. PT/OT. She can weight bear as tolerated. Needs to obey hip precautions. 3. Pain control, doing okay with current pain regimen. Does not seem to be in pain and I have hold all narcotics. 4. Medical management as per the medicine service. 5. Wound care. Just do routine dressing changes once a day. 6. Disposition: She is orthopedically okay for discharge any time medically stable. I need to see her back somewhere between 2 and 3 weeks out from surgery date. Any orthopedic questions can be dire cted to me at [phone]. Job ID: [id number]
--- NOTE | 2021-10-04 15:21 | Hospitalist Progress Note ---
Date of Service October 04, 2021 Assessment & Plan (1) Left displaced femoral neck fracture: Plan: Disposition: Discussed extensively with hospice. Despite patient having EGD performed for comfort/palliative reasons with consideration of dilation/stent if needed she cannot return to [facility] on hospice until this is completed, and will not be able to the brought back as outpatient status to have this completed. As such reported that if she wants to have this done she will after remain inpatient status. Discussed with family including patient's daughter and Argelia, who are agreeable to her remaining to Thursday for EGD and then transfer back on hospice after that. GI notified. Otherwise patient feels improved 3/ since Altman removed, denies any symptoms. Left femoral neck fracture Patient with a fall at [facility] Orthopedics consulted, surgical intervention initially delayed due to pleural effusion/oxygen requirements CXR: Large right-sided effusion, pulmonary consulted, CT obtained, status post thoracentesis - s/p L Hip cemented bipolar hemiarthroplasty 09/26 DVT prophylaxis-Continue Eliquis 5mg bid dose, continue teds, SCDs. PT/OT and weightbearing as tolerated. Vitamin D extremely low, continue ergocalciferol 50,000 units p.o.Weekly - continue calcium supplementation here but can dc upon discharge on hospice to minimize meds (2) Metastatic adenocarcinoma: Plan: Metastatic adenocarcinoma on thoracentesis fluid analysis, likely [employer] or renal origin Additional send out staining pending -Discussed with oncology-she thinks that this is most likely ovarian cancer and recommends hospice rather than treatment CTA/P of the pelvis with contrast deferred in the setting of RICA, and no further work-up needed as patient and family have decided to pursue hospice Patient seems comfortable and is on 2 to 3 L nasal cannula Consider Pleurx catheter if has recurrent effusion that is symptomatic. Patient is been doing well and this is not indicated at this time. Would not treat with other diuretics as patient had a RICA, and breathing is relatively stable on low amounts of oxygen which can be continued on hospice (3) Pleural effusion: Plan: -Osteoblastic skeletal lesions noted on CT scan. -pathology/cytology consistent w/ malignant effusion. 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 coli Rocephin sensitive Patient on chronic Macrobid for prophylaxis, E. coli is Macrobid resistant -Altman removed due to patient discomfort, discomfort improved today, denies dysuria CT abdomen/pelvis in 2020 shows moderate to severe bilateral hydroureteronephrosis without any clear obstruction-unclear significance but acute kidney injury resolving can continue Macrobid 50mg po daily on discharge on hospice for UTI prevention (6) SOB (shortness of breath): Plan: Large right-sided pleural effusion on CXR and CT Pulm consulted, s/post thoracentesis 09/25/2021. -Malignant effusion now improved, remains on 3LNC she tends to pull her O2 off and this makes her feel worse (7) Accidental fall: Plan: suspect 2nd to UTI as above (8) Hypoxia: Plan: improved with supplemental O2 continue O2 prn to keep POx>90% secondary to pleural effusion (9) Weakness: Plan: 2nd to above tx as outlined (10) Chronic diastolic CHF (congestive heart failure): Plan: Most recent ECHO 07/25/19 NEGATIVE Dobutamine Stress ECHO -- with normal LV size and systolic function EF 60-65%. No wma, moderate asymmetric hypertrophy of basal anteroseptum. Mildly dilated RV and normal systolic function. Moderate LAD, Mild RAD, sclerotic aortic valve without significant stenosis. Mild pulmonary hypertension; estimated RVSP 40mmHg. Previously olasix 80mg daily, now stopped for RICA (11) CKD (chronic kidney disease) stage 3, GFR 30-59 ml/min: Plan: with RICA as above -Avoid nephrotoxins -renally dose meds when appropriate no labs on hospice (12) Polycythemia vera: Plan: Typically gets monthly labs to see if needs phlebotomy for such and is on hydroxyurea hgb not elevated -- see above continue to hold hydroxyurea indefinitely/discontinue on hospice (13) Anemia, macrocytic: Plan: hx polycythemia and is on hydroxyurea -B12/folate levels here are normal (14) Sensorineural hearing loss (SNHL) of both ears: Plan: b/l hearing aides in place (15) Hypertension: Plan: continue home atenolol BP stable holding lasix for above Monitor (16) A-fib: Plan: On eliquis, also with prior hx DVT RLE last summer. Tele here with sinus arrhythmia-telemetry since discontinued Eliquis dose reduced x2 days then have since increased to 5mg dose with improvement in renal function (17) Anisocoria: Plan: noted (18) Constipation: Plan: no BM since admission and then finally did on 10/01 after bisacodyl MD continue Miralax, senna/docusate Plan: DVT prophylaxis -- SCD/rosio garg, eliquis as above Disposition-[facility] accept her [facility] on hospice. See above, per hospice agency will not accept patient while EGD is pending and this must be completed as inpatient prior to transfer back. Anticipate EGD Thursday and then transfer to hospice following procedure. N.p.o. at midnight on Thursday Admission and Anticipated Discharge Date Admission Date: September 24, 2021 Subjective Was seen at the bedside this morning. Reports her abdomen feels similar to yesterday, may be a little bit better but denies pain on focal assessment. Aware that EGD is Thursday, unfortunately hospice is not able to enroll her until after this is completed. Discussed with Argelia and her daughter who is available by phone, and understanding of this and would like to remain inpatient till Thursday to have this performed. Denies chest pain, chest pressure, lightheadedness, dizziness, some raw skin/breakdown of the buttock, may use pure wick for comfort. Patient was uncomfortable with Altman and does not wish to be replaced. Review of Systems Review of Systems: All systems reviewed & are unremarkable except as noted in Subjective Physical Exam Physical Exam: General: Chronically ill, frail appearing. HEENT: Atraumatic, normocephalic. Visual acuity and hearing intact Pulm: Diminished-wheezes, -rales, -rhonchi. Symmetrical chest rise. No increase in work of breathing. No respiratory distress. Cardiac: RRR, -mrg. Radial pulses intact and symmetrical. Abdominal: Nontender, nondistended, soft. BS present. : Altman previously present removed Extremities: Warm, dry Results & Data Results & Data ([facility]) Vital Signs (Past 12 Hours) Vital Signs Temp Pulse Pulse Resp BP BP Pulse Ox 10/04/21 10:00 36.3 C L 74 18 110/58 L 97 10/04/21 07:21 36.4 C L 87 18 151/75 H 96 10/04/21 03:49 36.5 C 76 18 125/66 97 PG Care Time/CCT Total # of Minutes Spent Total Time Spent with Patient: Total time spent is greater than 50% in coordination of care (as documented) at patient's floor/unit and/or counseling patient: Coding Level of Care Code 42960 Subseq Hosp Care Lvl 2 Diagnoses Left displaced femoral neck fracture S72.002A Metastatic adenocarcinoma C79.9 Pleural effusion J90 RICA (acute kidney injury) N17.9 Acute UTI (urinary tract infection) N39.0 SOB (shortness of breath) R06.02 Accidental fall W19.XXXA Hypoxia R09.02 Weakness R53.1 Chronic diastolic CHF (congestive heart failure) I50.32 CKD (chronic kidney disease) stage 3, GFR 30-59 ml/min N18.30 Polycythemia vera D45 Anemia, macrocytic D53.9 Sensorineural hearing loss (SNHL) of both ears H90.3 Hypertension I10 A-fib I48.91 Anisocoria H57.02 Constipation K59.00
--- NOTE | 2021-10-04 15:45 | Communication Note ---
Date of Service: October 04, 2021 GI brief communication note: patient and family amenable to EGD, plan for EGD thursday to further evaluate. Joseluis Gomez MD Gastroenterology
[2021-10-04] MEDS: RALOXIFENE HCL 60 MG TAB PO SCH (20:37)
[2021-10-04] MEDS: ACETAMINOPHEN 500 MG TAB PO PRN (21:32)
[2021-10-05] MEDS ORDERED: ACETAMINOPHEN 1,000 MG/100 ML VIAL IV STA (01:33)
[2021-10-05] MEDS: MIRABEGRON ER 25 MG TAB PO SCH (09:07)
[2021-10-05] MEDS: DOCUSATE SODIUM/SENNA 50/8.6MG TAB PO SCH (09:07)
[2021-10-05] MEDS: CYANOCOBALAMIN (B-12) 500 MCG TABLET PO SCH (09:07)
[2021-10-05] MEDS: ESCITALOPRAM OXALATE 10 MG TAB PO SCH (09:07)
[2021-10-05] MEDS: POLYETHYLENE (MIRALAX) 17 GM PACK PO SCH ×2 (09:07→20:43)
[2021-10-05] MEDS: ATENOLOL 50 MG TABLET PO SCH (09:07)
[2021-10-05] MEDS: DONEPEZIL HCL 5 MG TAB PO SCH (09:07)
[2021-10-05] MEDS: SACCHAROMYCES BOULARDII 250 MG CAP PO SCH (09:07)
[2021-10-05] MEDS: APIXABAN 5 MG TABLET PO SCH ×2 (09:08→20:43)
[2021-10-05] MEDS: CALCIUM CARBONATE 1250MG TAB PO SCH ×2 (09:08→20:43)
--- NOTE | 2021-10-05 16:27 | Hospitalist Progress Note ---
Date of Service October 05, 2021 Assessment & Plan (1) Left displaced femoral neck fracture: Plan: Disposition: Patient cannot return to [facility] on hospice until EGD is completed, and will not be able to the brought back as outpatient status to have this completed. Discussed with family including patient's daughter and Argelia, who are agreeable to her remaining to Thursday for EGD and then transfer back on hospice after that. GI notified. N.p.o. tomorrow midnight, no clinical change 10/05 Left femoral neck fracture Patient with a fall at [facility] Orthopedics consulted, surgical intervention initially delayed due to pleural effusion/oxygen requirements CXR: Large right-sided effusion, pulmonary consulted, CT obtained, status post thoracentesis - s/p L Hip cemented bipolar hemiarthroplasty 09/26 DVT prophylaxis-Continue Eliquis 5mg bid dose, continue teds, SCDs. PT/OT and weightbearing as tolerated. 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 Patient is been doing well and this is not indicated at this time. Would not treat with other diuretics as patient had a RICA, and breathing is r elatively stable on low amounts of oxygen which can be continued on hospice (3) Pleural effusion: Plan: -Osteoblastic skeletal lesions noted on CT scan. -pathology/cytology consistent w/ malignant effusion. 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 coli Rocephin sensitive Patient on chronic Macrobid for prophylaxis, E. coli is Macrobid resistant -Altman removed due to patient discomfort, discomfort improved today, denies dysuria CT abdomen/pelvis in 2020 shows moderate to severe bilateral hydroureteronephrosis without any clear obstruction-unclear significance but acute kidney injury resolving can continue Macrobid 50mg po daily on discharge on hospice for UTI prevention (6) SOB (shortness of breath): Plan: Large right-sided pleural effusion on CXR and CT Pulm consulted, s/post thoracentesis 09/25/2021. -Malignant effusion now improved, remains on 3LNC she tends to pull her O2 off and this makes her feel worse (7) Accidental fall: Plan: suspect 2nd to UTI as above (8) Hypoxia: Plan: improved with supplemental O2 continue O2 prn to keep POx>90% secondary to pleural effusion (9) Weakness: Plan: 2nd to above tx as outlined (10) Chronic diastolic CHF (congestive heart failure): Plan: Most recent ECHO 07/25/19 NEGATIVE Dobutamine Stress ECHO -- with normal LV size and systolic function EF 60-65%. No wma, moderate asymmetric hypertrophy of basal anteroseptum. Mildly dilated RV and normal systolic function. Moderate LAD, Mild RAD, sclerotic aortic valve without significant stenosis. Mild pulmonary hypertension; estimated RVSP 40mmHg. Previously on lasix 80mg daily, now stopped for RICA (11) CKD (chronic kidney disease) stage 3, GFR 30-59 ml/min: Plan: with RICA as above -Avoid nephrotoxins -renally dose meds when appropriate no labs on hospice (12) Polycythemia vera: Plan: Typically gets monthly labs to see if needs phlebotomy for such and is on hydroxyurea hgb not elevated -- see above continue to hold hydroxyurea indefinitely/discontinue on hospice (13) Anemia, macrocytic: Plan: hx polycythemia and is on hydroxyurea -B12/folate levels here are normal (14) Sensorineural hearing loss (SNHL) of both ears: Plan: b/l hearing aides in place (15) Hypertension: Plan: continue home atenolol BP stable holding lasix for above Monitor (16) A-fib: Plan: On eliquis, also with prior hx DVT RLE last summer. Tele here with sinus arrhythmia-telemetry since discontinued Eliquis dose reduced x2 days then have since increased to 5mg dose with improvement in renal function (17) Anisocoria: Plan: noted (18) Constipation: Plan: no BM since admission and then finally did on 10/01 after bisacodyl VT continue Miralax, senna/docusate Plan: DVT prophylaxis -- SCD/rosio garg, hongquis as above Disposition-her H will accept her back on hospice. See above, per hospice agency will not accept patient while EGD is pending and this must be completed as inpatient prior to transfer back. Anticipate EGD Thursday and then transfer to hospice following procedure. N.p.o. at midnight on Thursday Admission and Anticipated Discharge Date Admission Date: September 24, 2021 Subjective No acute change today. Poor p.o. intake, slightly low blood pressure without lightheadedness/dizziness.. Patient aware awaiting EGD on Thursday. GI aware, n.p.o. tomorrow at midnight. Review of Systems Review of Systems: All systems reviewed & are unremarkable except as noted in Subjective Physical Exam Physical Exam: General: Chronically ill, frail appearing. Oriented to name. HEENT: Atraumatic, normocephalic. Visual acuity and hearing intact Pulm: Diminished-wheezes, -rales, -rhonchi. Symmetrical chest rise. No increase in work of breathing. No respiratory distress. Cardiac: RRR, -mrg. Radial pulses intact and symmetrical. Abdominal: Nontender, nondistended, soft. BS present. Extremities: Warm, dry Results & Data Results & Data ([facility]) Vital Signs (Past 12 Hours) Vital Signs Temp Pulse Resp BP Pulse Ox 10/05/21 15:16 36.1 C L 67 18 101/51 L 96 10/05/21 11:19 36.5 C 88 16 100/59 L 94 10/05/21 07:40 36.5 C 66 16 115/72 94 PG Care Time/CCT Total # of Minutes Spent Total Time Spent with Patient: Total time spent is greater than 50% in coordination of care (as documented) at patient's floor/unit and/or counseling patient: Coding Level of Care Code 41808 Subseq Hosp Care Lvl 1 Diagnoses Left displaced femoral neck fracture S72.002A Metastatic adenocarcinoma C79.9 Pleural effusion J90 RICA (acute kidney injury) N17.9 Acute UTI (urinary tract infection) N39.0 SOB (shortness of breath) R06.02 Accidental fall W19.XXXA Hypoxia R09.02 Weakness R53.1 Chronic diastolic CHF (congestive heart failure) I50.32 CKD (chronic kidney disease) stage 3, GFR 30-59 ml/min N18.30 Polycythemia vera D45 Anemia, macrocytic D53.9 Sensorineural hearing loss (SNHL) of both ears H90.3 Hypertension I10 A-fib I48.91 Anisocoria H57.02 Constipation K59.00
[2021-10-05] MEDS: RALOXIFENE HCL 60 MG TAB PO SCH (20:43)
[2021-10-05] MEDS ORDERED: LORazepam 2 MG/1 ML VIAL IV STA (21:01)
[2021-10-06] MEDS ORDERED: LORazepam 2 MG/1 ML VIAL IV STA (01:57)
[2021-10-06] MEDS: ACETAMINOPHEN 500 MG TAB PO PRN ×2 (02:24→14:07)
[2021-10-06 07:57] LABS: BUN Creatinine Ratio 33.3 (10-20); Creatinine Clr Calc Pharmacy 30.7 ml/min; Est GFR (African American) 45.4 ml/min; Est GFR (Non-African American) 39.1 ml/min
[2021-10-06] MEDS: ESCITALOPRAM OXALATE 10 MG TAB PO SCH (08:46)
[2021-10-06] MEDS: CYANOCOBALAMIN (B-12) 500 MCG TABLET PO SCH (08:46)
[2021-10-06] MEDS: APIXABAN 5 MG TABLET PO SCH ×2 (08:46→20:48)
[2021-10-06] MEDS: ATENOLOL 50 MG TABLET PO SCH (08:46)
[2021-10-06] MEDS: CALCIUM CARBONATE 1250MG TAB PO SCH ×2 (08:46→20:47)
[2021-10-06] MEDS: MIRABEGRON ER 25 MG TAB PO SCH (08:46)
[2021-10-06] MEDS: DOCUSATE SODIUM/SENNA 50/8.6MG TAB PO SCH (08:46)
[2021-10-06] MEDS: DONEPEZIL HCL 5 MG TAB PO SCH (08:46)
[2021-10-06] MEDS: ERGOCALCIFEROL 50,000 UNITS 1250 MCG CAP PO SCH (08:46)
[2021-10-06] MEDS: SACCHAROMYCES BOULARDII 250 MG CAP PO SCH (08:47)
[2021-10-06] MEDS: POLYETHYLENE (MIRALAX) 17 GM PACK PO SCH ×2 (08:47→20:47)
--- NOTE | 2021-10-06 10:52 | Hospitalist Progress Note ---
Date of Service October 06, 2021 Assessment & Plan (1) Dysphagia: Plan: 86 yo F s/p arthroplasty for L hip Fx, thoracentesis of malignant pleural effusion with findings of metastatic adenocarcinoma. Dysphagia - ongoing, with decreased appetite and strength - per previous discussions with patient and family, to have EGD tomorrow with Dr. Gomez for workup of dysphagia given the degree of improvement it may provide to quality of life. - soft, pureed liquid diet Metastatic Adenocarcinoma with hypoxia s/p thoracentesis of malignant pleural effusion - additional pathology pending - supportive oxygen for comfort - to transition back to hospice care at [facility] at discharge after EGD - stable and comfortable on 2L NC Left femoral neck fracture Patient with a fall at [facility] - s/p L Hip cemented bipolar hemiarthroplasty 09/26 DVT prophylaxis-Continue Eliquis 5mg bid dose, continue teds, SCDs. PT/OT and weightbearing as tolerated. Vitamin D extremely low, continue ergocalciferol 50,000 units p.o.Weekly - continue calcium supplementation here but can dc upon discharge on hospice to minimize meds Acute UTI (urinary tract infection): resolved Plan: Rocephin, completed 5-day course UC positive for E. coli Rocephin sensitive - can continue Macrobid 50mg po daily on discharge on hospice for UTI prevention A-fib: Plan: On eliquis, also with prior hx DVT RLE last summer. Tele here with sinus arrhythmia-telemetry since discontinued Eliquis dose reduced x2 days then have since increased to 5mg dose with improvement in renal function DVT ppx: SCDs, eliquis FEN/GI: soft foods; NPO @[place] Bowel regimen: daily miralax, senna Code Status: Conditional code Dispo: return to [facility] on hospice at discharge after EGD (2) Metastatic adenocarcinoma: (3) Pleural effusion: Admission and Anticipated Discharge Date Admission Date: September 24, 2021 Supervising Physician Co-Signing Physician Notes I personally examined the patient and verified all hess points of history and exam, discussed case, and agree with decision making with Dr Devlin feeling OK just restless. for EGD tomorrow vitals noted nad heent nc at mmm breathing unlabored no accessory muscles good effort skin no rashes no pallor or icterus neuro no focal deficits dysphagia - for EGD tomorrow otherwise as above Subjective PICAYUNE. limited appetite, denying medications from nursing. Doing better with liquids than solid food/jello/pudding. per nursing, she coughs and vomits these back up. Is able to take some medications down with just water. denies any pain. Review of Systems Review of Systems: All systems reviewed & are unremarkable except as noted in Subjective Physical Exam Physical Exam: General: Chronically ill, frail appearing. Oriented to name. HEENT: Atraumatic, normocephalic. Visual acuity and hearing intact Pulm: Diminished-wheezes, -rales, -rhonchi. Symmetrical chest rise. No increase in work of breathing. No respiratory distress. Cardiac: RRR, -mrg. Radial pulses intact and symmetrical. Abdominal: Nontender, nondistended, soft. BS present. Extremities: Warm, dry Results & Data Results & Data ([facility]) Vital Signs (Past 12 Hours) Vital Signs Temp Pulse Resp BP BP Pulse Ox 10/06/21 07:19 36.3 C L 77 18 105/52 L 92 10/06/21 02:31 36.4 C L 84 18 132/73 91 10/06/21 00:05 36.5 C 100 H 18 161/82 H 90 Resident Activity Tracking Resident Involvement: Resident Care Provided Care Provided: Adult Hospital Medicine
[2021-10-06] MEDS ORDERED: QUEtiapine FUMARATE 25 MG TABLET PO ONE (11:00)
--- NOTE | 2021-10-06 14:14 | Billing Data ---
Date of Service October 06, 2021 Coding Level of Care Code 88146 Subseq Hosp Care Lvl 1
[2021-10-06 18:07] LABS: Basophils # (auto) 0.03 K/uL (0-0.2); Basophils % (auto) 0.3 %; Eosinophils # (auto) 0.33 K/uL (0-0.5); Eosinophils % (auto) 3.4 %; Hematocrit (blood only) 36.5 % (37-47); Immature Granulocytes # (auto) 0.14 K/uL (0.00-0.02); Immature Granulocytes % (auto) 1.5 %; Lymphocytes # (auto) 0.69 K/uL (1.2-3.4); Lymphocytes % (auto) 7.2 %; Mean Corpuscular Hemoglobin 35.1 pg (25-34); Mean Corpuscular Volume 116.6 fL (80-100); Mean Platelet Volume 9.7 fL (7.4-10.4); Monocytes # (auto) 0.68 K/uL (0.11-0.59); Monocytes % (auto) 7.1 %; Neutrophils # (auto) 7.74 K/uL (1.4-6.5); Neutrophils % (auto) 80.5 %; Platelet Count 565 K/uL (130-400); RDW Coefficient of Variation 15.3 % (11.5-14.5); RDW Standard Deviation 64.7 fL (36.4-46.3); Red Blood Count 3.13 M/uL (4.2-5.4); White Blood Count 9.61 K/uL (4.8-10.8)
[2021-10-06 18:20] LABS: INR 1.1 (0.9-1.1); Partial Thromboplastin Ratio 1.1; Partial Thromboplastin Time 30.1 Seconds (21.0-31.0)
[2021-10-06 18:30] LABS: BUN Creatinine Ratio 32.2 (10-20); Calcium 7.7 mg/dl (8.5-10.1); Creatinine Clr Calc Pharmacy 31.2 ml/min; Est GFR (African American) 46.3 ml/min; Est GFR (Non-African American) 39.9 ml/min; Potassium 5.2 mmol/L (3.5-5.1)
[2021-10-06 18:32] LABS: Troponin I 0.37 ng/ml (0-0.04)
--- NOTE | 2021-10-06 18:48 | XRay Report ---
XR chest 1V portable CLINICAL HISTORY: obtunded. Evaluate cardiopulmonary status COMPARISON STUDY: 10/02/2021 TECHNIQUE: 1 view of the chest FINDINGS: Single frontal view of the chest demonstrates the heart to again be enlarged. Large loculated right p leural effusion is again seen with right middle lobe and right lower lobe atelectasis/collapse. There has been interval development of diffuse interstitial edema. Is also blunting left costophrenic angle characteristic of a small left pleural effusion. No confluent alveolar opacities are identifie d. There is no acute osseous pathology. IMPRESSION: 1. Compared to previous examination, there has been interval development of diffuse interstitial lul a. 2. Large loculated right pleural effusion is again seen along with small left pleural effusion. ACT 112: Negative or not required by law. Electronically signed by: García Pelaez M.D. 10/06/2021 6:46 PM
[2021-10-06 19:00] LABS: Hypochromasia Present; Macrocytosis Present; Mean Corpuscular Hgb Conc 30.1 g/dL (32-36); Polychromasia 1+
[2021-10-06] MEDS: RALOXIFENE HCL 60 MG TAB PO SCH (20:48)
[2021-10-07] MEDS ORDERED: LORazepam 0.5 MG TAB PO STA (01:14)
[2021-10-07] MEDS: HYDROmorphone INJ 0.5 MG/0.5 ML SYR IV PRN ×2 (01:41→10:00)
--- NOTE | 2021-10-07 05:04 | Hospitalist Progress Note ---
Date of Service October 07, 2021 Assessment & Plan (1) Dysphagia: Plan: 86 yo F s/p arthroplasty for L hip Fx, thoracentesis of malignant pleural effusion with findings of metastatic adenocarcinoma. Dysphagia - ongoing, with decreased appetite and strength - per previous discussions with patient and family, to have EGD tomorrow with Dr. Gomez for workup of dysphagia given the degree of improvement it may provide to quality of life. - soft, pureed liquid diet Metastatic Adenocarcinoma with hypoxia s/p thoracentesis of malignant pleural effusion - additional pathology pending - supportive oxygen for comfort - to transition back to hospice care at [facility] at discharge after EGD - stable and comfortable on 2L NC Left femoral neck fracture Patient with a fall at [facility] - s/p L Hip cemented bipolar hemiarthroplasty 09/26 DVT prophylaxis-Continue Eliquis 5mg bid dose, continue teds, SCDs. PT/OT and weightbearing as tolerated. Vitamin D extremely low, continue ergocalciferol 50,000 units p.o.Weekly - continue calcium supplementation here but can dc upon discharge on hospice to minimize meds Episode of Altered Mental Status - single episode of AMS on 10/06 in the PM requiring activation of code purple; noted to be bradycardic around that time, VSS otherwise - suspect secondary to vagal event -- metabolic w/u otherwise normal, asymptomatic, no new rx - monitor, to go home on hospice Acute UTI (urinary tract infection): resolved Plan: Rocephin, completed 5-day course UC positive for E. coli Rocephin sensitive - can continue Macrobid 50mg po daily on discharge on hospice for UTI prevention A-fib: Plan: On eliquis, also with prior hx DVT RLE last summer. Tele here with sinus arrhythmia-telemetry since discontinued Eliquis dose reduced x2 days then have since increased to 5mg dose with improvement in renal function DVT ppx: SCDs, eliquis FEN/GI: soft foods; NPO @[place] Bowel regimen: daily miralax, senna Code Status: DNR/DNI Dispo: return to [facility] on hospice at discharge after EGD (2) Metastatic adenocarcinoma: (3) Pleural effusion: Admission and Anticipated Discharge Date Admission Date: September 24, 2021 Subjective Diminished responsiveness last evening requiring activation of a CODE PURPLE -- patient noted to have some bradycardia during this time as well as unequal pupils (which are suspected to be chronic). Upon arrival of provider team, patient's mentation was noted to be near baseline. Results & Data Results & Data ([facility]) Vital Signs (Past 12 Hours) Vital Signs Temp Pulse Pulse Resp BP Pulse Ox 10/07/21 04:09 36.8 C 67 18 120/71 93 10/06/21 23:15 36.5 C 71 18 123/73 96 10/06/21 19:56 36.4 C L 72 18 115/63 95 10/06/21 18:15 80 10/06/21 17:54 80 108/63 92 10/06/21 17:47 79 152/81 H 92 Resident Activity Tracking Resident Involvement: Resident Care Provided Care Provided: Adult Hospital Medicine
[2021-10-07 07:03] LABS: BUN Creatinine Ratio 34.2 (10-20); Calcium 7.2 mg/dl (8.5-10.1); Creatinine Clr Calc Pharmacy 31.7 ml/min; Est GFR (African American) 48.2 ml/min; Est GFR (Non-African American) 41.6 ml/min; Potassium 4.8 mmol/L (3.5-5.1)
--- NOTE | 2021-10-07 08:31 | Discharge Summary ---
Date of Service October 07, 2021 Admission HPI Per Admitting Provider 86yo female with PMHx significant for diastolic CHF, Afib, DVT (RLE January 2021), CKD, HTN, HLD, polycythemia vera, frequent UTIs, presented after accidental fall onto her LEFT hip and was unable to get up due to pain. Of note, patient also with increasing shortness of breath, chest heaviness and LE edema over the past 1-2 weeks and hypoxic on room air on admission, improved to 94% on 4L NC. Patient with daughter at bedside. Had been planning to take patient to Dr Noemi Ramirez today for concerns of UTI with some mild confusion over the past week. Was having lunch at [facility] and she notes she was pushing in her chair and note sure if she tripped or her legs gave out vs "stuck to the ground".Denies any LOC or hitting of her head. Frequent UTIs and on nitrofurantoin for prophylaxis. She also endorses some shortness of breath with ambulation, but no increased shortness of breath or chest heaviness laying flat in bed currently. Just medicated for pain with dilaudid. Pain currently ok but not moving very muc h. Chronic LE edema but states LLE always more swollen. Hx DVT to the RLE last January and has been on eliquis since that time. She does have some erythema to RLE, stemming from medial lesion removed in past month with reportedly clear margins for a "horn" by what PCP called it, likely AC. Gets monthly labs drawn for her polycythemia to see if she needs phlebotomy. Vaccinated against COVID-19, test for admission pending. No fever/chills reported recently/loss of taste/smell, no abdominal pain but occasional nausea, no vomiting. No changes to bowel habits/unexplained weight loss. Confirmed with patient and daughter she is a FULL CODE Will be admitted for hip fracture/pain control, consult with orthopedics and make NPO after midnight. Also discussed consultation for pulmonary medicine for effusion which may require thoracentesis but will obtain CTA of chest for further eval -- had not been taken down yet for CT ordered by ER provider. Review of labs on admission with normal WBC but noted L shift, UA appears infected and given dose of Rocephin. BMP with hyponatremia Na 134, elevated BUN 37 and Cr 1.53, calcium 6.1 (albumin normal 3.5) BNP 216 CXR with LARGE R pleural effusion with partial collapse of right lung. Cardiomegaly with vascular congestion and reticular interstitial opacities suggestive of pulmonary edema vs interstitial pneumonitis. HIP xray -- mildy displaced acute subcapital left femoral neck fracture. CT Chest pending for effusion noted on prior imaging Most recent ECHO 07/25/19 NEGATIVE Dobutamine Stress ECHO -- with normal LV size and systolic function EF 60-65%. No wma, moderate asymmetric hypertrophy of basal anteroseptum. Mildly dilated RV and normal systolic function. Moderate LAD, Mild RAD, sclerotic aortic valve without significant stenosis. Mild p ulmonary hypertension; estimated RVSP 40mmHg. Principal Diagnosis metastatic adenocarcinoma with malignant pleural effusion hypoxia left femoral neck fracture s/p L hip cemented bipolar hemiarthroplasty UTI Discharge Exam General: Tired appearing 86-year-old female in no acute distress. HEENT: NCAT. Cardiac: Normal rate and regular rhythm; S1 and S2 present with no murmurs, rubs, or gallops. Pulmonary: Good respiratory effort with symmetric expansion of the chest. No use of accessory muscles. Lungs were clear to auscultation bilaterally with no crackles or wheezes. Abdominal: Normoactive bowel sounds. Abdomen was soft, nondistended, and non- tender to palpation. Extremities: Upper and lower extremities are warm and well perfused. Discharge Data Allergies Allergy/AdvReac Type Severity Reaction Status Date / Time prednisone Allergy Mild Rash Verified 09/24/21 16:09 Consultations 09/24/21 16:29 ED Decision to Admit Stat 09/24/21 17:05 Consult Pulmonology Stat 09/24/21 17:57 Consult Orthopedic Surgery Stat 09/24/21 20:33 Consult Oncology Routine 10/02/21 18:11 Consult Gastroenterology Routine Procedures Performed Operation Date: 09/25/21 09:50 <No data on this case meets the specified criteria> Operation Date: 09/26/21 12:30 Actual Procedures p Left Hip Hemiarthroplasty(Left) - Francisco Justin MD Operation Date: 10/07/21 16:30 <No data on this case meets the specified criteria> Ordered Studies 09/24/21 17:54 CT chest diagnostic w con Stat 09/25/21 09:47 US point of care ultrasound Routine 09/26/21 10:43 CT head/brain wo con Stat 09/26/21 13:21 US - OR guided needle placemen Routine Hospital Course (1) Dysphagia: This is an 86-year-old female who presented for left hip fracture requirin g arthroplasty on 09/26, subsequently found to have malignant pleural effusions and evidence of metastatic adenocarcinoma on arrival. On discharge, she was transitioned to hospice. Dysphagia - In setting of profound weakness, deconditioning - Patient was not a candidate for EGD while here given medical status - MARKING MACHINE TENDER consulted during stay: Soft, pureed diet ; aspiration, reflux precautions, supervise intake upon discharge - Continue discussions re: comfort diet, maximizing quality of life with regards to diet on discharge Metastatic Adenocarcinoma, Malignant Pleural Effusions - Incidentally discovered to have malignant pleural effusions on arrival; CT revealed extensive multifocal osteoblastic metastatic disease - Pleural cytology revealing for metastatic adenocarcinoma, likely LPN or renal in origin - Oncology consulted: engaged family in goals of care discussion, opted to go home on hospice (arranged prior to d/c) - Supportive oxygen for comfort - Can consider further discussions of PleurX catheter for comfort purposes if effusions recur L Femoral Neck Fracture s/p Arthroplasty 09/26 - Presented following a fall at [facility], found to have L femoral neck fracture - s/p L Hip cemented bipolar hemiarthroplasty 09/26 - Discontinue calcium and vitamin D supplementation given goals of care / going home hospice Episode of Altered Mental Status - single episode of AMS on 10/06 in the PM requiring activation of code purple; noted to be bradycardic around that time, VSS otherwise - Suspect secondary to vagal event -- no further episodes prior to discharge Acute UTI (urinary tract infection) -- resolved - UCx positive for E. coli -- treated with CFTX x 5 days with resolution of symptoms - Consider initiation of nitrofurantoin 50mg daily on discharge for UTI pre vention in alignment with goals of hospice Atrial Fibrillation - NSR, rate controlled, while here - Continue Eliquis (2) Metastatic adenocarcinoma: (3) Pleural effusion: Total Time Total Time Spent Total Time Spent (In Minutes): 30 Discharge Plan Discharge Items Patient Disposition: Hospice - Home Reason For Visit: L HIP FRACTURE, LARGE R PLEURAL EFFUSION, UTI Discharge Diagnosis: Left Hip Replacement for Fracture, Metastatic adenocarcinoma (cancer), Pleural effusion, Hypoxia Condition on Discharge: Fair Activity: Resume your previous activity Activity Comment: Obey/Follow hip precautions at all times Weightbearing: Full weightbearing Weightbearing Comment: Weightbear as tolerated obeying hip precautions at all times Non-emergency contact: Primary Care Provider and Surgeon Call non-emergency contact if: you have any medication questions and your symptoms worsen Follow-up/Referrals: John Alba MD [Primary Care Provider] - Francisco Justin MD [Physician] - (Orthopedic Follow-up 2-3 weeks from surgery date .) Diet: Other - See Diet Comment Diet Texture: Pureed (blended smooth) Diet Comment: soft, pureed, liquid, supervise w/ intake Addtl Attending Provider Instructions: This is an 86-year-old female who presented for left hip fracture requiring arthroplasty on 09/26, subsequently found to have malignant pleural effusions and evidence of metastatic adenocarcinoma on arrival. On discharge, she was transitioned to hospice. Dysphagia - In setting of profound weakness, deconditioning - Patient was not a candidate for EGD while here given medical status - MARKING MACHINE TENDER consulted during stay: Soft, pureed diet ; aspiration, reflux precautions, supervise intake upon discharge - Continue discussions re: comfort diet, maximizing quality of life with regards to diet on discharge Metastatic Adenocarcinoma, Malignant Pleural Effusions - Incidentally discovered to have malignant pleural effusions on arrival; CT revealed extensive multifocal osteoblastic metastatic disease - Pleural cytology revealing for metastatic adenocarcinoma, likely LPN or renal in origin - Oncology consulted: engaged family in goals of care discussion, opted to go home on hospice (arranged prior to d/c) - Supportive oxygen for comfort - Can consider further discussions of PleurX catheter for comfort purposes if effusions recur L Femoral Neck Fracture s/p Arthroplasty 09/26 - Presented following a fall at [facility], found to have L femoral neck fracture - s/p L Hip cemented bipolar hemiarthroplasty 09/26 - Discontinue calcium and vitamin D supplementation given goals of care / going home hospice Episode of Altered Mental Status - single episode of AMS on 10/06 in the PM requiring activation of code purple; noted to be bradycardic around that time, VSS otherwise - Suspect secondary to vagal event -- no further episodes prior to discharge Acute UTI (urinary tract infection) -- resolved - UCx positive for E. coli -- treated with CFTX x 5 days with resolution of symptoms - Consider initiation of nitrofurantoin 50mg daily on discharge for UTI prevention in alignment with goals of hospice Atrial Fibrillation - NSR, rate controlled, while here - Continue [address] [employer] Provider Instructions: You were admitted for a hip fracture and had this repaired. You also had a large collection of fluid around your right lung that was drained. Unfortunately this fluid showed evidence of metastatic cancer. You also had cancerous tumors seen in your bones.You have decided to pursue comfort measures only on hospice rather than aggressive treatment for your cancer which is quite appropriate. Continue using supplemental oxygen as needed for comfort and to keep your oxygen levels above 90%. For now, you are only requiring tylenol for pain. Continue the aggressive bowel regimen for your constipation. You can keep your Altman catheter in place for convenience if you wish. It was a pleasure taking care of you and we will be thinking of you and hope you find comfort in the care of your hospice team ---- ACTIVITY RECOMMENDATIONS Physical Therapy: * Aggressive physical therapy is not usually needed. You will learn to take care of yourself safely and walk. * Follow the "Hip Precautions Instructions." * In some cases, the social worker health services at the hospital will arrange to have a therapist come to your house for the first couple of weeks to help you learn these skills. * You need to practice on your own or with the help of a family member as needed. * When you learn these skills, most of the therapy can be done on your own. Home Exercise: * You were shown a series of exercises in the hospital. Do these exercises three to four times each day including the exercises you were shown in physical therapy. Walking: * Get up and walk several times each day. For the first four weeks, try not to stand or walk for more than one hour at a time. If you do stand or walk for more than one hour, you will not hurt anything, but your leg will likely swell. * As you feel comfortable, you may change from the walker or crutches to a cane and then to independent walking. ---- MEDICATIONS: "VERY IMPORTANT TO READ AND REVIEW" Pain: * The immediate post- operative period after hip replacement surgery is often quite painful. * You are given a prescription for pain medicine. You should take it, as directed, when you need it, especially before physical therapy and before going to bed. Pain that interferes with sleep is very common and can last several months. * You will likely need pain medicine for the first two to four weeks. It will not stop all of the pain. The pain will lessen and as you feel better, you may change to milder pain medicine such as Tylenol. * The most common side effects of pain medicine are nausea and constipation, so don't take more than you need. --- SPECIAL CARE INSTRUCTIONS: TEDs/Elastic Stockings: * The white elastic stockings help limit swelling and prevent blood clots from forming in your legs. The more you wear them, the more they work. * Wear them for six weeks. Incision Site Care: * Remove dressing postoperative day 2 and then shower. Keep direct shower pressure off the incision site. * After showering, cover miguelito with dry gauze and change daily or more frequently if the dressing is getting saturated with drainage. * May completely stop using bandage if wound is dry and no drainage * Miguelito are removed between 2 and 3 weeks post-op. If your follow-up appointment is made before 2 weeks, please have your appointment re- scheduled. It is too early to remove the miguelito. Prevention of Infection: * Take antibiotics one hour before any dental cleaning, dental work, urological procedure, gastrointestinal procedure or any invasive surgery in order to prevent your new joint from getting infected. * You may get the antibiotics from the doctor performing the procedure or you may call our office at before and we will call in a prescription to the pharmacy of your choice. Things to Watch For: * Drainage from the incision site that occurs more than one week after your surgery. * Severely increased leg pain or swelling. * Increased redness at the incision site. * Fever above 102 degrees Fahrenheit. * Unusual chest pain or shortness of breath. * Unusual pain or burning with urination. Call [facility] at with any of the above problems or if you have any questions about your medicines or recovery. FOLLOW UP VISIT: Make an appointment to see your doctor for approximately two weeks after surgery for a progress check and staple removal by calling the office at . Pending Studies at Discharge: No Stand-Alone Forms: My [facility] Medications and DC Order Prescriptions: New polyethylene glycol 3350 [Miralax] 17 gram Powder In Packet 17 g PO BID Qty: 60 RF: 0 sennosides-docusate sodium [Senokot-S] 8.6-50 mg Tablet 2 tab PO QAM Qty: 60 RF: 0 ergocalciferol (vitamin D2) 1,250 mcg (50,000 unit) Capsule 50,000 unit PO Bhakta@0900 Qty: 4 RF: 0 Continued atenolol 50 mg tablet 50 mg PO DAILY RF: 0 acetaminophen [Tylenol Arthritis Pain] 650 mg Tablet Extended Release 650 - 1,300 mg PO Q8H PRN (Reason: pain/fever) RF: 0 apixaban 5 mg tablet 5 mg PO BID RF: 0 nitrofurantoin macrocrystal 50 mg capsule 50 mg PO DAILY RF: 0 ondansetron HCl 4 mg tablet 4 mg PO Q6 PRN (Reason: Nausea) RF: 0 Citrucel (sucrose) Powder 1 ea PO DAILY PRN (Reason: Constipation) RF: 0 Saccharomyces boulardii 1 cap PO DAILY RF: 0 donepezil 5 mg tablet 5 mg PO DAILY RF: 0 cyanocobalamin (vitamin B-12) [Vitamin B-12] 1,000 mcg Tablet 1,000 mcg PO DAILY RF: 0 escitalopram oxalate 10 mg tablet 10 mg PO DAILY RF: 0 Discontinued furosemide 80 mg tablet 80 mg PO DAILY RF: 0 lutein 20 mg capsule 20 mg PO DAILY RF: 0 raloxifene 60 mg tablet 60 mg PO QPM RF: 0 garlic 1,000 mg Capsule 1,000 mg PO DAILY RF: 0 ibuprofen 200 mg Tablet 200 mg PO Q8 PRN (Reason: Pain) RF: 0 hydroxyurea 500 mg capsule See Rx Instructions .ROUTE .COMPLEX RF: 0 meclizine 12.5 mg tablet 12.5 mg PO TID PRN (Reason: Vertigo) RF: 0 Myrbetriq 25 mg tablet extended release 24 hr 25 mg PO DAILY RF: 0 Discharge Orders: Discharge Order (Routine); Ordered 10/07/21 Ordered By: Luciano Flores Admission Data Admit Date/Time: 09/24/21 17:57 Attending Provider: Elodia Hurley Admit Provider: Dejon Christian Primary Care Provider: John Alba Other Providers: [place] ; Marycarmen Singh at [place] ; [facility] ; Liz Love ; Antoni Merino ; Camron Antoine ; Francisco Tristan V. ; Joseluis Gomez ; Luciano Resendiz Other Interventions: Discharge Summary Assessment (RN) Last Done: 10/07/21 15:19 Supervising Physician Co-Signing Physician Notes Resident Physician Supervision Note: I independently interviewed and examined the patient and verified the hess history and physical, reviewed labs and image studies and agree with resident Dr. Flores findings and care plan. Resident Activity Tracking Resident Involvement: Resident Care Provided Care Provided: Adult Hospital Medicine
[2021-10-07] MEDS: DONEPEZIL HCL 5 MG TAB PO SCH ×3 (09:20→15:42)
[2021-10-07] MEDS: SACCHAROMYCES BOULARDII 250 MG CAP PO SCH ×2 (09:20)
[2021-10-07] MEDS: ATENOLOL 50 MG TABLET PO SCH ×2 (09:20→09:21)
[2021-10-07] MEDS: MIRABEGRON ER 25 MG TAB PO SCH ×2 (09:20→09:21)
[2021-10-07] MEDS: APIXABAN 5 MG TABLET PO SCH ×2 (09:20)
[2021-10-07] MEDS: DOCUSATE SODIUM/SENNA 50/8.6MG TAB PO SCH ×2 (09:20→09:21)
[2021-10-07] MEDS: CYANOCOBALAMIN (B-12) 500 MCG TABLET PO SCH ×2 (09:20→09:21)
[2021-10-07] MEDS: CALCIUM CARBONATE 1250MG TAB PO SCH ×2 (09:20)
[2021-10-07] MEDS: ESCITALOPRAM OXALATE 10 MG TAB PO SCH ×2 (09:20)
[2021-10-07] MEDS: POLYETHYLENE (MIRALAX) 17 GM PACK PO SCH (09:21)
--- NOTE | 2021-10-07 09:38 | History & Physical Bridge Note ---
Date of Service October 07, 2021 History & Physical Bridge Note I have examined the patient, reviewed the History & Physical and in the interval since the performance of the History & Physical I have noted the following changes of clinical significance: no changes noted. Keep NPO & proceed with EGD for further evaluation of dysphagia at the patient & family's request. Proceed with EGD. risks/benefits and procedure discussed with patient, who agrees to proceed
--- NOTE | 2021-10-07 10:44 | XRay Report ---
XR chest 1V portable CLINICAL HISTORY: sob. Follow-up interstitial edema COMPARISON STUDY: 10/06/2021 TECHNIQUE: 1 view of the chest FINDINGS: Single frontal view of the chest demonstrates the heart to again be enlarged. Compared to the previou s study, there has been partial resolution of diffuse interstitial edema. Central vascular congestion is again seen. Large, loculated right pleural effusion is again seen with right middle lobe and righ t lower lobe atelectasis. There is also minimal blunting of left costophrenic angle. No confluent michelle eolar opacities are identified. There is no acute osseous pathology. IMPRESSION: 1. Compared to the previous study, there has been partial resolution of diffuse interstitial edema. 2. Central vascular congestion remains present. 3. Large loculated right pleural effusion is again seen with evidence for small left pleural effusion as well. ACT 112: Negative or not required by law. Electronically signed by: García Pelaez M.D. 10/07/2021 10:42 AM
--- NOTE | 2021-10-07 12:15 | Anesthesiology Consultation ---
Date of Service October 07, 2021 Assessment & Plan (1) Encounter for pre-operative examination: Chart Review Chart Review: Acceptable Risk for Surgery, Patient NOT seen in Pre Admission Testing and traffic checker initiated Consults Requested none Proposed Anesthesia Anesthesia Type: MAC History Surgery Operation Date: 09/25/21 09:50 Proposed Procedures p Left Hip Hemiarthroplasty - Camron Antoine MD Operation Date: 09/26/21 12:30 Proposed Procedures p Left Hip Hemiarthroplasty - Francisco Justin MD Operation Date: 10/07/21 16:30 Proposed Procedures p Esophagogastroduodenoscopy Dr. Gomez - Joseluis Gomez MD Height/Weight Height: 5 ft 4 in Weight: 69.2 kg Allergies Allergy/AdvReac Type Severity Reaction Status Date / Time prednisone Allergy Mild Rash Verified 09/24/21 16:09 Medications Home Medications Medication Instructions Recorded Confirmed Last Taken lutein 20 mg capsule 20 mg PO DAILY cap 02/25/19 09/24/21 02/10/21 raloxifene 60 mg tablet 60 mg PO QPM tab 02/25/19 09/24/21 02/10/21 acetaminophen 650 mg 650 - 1,300 mg PO Q8H PRN 01/15/20 09/24/21 Unknown tablet,extended release (Tylenol Arthritis Pain) garlic 1,000 mg capsule 1,000 mg PO DAILY 01/15/20 09/24/21 02/10/21 cyanocobalamin (vitamin B-12) 1,000 mcg PO DAILY 10/11/20 09/24/21 02/10/21 1,000 mcg tablet (Vitamin B-12) donepezil 5 mg tablet 5 mg PO DAILY 10/11/20 09/24/21 02/10/21 escitalopram oxalate 10 mg tablet 10 mg PO DAILY 10/11/20 09/24/21 02/10/21 hydroxyurea 500 mg capsule See Rx Instructions .ROUTE .COMPLEX 10/11/20 09/24/21 02/10/21 meclizine 12.5 mg tablet 12.5 mg PO TID PRN 10/11/20 09/24/21 Unknown mirabegron 25 mg tablet,extended 25 mg PO DAILY 10/11/20 09/24/21 02/10/21 release 24 hr (Myrbetriq) atenolol 50 mg tablet 50 mg PO DAILY 01/17/21 09/24/21 02/10/21 furosemide 80 mg tablet 80 mg PO DAILY 01/17/21 09/24/21 02/10/21 apixaban 5 mg tablet 5 mg PO BID 02/10/21 09/24/21 02/10/21 Saccharomyces boulardii 1 cap PO DAILY 09/24/21 09/24/21 Unknown ibuprofen 200 mg tablet 200 mg PO Q8 PRN 09/24/21 09/24/21 Unknown methylcellulose (with sugar) oral 1 ea PO DAILY PRN 09/24/21 09/24/21 Unknown powder (Citrucel (sucrose)) nitrofurantoin macrocrystal 50 mg 50 mg PO DAILY 09/24/21 09/24/21 Unknown capsule ondansetron HCl 4 mg tablet 4 mg PO Q6 PRN 09/24/21 09/24/21 Unknown ergocalciferol (vitamin D2) 1,250 50,000 unit PO Bhakta@0900 #4 cap 10/02/21 Unknown mcg (50,000 unit) capsule polyethylene glycol 3350 17 gram 17 g PO BID #60 ea 10/02/21 Unknown oral powder packet (Miralax) sennosides 8.6 mg-docusate sodium 2 tab PO QAM #60 tab 10/02/21 Unknown 50 mg tablet (Senokot-S) Active Medications Generic Name Dose Route Start Last Admin Trade Name Freq PRN Reason Stop Dose Admin Acetaminophen 1,000 mg 09/29/21 08:48 10/06/21 14:07 Acetaminophen 500 Mg Tab PO 10/24/21 20:32 1,000 mg Q8 PRN Administration Pain or Fever Al Hydrox/Mg Hydrox/Simethicone 15 ml 09/24/21 20:33 10/02/21 17:58 Aluminum/Magnesium Susp 30 Ml Udc PO 10/24/21 20:32 15 ml Q4H PRN Administration Dyspepsia Apixaban 5 mg 10/01/21 21:00 10/07/21 09:20 Apixaban 5 Mg Tablet PO 10/31/21 20:59 5 mg BID ZAC Administration Atenolol 50 mg 09/25/21 09:00 10/07/21 09:21 Atenolol 50 Mg Tablet PO 10/25/21 08:59 50 mg DAILY ZAC Administration Calcium Carbonate 1,250 mg 09/27/21 21:00 10/07/21 09:20 Calcium Carbonate 1250mg Tab PO 10/27/21 20:59 1,250 mg BID ZAC Administration Cyanocobalamin 1,000 mcg 09/25/21 09:00 10/07/21 09:21 Cyanocobalamin (B-12) 500 Mcg Tablet PO 10/25/21 08:59 1,000 mcg DAILY ZAC Administration Donepezil HCl 5 mg 09/25/21 09:00 10/07/21 09:21 Donepezil Hcl 5 Mg Tab PO 10/25/21 08:59 5 mg DAILY ZAC Administration Ergocalciferol 50,000 units 09/29/21 09:00 10/06/21 08:46 Ergocalciferol 50,000 Units 1250 Mcg Cap PO 10/29/21 08:59 Not Given Bhakta@0900 ZAC Escitalopram Oxalate 10 mg 09/25/21 09:00 10/07/21 09:20 Escitalopram Oxalate 10 Mg Tab PO 10/25/21 08:59 10 mg DAILY ZAC Administration Hydromorphone HCl 0.5 mg 10/07/21 01:14 10/07/21 10:00 Hydromorphone Inj 0.5 Mg/0.5 Ml Syr IV 10/21/21 01:13 0.5 mg Q3H PRN Administration Pain Mirabegron 25 mg 09/25/21 09:00 10/07/21 09:21 Mirabegron Er 25 Mg Tab PO 10/25/21 08:59 25 mg DAILY ZAC Administration Ondansetron HCl 4 mg 10/02/21 18:01 10/02/21 18:06 Ondansetron 4 Mg Od Tab PO 11/01/21 18:00 4 mg Q4H PRN Administration Nausea And Vomiting Polyethylene Glycol 17 gm 09/30/21 21:00 10/07/21 09:21 Polyethylene (Miralax) 17 Gm Pack PO 10/30/21 20:59 Not Given BID ZAC Raloxifene HCl 60 mg 09/24/21 21:00 10/06/21 20:48 Raloxifene Hcl 60 Mg Tab PO 10/24/21 20:59 60 mg QPM ZAC Administration Saccharomyces Boulardii 250 mg 09/30/21 09:00 10/07/21 09:20 Saccharomyces Boulardii 250 Mg Cap PO 10/30/21 08:59 250 mg DAILY ZAC Administration Senna/Docusate Sodium 2 tab 10/01/21 09:00 10/07/21 09:21 Docusate Sodium/Senna 50/8.6mg Tab PO 10/31/21 08:59 2 tab QAM ZAC Administration NPO Date Last Intake of Fluids: 09/25/21 Time Last Intake of Fluids: 23:00 Date Last Intake of Solids: 09/25/21 Time Last Intake of Solids: 02:00 Past Medical History Medical History A-fib Actinic keratosis Arthritis Blood disease Cellulitis Chest pain Chest pain Chronic diastolic CHF (congestive heart failure) CKD (chronic kidney disease) stage 3, GFR 30-59 ml/min Confusion Dizziness Dyslipidemia Encounter for pre-operative examination Fever GI bleed Heart palpitations History of basal cell carcinoma History of squamous cell carcinoma History of squamous cell carcinoma in situ of skin Hyperlipidemia Hypertension Hypertension Neoplasm of uncertain behavior of skin Osteopenia Peripheral vertigo Polycythemia vera (~08/2011) Polycythemia vera Sensorineural hearing loss (SNHL) of both ears Venous stasis ulcer Past Family History Family History Mother Hypertension Father Myocardial infarction Past Surgical History Surgical History H/O eye surgery History of cholecystectomy Social History Smoking Status: Never smoker Hx Alcohol Use: No Hx Substance Use: No Physical Exam Vital Signs Last Vital Signs Temp 36.8 C 10/07/21 11:06 Pulse 72 10/07/21 11:06 Resp 18 10/07/21 11:06 BP 105/64 10/07/21 11:06 Pulse Ox 95 10/07/21 11:06 Testing Laboratory Results 10/06/21 17:58 10/07/21 05:52 PT 12.0 Seconds (9.0-12.0) 10/06/21 17:58 INR 1.1 (0.9-1.1) 10/06/21 17:58 APTT 30.1 Seconds (21.0-31.0) 10/06/21 17:58 Urine Color Yellow 09/24/21 Unknown Urine Appearance Cloudy (Clear) A 09/24/21 Unknown Urine pH 5.0 (4.5-7.5) 09/24/21 Unknown Ur Specific [place] 1.010 (1.000-1.030) 09/24/21 Unknown Urine Protein Trace (Negative) H 09/24/21 Unknown Urine Glucose (UA) Negative (Negative) 09/24/21 Unknown Urine Ketones Negative (Negative) 09/24/21 Unknown Urine Nitrite Positive (Negative) A 09/24/21 Unknown Ur Leukocyte Esterase 2+ (Negative) H 09/24/21 Unknown Urine WBC (Auto) >30 /hpf (0-5) H 09/24/21 Unknown Urine RBC (Auto) 0-4 /hpf (0-4) 09/24/21 Unknown U Hyaline Cast (Auto) 1-5 /lpf (0-5) 09/24/21 Unknown U Epithel Cells (Auto) 0-5 /lpf (0-5) 09/24/21 Unknown Urine Bacteria (Auto) 3+ (Negative) H 09/24/21 Unknown Blood Type A Negative 09/25/21 07:29 Antibody Screen NEGATIVE 09/25/21 07:29 09/25/21 Unknown Acid Fast Bacilli Smear - Final Pleural Fluid Acid Fast Bacilli Culture - Preliminary No Acid-Fast Bacilli Isolated - Report 2, Additional Report to Follow. 09/25/21 Unknown Gram Stain - Final Pleural Fluid Aerobic and Anaerobic Culture - Final No growth 09/24/21 Unknown Urine Culture - Final Urine,Straight Cath Escherichia coli Electrocardiogram Date: 09/24/21 Poor data quality, interpretation may be adversely affected Sinus rhythm with Premature atrial complexes, rate 68 bpm Left bundle branch block Abnormal ECG When compared with ECG of 10-FEB-2021 19:23, Premature atrial complexes are now Present Nonspecific T wave abnormality, worse in Lateral leads Confirmed by Rahat Tran ([id number]) on 09/24/2021 5:11:58 PM Chest X-Ray Date: 09/24/21 IMPRESSION: 1. Large right pleural effusion results in partial collapse of the right lung. 2. Cardiomegaly with vascular congestion and reticular interstitial opacities suggestive of pulmonary edema versus interstitial pneumonitis. Echocardiogram Date: 09/25/21 EF: 55-60% Moderate TR
--- NOTE | 2021-10-07 14:09 | Communication Note ---
Date of Service: October 07, 2021 after discussion with anesthesia, it was determined that patient is too high risk to undergo EGD at this time. conveyed this to primary team. procedure can celled. Joseluis Gomez MD Gastroenterology
--- NOTE | 2021-10-07 22:17 | Electrocardiogram Report ---
Test Reason : Blood Pressure : / mmHG Vent. Rate : 078 BPM Atrial Rate : 078 BPM P-R Int : 154 ms QRS Dur : 140 ms QT Int : 406 ms P-R-T Axes : 015 -04 123 degrees QTc Int : 462 ms Normal sinus rhythm Premature atrial complexes Left bundle branch block Abnormal ECG When compared with ECG of 24-SEP-2021 14:40, QT has shortened Confirmed by Ariel Montague ([id number]) on 10/07/2021 10:17:02 PM Referred By: [facility] Confirmed By:Ariel Montague
--- NOTE | 2021-10-09 11:43 | Coding Query ---
CODING QUERY To promote full compliance with coding requirements relating to patient care, provider participation is requested in all cases of sourcing consultant uncertainty. Please assist us with the question(s) below: Coding Question(s): Hypoxia is documented on the ER, H&P, some Progress Notes and Discharge Summary, however, the 09/25 Pulmonary Consultation and all Pulmonary Progress Notes document, Acute respiratory failure with hypoxia. Please, specify below, in your clinical opinion. ( x ) Acute Respiratory Failure with Hypoxia ( ) Hypoxia with No Acute Respiratory Failure ( ) Other: Please Specify Physician's Response(s): Thank you Paola Quiroga Principal Diagnosis: "that condition established after study, to be chiefly responsible for occasioning the admission of the patient to the hospital for care." Co-Existing Principal Diagnosis: "when two or more diagnoses equally meet the criteria for principal diagnosis as determined by the circumstances of admission, diagnostic work up, and/or therapy provided, and the Alphabetic Index, Tabular List, or another coding guideline does not provide sequencing direction, any one of the diagnoses may be sequenced first." "When the physician has documented what appears to be a current diagnosis in the body of the record, but has not included the diagnosis in the final diagnostic statement, the physician should be asked whether the diagnosis should be added." ([facility]oding [facility] 2 QTR90. p3-4) HIRO
== END 2021-10-07 16:39 | disposition hospice, inpatient (51) | DRG 521 ==
LOC: ED 13:39 → EDINP 17:57 → SUATTDRO 17:57 → 2S 19:19 → 2N 09-27 17:58